=== PATIENT | male | born 1940 | race Caucasian/White ===

== ENCOUNTER → 2018-06-29 | Outpatient (CLI) | payer OTHER ==
--- NOTE | 2018-06-29 13:49 | Diagnostic Imaging Report ---
INDICATION: Shortness of breath for 6 weeks. TIME OF EXAMINATION: 1:14 PM. COMPARISON: No prior studies are available for comparison. FINDINGS: The heart is enlarged. The lungs are hyperinflated, consistent with COPD. There are some basilar interstitial changes. The chronicity of this is indeterminate. There may be trace pleural fluid or pleural thickening. No parenchymal consolidation is identified. There is no pneumothorax. IMPRESSION: Cardiomegaly and COPD. There are some mild interstitial changes. Chronicity of this is indeterminate. Dictated by: Dictated on workstation # [id number]
== END ==
LOC: RAD FS 13:08
PROVIDERS: ATTEND Family Medicine
DX: I25.10 Atherosclerotic heart disease of native coronary artery without angina pectoris (principal); I51.7 Cardiomegaly; J44.9 Chronic obstructive pulmonary disease, unspecified; J84.9 Interstitial pulmonary disease, unspecified
CPT/HCPCS: 71046

== ENCOUNTER 2018-10-09 08:41 | Outpatient (RCR) | payer MEDICARE, OTHER ==
[2018-07-12 14:30] LABS: INR 2.2 (0.8-1.4); PROTHROMBIN TIME PATIENT 24.4 SEC (12.2-14.7)
[2018-08-13 10:03] LABS: INR 2.6 (0.8-1.4); PROTHROMBIN TIME PATIENT 29.3 SEC (12.2-14.7)
[2018-09-10 09:16] LABS: INR 2.1 (0.8-1.4); PROTHROMBIN TIME PATIENT 24.5 SEC (12.2-14.7)
[2018-10-09 09:26] LABS: INR 1.8 (0.8-1.4); PROTHROMBIN TIME PATIENT 22.1 SEC (12.2-14.7)
== END 2018-10-10 | disposition home or self-care (01) ==
LOC: LAB FS 08:41
PROVIDERS: ATTEND Pediatrics
DX: I48.91 Unspecified atrial fibrillation (principal)
CPT/HCPCS: 36415; 85610

== ENCOUNTER → 2018-10-26 | Outpatient (CLI) | payer MEDICARE ==
--- NOTE | 2018-10-26 14:01 | Diagnostic Imaging Report ---
INDICATION: SOB COMPARISON: 06/29/2018. FINDINGS: Frontal and lateral views of the chest demonstrate mild cardiomegaly. Pulmonary vasculature however is within normal limits. The lungs are clear. There are no signs of infiltrate, pleural effusions or pneumothoraces. The visualized osseous structures show no acute abnormalities. IMPRESSION: 1. No acute process. No signs of infiltrates, effusions or pneumothoraces. Dictated by: Dictated on workstation # [id number]
== END ==
LOC: RAD 13:43
PROVIDERS: ATTEND Pediatrics
DX: R06.02 Shortness of breath (principal)
CPT/HCPCS: 71046

== ENCOUNTER → 2018-10-29 | Outpatient (CLI) | payer MEDICARE ==
[~2018-10-29] MED LIST: RT-ALBUTEROL SULF 2.5 MG/3 ML PRE-MIX VIAL INH ONE
== END ==
LOC: RT 10:07
PROVIDERS: ATTEND Pediatrics
DX: R06.02 Shortness of breath (principal)
CPT/HCPCS: 94060; 94726; 94729

== ENCOUNTER 2019-02-25 08:55 | Outpatient (RCR) | payer MEDICARE ==
[2018-12-10 10:17] LABS: INR 1.5 (0.8-1.4); PROTHROMBIN TIME PATIENT 18.6 SEC (12.2-14.7)
[2019-01-14 08:48] LABS: INR 2.9 (0.8-1.4); PROTHROMBIN TIME PATIENT 31.2 SEC (12.2-14.7)
[2019-02-04 09:14] LABS: INR 1.5 (0.8-1.4)
[2019-02-18 09:31] LABS: INR 3.3 (0.8-1.4); PROTHROMBIN TIME PATIENT 34.8 SEC (12.2-14.7)
[2019-02-25 09:47] LABS: INR 2.4 (0.8-1.4); PROTHROMBIN TIME PATIENT 27.3 SEC (12.2-14.7)
== END 2019-03-10 | disposition home or self-care (01) ==
LOC: LAB FS 08:55
PROVIDERS: ATTEND Pediatrics
DX: I48.91 Unspecified atrial fibrillation (principal)
CPT/HCPCS: 36415; 85610

== ENCOUNTER 2019-04-08 08:36 | Outpatient (RCR) | payer MEDICARE ==
[2019-04-08 10:00] LABS: INR 1.9 (0.8-1.4); PROTHROMBIN TIME PATIENT 22.6 SEC (12.2-14.7)
== END 2019-07-07 | disposition home or self-care (01) ==
LOC: LAB FS 08:36
PROVIDERS: ATTEND Pediatrics
DX: I48.91 Unspecified atrial fibrillation (principal)
CPT/HCPCS: 36415; 85610

== ENCOUNTER → 2020-10-26 | Outpatient (CLI) | payer MEDICARE | LOC: WOUNDCARE 08:56 | PROVIDERS: ATTEND Surgery | DX: L03.115 Cellulitis of right lower limb (principal); I89.0 Lymphedema, not elsewhere classified; I87.321 Chronic venous hypertension (idiopathic) with inflammation of right lower extremity; J44.9 Chronic obstructive pulmonary disease, unspecified | CPT/HCPCS: 99211 ==

== ENCOUNTER 2020-12-03 14:25 | Emergency (ER) | payer MEDICARE, OTHER ==
[~2020-12-03] VITALS: Ht 182.9 cm; Wt 117.9 kg
--- NOTE | 2020-12-03 14:36 | ED Head Injury ---
General Stated Complaint: FALL; HEAD INJ History of Present Illness Date Seen by Provider: Dec 03, 2020 Time Seen by Provider: 14:33 Initial Comments 80-year-old male presents after a fall he had earlier today. States he was bending over to pick something off the floor and he fell backwards hitting his head on the ground. Denies any loss of consciousness, feeling dazed or confused. He did have some bleeding from the scalp that is now controlled. Afterwards he had some blurred vision in his right eye which has been gradually improving. Denies any blind spots or loss of vision. Denies any weakness, joint pain, neck or back pain or other complaint. He does take blood pressure medicine and a "blood thinner". Allergies and Home Medications Allergies Coded Allergies: No Known Drug Allergies (Unverified , 10/29/18) Patient Home Medication List Home Medication List Reviewed: Yes Review of Systems Review of Systems Constitutional: No fever, No malaise, No weakness Eyes: See HPI, Blurred Vision; Denies Drainage, Denies Decreased Acuity, Denies Inflammation, Denies Pain, Denies Photophobia; Glasses Ears, Nose, Mouth, Throat: no symptoms reported Respiratory: no symptoms reported Cardiovascular: No chest pain, No edema, No palpitations Gastrointestinal: No abdominal pain, No nausea, No vomiting Musculoskeletal: No back pain, No joint pain, No neck pain Skin: No change in color, No lesions; other (scalp injury- bleeding controlled) Psychiatric/Neurological: Headache; Denies Numbness, Denies Tingling, Denies Unable to Move Lower Ext, Denies Unable to Move Upper Ext, Denies Weakness Past Iggiuzc-Swcula-Zjghef Hx Patient Social History Tobacco Use?: No Physical Exam Vital Signs Vital Signs - First Documented Capillary Refill : Height, Weight, BMI Height: '" Weight: lbs. oz. kg; BMI Method: General Appearance: WD/WN, no apparent distress HEENT: PERRL/EOMI, normal ENT inspection Neck: non-tender, supple Cardiovascular: regular rate, rhythm, no edema, no JVD Respiratory: chest non-tender, lungs clear, normal breath sounds, no respiratory distress, no accessory muscle use Gastrointestinal: non tender, soft Back: normal inspection, no CVA tenderness Extremities: normal range of motion, non-tender Psychiatric: alert, oriented x 3 Crainal Nerves: normal hearing, normal speech Coordination/Gait: normal finger to nose, normal gait Motor/Sensory: no motor deficit, no sensory deficit, no pronator drift Skin: normal color, warm/dry, other (vertex scalp -contusion/ abrasion) Robert Coma Score Best Eye Response: (4) Open Spontaneously Best Verbal Response: (5) Oriented Best Motor Response: (6) Obeys Commands Progress/Results/Core Measures Results/Orders My Orders Orders - WILL BLAIR DO Ct Head Wo (12/03/20 14:36) Vital Signs/I&O 12/03/20 12/03/20 14:25 14:25 Temp 36.2 36.2 Pulse 82 82 Resp 18 18 B/P (MAP) 179/117 (137) 179/117 (137) Pulse Ox 99 99 O2 Delivery Room Air Room Air Diagnostic Imaging Diagonstic Imaging: CT Plain Films/CT/US/NM/MRI: head Comments COMPARISON: I have no priors for direct comparison. FINDINGS: There is a mild degree of cerebrocortical atrophy, not unremarkable given the patient's age. The ventricular calibers are congruent with the degree of sulcation and there is no keyanna hydrocephalus. Basilar cisterns are patent. No sulcal effacement. The cortical burrell-white matter differentiations are maintained. No mass or mass effect. No evidence for elevated intracerebral pressures. There is no calvarial fracture deformity. The mastoid air cells and middle ear cavities are clear. The orbits and paranasal sinuses are nonacute. IMPRESSION: Mild senescent atrophy but no hemorrhage, fracture, or other acute/post-traumatic abnormalities. No hemo-sinus and no detected facial fracture or appreciable orbital pathology. Dictated on workstation # [id number] Dict: 12/03/20 1456 Trans: 12/03/20 1502 [id number] [id number] Interpreted by: GELY HA Electronically signed by: Departure Impression Primary Impression: Head contusion Qualified Codes: S00.03XA - Contusion of scalp, 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 Additional Impression: Fall from ground level Disposition: 01 HOME, SELF-CARE Condition: Stable Departure-Patient Inst. Decision time for Depature: 14:53 Referrals: JEANINE INTERIANO MD (PCP/Family) Primary Care Physician Patient Instructions: Contusion (DC), Minor Head Injury (DC), Preventing Falls ED Add. Discharge Instructions: Follow up to the nearest ER for any progression of your symptoms, visual changes, worsening headache, confusion or persistent vomiting WILL BLAIR DO Dec 03, 2020 14:36
--- NOTE | 2020-12-03 15:03 | Diagnostic Imaging Report ---
PROCEDURE: CT head without contrast. TECHNIQUE: Multiple contiguous axial images were obtained through the brain without the use of intravenous contrast. Auto Exposure Controls were utilized during the CT exam to meet ALARA standards for radiation dose reduction. INDICATION: Post closed head injury with right-sided visual disturbance. COMPARISON: I have no priors for direct comparison. FINDINGS: There is a mild degree of cerebrocortical atrophy, not unremarkable given the patient's age. The ventricular calibers are congruent with the degree of sulcation and there is no keyanna hydrocephalus. Basilar cisterns are patent. No sulcal effacement. The cortical burrell-white matter differentiations are maintained. No mass or mass effect. No evidence for elevated intracerebral pressures. There is no calvarial fracture deformity. The mastoid air cells and middle ear cavities are clear. The orbits and paranasal sinuses are nonacute. IMPRESSION: Mild senescent atrophy but no hemorrhage, fracture, or other acute/post-traumatic abnormalities. No hemo-sinus and no detected facial fracture or appreciable orbital pathology. Dictated by: Dictated on workstation # [id number]
[2020-12-03 15:20] VITALS: BP 186/98
== END 2020-12-03 15:20 | disposition home or self-care (01) ==
LOC: EDUNIT# 14:25 → ER FS 14:26
DX: S00.03XA Contusion of scalp, 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 (principal); W22.8XXA Striking against or struck by other objects, 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
CPT/HCPCS: 70450

== ENCOUNTER → 2020-12-12 | Outpatient (CLI) | payer MEDICARE ==
[2020-12-12 10:55] LABS: INR 3.3 (0.8-1.4); PROTHROMBIN TIME PATIENT 33.6 SEC (12.2-14.7)
== END ==
LOC: LAB FS 10:13
PROVIDERS: ATTEND Pediatrics
DX: Z01.89 Encounter for other specified special examinations (principal)
CPT/HCPCS: 36415; 85610

== ENCOUNTER 2020-12-15 05:37 | Emergency (ER) | payer MEDICARE ==
[~2020-12-15] VITALS: Ht 182.9 cm; Wt 83.9 kg
--- NOTE | 2020-12-15 05:50 | ED Headache ---
General Chief Complaint: Head/Cervical Problems Stated Complaint: HEADACHE Nursing Triage Note: PT TO ROOM 01 WITH C/O MIGRAINE X3 DAYS. PT REPORTS TAKING TYLENOL 500MG AT 0500. PT REPORTS FALLING LAST MONDAY AND HIT HEAD ON DOOR. PT STATES HE WAS SEEN IN THIS ED FOR C/O AND DISCHARGED. History of Present Illness Date Seen by Provider: Dec 15, 2020 Time Seen by Provider: 05:50 Initial Comments 80-year-old male [facility] with complaint of headache and uncontrolled blood pressure for the past 5 days. Patient with history of hypertension and he takes metoprolol 200 mg daily, no other BP medicine. Patient has headache is in front of his head feels like it is throbbing, he has had it before. The nurses have been giving him Tylenol for his headache and nothing else. He denies any weakness, difficulty speech or swallowing. He does have swelling of his lower extremities, but no worse than usual. Denies chest pain, but does have some mild shortness of air. Denies recent illness, fever chills, nausea vomiting or cough. Allergies and Home Medications Allergies Coded Allergies: No Known Drug Allergies (Unverified , 10/29/18) Patient Home Medication List Home Medication List Reviewed: Yes Review of Systems Review of Systems Constitutional: No chills, No dizziness, No fever, No malaise, No weakness Eyes: Denies Blindness, Denies Blurred Vision Ears, Nose, Mouth, Throat: no symptoms reported Respiratory: No cough; short of breath; No stridor, No wheezing Cardiovascular: No chest pain; edema; No palpitations, No syncope Gastrointestinal: No abdominal pain; nausea; No vomiting Musculoskeletal: No back pain, No joint pain Skin: No change in color, No rash Psychiatric/Neurological: Headache; Denies Numbness, Denies Paresthesia Past Ipvfkbv-Zgkyvp-Artial Hx Patient Social History Tobacco Use?: No Smoking Status: Never a Smoker Substance use?: No Alcohol Use?: No Pt feels they are or have been: No Past Medical History Atrial Fibrillation, Hypertension Physical Exam Vital Signs Vital Signs - First Documented 12/15/20 05:38 Temp 36.5 Pulse 78 Resp 17 B/P (MAP) 197/111 (139) Pulse Ox 99 O2 Delivery Nasal Cannula O2 Flow Rate 2.00 Capillary Refill : Less Than 3 Seconds Height, Weight, BMI Height: '" Weight: lbs. oz. kg; 25.00 BMI Method: General Appearance: WD/WN, no apparent distress HEENT: PERRL/EOMI, normal ENT inspection Neck: non-tender, supple Cardiovascular: regular rate, rhythm, no JVD Respiratory: chest non-tender, lungs clear, no respiratory distress, no accessory muscle use Gastrointestinal: non tender, soft Back: normal inspection, no CVA tenderness Extremities: non-tender, pedal edema Psychiatric: alert, oriented x 3 Crainal Nerves: normal hearing, normal speech, PERRL Motor/Sensory: no motor deficit, no sensory deficit Skin: normal color, warm/dry Progress/Results/Core Measures Results/Orders Lab Results Laboratory Tests Test 12/15/20 05:55 Range/Units White Blood Count 16.3 H 4.3-11.0 10^3/uL Red Blood Count 4.23 L 4.35-5.85 10^6/uL Hemoglobin 14.6 13.3-17.7 G/DL Hematocrit 43 40-54 % Mean Corpuscular Volume 102 H 80-99 FL Mean Corpuscular Hemoglobin 35 H 25-34 PG Mean Corpuscular Hemoglobin Concent 34 32-36 G/DL Red Cell Distribution Width 13.3 10.0-14.5 % Platelet Count 134 130-400 10^3/uL Mean Platelet Volume 12.8 H 7.4-10.4 FL Immature Granulocyte % (Auto) 0 % Neutrophils (%) (Auto) 27 L 42-75 % Lymphocytes (%) (Auto) 67 H 12-44 % Monocytes (%) (Auto) 5 0-12 % Eosinophils (%) (Auto) 1 0-10 % Basophils (%) (Auto) 0 0-10 % Neutrophils # (Auto) 4.4 1.8-7.8 X 10^3 Lymphocytes # (Auto) 11.0 H 1.0-4.0 X 10^3 Monocytes # (Auto) 0.8 0.0-1.0 X 10^3 Eosinophils # (Auto) 0.1 0.0-0.3 10^3/uL Basophils # (Auto) 0.0 0.0-0.1 10^3/uL Immature Granulocyte # (Auto) 0.0 0.0-0.1 10^3/uL Neutrophils % (Manual) 35 % Lymphocytes % (Manual) 60 % Monocytes % (Manual) 3 % Atypical Lymphocytes 2 % Smudge Cells MOD Platelet Estimate DECREASED Macrocytosis MODERATE Blood Morphology Comment NORMAL Prothrombin Time 23.6 H 12.2-14.7 SEC INR Comment 2.1 H 0.8-1.4 Activated Partial Thromboplast Time 52 H 24-35 SEC Sodium Level 129 L 135-145 MMOL/L Potassium Level 4.3 3.6-5.0 MMOL/L Chloride Level 89 L 98-107 MMOL/L Carbon Dioxide Level 33 H 21-32 MMOL/L Anion Gap 7 5-14 MMOL/L Blood Urea Nitrogen 9 7-18 MG/DL Creatinine 0.90 0.60-1.30 MG/DL Estimat Glomerular Filtration Rate 81 BUN/Creatinine Ratio 10 Glucose Level 100 70-105 MG/DL Calcium Level 8.9 8.5-10.1 MG/DL Corrected Calcium 9.3 8.5-10.1 MG/DL Total Bilirubin 1.1 H 0.1-1.0 MG/DL Aspartate Amino Transf (AST/SGOT) 12 5-34 U/L Alanine Aminotransferase (ALT/SGPT) 6 0-55 U/L Alkaline Phosphatase 92 40-136 U/L Pro-B-Type Natriuretic Peptide 4942.0 H <75.0 PG/ML Total Protein 6.4 6.4-8.2 GM/DL Albumin 3.5 3.2-4.5 GM/DL My Orders Orders - CHANVENSTWILL PRUITT DO Ed Iv/Invasive Line Start (12/15/20 05:50) Ekg Tracing (12/15/20 05:50) Cbc With Automated Diff (12/15/20 05:50) Comprehensive Metabolic Panel (12/15/20 05:50) Probnp Fs (12/15/20 05:50) Ct Head Wo (12/15/20 05:57) Chest 1 View Ap/Pa Only (12/15/20 05:58) Labetalol Injection (Normodyne Injection (12/15/20 06:00) Ondansetron Injection (Zofran Injectio (12/15/20 06:00) Manual Differential (12/15/20 05:55) Partial Thromboplastin Time (12/15/20 06:38) Protime With Inr (12/15/20 06:38) Labetalol Injection (Normodyne Injection (12/15/20 07:15) Vitamin K 10 Mg Iv (12/15/20 07:45) Levetiracetam Injection (Keppra Injectio (12/15/20 07:35) Medications Given in ED Current Medications Medications Dose Ordered Sig/Pa Route Start Time Stop Time Status Last Admin Dose Admin Labetalol HCl 20 mg ONCE ONCE IV 12/15/20 06:00 12/15/20 06:01 DC 12/15/20 06:03 20 MG Labetalol HCl 20 mg ONCE ONCE IV 12/15/20 07:15 12/15/20 07:16 DC 12/15/20 07:10 20 MG Ondansetron HCl 4 mg ONCE ONCE IVP 12/15/20 06:00 12/15/20 06:01 DC 12/15/20 06:03 4 MG Vital Signs/I&O 12/15/20 05:38 Temp 36.5 Pulse 78 Resp 17 B/P (MAP) 197/111 (139) Pulse Ox 99 O2 Delivery Nasal Cannula O2 Flow Rate 2.00 Blood Pressure Mean: 139 Progress Progress Note : Progress Note 0633- called [facility] - only have beds for ICU admits and Neurosurgeon says he does not need ICU, diverted 0652- called [facility]- closed to transfer at all facilities 0655- called [facility] Initial ECG Impression Date: Dec 15, 2020 Initial ECG Impression Time: 06:00 Initial ECG Rate: 90 Initial ECG Rhythm: A Fib/Flutter Initial ECG Intervals: Normal Initial ECG Impression: Atrial Fibrillation Diagnostic Imaging Diagonstic Imaging: CT Comments Subdural hematoma Reviewed: Reviewed by Me Transfer of Care Time: 07:00 Care transferred to: Dr Gómez Departure Impression Primary Impression: Subdural hematoma, acute Additional Impressions: Headache Qualified Codes: R51.9 - Headache, unspecified Hypertension Qualified Codes: I10 - Essential (primary) hypertension Disposition: 01 HOME, SELF-CARE Condition: Improved Transfer Transfer Reason: Exceeds level of care Time Spoke to Accepting Phy: 07:35 Transfer Progress Notes 0735- [facility] spoke to transfer team (Dr Sandoval- accepting and Dr Gardner- Neurosurgeon) advised Vit K and 500mg Keppra pt stable BP to 134/70 Method of Transfer: EMS Departure-Patient Inst. Referrals: JEANINE INTERIANO MD (PCP/Family) Primary Care Physician WILL BLAIR DO Dec 15, 2020 05:50
[2020-12-15] MEDS ORDERED: ONDANSETRON 4 MG/2 ML (SDV) Z0FRAN IVP ONE (06:00)
[2020-12-15] MEDS ORDERED: LABETALOL HCL 20 MG/4 ML VIAL IV ONE ×2 (06:00→07:15)
[2020-12-15 06:12] LABS: BASOPHILS % (AUTO) 0 % (0-10); EOSINOPHILS % (AUTO) 1 % (0-10); HEMATOCRIT 43 % (40-54); HEMOGLOBIN 14.6 G/DL (13.3-17.7); LYMPHOCYTES % (AUTO) 67 % (12-44); MEAN CORPUSCULAR HEMOGLOBIN 35 PG (25-34); MEAN CORPUSCULAR HGB CONC 34 G/DL (32-36); MEAN CORPUSCULAR VOLUME 102 FL (80-99); MEAN PLATELET VOLUME 12.8 FL (7.4-10.4); MONOCYTES % (AUTO) 5 % (0-12); NEUTROPHILS % (AUTO) 27 % (42-75); PLATELET COUNT 134 10^3/uL (130-400); WHITE BLOOD COUNT 16.3 10^3/uL (4.3-11.0)
[2020-12-15 06:13] LABS: MONOCYTES # (AUTO) 0.8 X 10^3 (0.0-1.0); NEUTROPHILS # (AUTO) 4.4 X 10^3 (1.8-7.8)
[2020-12-15 06:14] LABS: EOSINOPHILS # (AUTO) 0.1 10^3/uL (0.0-0.3)
[2020-12-15 06:27] LABS: ATYPICAL LYMPHOCYTES 2 %; LYMPHOCYTES % (MANUAL) 60 %; MONOCYTES % (MANUAL) 3 %; NEUTROPHILS % (MANUAL) 35 %; PLATELET ESTIMATE DECREASED; RBC MORPH NORMAL; SMUDGE CELLS MOD
[2020-12-15 06:30] LABS: POTASSIUM 4.3 MMOL/L (3.6-5.0)
[2020-12-15 06:33] LABS: CREATININE SERUM 0.9 MG/DL (0.60-1.30)
[2020-12-15 06:34] LABS: BILIRUBIN,TOTAL 1.1 MG/DL (0.1-1.0); CALCIUM 8.9 MG/DL (8.5-10.1)
[2020-12-15 06:36] LABS: ALBUMIN 3.5 GM/DL (3.2-4.5); TOTAL PROTEIN 6.4 GM/DL (6.4-8.2)
[2020-12-15 06:57] LABS: INR 2.1 (0.8-1.4); PROTHROMBIN TIME PATIENT 23.6 SEC (12.2-14.7)
--- NOTE | 2020-12-15 07:19 | Diagnostic Imaging Report ---
PROCEDURE: CT head without contrast. TECHNIQUE: Multiple contiguous axial images were obtained through the brain without the use of intravenous contrast. Auto Exposure Controls were utilized during the CT exam to meet ALARA standards for radiation dose reduction. INDICATION: Headache for [address] head exam of 12/03/2020 failed to show any sign of an acute intracranial abnormality. However in the interval since the prior exam an acute/subacute subdural hematoma has developed along the periphery of the left cerebral hemisphere. The hematoma measures approximately 1.3 cm maximum depth. There is also mass effect on the underlying left cerebral hemisphere resulting in 6.2 mm shift of the midline to the right. In addition there is fairly extensive hemorrhage in the subdural space adjacent to the tentorium and falx. There is no intraparenchymal hemorrhage noted. The ventricles are not quite as prominent as on the prior study due to the underlying mass effect caused by the subdural hematoma. The bone windows show no evidence for a skull fracture. The orbits are symmetrical and within normal limits. The sinuses are generally clear. IMPRESSION: 1. In the interval since the prior exam an acute/subacute subdural hematoma has developed on the left. There is also hemorrhage in the subdural space adjacent to the falx and along the tentorium. The subdural hematoma is producing mass effect upon the underlying left cerebral hemisphere resulting in 6 mm shift of midline to the right. 2. There is no acute intracranial abnormality otherwise. 3. These results were discussed with Dr. Florencio Keating at the [facility] at 650 on 12/15/2020. CRITICAL FINDING Dictated by: Dictated on workstation # [id number]
--- NOTE | 2020-12-15 07:41 | Diagnostic Imaging Report ---
EXAMINATION: Portable erect AP chest at 5:56 AM INDICATION: Fell, migraines, hypertension. The cardiomegaly noted on the prior exam of 10/26/2018 is again evident and not significantly changed. In the interval since the prior study, however, a vague area of increased density has developed in the left retrocardiac region. This region is not particularly well penetrated but I suspect that there is some atelectasis/infiltrate and fluid now present in this area. There is also a vague area of slightly increased density about the right hilum. This too could be related to mild pneumonia/atelectasis. The lungs are otherwise clear. The mediastinum is not widened. The osseous structures are intact. IMPRESSION: The appearance of the chest has worsened since the prior study as mild left lobe atelectasis/infiltrate and fluid has developed. There may also be a small amount of pneumonia/atelectasis about the right hilum. A follow-up study would be recommended for continued evaluation. Dictated by: Dictated on workstation # [id number]
[2020-12-15] MEDS ORDERED: PHYTONADIONE (ADULT) INJECTION 10 MG in NS (IVPB) 50 ML IV ONE (07:45)
[2020-12-15 08:11] VITALS: BP 102/60
--- OUTSIDE RECORDS SUMMARY | 2020-12-15 22:03 | XMS REPORT | Encounter Summary ---
Author Author [facility] Organization [facility] Address Unknown Phone Unavailable Care Team Providers Care Project Technician Name Role Phone PCP Unavailable Reason for Visit * Reason Comments Transfer Of Care from [facility] with SDH Encounter Details Care Team Description Date Type Department Jaxon Silva MD [address] [facility] Dept of Emergency Services [place], [place] [id number] Beto Muro MD [address] [facility] [address] [place], [place] [id number] SDH (subdural hematoma) (HCC) (Primary D x); Acute neck pain; Acute pain due to trauma; Fall, 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; 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; Traumatic subdural hematoma with loss of consciousness, 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 (HCC) [facility] [address] [place], [place] [id number] Social History Date Tobacco Use Types Packs/Day Years Used Never Assessed Sex Assigned at Date Recorded Not on file documented as of this encounter Last Filed Vital Signs Reading Time Taken Comments Vital Sign 124/75 12/15/2020 7:00 PM CDT Blood Pressure 86 12/15/2020 7:00 PM CDT Pulse 36.4 C (97.5 F) 12/15/2020 4:00 PM CDT Temperature 17 12/15/2020 7:00 PM CDT Respiratory Rate 94% 12/15/2020 7:00 PM CDT Oxygen Saturation - - Inhaled Oxygen Concentration 117.9 kg (260 lb) 12/15/2020 9:47 AM CDT Weight - - Height - - Body Mass Index documented in this encounter Progress Notes * Sangeeta Foley PA-C - 12/15/2020 4:58 PM CDT Preliminary radiology read shows subacute L1 and L3 fractures. Will discuss if a ny bracing is recommended with Dr. Jorge when he is available. For the time alfred guerreroamnuel, it is ok for the patients bed to be raised to 30 degrees. Repeat CTH shows stability of his areas of SDH. No surgical intervention is bony mmended at this time unless the patients exam deteriorates which would warrant a nother CTH. CT cervical spine appears neg for fracture, we are awaiting final read. SCD for DVT ppx Sangeeta MONAHAN PA-C [facility] [facility], [address] [place] [address] Available via Voalte. After 5 pm and on weekends please call the construction plumber provider or [phone] * Alex Thapa PA - 12/15/2020 11:20 AM CDT Critical Care Progress Note PATIENT NAME: Abner Thomas DATE of SERVICE: 12/15/2020 CPI: [id number] AGE: 80 y.o. : 1940 CHIEF COMPLAINT: Fall DATE OF PROCEDURES: None HOSPITAL COURSE: Abner Thomas is a 80 year old male with past medical hx of a fib on [facility] a nticoagulant. Seen at OSH ED for fall 5 days ago, CT head was negative for ICH. He woke up with a headache this morning 12/15/2020 and returned to OSH ED. CT hea d today showed 13mm left subdural hematoma with 6mm shift. He was given Vitamin K at OSH. Prior to transport he had decrease mental status and blood pressure in 90s. Upon arrival to [facility] ED, patient awake and bp in 140s. He was given K Centra for reversal and keppra for seizure prophylaxis. INR was 1.[address] in ED[address] Repeat Head CT showed stable left subdural hematoma and increase in posterior falcine darshan lisbeth. Started on cardene gtt in ED to meet blood pressure goals. Admitted to [facility] for close monitoring. PAST MEDICAL HISTORY: No past medical history on file. PAST SURGICAL HISTORY: No past surgical history on file. SOCIAL HISTORY: Social History Socioeconomic History Marital status: Spouse name: Not on file Number of children: Not on file Years of education: Not on file Highest education level: Not on file Occupational History Not on file Tobacco Use Smoking status: Not on file Substance and Sexual Activity Alcohol use: Not on file Drug use: Not on file Sexual activity: Not on file Other Topics Concern Not on file Social History Narrative Not on file Social Determinants of Health Financial Resource Strain: Difficulty of Paying Living Expenses: Food Insecurity: Worried About Running Out of Food in the Last Year: Ran Out of Food in the Last Year: Transportation Needs: Lack of Transportation (Medical): Lack of Transportation (Non-Medical): Physical Activity: Days of Exercise per Week: Minutes of Exercise per Session: Stress: Feeling of Stress : Social Connections: Frequency of Communication with Friends and Family: Frequency of Social Gatherings with Friends and Family: Attends [employer] Services: Active Member of Clubs or Organizations: Attends Club or Organization Meetings: Marital Status: Intimate Partner Violence: Fear of Current or Ex-Partner: Emotionally Abused: Physically Abused: Sexually Abused: FAMILY HISTORY: No family history on file. ALLERGIES: Patient has no known allergies. PRIOR TO ADMISSION MEDICATIONS: No medications prior to admission. 24-HOUR HISTORY/EVENTS OF NOTE: Admitted to NSICU. SBP <140. NSGY consult. ROS: 10 points reviewed and found positive except as noted in the HPI, or below: Cons t: Negative Eyes: Negative ENMT: Headache Pulm: Shortness of breath and Uses oxygen CV: Negative GI: Negative /CARE TEAM COORDINATOR SCHEDULER: Increase frequency of urination Neuro: Weakness Psych: Negative MS: Recent falls and Right lower extremity weakness Skin: Negative Heme/Lymph: On coumadin PHYSICAL EXAM: Vitals: BP (!) 143/94 | Pulse 86 | Temp 36.3 C (97.4 F) (Axillary) | Resp 20 | W t 117.9 kg (260 lb) | SpO2 97% Respiratory Support: O2 Device: Nasal cannula O2 Flow Rate (L/min): 3 L/min T-High: Temp (24hrs), Av.4 C (97.6 F), Min:36.3 C (97.4 F), Max:36.6 C (97 .8 F) Fluid Balance: I/O last 24 Hours: In: 5.7 [I.V.:5.7] Out: - General Appearance: Lying in bed, no acute distress Neurologic: AAOx3. Speech is fluent and appropriate. Responds to voice. No facial droop present. Decrease sensation RUE and RLE RUE Strength 2/5 RLE withdrawal to painful stimuli. Unable to wiggle toes LUE Strength 5/5, no pronator drift LLE Strength 5/5, no drift HEENT: Eyes: Pupils 2 mm, equal, round and reactive to light. EOMs intact witho ut nystagmus. Sclera white, no edema. Visual calderón intact. Head: normocephalic, atraumatic. Neck: Trachea midline. No JVD. C-collar in place. Throat/Mouth: ora l mucosa pink, no lesions Lungs: Bilateral Expiratory Wheezes, no accessory muscle use Heart: Iregular rate and rhythm, S1/S2, no murmur, no rub Abdomen: Soft, non-tender, bowel sounds active all four quadrants Genitourinary: Deferred Extremities: Extremities normal passive ROM, no edema Pulses/Perfusion: 2+ pulses radial and dorsalis pedis, warm and well perfused Skin: No rashes or lesions Surgical Site: None LAB RESULTS: No lab components to display Most Recent Result from last 24 hours Lab Units 12/15/20 1022 SODIUM MEQ/L 126* POTASSIUM MEQ/L 4.6 CHLORIDE MEQ/L 89* CARBON DIOXIDE MEQ/L 34* BLOOD UREA NITROGEN mg/dL 12 CREATININE mg/dL 0.7 GLUCOSE mg/dL 120* CALCIUM mg/dL 7.9* Most Recent Result from last 24 hours Lab Units 12/15/20 1022 PROTEIN TOTAL SERUM g/dL 5.2* ALKALINE PHOSPHATASE IU/L 61 ALANINE AMINOTRANSFERASE IU/L 10 ASPARTATE AMINOTRANSFERASE IU/L 21 GLUCOSE mg/dL 120* No lab components to display Most Recent Result from last 24 hours Lab Units 12/15/20 1022 APTT sec 35* INR 1.3* ABG: No lab components to display Cultures: No results found for this visit on 12/15/20. ECHOCARDIOGRAPHY: No results found. RADIOLOGY/IMAGING: CT Abdomen Pelvis w contrast Result Date: 12/15/2020 1. No evidence for acute injury within the abdomen or pelvis. 2. 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 No extravasated contrast within aneurysm sac to suggest visible endoleak. Recommend correlation with prior cross sectional imaging. 3. 3.3 cm inferior right hepatic lobe previously enhancing lesion, possibly a benign cavernous hemangioma. Correlate with prior cross sectional imaging to confirm resolution. 4. Nonspecific mild presacral fat stranding. Correlate clinically to exclude a subtle nondisplaced sacrococcygeal fracture. READING SITE: [facility] Chest w contrast Result Date: 12/15/2020 1. No evidence of pulmonary contusion/laceration, pleural effusion/pneumothorax, vascular injury or acute displaced fracture. Subacute fractures along the right lateral rib cage (7th and 8th right lateral ribs). 2. Few diminutive pulmonary nodules bilaterally. In this patient with emphysema and increased risk for lung cancer, annual surveillance could be beneficial in the long-term. 3. Cardiomegaly. Coronary atherosclerosis. READING SITE: [employer] XR Chest single view frontal Result Date: 12/15/2020 Question small left pleural effusion. No pneumothorax. No focal consolidation. Consider further evaluation with PA and lateral chest radiograph. READING SITE: [employer] XR Pelvis one or two views Result Date: 12/15/2020 No evidence of fracture. READING SITE: [facility] MEDICATIONS: INFUSIONS: niCARdipine 5 mg/hr (12/15/20 1026) ICU BEST PRACTICE: CODE STATUS: DNR (Do Not Resuscitate) LOS: 0 DELIRIUM PRESENT: No SEDATION VACATION: N/A SBT: N/A DIET: NPO, strict GI PROPHYLAXIS: Not indicated GLYCEMIC CONTROL: Yes VTE PREVENTION: SCDs Hold subq heparin and coumadin BARRY: No Barry LINES: PIV x1 DRAINS: None AIRWAY: Not Intubated ANTIBIOTIC REVIEW: N/A MAR/HOME MED REVIEW: Yes BOWEL REGIMEN: Yes BM LAST 48 HRS: N/A THERAPIES: PT and OT when appropriate MOBILITY: Spinal precautions PPE Statement: RIMA Mo used Yellow precautions (Level 1 mask wo rn over level 3 mask, eye protection, and gloves). DIAGNOSIS: Neuro: Traumatic Subdural Hematoma Traumatic Brain Compression Compression fracture of body of L1 vertebra CV: A-Fib Hypertensive Urgency requiring cardene infusion Pulm: Chronic Respiratory Failure HEME: Long-term use of Anticoagulation Hx of DVT Renal: Hyponatremia Hypoalbuminemia ENDO: Type II Diabetes Mellitus ID: Leukocytosis MSK: Fall Right lower Extremity Paresis PLAN: Admit NSICU NSGY consult SBP <140 Cardene Infusion Hourly Neurochecks [facility] Consult for PICC line placement Na Goal 130-135 3% infusion 40 mls/hr Na/K q6h Hold coumadin C-collar in place until final spinal reads Acetaminophen for pain PRN Compazine for nausea prn Obtain medical records from outside facility DNI I personally reviewed the patient events of the previous 24 hours, physical exam , laboratory findings, radiologic studies including images, fluid balance, neuro logic status, cardiovascular status including pulmonary status, metabolic status including nutrition, and medications with Dr. Ann. Abner Thomas was adm itted to the NSICU for a left subdural hematoma due to fall 5 days ago. I person ally discussed his care with NSGY and will maintain his systolic goal with carde ne infusion. At this time there is no plan for surgical intervention but NSGY wi ll be following closely. I have ordered a repeat CT head to monitor status of SD H. Even though he has a subdural hematoma his sodium is critically low. I will s tart 3% hypertonic for gentle sodium resuscitation and trend Na/K q6h. Due to hi s subdural hematoma I will hold coumadin at this time. I have placed a request f or records to outside hospital due to patient being unable to give accurate medi farrah history. Discussed patient with trauma surgery, I will continue spinal preca utions and leave c-collar in place. Patient has leukocytosis but currently has n o fever, I suspect this is stress induced but I will monitor for other clinical signs of possible sepsis. I will continue to closely monitor patient's neuro and hemodynamic status as he remains in the NSICU. Son, Maynor Thomas, was contacted via to verify code status. Our records show patient is a DNR but son expressed the patient might not fully understand what t hat entails. Patient would be okay with chest compression but in the event he mi ght need to be intubated he does not want to be intubated. Education regarding hypertonic saline infusion, treatment goals, and plan of car e were discussed and mutually agreed upon with patient and son. I, RIMA Mo, have reviewed all of these findings and the overall assessment and plans for the day are discussed and documented in the Medical Rec ord Note. I was personally present and involved in all aspects of patient care. Level 3 RIMA oM documented in this encounter Consult Notes * Yudi Randolph RN - 12/15/2020 1:47 PM CDT Associated Order(s): CONSULT - VASCULAR ACCESS TEAM Post PCXR- DSVC- line ready to use. Nurse to remove all PIV's. * Yudi Randolph RN - 12/15/2020 1:29 PM CDT Vascular Cleaner Wall will discuss risks, benefits, and alteratives with rima crain, SHIRIN, or family for PICC placement. Placed by Verna Crowe RN VAN. A-fib. Or dered STAT PCXR. documented in this encounter ED Notes * Nikole Lund RN - 12/15/2020 11:04 AM CDT Pt transferred to NSICU on full phototypesetting equipment monitor, accompanied by RNs x2. On 3L NC . Cardene gtt running. Departed w/ all belongings. Bedside report given to HEVER An. * Sandy Robert RN - 12/15/2020 10:13 AM CDT Bed: [id number] Expected date: Expected time: Means of arrival: Comments: transfer * Jaxon Silva MD - 12/15/2020 9:52 AM CDT 12/15/2020 [facility] History No chief complaint on file. Patient presents to the emergency department with head bleed. Patient has falle n 5 days ago, and was seen in outside ER with negative head CT. Patient woke th is morning with a headache. He was taken to an outside ER and found to have a s ubdural hematoma. He apparently was poor to be decreased mental status with blo od pressure in the 90s prior to transfer via ground so Dr. Muro elected to h ave it activated as a trauma red when they arrived. Dr. Muro and his team a re present in the room on arrival. Patient awake and talking blood pressure 140 s. It sounds that labetalol was given prior to transport likely why his blood p ressure dropped transiently. On arrival documented asked to be downgraded to a green so was repaged as a trau ma green patient alert and orient x3, he is in no distress, airway is patent to voice and bilateral breath sounds. No intervention to primary survey The history is provided by the patient. Pertinent Past Medical, Psychiatric, and Social History Reviewed No past medical history on file. No past surgical history on file. No family history on file. Social History Tobacco Use Smoking status: Not on file Substance Use Topics Alcohol use: Not on file Drug use: Not on file Review of Systems Constitutional: Negative. Eyes: Negative. Respiratory: Negative. Cardiovascular: Negative. Gastrointestinal: Negative. Genitourinary: Negative. Musculoskeletal: Negative. Skin: Negative. Neurological: Positive for headaches. Negative for dizziness, tremors, seizures, syncope, facial asymmetry, speech difficulty, weakness, light-headedness and nu mbness. Psychiatric/Behavioral: Negative. All other systems reviewed and are negative. Physical Exam BP (!) 157/87 | Pulse 86 | Temp 97.8 F (36.6 C) (Temporal) | Resp 19 | W t 117.9 kg (260 lb) | SpO2 100% Weight Method: Stated Physical Exam Vitals and nursing note reviewed. Constitutional: General: He is not in acute distress. Appearance: Normal appearance. He is obese. He is not ill-appearing. HENT: Head: Normocephalic and atraumatic. Nose: Nose normal. Mouth/Throat: Mouth: Mucous membranes are moist. Eyes: Extraocular Movements: Extraocular movements intact. Conjunctiva/sclera: Conjunctivae normal. Pupils: Pupils are equal, round, and reactive to light. Cardiovascular: Rate and Rhythm: Normal rate. Pulses: Normal pulses. Pulmonary: Effort: Pulmonary effort is normal. No respiratory distress. Abdominal: General: Abdomen is flat. There is no distension. Tenderness: There is no abdominal tenderness. Musculoskeletal: General: Normal range of motion. Cervical back: Normal range of motion. No rigidity. Skin: General: Skin is warm. Capillary Refill: Capillary refill takes less than 2 seconds. Neurological: General: No focal deficit present. Mental Status: He is alert and oriented to person, place, and time. Mental st atus is at baseline. Cranial Nerves: No cranial nerve deficit. Sensory: No sensory deficit. Psychiatric: Mood and Affect: Mood normal. Behavior: Behavior normal. ED Course Procedures MDM No intervention after primary survey, trauma team present in the room. They hav e ordering further studies and interventions. Patient stable on transfer of car e Dr. Muro at 10:05 AM ED Clinical Impression 1. SDH (subdural hematoma) (HCC) 2. Acute neck pain 3. Acute pain due to trauma 4. 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 Traumatic subdural hematoma with loss of consciousness, 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 (HC C) Patient ED Dispo None No results found for this or any previous visit (from the past 24 hour(s)). XR Pelvis one or two views Final Result No evidence of fracture. READING SITE: [facility] XR Chest single view frontal (Results Pending) CT Cervical Spine wo contrast (Results Pending) CT Head wo contrast (Results Pending) CT Chest w contrast (Results Pending) CT Abdomen Pelvis w contrast (Results Pending) CT Thoracic Spine reconstructed (Results Pending) CT Lumbar Spine reconstructed (Results Pending) Jaxon Silva MD 12/15/20 1004 documented in this encounter Miscellaneous Notes * End of Shift Note - Nataliya Robertson RN - 12/15/2020 7:38 PM CDT End of Shift Summary and Plan of Care Patient came to NSICU floor at 1105. Cardene drip started to meet blood pressure parameters. PICC line inserted, 3 % started. Repeat head CT. No new neuro aceves es. Family visited and updated at bedside. Goals per Patient Condition Fall Prevention Plan Patient will remain free from injury related to falls. See the Daily cares/safety flowsheet for intervention documentation. Skin Integrity Plan Patient skin integrity maintained. See integumentary tunde wsheet for intervention documentation. Goals/Plan for Shift Patient/Family stated goal for shift: Nursing goal for shift: Plan: Goals/Plan for Hospital Stay Nursing goal for hospital stay: Plan: * Therapy Note - Kayla Styles, PT - 12/15/2020 1:23 PM CDT Note order for Physical Therapy consultation. Chart review completed, pt recent ly admitted to [facility] and medical work up is ongoing. Physical Therapy will follow for skilled needs. Thank you for consultation. * Nutrition Note - Yas Torres RD - 12/15/2020 10:32 AM CDT Frail Patient Nutrition Education [facility] Patient: Abner Thomas Age: 80 y.o. : 1940 ATTENDING PHYSICIAN: Jaxon Silva MD Consult received to provide frail patient nutrition education. Pt recently admit abhi, medical w/u ongoing. RD will follow-up for appropriate diet education prior to discharge and monitor nutrition risk per policy. Electronically signed by Yas Torres 12/15/2020 10:33 AM documented in this encounter Plan of Treatment Date/Time Name Type Priority Associated Diag noses 12/15/2020 10:[address] Cervical Spine wo Imaging STAT contrast 12/15/2020 10:[address] Head wo contrast Imaging STAT 12/15/2020 10:[address] Thoracic Spine Imaging STAT reconstructed 12/15/2020 10:[address] Lumbar Spine Imaging STAT reconstructed Order Schedule Name Type Priority Associated Diag noses STAT for 1 Occurrences starting 12/16/19 21 until 12/15/2020 Type and Screen Blood Bank STAT Once - Routine for 1 Occurrences startin g 12/15/2020 until 12/15/2020 Glucose POC Point of Care STAT Testing-Docked Device STAT for 1 Occurrences starting 12/16/19 21 until 12/15/2020 Thromboelastograph Blood Bank STAT Once - Routine for 1 Occurrences startin g 12/15/2020 until 12/15/2020 Glucose POC Point of Care STAT Testing-Docked Device Once - Routine for 1 Occurrences startin g 12/16/2020 until 12/16/2020 Basic Metabolic Panel Lab Routine Once - Routine for 1 Occurrences startin g 12/16/2020 until 12/16/2020 Complete Blood Count Lab Routine Once - Routine for 1 Occurrences startin g 12/16/2020 until 12/16/2020 Clotting Screen Lab Routine Every 6hr until discontinued starting , 1 completed Sodium Lab Timed Every 6hr until discontinued starting , 1 completed Potassium Lab Timed documented as of this encounter Procedures * The patient is currently admitted. The information in this section might not be complete until the patient is discharged. Comments Procedure Name Priority Date/Time Associated Diag nosis CLOTTING SCREEN STAT 12/15/2020 8:00 PM CDT SODIUM Timed 12/15/2020 6:27 PM CDT POTASSIUM Timed 12/15/2020 6:[address] HEAD WO CONTRAST Timed 12/15/2020 3:19 PM CDT URINALYSIS REFLEX Routine 12/15/2020 2:00 PM CDT TOXICOLOGY SCREENING STAT 12/15/2020 PANEL 2:00 PM CDT XR CHEST POST LINE DRAIN STAT 12/15/2020 OR AIRWAY PLACEMENT 1:50 PM CDT GLUCOSE POC Routine 12/15/2020 10:56 AM CDT P2Y12 RESPONSE ASSAY STAT 12/15/2020 10:35 AM CDT VENOUS BLOOD GAS STAT 12/15/2020 10:35 AM CDT ECG STAT 12/15/2020 10:26 AM CDT COVID PCR - RAPID STAT 12/15/2020 10:24 AM CDT CLOTTING SCREEN STAT 12/15/2020 10:22 AM CDT ANTIBODY SCREEN STAT 12/15/2020 10:22 AM CDT TROPONIN STAT 12/15/2020 10:22 AM CDT MAGNESIUM Add-On 12/15/2020 10:22 AM CDT LIPASE STAT 12/15/2020 10:22 AM CDT LACTATE VENOUS WB STAT 12/15/2020 10:22 AM CDT CREATINE KINASE STAT 12/15/2020 10:22 AM CDT COMPREHENSIVE METABOLIC STAT 12/15/2020 PANEL 10:22 AM CDT CBC AND DIFF (MANUAL DIFF STAT 12/15/2020 IF NECESSARY) 10:22 AM CDT AMYLASE STAT 12/15/2020 10:22 AM CDT ALCOHOL SERUM STAT 12/15/2020 10:22 AM CDT ABORH TYPE STAT 12/15/2020 10:[address] THORACIC SPINE STAT 12/15/2020 RECONSTRUCTED 10:21 AM CDT Procedure Note - Interface, Rad Results In - 12/15/2020 12:26 PM CDT Patient: ABNER THOMAS Sex#: M #: 1940 Chrissy#: [id number] Location: [facility] Accession# : [id number] Ordering Provider: ARIN BALL Procedure Requested: [id number] CT THORACIC SPINE RECONSTRUC ABHI Exam Ordered: 12/15/2020 0954 Exam Date/Time: 12/15/2020 1021 Begin exam date/time: 12/15/2020 1003 ++++++++++ ++++++++++ ++++++++++ ++++++++++ ++++++++++ ++++++++++ ++++++++++ +++++ + PRELIMINAR Y PRELIMINAR Y PRELIMINAR Y ++++++++++ ++++++++++ ++++++++++ ++++++++++ ++++++++++ ++++++++++ ++++++++++ +++++ CT THORACIC SPINE RECONSTRUC ABHI 12/15/2020 10:23 AM Indicatio n: trauma; Patient has fallen 5 days ago, and was seen in outside ER with negative head CT. Patient woke this morning with a headache. He was taken to an outside ER and found to have a subdural hematoma. Compariso n: Concurrent same day CT chest Technique : CT imaging of the thoracic spine was reconstruc abhi from same day CT chest. Coronal and sagittal reformatte d images were performed. One or more of the following dose reduction techniques were utilized: Automated exposure control (AEC), Adjustment of mA and/or kV according to patient size, Use of iterative reconstruc tion technique such as ASiR, CT scan done according to ALARA and image gently/[facility]. Findings: The thoracic spine is normally aligned. No acute fracture. Vertebral body heights are maintained without compressio n deformity. There is multilevel anterior osteophyte formation. The interverte bral disc spaces are normal. No aggressive lytic or blastic osseous lesion. No significan t spinal canal stenosis or neural foraminal narrowing. Refer to same day CT chest report for additional pulmonary and thoracic findings. ++++++++++ ++++++++++ ++++++++++ ++++++++++ ++++++++++ ++++++++++ ++++++++++ +++++ + PRELIMINAR Y PRELIMINAR Y PRELIMINAR Y + this is an unsigned PRELIMINAR Y REPORT and does not reflect + correction s, additions, and/or subtracton s to the informatio n + contained in this report ++++++++++ ++++++++++ ++++++++++ ++++++++++ ++++++++++ ++++++++++ ++++++++++ +++++ IMPRESSION Impression : No acute osseous abnormalit y of the thoracic spine. Multileve l anterior osteophyte s as a result of chronic degenerati ve changes. READING SITE: [facility]. ATTESTATI ON STATEMENT: The Staff Radiologis t has personally reviewed the images and dictated, reviewed, or edited the final report. CT LUMBAR SPINE STAT 12/15/2020 RECONSTRUCTED 10:21 AM CDT Procedure Note - Interface, Rad Results In - 12/15/2020 12:25 PM CDT Patient: ABNER THOMAS Sex#: M #: [id number] Chrissy#: [id number] Location: [facility] LED08 Accession# : [id number] Ordering Provider: ARIN BALL Procedure Requested: [id number] CT LUMBAR SPINE RECONSTRUC ABHI Exam Ordered: 12/15/2020 0954 Exam Date/Time: 12/15/2020 1021 Begin exam date/time: 12/15/2020 1003 ++++++++++ ++++++++++ ++++++++++ ++++++++++ ++++++++++ ++++++++++ ++++++++++ +++++ + PRELIMINAR Y PRELIMINAR Y PRELIMINAR Y ++++++++++ ++++++++++ ++++++++++ ++++++++++ ++++++++++ ++++++++++ ++++++++++ +++++ CT LUMBAR SPINE RECONSTRUC ABHI Date: 12/15/2020 10:23 AM Indicatio n: trauma; Patient has fallen 5 days ago, and was seen in outside ER with negative head CT. Patient woke this morning with a headache. He was taken to an outside ER and found to have a subdural hematoma. Compariso n: Concurrent same day CT abdomen and pelvis Technique : Helical CT images of the lumbar spine were reconstruc abhi from same day CT abdomen and pelvis. Coronal and sagittal reformatte d images were also performed. One or more of the following dose reduction techniques were utilized: Automated exposure control (AEC), Adjustment of mA and/or kV according to patient size, Use of iterative reconstruc tion technique such as ASiR, CT scan done according to ALARA and image gently/[employer]. Findings: Age-indete rminate fracture of superior endplate of L1 with approximat jostin 70% height loss. There is a cleft at the superior endplate of L1 that is suggestive of a subacute fracture (likely 1-2 weeks old). There is a second age-indete rminate, but likely subacute, fracture of the superior endplate of L3 with no significan t height loss. The lumbar spine is normally aligned. No acute fracture. Vertebral body heights are maintained without compressio n deformity. No aggressive lytic or blastic osseous lesion. Mild multilevel degenerati ve disc space height loss. Multilevel mild spinal canal stenosis secondary to multilevel disc bulging and facet arthrosis. Multilevel mild neuroforam inal narrowing. Multilevel mild facet arthrosis. No significan t listhesis. Multilevel vacuum disc phenomenon . No soft tissue abnormalit y within the visualized abdomen or pelvis. The visualized abdominal aorta is normal caliber. Refer to concurrent same day CT abdomen and pelvis for intra-abdo jessa and pelvic findings. ++++++++++ ++++++++++ ++++++++++ ++++++++++ ++++++++++ ++++++++++ ++++++++++ +++++ + PRELIMINAR Y PRELIMINAR Y PRELIMINAR Y + this is an unsigned PRELIMINAR Y REPORT and does not reflect + correction s, additions, and/or subtracton s to the informatio n + contained in this report ++++++++++ ++++++++++ ++++++++++ ++++++++++ ++++++++++ ++++++++++ ++++++++++ +++++ IMPRESSION Subacute fracture of superior endplate of L1 with approximat jostin 70% height loss. Presence of superior endplate fracture cleft suggests nonhealing . Subacute fracture of the superior endplate of L3 with no significan t height loss. READING SITE: [facility]. ATTESTATI ON STATEMENT: The Staff Radiologis t has personally reviewed the images and dictated, reviewed, or edited the final report. CT CHEST W CONTRAST STAT 12/15/2020 10:[address] ABDOMEN PELVIS W STAT 12/15/2020 CONTRAST 10:[address] HEAD WO CONTRAST STAT 12/15/2020 10:21 AM CDT Procedure Note - Interface, Rad Results In - 12/15/2020 12:29 PM CDT Patient: ABNER THOMAS Sex#: M #: [id number] Chrissy#: [id number] Location: [facility] LED Accession# : [id number] Ordering Provider: ARIN BALL Procedure Requested: [id number] CT HEAD WO CONTRAST Exam Ordered: 12/15/2020 0948 Exam Date/Time: 12/15/2020 1021 Begin exam date/time: 12/15/2020 1002 ++++++++++ ++++++++++ ++++++++++ ++++++++++ ++++++++++ ++++++++++ ++++++++++ +++++ + PRELIMINAR Y PRELIMINAR Y PRELIMINAR Y ++++++++++ ++++++++++ ++++++++++ ++++++++++ ++++++++++ ++++++++++ ++++++++++ +++++ CT HEAD WO CONTRAST Date: 12/15/2020 10:21 AM Clinical Indication : trauma; Patient has fallen 5 days ago, and was seen in outside ER with negative head CT. Patient woke this morning with a headache. He was taken to an outside ER and found to have a subdural hematoma. Compariso n: Outside hospital head CT December 03, 2020 and December 15, 2020 (same day) Technique : 5 mm axial tomographi c images were obtained of the head without contrast. These were viewed on brain and bone windows. One or more of the following dose reduction techniques were utilized: Automated exposure control (AEC), Adjustment of mA and/or kV according to patient size, Use of iterative reconstruc tion technique such as ASiR, CT scan done according to ALARA and image gently/piero [employer] [facility] Findings: Acute left hemispheri c subdural hematoma with blood extending circumfere ntially around nearly the entire left hemisphere and falx. The left posterior parafalcin e aspect of the SDH now measuring 5.2 x 1.4 cm in AP and transverse dimension respective ly has grown in size over the the 4 hour interval from outside imaging to presentati on [facility]. There is left hemispheri c brain compressio n and sulcal effacement with 6.4 mm of midline shift. Additional ly, there is trace right frontal subdural hematoma that is similar to a outside hospital imaging. Mild generalize d cerebral and cerebellar volume loss. Mild nonspecifi c periventri cular hypoattenu ation, most commonly seen with chronic small vessel ischemic disease. Calcified atheroscle rosis of the bilateral cavernous and paraclinoi d internal carotid arteries and intracrani al vertebral arteries. The left lateral ventricle is compressed due to subdural hematoma. The burrell-white matter junction is normal. The subarachno id cisterns are patent. The visualized paranasal sinuses are normal. The visualized portions of the orbits and globes are normal. The mastoid air cells are clear. The assistant store leader topogram shows no lytic lesion or fracture. Image quality is reduced due to streak artifact. ++++++++++ ++++++++++ ++++++++++ ++++++++++ ++++++++++ ++++++++++ ++++++++++ +++++ + PRELIMINAR Y PRELIMINAR Y PRELIMINAR Y + this is an unsigned PRELIMINAR Y REPORT and does not reflect + correction s, additions, and/or subtracton s to the informatio n + contained in this report ++++++++++ ++++++++++ ++++++++++ ++++++++++ ++++++++++ ++++++++++ ++++++++++ +++++ IMPRESSION Impression : 1. Enlarging left hemispheri c subdural hematoma (most prominentl y the left posterior parafalcin e aspect) with accompanyi ng brain compressio n, sulcal effacement , and 6.4 mm of rightward midline shift. Recommend neurosurgi farrah evaluation and likely evacuation of left hemisphere SDH. 2. Unchanged trace right frontal subdural hematoma. READING SITE: [facility]. ATTESTATI ON STATEMENT: The Staff Radiologis t has personally reviewed the images and dictated, reviewed, or edited the final report. CT CERVICAL SPINE WO STAT 12/15/2020 CONTRAST 10:21 AM CDT Procedure Note - Interface, Rad Results In - 12/15/2020 1:08 PM CDT Patient: ABNER THOMAS Sex#: M #: 1940 Chrissy#: [id number] Location: [facility] LED Accession# : [id number] Ordering Provider: ARIN BALL Procedure Requested: [id number] CT CERVICAL SPINE WO CONTRAST Exam Ordered: 12/15/2020 0947 Exam Date/Time: 12/15/2020 1021 Begin exam date/time: 12/15/2020 1002 ++++++++++ ++++++++++ ++++++++++ ++++++++++ ++++++++++ ++++++++++ ++++++++++ +++++ + PRELIMINAR Y PRELIMINAR Y PRELIMINAR Y ++++++++++ ++++++++++ ++++++++++ ++++++++++ ++++++++++ ++++++++++ ++++++++++ +++++ CT CERVICAL SPINE WO CONTRAST DATE: 12/15/2020 10:21 AM INDICATIO N: trauma; Patient has fallen 5 days ago, and was seen in outside ER with negative head CT. Patient woke this morning with a headache. He was taken to an outside ER and found to have a subdural hematoma. TECHNIQUE : Noncontras t CT of the cervical spine was performed. Sagittal and coronal reformats were performed and evaluated. One or more of the following dose reduction techniques were utilized: Automated exposure control (AEC), Adjustment of mA and/or kV according to patient size, Use of iterative reconstruc tion technique such as ASiR, CT scan done according to ALARA and image gently/[employer] wise COMPARISO N: None. FINDINGS: The cervical spine is normally aligned. No acute fracture. No aggressive lytic or blastic osseous lesions. Mild multilevel degenerati ve disc space height loss. Multilevel mild spinal canal stenosis secondary to disc protrusion s and marginal osteophyte s. Multilevel mild neuroforam inal narrowing secondary to uncoverteb ral arthrosis. Multilevel mild facet arthrosis. Multilevel endplate sclerosis, Schmorl node deformitie s, and vacuum disc phenomena. The thyroid gland is normal. No cervical lymphadeno malini. Bilateral carotid atheroscle rosis. The visualized aerodigest bhavesh tract is normal. Minimal visualized lung on C-spine images, unable to assess on this exam. ++++++++++ ++++++++++ ++++++++++ ++++++++++ ++++++++++ ++++++++++ ++++++++++ +++++ + PRELIMINAR Y PRELIMINAR Y PRELIMINAR Y + this is an unsigned PRELIMINAR Y REPORT and does not reflect + correction s, additions, and/or subtracton s to the informatio n + contained in this report ++++++++++ ++++++++++ ++++++++++ ++++++++++ ++++++++++ ++++++++++ ++++++++++ +++++ IMPRESSION 1. No acute fracture or dislocatio n. 2. Mild to moderate degenerati ve cervical spondylosi s. ATTESTATI ON STATEMENT: The Staff Radiologis t has personally reviewed the images and dictated, reviewed, or edited the final report. READING SITE: [facility] XR PELVIS ONE OR TWO STAT 12/15/2020 VIEWS 9:52 AM CDT XR CHEST SINGLE VIEW STAT 12/15/2020 FRONTAL 9:52 AM CDT PULSE OXIMETRY, STAT 12/15/2020 CONTINUOUS 9:45 AM CDT documented in this encounter Results * Clotting Screen (12/15/2020 8:00 PM CDT) Only the most recent of 2 results within the time period is included. Protime 15.0 11.4 - 15.0 sec [facility] INR 1.2 0.8 - 1.2 [facility] APTT 37 (H) 22 - 34 sec [facility] Specimen Blood Performing Organization Address City/[facility]/ZIP Code P ruddy Number [address] [address] LABORATORIES [facility] [address] [place] [id number] * Potassium (12/15/2020 6:27 PM CDT) Potassium 4.3 3.5 - 5.3 MEQ/L [facility] Specimen Blood Performing Organization Address City/State/ZIP Code P ruddy Number [facility] [address] [place] [address] LABORATORIES [facility] [address] [place] [address] * Sodium (12/15/2020 6:27 PM CDT) Sodium 127 (L) 133 - 147 MEQ/L [facility] Specimen Blood Performing Organization Address City/State/ZIP Code P ruddy Number [facility] [address] [place] [address] LABORATORIES [facility] [address] [place] [address] * CT Head wo contrast (12/15/2020 3:19 PM CDT) Specimen Impressions Performed At Impression: TIPCRISTY 1. Left holohemispheric and parafalcine hematomas are not significantly changed from 1007 hours same day with s imilar brain compression and left to right midline shift. No evidence for developing hydrocephalus. 2. Moderate generalized atrophy and chr onic small vessel ischemic disease. 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 READING SITE: [facility]. ATTESTATION STATEMENT: The Staff Radiol ogist has personally reviewed the images and dictated, reviewed, or edite d the final report. Narrative Performed At Patient: ABNER THOMAS Sex#: M #: [id number] Chrissy# : [id number] Location: [place] [address] Access ion#: [id number] Ordering Provider: DARRIN THAPA Procedure Requested: [id number] CT HEAD WO CONTRAST Exam Ordered: 12/15/2020 15 00 Exam Date/Time: 12/15/2020 151 9 Begin exam date/time: 12/15/[address] HEAD WO CONTRAST Date: 12/15/2020 3:19 PM Clinical Indication: Follow-up Subdural Hematoma Comparison: Same day head CT, 10:07 AM Technique: 5 mm axial tomographic piero ges were obtained of the head without contrast. These were viewed on brain and bone windows. One or more of the following dose reduction te chniques were utilized: Automated exposure control (AEC), Adjustment of m A and/or kV according to patient size, Use of iterative reconstruction t echnique such as ASiR, CT scan done according to ALARA and image gentl y/image [employer] Findings: The left holohemispheric subdural hemat carlos alberto is unchanged in size when compared to same day head CT from 10:07 AM. Unchanged degree of left brain compression with sulcal effacemen t and left lateral ventricle partial effacement. 3 mm of left to rig ht midline shift is unchanged from prior. The left parafalcine subdur al hematoma with brain compression is unchanged, with the most prominent portion posteriorly measuring 13 mm in transverse dimension . The left greater than right tentorial subdural blood products are u nchanged. Mild generalized cerebral and cerebella r volume loss. Mild nonspecific periventricular hypoattenuation, most c ommonly seen with chronic small vessel ischemic disease. Calcified athe rosclerosis of the bilateral cavernous and paraclinoid internal vivar tid arteries and intracranial vertebral arteries. Small old infarct i n the left cerebellum. The burrell-white matter junction is jack l. Basal cisterns are patent. The visualized paranasal sinuses are no rmal. The visualized portions of the orbits and globes are normal. The m astoid air cells are clear. The assistant store leader topogram shows no lytic lesio n or fracture. Procedure Note Interface, Rad Results In - 12/15/2020 7:49 PM CDT Patient: ABNER THOMAS Sex#: M #: 1940 Chrissy#: [id number] Location: [id number] Ordering Provider: ALEX THAPA Procedure Requested: [id number] CT HEAD WO CONTRAST Exam Ordered: 12/15/2020 1500 Exam Date/Time: 12/15/2020 1519 Begin exam date/time: 12/15/[address] HEAD WO CONTRAST Date: 12/15/2020 3:19 PM Clinical Indication: Follow-up Subdural Hematoma Comparison: Same day head CT, 10:07 AM Technique: 5 mm axial tomographic images were obtained of the head without contrast. These were viewed on brain and bone windows. One or more of the following dose reduction techniques were utilized: Automated exposure control (AEC), Adjustment of mA and/or kV according to patient size, Use of iterative reconstruction technique such as ASiR, CT scan done according to ALARA and image gently/[employer] Findings: The left holohemispheric subdural hematoma is unchanged in size when compared to same day head CT from 10:07 AM. Unchanged degree of left brain compression with sulcal effacement and left lateral ventricle partial effacement. 3 mm of left to right midline shift is unchanged from prior. The left parafalcine subdural hematoma with brain compression is unchanged, with the most prominent portion posteriorly measuring 13 mm in transverse dimension. The left greater than right tentorial subdural blood products are unchanged. Mild generalized cerebral and cerebellar volume loss. Mild nonspecific periventricular hypoattenuation, most commonly seen with chronic small vessel ischemic disease. Calcified atherosclerosis of the bilateral cavernous and paraclinoid internal carotid arteries and intracranial vertebral arteries. Small old infarct in the left cerebellum. The burrell-white matter junction is normal. Basal cisterns are patent. The visualized paranasal sinuses are normal. The visualized portions of the orbits and globes are normal. The mastoid air cells are clear. The assistant store leader topogram shows no lytic lesion or fracture. IMPRESSION Impression: 1. Left holohemispheric and parafalcine hematomas are not significantly changed from 1007 hours same day with similar brain compression and left to right midline shift. No evidence for developing hydrocephalus. 2. 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 READING SITE: [facility]. ATTESTATION STATEMENT: The Staff Radiologist has personally reviewed the images and dictated, reviewed, or edited the final report. Performing Organization Address City/State/ZIP Code P ruddy Number [facility] * Urinalysis Reflex (12/15/2020 2:00 PM CDT) Appearance, Yellow [facility] Glucose Urine 100 (A) Negative mg/dL [facility] Bilirubin Urine Negative Negative [facility] Ketones Urine Trace (A) Negative mg/dL [facility] Specific 1.022 1.001 - 1.030 [facility] Hemoglobin Trace (A) Negative [facility] PH Urine 8.0 5.0 - 8.0 [facility] Protein Urine Negative Negative mg/dL [facility] Urobilinogen Negative Negative EU/dL [facility] Nitrite Urine Negative Negative [facility] Leukocyte Negative Negative [facility] Specimen Clean Voided Urine Performing Organization Address City/State/ZIP Code P ruddy Number [facility] [address] [place] [address] LABORATORIES [facility] [address] [place] [phone] * Toxicology Screening Panel (12/15/2020 2:00 PM CDT) Tetrahydrocanna Not Detected Not Detected [facility] Phencyclidine Not Detected Not Detected [facility] Cocaine Urine Not Detected Not Detected [facility] Methamphetamine Not Detected Not Detected [facility] Opiates Urine Not DetectedComment: This drug Not Detected [facility] screen provides presumptive Hospital Lab results for medical purposes only. False positive results may occur. Confirmatory results will follow for all positive drugs except tricyclic antidepressants. Amphetamines Not Detected Not Detected [facility] Benzodiazepines Not Detected Not Detected [facility] Tricyclic Not Detected Not Detected [facility] Methadone Urine Not Detected Not Detected [facility] Barbiturates Not Detected Not Detected [facility] Oxycodone Urine Not Detected Not Detected [facility] Comment: Hospital Lab Toxicology cutoff values: Assay Cutoff value Assay Cutoff value Amphetamines 500 ng/mL Methamphetamines 500 ng/mL Barbiturates 200 ng/mL Opiates 100 ng/mL Benzodiazepines 150 ng/mL Oxycodone 100 ng/mL Cocaine 150 ng/mL Phencyclidine 25 ng/mL Methadone 200 ng/mL THC 50 ng/mL Tricyclic Antidepressants 300 ng/mL Specimen Urine Performing Organization Address City/State/ZIP Code P ruddy Number [facility] [address] [place] [address] LABORATORIES [facility] [address] [place] [phone] * XR Chest post line drain or airway placement (12/15/2020 1:50 PM CDT) Specimen Impressions Performed At 1. Left upper extremity PICC. [facility] 2. Increased bilateral heterogeneous op acities and indistinct vasculature concerning for atelectasis and edema. Superimposed infection or aspiration not excluded. 3. Small left pleural effusion versus t hickening. READING SITE: [facility] Narrative Performed At Patient: ABNER THOMAS Sex#: M #: 1940 Chrissy# : [id number] Location: [place] [id number] Access ion#: [id number] Ordering Provider: DARRIN THAPA Procedure Requested: [id number] XR CHEST POST LINE DRAIN OR AIRWAY PLACEMENT Exam Ordered: 12/15/2020 13 28 Exam Date/Time: 12/15/2020 135 0 Begin exam date/time: 12/15/2020 134 5 XR CHEST POST LINE DRAIN OR AIRWAY PLAC EMENT INDICATION: PICC tip location. COMPARISON STUDY: Portable chest dated 12/15/2020, 3 hours prior. FINDINGS: Life Support Devices: Left upper extrem ity PICC with tip in the mid SVC. Lungs: Low lung volume. Increased bilat eral heterogeneous opacities and indistinct vasculature. Pleura: Small left pleural effusion trice george thickening. No pneumothorax. Heart and Mediastinum: Stable cardiomed iastinal silhouette and great vessels. Bones and Soft Tissues: Stable regional skeleton and soft tissues. Procedure Note Interface, Rad Results In - 12/15/2020 2:54 PM CDT Patient: ABNER THOMAS Sex#: M #: 1940 Chrissy#: [id number] Location: [place] [id number] Ordering Provider: ALEX THAPA Procedure Requested: [id number] XR CHEST POST LINE DRAIN OR AIRWAY PLACEMENT Exam Ordered: 12/15/2020 1328 Exam Date/Time: 12/15/2020 1350 Begin exam date/time: 12/15/2020 1345 XR CHEST POST LINE DRAIN OR AIRWAY PLACEMENT INDICATION: PICC tip location. COMPARISON STUDY: Portable chest dated 12/15/2020, 3 hours prior. FINDINGS: Life Support Devices: Left upper extremity PICC with tip in the mid SVC. Lungs: Low lung volume. Increased bilateral heterogeneous opacities and indistinct vasculature. Pleura: Small left pleural effusion versus thickening. No pneumothorax. Heart and Mediastinum: Stable cardiomediastinal silhouette and great vessels. Bones and Soft Tissues: Stable regional skeleton and soft tissues. IMPRESSION 1. Left upper extremity PICC. 2. Increased bilateral heterogeneous opa cities and indistinct vasculature concerning for atelectasis and edema. Superimposed infection or aspiration not excluded. 3. Small left pleural effusion versus th ickening. READING SITE: [facility] Performing Organization Address City/[facility]/ZIP Code P ruddy Number ALLAN * GLUCOSE POC (12/15/2020 10:56 AM CDT) Pathologist [facility] Glucose POC 127 (H) 70 - 100 mg/dL [facility]IES Specimen Performing Organization Address City/[facility] Code P ruddy Number [facility] [address] [place] [address] LABORATORIES * P2Y12 Response Assay (12/15/2020 10:35 AM CDT) Pathologist [facility] P2Y12 Platelet 211Comment: PRU values >230 PRU Sa int Lu's Function have been associated with an Hospital Lab increased risk of ischemic events after PCI including , FL, and stent thrombosis. Specimen Blood Performing Organization Address [facility] P ruddy Number [facility] [address] [place] [address] LABORATORIES [facility] [address] [place] [address] * Venous Blood Gas (12/15/2020 10:35 AM CDT) PO2 Venous 31 (L) 37 - 43 mm Hg [facility] PCO2 Venous 72 (H) 40 - 45 mm Hg [facility] PH Venous 7.30 (L) 7.36 - 7.41 units [facility] Bicarbonate 35.4 (H) 22.0 - 29.0 MEQ/L [facility] Base Excess 6.4 (H) -3.0 - 3.0 MEQ/L [facility] Specimen Blood Performing Organization Address [facility] P ruddy Number [facility] [address] [place] [address] LABORATORIES [facility] [address] [place] [address] * Electrocardiogram (ECG) (12/15/2020 10:26 AM CDT) QRSd 122 TRACEMASTER QT 432 TRACEMASTER QTC 523 TRACEMASTER ECGHR 88 TRACEMASTER Specimen Narrative Performed At [facility] ED Test Date: 2020-12-15 Pat Name: ABNER THOMAS Department: ERL Room: [facility] Gender: Male 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 : 1940 Requested By: ARIN BALL Order Number: [id number] Reading MD: Measurements Intervals Lafferty Rate: 88 P: IN: QRS: 19 QRSD: 122 T: -28 QT: 432 QTc: 523 Interpretive Statements Atrial fibrillation Ventricular premature complex Nonspecific intraventricular conduction delay Nonspecific repol abnormality, lateral leads Procedure Note Interface, External Ris In - 12/15/2020 10:27 AM CDT [facility] ED Test Date: 2020-12-15 Pat Name: ABNER THOMAS Department: ERL Room: [facility]08 Gender: Male Studio Musician: [id number] : 1940 Requested By: ARIN BALL Order Number: [id number] Reading MD: Measurements Intervals Lafferty Rate: 88 P: IN: QRS: 19 QRSD: 122 T: -28 QT: 432 QTc: 523 Interpretive Statements Atrial fibrillation Ventricular premature complex Nonspecific intraventricular conduction delay Nonspecific repol abnormality, lateral leads Performing Organization Address City/[facility]/ZIP Code P ruddy Number [facility]AC[facility]ER * COVID PCR - Rapid (12/15/2020 10:24 AM CDT) SARS-CoV-2 PCR NegativeComment: This RT-PCR Negative [facility] test has been authorized by Hospital Lab the FDA under an Emergency Use Authorization (EUA) for use by authorized laboratories. Specimen NASOPHARYNGEAL SWAB Performing Organization Address City/[facility]/ZIP Code P ruddy Number [facility] [address] [place] [address] LABORATORIES [facility] [address] [place] [address] * Magnesium (12/15/2020 10:22 AM CDT) Magnesium 1.6 1.4 - 2.7 mg/dL [facility] Specimen Blood Performing Organization Address City/State/ZIP Code P ruddy Number [facility] [address] [place] [address] LABORATORIES [facility] [address] [place] [address] * Antibody Screen (12/15/2020 10:22 AM CDT) Antibody Screen Negative Negative [facility] Specimen Blood Performing Organization Address City/State/ZIP Code P ruddy Number [facility] [address] [place] [address] LABORATORIES [facility] [address] [place] [address] * ABORH Type (12/15/2020 10:22 AM CDT) ABORH Type O Positive [facility] Specimen Blood Performing Organization Address City/[facility]/ZIP Code P ruddy Number [facility] [address] [place] [address] LABORATORIES [facility] [address] [place] [address] * Lactate Venous WB - 0hr STAT (12/15/2020 10:22 AM CDT) Lactate Venous 1.5 0.0 - 2.0 mmol/L [facility] Specimen Blood Performing Organization Address City/State/ZIP Code P ruddy Number [facility] [address] [place] [address] LABORATORIES [facility] [address] [place] [address] * Creatine Kinase (12/15/2020 10:22 AM CDT) Creatine Kinase 30 IU/L [facility] Comment: Hospital Lab White Female: 30 - 160 IU/L Black Female: 30 - 430 IU/L White Male: 40 - 425 IU/L Black Male: 50 - 850 IU/L Specimen Blood Performing Organization Address City/State/ZIP Code P ruddy Number [facility] [address] [place] [address] LABORATORIES [facility] [address] [place] [address] * Troponin (12/15/2020 10:22 AM CDT) Troponin <0.01 0.00 - 0.03 ng/mL [facility] Comment: Hospital Lab Troponin Value Interpretation 0.00 - 0.03 Healthy 0.04 - 0.12 Increased Cardiac Risk >0.12 Myocardial Infarction Troponin may not become elevated until 6 to 8 hours after onset of symptoms. Specimen Blood Performing Organization Address City/State/ZIP Code P ruddy Number [facility] [address] [place] [address] LABORATORIES [facility] [address] [place] [address] * Lipase (12/15/2020 10:22 AM CDT) Lipase <10 (L) 23 - 300 IU/L [facility] Specimen Blood Performing Organization Address City/State/ZIP Code P ruddy Number [facility] [address] [place] [address] LABORATORIES [facility] [address] [place] [address] * Amylase (12/15/2020 10:22 AM CDT) Amylase 45 30 - 130 IU/L [facility] Specimen Blood Performing Organization Address City/State/ZIP Code P ruddy Number [facility] [address] [place] [address] LABORATORIES [facility] [address] [place] [address] * Alcohol Serum (12/15/2020 10:22 AM CDT) Alcohol Serum <10 0 - 9 mg/dL [facility] Specimen Blood Performing Organization Address City/State/ZIP Code P ruddy Number [facility] [address] [place] [address] LABORATORIES [facility] [address] [place] [address] * Comprehensive Metabolic Panel (12/15/2020 10:22 AM CDT) Sodium 126 (L) 133 - 147 MEQ/L [facility] Potassium 4.6 3.5 - 5.3 MEQ/L [facility] Chloride 89 (L) 96 - 112 MEQ/L [facility] Carbon Dioxide 34 (H) 20 - 32 MEQ/L [facility] Anion Gap 4 (L) 5 - 17 [facility] Calcium 7.9 (L) 8.4 - 10.5 mg/dL [facility] Glucose 120 (H) 70 - 100 mg/dL [facility] Protein Total 5.2 (L) 6.0 - 8.2 g/dL [facility] Serum [facility] Albumin 2.9 (L) 3.5 - 5.0 g/dL [facility] Alkaline 61 42 - 140 IU/L [facility] Alanine 10 0 - 49 IU/L [facility] e Aspartate 21Comment: Specimen is 15 - 46 IU/L [facility] slightly hemolyzed which may Hospital Lab e elevate the AST result. Bilirubin Total 1.3 0.2 - 1.3 mg/dL [facility] Blood Urea 12 7 - 26 mg/dL [facility] Creatinine 0.7 0.6 - 1.3 mg/dL [facility] eGFR Male AA >130 60 - 200 [facility] mL/min/1.73sq [facility] eGFR Male 108 60 - 200 [facility] Non-AA mL/min/1.73sq [facility] Specimen Blood Performing Organization Address City/State/ZIP Code P ruddy Number [address] [address] LABORATORIES [facility] [address] [place] [phone] * CBC and Diff (manual diff if necessary) (12/15/2020 10:22 AM CDT) WBC 17.68 (H) 4.00 - 11.00 TH/uL [facility] RBC 3.79 (L) 4.31 - 5.84 MIL/uL [facility] Hemoglobin 13.1 13.0 - 17.0 g/dL [facility] Hematocrit 38 (L) 40 - 50 % [facility] MCV 101 (H) 80.0 - 99.0 fL [facility] MCH 35 (H) 27.0 - 34.0 pg [facility] MCHC 34 32 - 36 % [facility] RDW 13.0 11.5 - 14.5 % [facility] Platelet Count 113 (L) 140 - 400 TH/uL [facility] MPV 13.2 (H) 9.4 - 12.3 fL [facility] Nucleated RBCs 0 0 - 0 /100 [facility] % Neutrophils 54 45 - 78 % [facility] %Lymphocytes 43 15 - 47 % [facility] % Monocytes 3 0 - 12 % [facility] %Eosinophils 0 0 - 7 % [facility] %Basophils 0 0 - 2 % [facility] # Granulocytes 9.55 (H) 1.70 - 6.80 TH/uL [facility] # Lymphocytes 7.60 (H) 1.00 - 3.30 TH/uL [facility] # Monocytes 0.53 0.20 - 0.90 TH/uL [facility] # Eosinophils 0.00 0.00 - 0.40 TH/uL [facility] # Basophils 0.00 0.00 - 0.10 TH/uL [facility] RBC Morphology Normal Normal [facility] Specimen Blood Performing Organization Address City/State/ZIP Code P ruddy Number [address] [address] LABORATORIES [facility] [address] [place] [address] * CT Abdomen Pelvis w contrast (12/15/2020 10:21 AM CDT) Specimen Impressions Performed At 1. No evidence for acute injury within the abdomen or pelvis. ALLAN 2. Patent infrarenal abdominal aortic e ndograft extending into the iliac arteries. Excluded aneurysm sac measure s up to 12 x 10 cm. No extravasated contrast within aneurysm s ac to suggest visible endoleak. Recommend correlation with prior cross sectional imaging. 3. 3.3 cm inferior right hepatic lobe p reviously enhancing lesion, possibly a benign cavernous hemangioma. Correlate with prior cross sectional imaging to confirm resolution . 4. Nonspecific mild presacral fat stran ding. Correlate clinically to exclude a subtle nondisplaced sacrococc ygeal fracture. READING SITE: [facility] Narrative Performed At Patient: ABNER THOMAS Sex#: M #: [id number] Chrissy# : [id number] Location: [facility] ED LED08 Ordering Provider: ARIN BALL Procedure Requested: [id number] CT ABDOM EN PELVIS W CONTRAST Exam Ordered: 12/15/2020 09 54 Exam Date/Time: 12/15/2020 102 1 Begin exam date/time: 12/15/[address] ABDOMEN PELVIS W CONTRAST INDICATION: trauma TECHNIQUE: Following the uneventful adm inistration of 100 mL Omnipaque 350 intravenous contrast, axial CT sect ions were obtained through the abdomen and pelvis including delayed im ages. Coronal and sagittal multiplanar reconstructions were perfor med. COMPARISON: None. FINDINGS: Lower chest: Please refer to dictated r eport of chest CT performed same day. ABDOMEN: No free air, free fluid or fluid collec tion.. Liver: The liver enhances homogeneously . 2.2 x 3.3 cm hepatic lobe heterogeneous enhancing lesion on image 23 series 3, possibly a cavernous hemangioma. Gallbladder and biliary: No biliary akira todd dilation. Mildly distended gallbladder without radiopaque gallston es. Spleen: Normal spleen. Pancreas: The pancreas enhances homogen eously without focal mass, ductal dilation, or peripancreatic inflammator y changes. Adrenal glands: Mild asymmetrical left adrenal gland thickening likely related to superimposed adenomatous hyp erplasia. Normal right adrenal gland Kidneys and ureters: Normal attenuation bilateral kidneys without focal lesion.. No hydronephrosis. Mild symmet rical bilateral perinephric fat stranding, possibly senescent change. GI tract: The stomach is decompressed a nd poorly evaluated. Small bowel and colon are of normal caliber. Vascular structures: Patent infrarenal abdominal aortic endograft extending into the iliac arteries. Excl uded aneurysm sac measures up to 12 x 10 cm. No extravasated contrast wi thin aneurysm sac to suggest visible endoleak. The celiac artery, SM A, bilateral renal arteries, and PIERO are patent. . Lymph nodes: No lymphadenopathy in the abdomen or pelvis. PELVIS: Genitourinary system: Partially distend ed urinary bladder is grossly unremarkable. Normal size prostate gland. Symmetrical seminal vesicles SKELETAL STRUCTURES AND SOFT TISSUES: N o acute displaced fracture or suspicious osseous lesion is seen. Plea se see dictated report of CT lumbar spine performed same day for dis cussion of spine findings. Nonspecific mild presacral fat strandin g. Osseous demineralization. Procedure Note Interface, Rad Results In - 12/15/2020 11:15 AM CDT Patient: ABNER THOMAS Sex#: M #: [id number] Chrissy#: [id number] Location: [place] [address] Ordering Provider: ARIN BALL Procedure Requested: [id number] CT ABDOMEN PELVIS W CONTRAST Exam Ordered: 12/15/2020 0954 Exam Date/Time: 12/15/2020 1021 Begin exam date/time: 12/15/[address] ABDOMEN PELVIS W CONTRAST INDICATION: trauma TECHNIQUE: Following the uneventful administration of 100 mL Omnipaque 350 intravenous contrast, axial CT secti ons were obtained through the abdomen and pelvis including delayed images. Coronal and sagittal multiplanar reconstructions were performed. COMPARISON: None. FINDINGS: Lower chest: Please refer to dictated report of chest CT performed same day. ABDOMEN: No free air, free fluid or fluid collection.. Liver: The liver enhances homogeneously . 2.2 x 3.3 cm hepatic lobe heterogeneous enhancing lesion on image 23 series 3, possibly a cavernous hemangioma. Gallbladder and biliary: No biliary ductal dilation. Mildly distended gallbladder without radiopaque gallstones. Spleen: Normal spleen. Pancreas: The pancreas enhances homogeneously without focal mass, ductal dilation, or peripancreatic inflammatory changes. Adrenal glands: Mild asymmetrical left adrenal gland thickening likely related to superimposed adenomatous hyperplasia. Normal right adrenal gland Kidneys and ureters: Normal attenuation bilateral kidneys without focal lesion.. No hydronephrosis. Mild symmetrical bilateral perinephric fat stranding, possibly senescent change. GI tract: The stomach is decompressed and poorly evaluated. Small bowel and colon are of normal caliber. Vascular structures: Patent infrarenal abdominal aortic endograft extending into the iliac arteries. 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 No extravasated contrast wit hin aneurysm sac to suggest visible endoleak. The celiac artery, SMA, bilateral renal arteries, and PIERO are patent. . Lymph nodes: No lymphadenopathy in the abdomen or pelvis. PELVIS: Genitourinary system: Partially distended urinary bladder is grossly unremarkable. Normal size prostate gland. Symmetrical seminal vesicles SKELETAL STRUCTURES AND SOFT TISSUES: No acute displaced fracture or suspicious osseous lesion is seen. Please see dictated report of CT lumbar spine performed same day for discussion of spine findings. Nonspecific mild presacral fat stranding. Osseous demineralization. IMPRESSION 1. No evidence for acute injury within t he abdomen or pelvis. 2. Patent infrarenal abdominal aortic en dograft extending into the iliac arteries. 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 No extravasated contrast within aneurysm sac to suggest visible endoleak. Recommend correlation with prior cross sectional imaging. 3. 3.3 cm inferior right hepatic lobe pr eviously enhancing lesion, possibly a benign cavernous hemangioma. Correlate with prior cross sectional imaging to confirm resolution. 4. Nonspecific mild presacral fat strand ing. Correlate clinically to exclude a subtle nondisplaced sacrococcygeal fracture. READING SITE: [facility] Organization Address City/State/ZIP Code P ruddy Number [facility] * CT Chest w contrast (12/15/2020 10:21 AM CDT) Specimen Impressions Performed At 1. No evidence of pulmonary contusion/laceration, ple ural MCKESSON effusion/pneumothorax, vascular injury or acute displaced fracture. Subacute fractures along the right late ral rib cage (7th and 8th right lateral ribs). 2. Few diminutive pulmonary nodules georgina aterally. In this patient with emphysema and increased risk for lung c ancer, annual surveillance could be beneficial in the long-term. 3. Cardiomegaly. Coronary atheroscleros is. READING SITE: [facility] Narrative Performed At Patient: ABNER THOMAS Sex#: M #: [id number] Chrissy# : [id number] Location: [facility] LED Ordering Provider: ARIN BALL Procedure Requested: [id number] CT CHEST W CONTRAST Exam Ordered: 12/15/2020 09 54 Exam Date/Time: 12/15/2020 102 1 Begin exam date/time: 12/15/[address] CHEST W CONTRAST INDICATION: trauma Comparison: None. TECHNIQUE: Following the uneventful adm inistration of intravenous contrast 100 cc Omnipaque 350, axial CT sections were obtained through the lungs and upper abdomen. Coronal FL P images and coronal and sagittal multiplanar reconstructions were also o btained. FINDINGS: Lungs and Airways: Limited study given significant respiratory motion artifact. Scattered bibasilar subsegmen todd atelectasis. Upper lobe predominant emphysematous changes. Few diminutive smaller than 4 mm size soft tissue pulmonary nodules bilateral ly, some labeled with arrows on series 6. Remote granulomatous infectio n. No endoluminal lesion. Pleura: The pleural spaces are normal. Heart and Mediastinum: No dominant foca l lesion is noted in the thyroid bed. No axillary or supraclavicular lym phadenopathy. No mediastinal, hilar or retrocrural lymphadenopathy. D iffuse mild cardiomegaly with no pericardial effusion. The aorta is norm al in diameter with diffuse atherosclerotic changes. Atherosclerosi s of the coronary arteries. Pulmonary trunk is normal in diameter. Abdomen: Please refer to additional rep ort of CT of the abdomen from the same day. Bones and Soft Tissues: Degenerative ch anges throughout the spine. Subacute fractures along the lateral ri ght chest wall (7th and 8th right lateral ribs). Procedure Note Interface, Rad Results In - 12/15/2020 11:07 AM CDT Patient: ABNER THOMAS Sex#: M #: [id number] Chrissy#: [id number] Location: [facility] ED LED08 Ordering Provider: ARIN BALL Procedure Requested: [id number] CT CHEST W CONTRAST Exam Ordered: 12/15/2020 0954 Exam Date/Time: 12/15/2020 1021 Begin exam date/time: 12/15/[address] CHEST W CONTRAST INDICATION: trauma Comparison: None. TECHNIQUE: Following the uneventful administration of intravenous contrast 100 cc Omnipaque 350, axial CT sections were obtained through the lungs and upper abdomen. Coronal MIP images and coronal and sagittal multiplanar reconstructions were also obtained. FINDINGS: Lungs and Airways: Limited study given significant respiratory motion artifact. Scattered bibasilar subsegmental atelectasis. Upper lobe predominant emphysematous changes. Few diminutive smaller than 4 mm size soft tissue pulmonary nodules bilaterally, some labeled with arrows on series 6. Remote granulomatous infection. No endoluminal lesion. Pleura: The pleural spaces are normal. Heart and Mediastinum: No dominant focal lesion is noted in the thyroid bed. No axillary or supraclavicular lymphadenopathy. No mediastinal, hilar or retrocrural lymphadenopathy. Diffuse mild cardiomegaly with no pericardial effusion. The aorta is normal in diameter with diffuse atherosclerotic changes. Atherosclerosis of the coronary arteries. Pulmonary trunk is normal in diameter. Abdomen: Please refer to additional report of CT of the abdomen from the same day. Bones and Soft Tissues: Degenerative changes throughout the spine. Subacute fractures along the lateral right chest wall (7th and 8th right lateral ribs). IMPRESSION 1. No evidence of pulmonary contusion/la ceration, pleural effusion/pneumothorax, vascular injury or acute displaced fracture. Subacute fractures along the right lateral rib cage (7th and 8th right lateral ribs). 2. Few diminutive pulmonary nodules bila terally. In this patient with emphysema and increased risk for lung cancer, annual surveillance could be beneficial in the long-term. 3. Cardiomegaly. Coronary atherosclerosi s. READING SITE: [facility] Organization Address City/State/ZIP Code P ruddy Number [id number] * XR Pelvis one or two views (12/15/2020 9:52 AM CDT) Specimen Impressions Performed At No evidence of fracture. [facility] READING SITE: [facility] Imaging Narrative Performed At Patient: ABNER THOMAS Sex#: M #: [id number] Chrissy# : [id number] Location: [place] [address] Ordering Provider: ARIN BALL Procedure Requested: [id number] XR PELVI S ONE OR TWO VIEWS Exam Ordered: 12/15/2020 09 46 Exam Date/Time: 12/15/2020 095 2 Begin exam date/time: 12/15/2020 094 8 XR PELVIS ONE OR TWO VIEWS DATE: 12/15/2020 9:53 AM INDICATION: TRAUMA COMPARISON: None TECHNIQUE: AP view FINDINGS: No evidence of fracture or dislocation. No SI joint or pubic symphysis diastases. Mild osteoarthritis of the h ips. Left iliac stent. Procedure Note Interface, Rad Results In - 12/15/2020 10:01 AM CDT Patient: ABNER THOMAS Sex#: M #: 1940 Chrissy#: [id number] Location: [facility] ED R1 Ordering Provider: ARIN BALL Procedure Requested: [id number] XR PELVIS ONE OR TWO VIEWS Exam Ordered: 12/15/2020 0946 Exam Date/Time: 12/15/2020 0952 Begin exam date/time: 12/15/2020 0948 XR PELVIS ONE OR TWO VIEWS DATE: 12/15/2020 9:53 AM INDICATION: TRAUMA COMPARISON: None TECHNIQUE: AP view FINDINGS: No evidence of fracture or dislocation. No SI joint or pubic symphysis diastases. Mild osteoarthritis of the hips. Left iliac stent. IMPRESSION No evidence of fracture. READING SITE: [facility] Imaging Performing Organization Address City/State/ZIP Code P ruddy Number [id number] * XR Chest single view frontal (12/15/2020 9:52 AM CDT) Specimen Impressions Performed At Question small left pleural effusion. No pneumothorax . No MCKESSON focal consolidation. Consider further e valuation with PA and lateral chest radiograph. READING SITE: [facility] Narrative Performed At Patient: ABNER THOMAS Sex#: M #: [id number] Chrissy# : [id number] Location: [facility] LED08 Ordering Provider: ARIN BALL Procedure Requested: [id number] XR CHEST SINGLE VIEW FRONTAL Exam Ordered: 12/15/2020 09 46 Exam Date/Time: 12/15/2020 095 2 Begin exam date/time: 12/15/2020 094 8 XR CHEST SINGLE VIEW FRONTAL INDICATION: TRAUMA. COMPARISON STUDY: None. FINDINGS: Lungs: Low lung volume with diffuse bro nchovascular crowding. No focal consolidation. Pleura: Question small left pleural eff usion. No pneumothorax. Heart and Mediastinum: Stable heart and mediastinum. Bones and soft tissues: Stable regional skeleton. Procedure Note Interface, Rad Results In - 12/15/2020 10:27 AM CDT Patient: ABNER THOMAS Sex#: M #: 1940 Chrissy#: [id number] Location: [facility] ED LED08 Ordering Provider: ARIN BALL Procedure Requested: [id number] XR CHEST SINGLE VIEW FRONTAL Exam Ordered: 12/15/2020 0946 Exam Date/Time: 12/15/2020 0952 Begin exam date/time: 12/15/2020 0948 XR CHEST SINGLE VIEW FRONTAL INDICATION: TRAUMA. COMPARISON STUDY: None. FINDINGS: Lungs: Low lung volume with diffuse bronchovascular crowding. No focal consolidation. Pleura: Question small left pleural effusion. No pneumothorax. Heart and Mediastinum: Stable heart and mediastinum. Bones and soft tissues: Stable regional skeleton. IMPRESSION Question small left pleural effusion. No pneumothorax. No focal consolidation. Consider further evaluation with PA and lateral chest radiograph. 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) Compression of brain (HCC) Compression of brain A-fib (HCC) Atrial fibrillation Hypertensive urgency History of DVT (deep vein thrombosis) Hyponatremia Hyposmolality and/or hyponatremia Hypoalbuminemia Other disorders of plasma protein metab olism Type II diabetes mellitus (HCC) Type II or unspecified type diabetes me llitus without mention of complication, not stated as uncontrolled Leukocytosis Leukocytosis, unspecified Closed compression fracture of L3 lumba r vertebra, 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 ([facility]) documented in this encounter Administered Medications Action Date Dose Rate Site Medication Order MAR Action acetaminophen (TYLENOL) suppository 325-650 mg 325-650 mg, Rectal, Every 6 hours PRN, mild pain (pain score 1-3), Starting on Mon12/15/20 at 1004, Administer if patient unable to tolerate oral medications. acetaminophen (TYLENOL) tablet 650 mg 650 mg, Oral, Every 6 hours PRN, fever, temperature > 98.6 F (37 C), Starting o n Mon12/15/20 at 1004, Do not exceed 4 GM/DAY of acetaminophen. If 65 or olde r do not exceed 3 GM/DAY. If chronic alcoholic do not exceed 2 GM/DAY. alteplase (CATHFLO ACTIVASE) injection 1 mg 1 mg, Intra-Catheter, As needed, declotting central catheter or sluggish/occluded CVC line, Starting on Mon12/15/20 at 1326, Use 1 mg/mL to declot catheter as needed, Declot catheter per Central Venous Access Device, Declotting procedure in Alonso REFRIGERATE bisacodyL (DULCOLAX) suppository 10 mg 10 mg, Rectal, Daily PRN, constipation, if no BM in previous 24 hours, Starting on Mon12/15/20 at 1004 12/15/2020 8:52 PM CDT 25 mcg fentaNYL (SUBLIMAZE) injection 25-50 mcg Given 25-50 mcg, Intravenous, Every 2 hours PRN, moderate pain (pain score 4-6), severe pain (pain score 7-10), Starting on Mon12/15/20 at 1930, Administer over 2 minutes; max dose for IVP is 2 mcg/kg . Note: Limit does not apply to patients who may be tolerant to opioid therapy o r on continuous IV or PO opiate therapy. 25 mcg Given 12/15/2020 7:52 PM CDT 12/15/2020 8:43 PM CDT 1 patch Back Lidocaine (LIDODERM) 5 % 1 patch Patch 1 patch, Transdermal, Administer over 12 Applied Hours, Daily, First dose on Mon12/15/20 at 2000, Apply to low back lidocaine (XYLOCAINE) 10 mg/mL (1 %) injection 1-10 mL 1-10 mL, Intradermal, Once as needed, local anesthesia, Starting on Mon12/15/20 at 1326, For 1 dose, during aram e placement magnesium sulfate IVPB 4 gram (premix) 4 g, Intravenous, at 25 mL/hr, As needed, aggressive electrolyte replacement, Starting on Mon12/15/20 at 1007, Replace in addition to any scheduled magnesium doses. Administer 4 grams over 4 hours for magnesium level less than or equal to 1.9 mg/dL. Repeat magnesium level in AM. Administer only if serum creatinine is less than 2 within the previous 48 hours and sustained urine output is greater than 20 mL/hr for 6 hours (if able to monitor). 12/15/2020 5:01 PM CDT 5 mg/hr 12 mL/hr niCARdipine (CARDENE) 25 mg in sodium New Bag chloride 0.9 % (NS) 60 mL infusion 5-15 mg/hr (12-36 mL/hr), Intravenous, at 12-36 mL/hr, Continuous, Starting on Mon12/15/20 at 1003, Begin infusion at 5 mg/hr and titrate by 2.5 mg/hr every 5-15 minutes to maintain SBP < 140. Infusion not to exceed 15 mg/hr. STORE AT ROOM TEMPERATURE 5 mg/hr 12 mL/hr Rate/Dose Verify 12/15/2020 3:16 PM CDT 5 mg/hr 12 mL/hr Rate/Dose Change 12/15/2020 3:00 PM CDT 12/15/2020 7:23 PM CDT 4 mg ondansetron (ZOFRAN) injection 4 mg Given 4 mg, Intravenous, Every 6 hours PRN, nausea, vomiting, Starting on Mon12/15/20 at 1006 potassium bicarb-citric acid (EFFER-K) effervescent tablet 20 mEq 20 mEq, Oral, As needed, aggressive electrolyte replacement, Starting on 12/15/20 at 1007, Administer if unable t o swallow potassium tablets. Replace in addition to any scheduled potassium doses. Administer 20 mEq once for potassium level 3.6 to 3.9 mg/dL. Repea t potassium level in AM. Administer 20 mE q every hour x 2 doses (total dose = 40 mEq) for potassium level 3.1 to 3.5 mg/dL. Repeat potassium level in AM. Administer 20 mEq every hour x 3 doses (total dose = 60 mEq) for potassium level less than or equal to 3.0. Repeat potassium level 4 hours after last oral dose administered. Administer only if serum creatinine is less than 2 within the previous 48 hours and sustained urine output is greater than 20 mL/hr for 6 hours (if able to monitor). Completely dissolve tablet in 3 to 4 ounces (90-120 mL) of cold juice or water before administering. For fluid restricted patients, a smaller volume may be used to dilute (e.g. 15-30 mL). potassium chloride (KLOR-CON) CR tablet 20 mEq 20 mEq, Oral, As needed, aggressive electrolyte replacement, Starting on 12/15/20 at 1007, Replace in addition to any scheduled potassium doses. Administer 20 mEq once for potassium level 3.6 to 3.9 mg/dL. Repeat potassiu m level in AM. Administer 20 mEq every hour x 2 doses (total dose = 40 mEq) fo r potassium level 3.1 to 3.5 mg/dL. Repea t potassium level in AM. Administer 20 mE q every hour x 3 doses (total dose = 60 mEq) for potassium level less than or equal to 3.0. Repeat potassium level 4 hours after last oral dose administered . Administer only if serum creatinine is less than 2 within the previous 48 hour s and sustained urine output is greater than 20 mL/hr for 6 hours (if able to monitor). DO NOT CRUSH OR CHEW. potassium chloride 20 mEq in 100 mL IVP B 20 mEq, Intravenous, Administer over 2 Hours, As needed, aggressive electrolyt e replacement, Starting on Mon12/15/20 at 1007, Administer if unable to take oral potassium. Replace in addition to any scheduled potassium doses. Administer 20 mEq once for potassium level 3.6 to 3.9 mg/dL. Repeat potassium level in AM . Administer 20 mEq x 2 doses (total dose = 40 mEq) for potassium level 3.1 to 3. 5 mg/dL. Repeat potassium level 2 hours after last infusion complete. Administer 20 mEq x 3 doses (total dose = 60 mEq) for potassium level less than or equal to 3.0. Repeat potassium level 2 hours after last infusion complete. Administer only if serum creatinine is less than 2 within the previous 48 hour s and sustained urine output is greater than 20 mL/hr for 6 hours (if able to monitor). Potassium chloride should be infused at a rate of 10 mEq/hr through a peripheral line, or at a rate of 20 mEq/hr through a central line. 12/15/2020 8:40 PM CDT 5 mg prochlorperazine (COMPAZINE) injection 5 Given mg 5 mg, Intravenous, Every 6 hours PRN, nausea, vomiting, Starting on Mon12/15/20 at 1008 12/15/2020 12:06 PM CDT 40 mL/hr 40 mL/hr sodium chloride 3% (HYPERTONIC) infusion New Bag 40 mL/hr, Intravenous, at 40 mL/hr, Continuous, Starting on Mon12/15/20 at 1200, Double check the IV pump settings before administering. Serious injury or may occur if rate or duration of administration of concentrated sodium chloride is excessive. Central line is recommended for administration. white petrolatum-mineral oiL (GENTEAL PM) 94-3 % ophthalmic ointment 1 application 1 application, Both Eyes, Every 4 hours PRN, dry eyes, Starting on Mon12/15/20 at 1004, Apply until awake and alert. Action Date Dose Rate Site Medication Order JOSSY Action 12/15/2020 4:54 PM CDT 12.5 mcg fentaNYL (SUBLIMAZE) injection 12.5 mcg Given 12.5 mcg, Intravenous, Every 2 hours PRN, moderate pain (pain score 4-6), severe pain (pain score 7-10), Starting on Mon12/15/20 at 1633, Administer over 2 minutes; max dose for IVP is 2 mcg/kg . Note: Limit does not apply to patients who may be tolerant to opioid therapy o r on continuous IV or PO opiate therapy. 12/15/2020 10:22 AM CDT 100 mL iohexoL (OMNIPAQUE) 350 mg iodine/mL Given injection 1-500 mL 1-500 mL, Intravenous, Once in imaging, contrast, Starting on Mon12/15/20 at 1022, For 1 dose 12/15/2020 9:55 AM CDT 2,616 Units prothrombin complex concentrate Given (KCENTRA) IV 2,616 Units 2,616 Units, Intravenous, Once, On Mon12/15/20 at 1005, For 1 dose, Maximum Dose = 2,500 units Give each 20 mL vial slow IV push over 3 minutes. Give each 40 mL vial slow IV push over 6 minutes. Max rate of infusion = 200 units/minute . Do not mix with other medications. Administer through a separate infusion line. Pharmacy will round all doses to the nearest full vial., Indication: Intracranial hemorrhage documented in this encounter Active and Recently Administered Medications Times are shown in CDT. 12/14/2020 12/15/2020 Medication Order 12/13/2020 2043 (Patch Applied - Provider: Zoey Cooper, RN) Lidocaine (LIDODERM) 5 % 1 patch 1 patch, Transdermal, Administer over 1 2 Hours, Daily, First dose on Mon12/15/20 at 2000, Apply to low back 0955 (Given - Provider: Alex Mina, HEVER) prothrombin complex concentrate (KCENTRA) IV 2,616 Units (COMPLETED) 2,616 Units, Intravenous, Once, On Mon12/15/20 at 1005, For 1 dose, Maximum Dose = 2,500 units Give each 20 mL vial slow IV push over 3 minutes. Give each 40 mL vial slow IV push over 6 minutes. Max rate of infusion = 200 units/minute . Do not mix with other medications. Administer through a separate infusion line. Pharmacy will round all doses to the nearest full vial., Indication: Intracranial hemorrhage 12/14/2020 12/15/2020 Medication Order 12/13/2020 1026 (New Bag - Provider: Alex Mina RN)1130 (Stopped - Provider: Yin Posadas RN)1425 (Rate/Dose Change - Provider: Yin Posadas RN)1426 (Rate/Dose Change - Provider: Yin Posadas RN)1500 (Rate/Dose Change - Provider: Yin Posadas RN)1516 (Rate/Dose Verify - Provider: Yin Posadas RN - Comment: [Action automatically changed] [Action automatically changed] [Action automatically changed])1701 (New Bag - Provider: Nataliya Robertson RN) niCARdipine (CARDENE) 25 mg in sodium chloride 0.9 % (NS) 60 mL infusion 5-15 mg/hr (12-36 mL/hr), Intravenous, at 12-36 mL/hr, Continuous, Starting on Mon12/15/20 at 1003, Begin infusion at 5 mg/hr and titrate by 2.5 mg/hr every 5-15 minutes to maintain SBP < 140. Infusion not to exceed 15 mg/hr. STORE AT ROOM TEMPERATURE 1206 (New Bag - Provider: Yin Posadas RN - Comment: ok to use peripheral per Linda Landeros APRN) sodium chloride 3% (HYPERTONIC) infusio n 40 mL/hr, Intravenous, at 40 mL/hr, Continuous, Starting on Mon12/15/20 at 1200, Double check the IV pump settings before administering. Serious injury or may occur if rate or duration of administration of concentrated sodium chloride is excessive. Central line is recommended for administration. 12/14/2020 12/15/2020 Medication Order 12/13/2020 acetaminophen (TYLENOL) suppository 325-650 mg(Linked Group 1) 325-650 mg, Rectal, Every 6 hours PRN, mild pain (pain score 1-3), Starting on Mon12/15/20 at 1004, Administer if patient unable to tolerate oral medications. acetaminophen (TYLENOL) tablet 650 mg(Linked Group 1) 650 mg, Oral, Every 6 hours PRN, fever, temperature > 98.6 F (37 C), Starting o n Mon12/15/20 at 1004, Do not exceed 4 GM/DAY of acetaminophen. If 65 or olde r do not exceed 3 GM/DAY. If chronic alcoholic do not exceed 2 GM/DAY. alteplase (CATHFLO ACTIVASE) injection 1 mg 1 mg, Intra-Catheter, As needed, declotting central catheter or sluggish/occluded CVC line, Starting on Mon12/15/20 at 1326, Use 1 mg/mL to declot catheter as needed, Declot catheter per Central Venous Access Device, Declotting procedure in [facility] REFRIGERATE bisacodyL (DULCOLAX) suppository 10 mg 10 mg, Rectal, Daily PRN, constipation, if no BM in previous 24 hours, Starting on Mon12/15/20 at 1004 1654 (Given - Provider: Alli Siegel) fentaNYL (SUBLIMAZE) injection 12.5 mcg (CANCELED) 12.5 mcg, Intravenous, Every 2 hours PRN, moderate pain (pain score 4-6), severe pain (pain score 7-10), Starting on Mon12/15/20 at 1633, Administer over 2 minutes; max dose for IVP is 2 mcg/kg . Note: Limit does not apply to patients who may be tolerant to opioid therapy o r on continuous IV or PO opiate therapy. 1951 (Given - Provider: Alli Moore)2051 (Given - Provider: Zoey Stegner, RN) fentaNYL (SUBLIMAZE) injection 25-50 mc g 25-50 mcg, Intravenous, Every 2 hours PRN, moderate pain (pain score 4-6), severe pain (pain score 7-10), Starting on Mon12/15/20 at 1930, Administer over 2 minutes; max dose for IVP is 2 mcg/kg . Note: Limit does not apply to patients who may be tolerant to opioid therapy o r on continuous IV or PO opiate therapy. 1022 (Given - Provider: Melyssa Cloud, RT(R)(CT)) iohexoL (OMNIPAQUE) 350 mg iodine/mL injection 1-500 mL (COMPLETED) 1-500 mL, Intravenous, Once in imaging, contrast, Starting on Mon12/15/20 at 1022, For 1 dose lidocaine (XYLOCAINE) 10 mg/mL (1 %) injection 1-10 mL 1-10 mL, Intradermal, Once as needed, local anesthesia, Starting on Mon12/15/20 at 1326, For 1 dose, during aram e placement magnesium sulfate IVPB 4 gram (premix) 4 g, Intravenous, at 25 mL/hr, As needed, aggressive electrolyte replacement, Starting on Mon12/15/20 at 1007, Replace in addition to any scheduled magnesium doses. Administer 4 grams over 4 hours for magnesium level less than or equal to 1.9 mg/dL. Repeat magnesium level in AM. Administer only if serum creatinine is less than 2 within the previous 48 hours and sustained urine output is greater than 20 mL/hr for 6 hours (if able to monitor). 1923 (Given - Provider: Alli Siegel N - Comment: nausea and vomiting) ondansetron (ZOFRAN) injection 4 mg 4 mg, Intravenous, Every 6 hours PRN, nausea, vomiting, Starting on Mon12/15/20 at 1006 potassium bicarb-citric acid (EFFER-K) effervescent tablet 20 mEq(Linked Group 2) 20 mEq, Oral, As needed, aggressive electrolyte replacement, Starting on 12/15/20 at 1007, Administer if unable t o swallow potassium tablets. Replace in addition to any scheduled potassium doses. Administer 20 mEq once for potassium level 3.6 to 3.9 mg/dL. Repea t potassium level in AM. Administer 20 mE q every hour x 2 doses (total dose = 40 mEq) for potassium level 3.1 to 3.5 mg/dL. Repeat potassium level in AM. Administer 20 mEq every hour x 3 doses (total dose = 60 mEq) for potassium level less than or equal to 3.0. Repeat potassium level 4 hours after last oral dose administered. Administer only if serum creatinine is less than 2 within the previous 48 hours and sustained urine output is greater than 20 mL/hr for 6 hours (if able to monitor). Completely dissolve tablet in 3 to 4 ounces (90-120 mL) of cold juice or water before administering. For fluid restricted patients, a smaller volume may be used to dilute (e.g. 15-30 mL). potassium chloride (KLOR-CON) CR tablet 20 mEq(Linked Group 2) 20 mEq, Oral, As needed, aggressive electrolyte replacement, Starting on 12/15/20 at 1007, Replace in addition to any scheduled potassium doses. Administer 20 mEq once for potassium level 3.6 to 3.9 mg/dL. Repeat potassiu m level in AM. Administer 20 mEq every hour x 2 doses (total dose = 40 mEq) fo r potassium level 3.1 to 3.5 mg/dL. Repea t potassium level in AM. Administer 20 mE q every hour x 3 doses (total dose = 60 mEq) for potassium level less than or equal to 3.0. Repeat potassium level 4 hours after last oral dose administered . Administer only if serum creatinine is less than 2 within the previous 48 hour s and sustained urine output is greater than 20 mL/hr for 6 hours (if able to monitor). DO NOT CRUSH OR CHEW. potassium chloride 20 mEq in 100 mL IVPB(Linked Group 2) 20 mEq, Intravenous, Administer over 2 Hours, As needed, aggressive electrolyt e replacement, Starting on Mon12/15/20 at 1007, Administer if unable to take oral potassium. Replace in addition to any scheduled potassium doses. Administer 20 mEq once for potassium level 3.6 to 3.9 mg/dL. Repeat potassium level in AM . Administer 20 mEq x 2 doses (total dose = 40 mEq) for potassium level 3.1 to 3. 5 mg/dL. Repeat potassium level 2 hours after last infusion complete. Administer 20 mEq x 3 doses (total dose = 60 mEq) for potassium level less than or equal to 3.0. Repeat potassium level 2 hours after last infusion complete. Administer only if serum creatinine is less than 2 within the previous 48 hour s and sustained urine output is greater than 20 mL/hr for 6 hours (if able to monitor). Potassium chloride should be infused at a rate of 10 mEq/hr through a peripheral line, or at a rate of 20 mEq/hr through a central line. 2039 (Given - Provider: Alli Moore) prochlorperazine (COMPAZINE) injection 5 mg 5 mg, Intravenous, Every 6 hours PRN, nausea, vomiting, Starting on Mon12/15/20 at 1008 white petrolatum-mineral oiL (GENTEAL PM) 94-3 % ophthalmic ointment 1 application 1 application, Both Eyes, Every 4 hours PRN, dry eyes, Starting on Mon12/15/20 at 1004, Apply until awake and alert. Order Group 1: acetaminophen (TYLENOL) tablet 650 mgJu mp to med 650 mg, Oral, Every 6 hours PRN, fever, temperature > 98.6 F (37 C), Starting on Mon12/15/20 at 1004
Do not exceed 4 GM/DAY of aceta minophen. If 65 or older do not exceed 3 GM/DAY. If chronic alcoholic do no t exceed 2 GM/DAY.
Or acetaminophen (TYLENOL) suppository 325 -650 mgJump to med 325-650 mg, Rectal, Every 6 hours PRN, mild pain (pain score 1-3), Starting on Mon12/15/20 at 1004
Administer if patient unable to tolerate oral medications.
Group 2: potassium chloride (KLOR-CON) CR tablet 20 mEqJump to med 20 mEq, Oral, As needed, aggressive neftaly ctrolyte replacement, Starting on Mon12/15/20 at 1007
Replace in addition to any sche duled potassium doses. Administer 20 mEq once for potassium level 3.6 to 3.9 mg/dL. Repea t potassium level in AM. Administer 20 mEq every hour x 2 doses (total dose = 40 mEq) for potas sium level 3.1 to 3.5 mg/dL. Repeat potassium level in AM. Administer 20 mEq every ho ur x 3 doses (total dose = 60 mEq) for potassium level less than or equal to 3.0. Repeat potassium level 4 hours after last oral dose administered. Administer only if serum cr eatinine is less than 2 within the previous 48 hours and sustained urine output is greater than 20 mL/hr for 6 hours (if able to monitor). DO NOT CRUSH OR CHEW.
Or potassium bicarb-citric acid (EFFER-K) effervescent tablet 20 mEqJump to med 20 mEq, Oral, As needed, aggressive neftaly ctrolyte replacement, Starting on Mon12/15/20 at 1007
Administer if unable to swallow potassium tablets. Replace in addition to any scheduled potassium doses. Administer 20 mEq once for potassium level 3.6 to 3.9 mg/dL. Repeat potassium level in AM. Administer 20 mEq every hour x 2 doses (total dose = 40 mEq) for potassium level 3.1 to 3.5 mg/dL. Repea t potassium level in AM. Administer 20 mEq every hour x 3 doses (total dose = 60 mEq) for potas sium level less than or equal to 3.0. Repeat potassium level 4 hours after last oral dose administer ed. Administer only if serum creatinine is less than 2 within the previous 48 hours and sustained urine output is greater than 20 mL/hr for 6 hours (if able to monitor). Completely d issolve tablet in 3 to 4 ounces (90-120 mL) of cold juice or water before administering. For fluid r estricted patients, a smaller volume may be used to dilute (e.g. 15-30 mL).
Or potassium chloride 20 mEq in 100 mL IVP BJump to med 20 mEq, Intravenous, Administer over 2 Hours, As needed, aggressive electrolyte replacement, Starting on Mon12/15/20 at 1007
Admi nister if unable to take oral potassium. Replace in addition to any scheduled potassium dos es. Administer 20 mEq once for potassium level 3.6 to 3.9 mg/dL. Repeat potassium level in AM. Administer 20 mEq x 2 doses (total dose = 40 mEq) for potassium level 3.1 to 3.5 mg/dL. R epeat potassium level 2 hours after last infusion complete. Administer 20 mEq x 3 doses (tota l dose = 60 mEq) for potassium level less than or equal to 3.0. Repeat potassium level 2 hours aft er last infusion complete. Administer only if serum creatinine is less than 2 within the previous 48 hours and sustained urine output is greater than 20 mL/hr for 6 hours (if able to m onitor). Potassium chloride should be infused at a rate of 10 mEq/hr through a peripheral line, or at a rate of 20 mEq/hr through a central line.
documented in this encounter Additional Health Concerns Last Indicated Resolved Time Infection Onset Date 12/15/2020 12/15/2020 11:04 AM CDT COVID-19 PUI 12/15/2020 documented as of this encounter"
--- OUTSIDE RECORDS SUMMARY | 2020-12-15 22:03 | XMS REPORT | Encounter Summary ---
Author Author [facility] Organization [facility] Address Unknown Phone Unavailable Care Team Providers Care Scowman Name Role Phone PCP Unavailable Encounter Details Care Team Description Date Type Department Julian, Default Authenticator [address] [place] [address] 12/15/2020 [place] [facility] [employer] [address] [place] [address] Social History Date Tobacco Use Types Packs/Day Years Used Never Assessed Sex Assigned at Date Recorded Not on file documented as of this encounter Plan of Treatment Date/Time Name Type Priority Associated Diag noses 12/15/2020 12:18 PM CDT [employer] outside images External Films Routine for PACS documented as of this encounter Procedures Comments Procedure Name Priority Date/Time Associated Diag nosis [employer] OUTSIDE IMAGES Routine 12/15/2020 FOR PACS 12:18 PM CDT documented in this encounter Visit Diagnoses Not on filedocumented in this encounter
--- OUTSIDE RECORDS SUMMARY | 2020-12-15 22:03 | XMS REPORT | Clinical Summary ---
Author Author [facility] Address Unknown Phone Unavailable Care Team Providers Care Director Of Distance Learning Name Role Phone PCP Unavailable Allergies No Known Active Allergies Medications End Date Status Medication Sig Dispensed Refills Start Date Suspended metoprolol succinate Take 200 mg 0 (TOPROL-XL) 200 MG 24 hr by mouth tablet daily. Suspended warfarin (COUMADIN) 3 MG Take 3 mg by 0 tablet mouth every evening. Suspended latanoprost, PF, 0.005 % Administer 1 0 Drop drop to eye. Suspended amiodarone (CORDARONE) Take 200 mg 0 200 MG tablet by mouth 2 (two) times a day. Suspended polyethylene glycol Take 17 g by 0 (GLYCOLAX) 17 gram packet mouth as needed. Suspended acetaminophen (TYLENOL) Take 500 mg 0 500 MG tablet by mouth every 6 (six) hours as needed for pain. Suspended albuterol (ACCUNEB) 1.25 Inhale 1 0 mg/3 mL (0.042 %) ampule via nebulizer solution nebulizer every 6 (six) hours as needed for wheezing. Active Problems Problem Noted Date Fall 12/15/2020 Acute neck pain 12/15/2020 Acute pain due to trauma 12/15/2020 Traumatic subdural hematoma with loss of consciousnes s 12/15/2020 skilled nursing current use of anticoagulant 12/15/2020 Closed compression fracture of body of L1 vertebra 0 12/15/2020 Hemorrhagic disorder due to extrinsic circulating ant icoagulants 12/15/2020 Paresis of right lower extremity 12/15/2020 Compression of brain 12/15/2020 A-fib 12/15/2020 Hypertensive urgency 12/15/2020 History of DVT (deep vein thrombosis) 12/15/2020 Hyponatremia 12/15/2020 Hypoalbuminemia 12/15/2020 Type II diabetes mellitus 12/15/2020 Leukocytosis 12/15/2020 Closed compression fracture of L3 lumbar vertebra, in itial encounter 12/15/2020 Encounters Care Team Description Date Type Specialty Jaxon Silva MD Benedict, Beto Morejon MD SDH (subdural hematoma) ([facility]) (Primary D x); Acute neck pain; Acute pain due to trauma; Fall, 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; 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; Traumatic subdural hematoma with loss of consciousness, 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 ([facility]) 12/15/2020 Hospital Neurological Intens bhavesh Encounter Care Julian, Default Authenticator 12/15/2020 [employer] Julian, Default Authenticator 12/15/2020 [employer] from Last 3 Months Social History Date Tobacco Use Types Packs/Day Years Used Never Assessed Sex Assigned at Date Recorded Not on file Last Filed Vital Signs Reading Time Taken [...] - Height - - Body Mass Index Plan of Treatment Health Maintenance Due Date Last Done Comments Advance Directive has 1940 been filed Diabetes Mellitus 1940 Hemoglobin A1C Diabetes Mellitus 1940 Ophthalmology Exam Diabetes Mellitus Urine 1940 Microalbumin Lipid Screening 1940 Medicare Annual Wellness 1940 Td/Tdap# 1940 Pneumococcal Vaccine: 65+ 1944 03/12/2015 Years (1 of 2 - PPSV23) Diabetes Mellitus Foot 1948 Exam Zoster Vaccine# (1 of 2) 1988 Advance Directive 10/30/2003 Conversation Depression Screening 10/30/2003 PHQ-9 # Patient Needs Advance 10/30/2003 Directive Influenza Vaccine (#1) 2021 02/07/2019, 01/25/2018, 02/03/2017, Additional history exists Fall Risk Assessment # 12/15/2021 12/15/2020 COVID-19 Vaccine Completed 08/14/2020, 07/17/2020 Procedures * The patient is currently admitted. The information in this section might not be complete until the patient is discharged. Comments Procedure Name Priority Date/Time Associated Diag nosis CLOTTING SCREEN STAT 12/15/2020 8:00 PM CDT POTASSIUM Timed 12/15/2020 6:27 PM CDT SODIUM Timed 12/15/2020 6:[address] HEAD WO CONTRAST Timed 12/15/2020 3:19 PM CDT URINALYSIS REFLEX Routine 12/15/2020 2:00 PM CDT TOXICOLOGY SCREENING STAT 12/15/2020 PANEL 2:00 PM CDT XR CHEST POST LINE DRAIN STAT 12/15/2020 OR AIRWAY PLACEMENT 1:50 PM CDT POWERSHARE OUTSIDE IMAGES Routine 12/15/2020 FOR PACS 12:18 PM CDT POWERSHARE OUTSIDE IMAGES Routine 12/15/2020 FOR PACS 12:18 PM CDT GLUCOSE POC Routine 12/15/2020 10:56 AM CDT P2Y12 RESPONSE ASSAY STAT 12/15/2020 10:35 AM CDT VENOUS BLOOD GAS STAT 12/15/2020 10:35 AM CDT ECG STAT 12/15/2020 10:26 AM CDT COVID PCR - RAPID STAT 12/15/2020 10:24 AM CDT ABORH TYPE STAT 12/15/2020 10:22 AM CDT MAGNESIUM Add-On 12/15/2020 10:22 AM CDT ANTIBODY SCREEN STAT 12/15/2020 10:22 AM CDT LACTATE VENOUS WB STAT 12/15/2020 10:22 AM CDT CREATINE KINASE STAT 12/15/2020 10:22 AM CDT TROPONIN STAT 12/15/2020 10:22 AM CDT CLOTTING SCREEN STAT 12/15/2020 10:22 AM CDT LIPASE STAT 12/15/2020 10:22 AM CDT AMYLASE STAT 12/15/2020 10:22 AM CDT ALCOHOL SERUM STAT 12/15/2020 10:22 AM CDT COMPREHENSIVE METABOLIC STAT 12/15/2020 PANEL 10:22 AM CDT CBC AND DIFF (MANUAL DIFF STAT 12/15/2020 IF NECESSARY) 10:[address] LUMBAR SPINE STAT 12/15/2020 RECONSTRUCTED 10:21 AM CDT Procedure Note - Interface, Rad Results In - 12/15/2020 12:25 PM CDT Patient: ABNER THOMAS Sex#: Mercy #: 1940 Chrissy#: [id number] Location: [facility] Accession# : [id number] Ordering Provider: ARIN BALL Procedure Requested: [id number] CT LUMBAR SPINE RECONSTRUC ABHI Exam Ordered: [...] done according to ALARA and image gently/piero documistic. Findings: Age-indete rminate fracture of superior endplate [...] day CT abdomen and pelvis for intra-abdo ejssa and pelvic findings. ++++++++++ ++++++++++ ++++++++++ ++++++++++ [...] no significan t height loss. READING SITE: [facility]. ATTESTATI ON STATEMENT: The Staff Radiologis t has personally reviewed the images and dictated, reviewed, or edited the final report. CT THORACIC SPINE STAT 12/15/2020 RECONSTRUCTED 10:21 AM CDT Procedure Note - Interface, Rad Results In - 12/15/2020 12:26 PM CDT Patient: ABNER THOMAS Sex#: M #: 1940 Chrissy#: [id number] Location: [place] [address] Accession# : [id number] Ordering Provider: ARIN BALL Procedure Requested: [id number] CT THORACIC SPINE RECONSTRUC ABHI Exam Ordered: [...] done according to ALARA and image gently/piero documistic. Findings: The thoracic spine is normally aligned. [...] of chronic degenerati ve changes. READING SITE: [facility]. ATTESTATI ON STATEMENT: The Staff Radiologis t has personally reviewed the images and dictated, reviewed, or edited the final report. CT ABDOMEN PELVIS W STAT 12/15/2020 CONTRAST 10:[address] CHEST W CONTRAST STAT 12/15/2020 10:[address] HEAD WO CONTRAST STAT 12/15/2020 10:21 AM CDT Procedure Note - Interface, Rad Results In - 12/15/2020 12:29 PM CDT Patient: ABNER THOMAS Sex#: M #: 1940 Chrissy#: [id number] Location: [facility] Accession# : [id number] Ordering Provider: ARIN BALL Procedure Requested: [id number] CT HEAD WO CONTRAST Exam Ordered: 12/15/2020 [...] done according to ALARA and image gently/piero ge wise Findings: Acute left hemispheri c subdural hematoma [...] The mastoid air cells are clear. The recycling program manager topogram shows no lytic lesion or fracture. [...] trace right frontal subdural hematoma. READING SITE: [facility]. ATTESTATI ON STATEMENT: The Staff Radiologis t has personally reviewed the images and dictated, reviewed, or edited the final report. CT CERVICAL SPINE WO STAT 12/15/2020 CONTRAST 10:21 AM CDT Procedure Note - Interface, Rad Results In - 12/15/2020 1:08 PM CDT Patient: ABNER THOMAS Sex#: M #: 1940 Chrissy#: [id number] Location: [facility] Accession# : [id number] Ordering Provider: ARIN BALL Procedure Requested: [id number] CT CERVICAL SPINE WO CONTRAST Exam Ordered: [...] done according to ALARA and image gently/piero [employer] [facility] COMPARISO N: None. FINDINGS: The cervical spine [...] or edited the final report. READING SITE: [facility] XR PELVIS ONE OR TWO STAT 12/15/2020 VIEWS 9:52 AM CDT XR CHEST SINGLE VIEW STAT 12/15/2020 FRONTAL 9:52 AM CDT PULSE OXIMETRY, STAT 12/15/2020 CONTINUOUS 9:45 AM CDT from Last 3 Months Results * Clotting Screen (12/15/2020 8:00 PM CDT) Only the most recent of 2 results within the time period is included. Protime 15.0 11.4 - 15.0 sec [facility] INR 1.2 0.8 - 1.2 [facility] APTT 37 (H) 22 - 34 sec [facility] Specimen Blood Performing Organization Address City/[facility]/ZIP Code P ruddy Number [facility] [address] [place] [address] LABORATORIES [facility] [address] [place] [address] * Sodium (12/15/2020 6:27 PM CDT) Sodium 127 (L) 133 - 147 MEQ/L [facility] Specimen Blood Performing Organization Address City/State/ZIP Code P ruddy Number [facility] [address] [place] [address] LABORATORIES [facility] [address] [place] [address] * Potassium (12/15/2020 6:27 PM CDT) Potassium 4.3 3.5 - 5.3 MEQ/L [facility] Specimen Blood Performing Organization Address City/[facility]/ZIP Code P ruddy Number [facility] [address] [place] [address] LABORATORIES [facility] [address] [place] [address] * CT Head wo contrast (12/15/2020 3:19 PM CDT) Specimen Impressions Performed At Impression: ALLAN 1. Left holohemispheric and parafalcine hematomas are not significantly changed from 1007 hours same day with s imilar brain compression and left to right midline shift. No evidence for developing hydrocephalus. 2. Moderate generalized atrophy and chr onic small vessel ischemic disease. 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 READING SITE: [facility]. ATTESTATION STATEMENT: The Staff Radiol ogist has personally reviewed the images and dictated, reviewed, or edite d the final report. Narrative Performed At Patient: ABNER THOMAS Sex#: M #: 1940 Chrissy# : [id number] Location: [place] [address] Access ion#: [id number] Ordering Provider: DARRIN JOHNSON Procedure Requested: [id number] CT HEAD WO CONTRAST Exam Ordered: 12/15/2020 [...] m astoid air cells are clear. The recycling program manager topogram shows no lytic lesio n or fracture. Procedure Note Interface, Rad Results In - 12/15/2020 7:49 PM CDT Patient: ABNER THOMAS Sex#: M #: 1940 Chrissy#: [id number] Location: [place] [id number] Ordering Provider: ALEX JOHNSON Procedure Requested: [id number] CT HEAD WO CONTRAST Exam Ordered: 12/15/2020 [...] The mastoid air cells are clear. The recycling program manager topogram shows no lytic lesion or fracture. IMPRESSION Impression: 1. Left holohemispheric and parafalcine hematomas are not significantly changed from 1007 hours same day with similar brain compression and left to right midline shift. No evidence for developing hydrocephalus. 2. 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 READING SITE: [facility]. ATTESTATION STATEMENT: The Staff Radiologist has personally reviewed the images and dictated, reviewed, or edited the final report. Performing Organization Address City/State/[facility] Code P ruddy Number [id number] * Urinalysis Reflex (12/15/2020 2:00 PM CDT) Pathologist [facility] Appearance, Yellow [facility] Glucose Urine 100 (A) Negative mg/dL [facility] Bilirubin Urine Negative Negative [facility] Ketones Urine Trace (A) Negative mg/dL [facility] Specific 1.022 1.001 - 1.030 [facility] Hemoglobin Trace (A) Negative [facility] PH Urine 8.0 5.0 - 8.0 [facility] Protein Urine Negative Negative mg/dL [facility] Urobilinogen Negative Negative EU/dL [facility] Nitrite Urine Negative Negative [facility] Leukocyte Negative Negative [facility] Specimen Clean Voided Urine Performing Organization Address City/[facility]/ZIP Code P ruddy Number [address] [address] LABORATORIES [facility] [address] [place] [address] * Toxicology Screening Panel (12/15/2020 2:00 PM CDT) [facility] Tetrahydrocanna Not Detected Not Detected [facility] binol Urine Hospital Lab Phencyclidine Not Detected Not Detected [facility] Cocaine Urine Not Detected Not Detected [facility] Methamphetamine Not Detected Not Detected [facility] Opiates Urine Not DetectedComment: This drug Not Detected [facility] screen provides presumptive Hospital Lab results for medical purposes only. False positive results may occur. Confirmatory results will follow for all positive drugs except tricyclic antidepressants. Amphetamines Not Detected Not Detected [facility] Benzodiazepines Not Detected Not Detected [facility] Tricyclic Not Detected Not Detected [facility] Methadone Urine Not Detected Not Detected [facility] Barbiturates Not Detected Not Detected [facility] Oxycodone Urine Not Detected Not Detected [facility] Comment: Hospital Lab Toxicology cutoff values: Assay Cutoff value Assay Cutoff value Amphetamines 500 ng/mL Methamphetamines 500 ng/mL Barbiturates 200 ng/mL Opiates 100 ng/mL Benzodiazepines 150 ng/mL Oxycodone 100 ng/mL Cocaine 150 ng/mL Phencyclidine 25 ng/mL Methadone 200 ng/mL THC 50 ng/mL Tricyclic Antidepressants 300 ng/mL Specimen Urine Performing Organization Address City/State/ZIP Code P ruddy Number [address] [address] LABORATORIES [facility] [address] [place] [address] * XR Chest post line drain or airway placement (12/15/2020 1:50 PM CDT) Specimen Impressions Performed At 1. Left upper extremity PICC. ALLAN 2. Increased bilateral heterogeneous op acities and indistinct vasculature concerning for atelectasis and edema. Superimposed infection or aspiration not excluded. 3. Small left pleural effusion versus t hickening. READING SITE: [facility] Narrative Performed At Patient: ABNER THOMAS Sex#: M #: 1940 Chrissy# : [id number] Location: [address] ICU [id number] Access ion#: [id number] Ordering Provider: DARRIN JOHNSON Procedure Requested: [id number] XR CHEST POST LINE DRAIN OR AIRWAY [...] ABNER THOMAS Sex#: M #: 1940 Chrissy#: [id number] Location: [address] ICU [id number] Ordering Provider: ALEX JOHNSON Procedure Requested: [id number] XR CHEST POST LINE DRAIN OR AIRWAY [...] pleural effusion versus th ickening. READING SITE: [facility] Binh Performing Organization Address City/State/ZIP Code P ruddy Number [facility] * GLUCOSE POC (12/15/2020 10:56 AM CDT) Glucose POC 127 (H) 70 - 100 mg/dL [facility] LABORATORIES Specimen Performing Organization Address City/State/ZIP Code P ruddy Number [address] [place] [address] LABORATORIES * P2Y12 Response Assay (12/15/2020 10:35 AM CDT) P2Y12 Platelet 211Comment: PRU values >230 PRU [facility] Function have been associated with an Hospital Lab increased risk of ischemic events after PCI including , NV, and stent thrombosis. Specimen Blood Performing Organization Address City/State/ZIP Code P ruddy Number [address] [address] LABORATORIES [facility] [address] [place] [address] * Venous Blood Gas (12/15/2020 10:35 AM CDT) PO2 Venous 31 (L) 37 - 43 mm Hg [facility] PCO2 Venous 72 (H) 40 - 45 mm Hg [facility] PH Venous 7.30 (L) 7.36 - 7.41 units [facility] Bicarbonate 35.4 (H) 22.0 - 29.0 MEQ/L [facility] Base Excess 6.4 (H) -3.0 - 3.0 MEQ/L [facility] Specimen Blood Performing Organization Address City/[facility]/ZIP Code P ruddy Number [address] [address] LABORATORIES [facility] [address] [place] [address] * Electrocardiogram (ECG) (12/15/2020 10:26 AM CDT) QRSd 122 TRACEMASTER QT 432 TRACEMASTER QTC 523 TRACEMASTER ECGHR 88 TRACEMASTER Specimen Narrative Performed At [facility] ED Test Date: 2020-12-15 Pat Name: ABNER THOMAS Department: MELISSA Room: [facility] Gender: Male 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 : 1940 Requested By: ARIN BALL Order Number: [id number] Reading MD: Measurements Intervals Bruin Rate: 88 P: IA: QRS: 19 QRSD: 122 T: -28 QT: 432 QTc: 523 Interpretive Statements Atrial fibrillation Ventricular premature complex Nonspecific intraventricular conduction delay Nonspecific repol abnormality, lateral leads Procedure Note Interface, External Ris In - 12/15/2020 10:27 AM CDT [facility] ED Test Date: 2020-12-15 Pat Name: ABNER THOMAS Department: ERL Room: [facility] Gender: Male 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 test has been authorized by Hospital Lab the FDA under an Emergency Use Authorization (EUA) for use by authorized laboratories. Specimen NASOPHARYNGEAL SWAB Performing Organization Address City/[facility]/ZIP Code P ruddy Number [address] [address] LABORATORIES [facility] [address] [place] [address] * Antibody Screen (12/15/2020 10:22 AM CDT) [facility] Antibody Screen Negative Negative [facility] Specimen Blood Performing Organization Address City/[facility]/ZIP Code P ruddy Number [facility] [address] [place] [address] LABORATORIES [facility] [address] [place] [address] * Troponin (12/15/2020 10:22 AM CDT) [facility] Troponin <0.01 0.00 - 0.03 ng/mL [facility] Comment: Hospital Lab Troponin Value Interpretation 0.00 - 0.03 Healthy 0.04 - 0.12 Increased Cardiac Risk >0.12 Myocardial Infarction Troponin may not become elevated until 6 to 8 hours after onset of symptoms. Specimen Blood Performing Organization Address City/[facility]/ZIP Code P ruddy Number [facility] [address] [place] [address] LABORATORIES [facility] [address] [place] [address] * Magnesium (12/15/2020 10:22 AM CDT) Magnesium 1.6 1.4 - 2.7 mg/dL [facility] Specimen Blood Performing Organization Address City/[facility]/ZIP Code P ruddy Number [address] [address] LABORATORIES [facility] [address] [place] [address] * Lipase (12/15/2020 10:22 AM CDT) Lipase <10 (L) 23 - 300 IU/L [facility] Specimen Blood Performing Organization Address City/[facility] P ruddy Number [facility] [address] [place] [address] LABORATORIES [facility] [address] [place] [address] * Lactate Venous WB - 0hr STAT (12/15/2020 10:22 AM CDT) Lactate Venous 1.5 0.0 - 2.0 mmol/L [facility] Specimen Blood Performing Organization Address City/[facility] Code P ruddy Number [facility] [address] [place] [address] LABORATORIES [facility] [address] [place] [address] * Creatine Kinase (12/15/2020 10:22 AM CDT) Creatine Kinase 30 IU/L [facility] Comment: Hospital Lab White Female: 30 - 160 IU/L Black Female: 30 - 430 IU/L White Male: 40 - 425 IU/L Black Male: 50 - 850 IU/L Specimen Blood Performing Organization Address City/State/ZIP Code P ruddy Number [facility] [address] [place] [address] LABORATORIES [facility] [address] [place] [address] * Comprehensive Metabolic Panel (12/15/2020 10:22 AM CDT) Sodium 126 (L) 133 - 147 MEQ/L [facility] Potassium 4.6 3.5 - 5.3 MEQ/L [facility] Chloride 89 (L) 96 - 112 MEQ/L [facility] Carbon Dioxide 34 (H) 20 - 32 MEQ/L [facility] Anion Gap 4 (L) 5 - 17 [facility] Calcium 7.9 (L) 8.4 - 10.5 mg/dL [facility] Glucose 120 (H) 70 - 100 mg/dL [facility] Protein Total 5.2 (L) 6.0 - 8.2 g/dL [facility] Serum [facility] Lab Albumin 2.9 (L) 3.5 - 5.0 g/dL [facility] Alkaline 61 42 - 140 IU/L [facility] Alanine 10 0 - 49 IU/L [facility] e Aspartate 21Comment: Specimen is 15 - 46 IU/L [facility] Aminotransferas slightly hemolyzed which may Hospital Lab e elevate the AST result. Bilirubin Total 1.3 0.2 - 1.3 mg/dL [facility] Blood Urea 12 7 - 26 mg/dL [facility] Creatinine 0.7 0.6 - 1.3 mg/dL [facility] eGFR Male AA >130 60 - 200 [facility] mL/min/1.73sq m Hospital Lab eGFR Male 108 60 - 200 [facility] Non-AA mL/min/1.73sq m Hospital Lab Specimen Blood Performing Organization Address City/State/ZIP Code P ruddy Number [facility] [address] [place] [address] LABORATORIES [facility] [address] [place] [address] * CBC and Diff (manual diff if necessary) (12/15/2020 10:22 AM CDT) WBC 17.68 (H) 4.00 - 11.00 TH/uL [facility] RBC 3.79 (L) 4.31 - 5.84 MIL/uL [facility] Hemoglobin 13.1 13.0 - 17.0 g/dL [facility] Hematocrit 38 (L) 40 - 50 % [facility] MCV 101 (H) 80.0 - 99.0 fL [facility] MCH 35 (H) 27.0 - 34.0 pg [facility] MCHC 34 32 - 36 % [facility] RDW 13.0 11.5 - 14.5 % [facility] Platelet Count 113 (L) 140 - 400 TH/uL [facility] MPV 13.2 (H) 9.4 - 12.3 fL [facility] Nucleated RBCs 0 0 - 0 /100 [facility] % Neutrophils 54 45 - 78 % [facility] %Lymphocytes 43 15 - 47 % [facility] % Monocytes 3 0 - 12 % [facility] %Eosinophils 0 0 - 7 % [facility] %Basophils 0 0 - 2 % [facility] # Granulocytes 9.55 (H) 1.70 - 6.80 TH/uL [facility] # Lymphocytes 7.60 (H) 1.00 - 3.30 TH/uL [facility] # Monocytes 0.53 0.20 - 0.90 TH/uL [facility] # Eosinophils 0.00 0.00 - 0.40 TH/uL [facility] # Basophils 0.00 0.00 - 0.10 TH/uL [facility] RBC Morphology Normal Normal [facility] Specimen Blood Performing Organization Address City/State/ZIP Code P ruddy Number [address] [address] LABORATORIES [facility] [address] [place] [address] * Amylase (12/15/2020 10:22 AM CDT) Amylase 45 30 - 130 IU/L [facility] Specimen Blood Performing Organization Address City/State/ZIP Code P ruddy Number [facility] [address] [place] [address] LABORATORIES [facility] [address] [place] [address] * Alcohol Serum (12/15/2020 10:22 AM CDT) Alcohol Serum <10 0 - 9 mg/dL [facility] Specimen Blood Performing Organization Address City/State/ZIP Code P ruddy Number [facility] [address] [place] [address] LABORATORIES [facility] [address] [place] [address] * ABORH Type (12/15/2020 10:22 AM CDT) ABORH Type O Positive [facility] Specimen Blood Performing Organization Address City/[facility]/ZIP Code P ruddy Number [facility] [address] [place] [address] LABORATORIES [facility] [address] [place] [address] * CT Chest w contrast (12/15/2020 10:21 [...] 3. Cardiomegaly. Coronary atheroscleros is. READING SITE: [facility] Narrative Performed At Patient: ABNER THOMAS Sex#: M #: 1940 Chrissy# : [id number] Location: [facility] LED08 Ordering Provider: ARIN BALL Procedure Requested: [id number] CT CHEST W CONTRAST Exam Ordered: 12/15/2020 09 54 Exam Date/Time: 12/15/2020 102 1 Begin exam date/time: 12/15/[address] CHEST W CONTRAST INDICATION: trauma Comparison: None. TECHNIQUE: Following the uneventful adm inistration of intravenous contrast 100 cc Omnipaque 350, axial CT sections were obtained through the lungs and upper abdomen. Coronal NV P images and coronal and sagittal multiplanar [...] ABNER THOMAS Sex#: M #: 1940 Chrissy#: [id number] Location: [facility]08 Ordering Provider: ARIN BALL Procedure Requested: [id number] CT CHEST W CONTRAST Exam Ordered: 12/15/2020 [...] 3. Cardiomegaly. Coronary atherosclerosi s. READING SITE: [facility] Organization Address City/State/ZIP Code P ruddy Number [id number] * CT Abdomen Pelvis w contrast (12/15/2020 [...] subtle nondisplaced sacrococc ygeal fracture. READING SITE: [facility] Narrative Performed At Patient: ABNER THOMAS MCBRITTANYCRISTY Sex#: M #: 1940 Chrissy# : [id number] Location: [facility] ED LED08 Ordering Provider: ARIN BALL Procedure Requested: [id number] CT ABDOM EN PELVIS W CONTRAST Exam [...] ABNER THOMAS Sex#: M #: 1940 Chrissy#: [id number] Location: [facility] ED LED08 Ordering Provider: ARIN BALL Procedure Requested: [id number] CT ABDOMEN PELVIS W CONTRAST Exam Ordered: [...] celiac artery, SMA, bilateral renal arteries, and PEIRO are patent. . Lymph nodes: No lymphadenopathy [...] a subtle nondisplaced sacrococcygeal fracture. READING SITE: [facility] Organization Address City/State/ZIP Code P ruddy Number [place]AN * XR Pelvis one or two views (12/15/2020 9:52 AM CDT) Specimen Impressions Performed At No evidence of fracture. [place] READING SITE: [facility] Narrative Performed At Patient: ABNER THOMAS Sex#: M #: 1940 Chrissy# : [id number] Location: [facility] ED R1 Ordering Provider: ARIN BALL Procedure Requested: [id number] XR PELVI S ONE OR TWO VIEWS [...] ABNER THOMAS Sex#: M #: 1940 Chrissy#: [id number] Location: [facility] ED R1 Ordering Provider: ARIN BALL Procedure Requested: [id number] XR PELVIS ONE OR TWO VIEWS Exam [...] IMPRESSION No evidence of fracture. READING SITE: [facility] Performing Organization Address City/State/ZIP Code P ruddy Number [place] * XR Chest single view frontal (12/15/2020 9:52 AM CDT) Specimen Impressions Performed At Question small left pleural effusion. No pneumothorax . No MCKESSON focal consolidation. Consider further e valuation with PA and lateral chest radiograph. READING SITE: [facility] Narrative Performed At Patient: ABNER THOMAS Sex#: M #: 1940 Chrissy# : [id number] Location: [facility] ED LED08 Ordering Provider: ARIN BALL Procedure Requested: [id number] XR CHEST SINGLE VIEW FRONTAL Exam Ordered: [...] ABNER THOMAS Sex#: M #: 1940 Chrissy#: [id number] Location: [facility] ED LED08 Ordering Provider: ARIN BALL Procedure Requested: [id number] XR CHEST SINGLE VIEW FRONTAL Exam Ordered: [...] PA and lateral chest radiograph. 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
== END 2020-12-15 08:15 | disposition short-term general hospital (02) ==
LOC: EDUNIT# 05:37 → ER FS 05:39
DX: I62.01 Nontraumatic acute subdural hemorrhage (principal); I10 Essential (primary) hypertension
CPT/HCPCS: 36415; 70450; 71045; 80053; 83880; 85007; 85027; 85610; 85730; 93005

== ENCOUNTER 2020-12-25 11:00 | Inpatient (IN) | payer MEDICARE ==
[~2020-12-25] VITALS: Ht 182.8 cm; Wt 104.6 kg
--- NOTE | 2020-12-25 11:12 | ED Dyspnea ---
General Stated Complaint: SOA Source of Information: Patient, EMS, [facility] Records Exam Limitations: No Limitations (IBETH WILDER APRN) History of Present Illness Date Seen by Provider: Dec 25, 2020 Time Seen by Provider: 11:09 Initial Comments To ER by EMS from [facility] and rehab with reports of respiratory difficulties. Patient was noted to have respiratory rate of 32 and a blood pressure of 90 systolic. He has a history of atrial fibrillation and COPD upper leather cutter nically on oxygen. care home staff report that he is full code and they wanted him to be evaluated here in the emergency room. Primary care is Dr. Interiano. No fevers or chills. Swabbed weekly for Covid and negative. Timing/Duration: 1 Week Severity: Moderate Associated Symptoms: Cough (IBETH WILDER APRN) Allergies and Home Medications Allergies Coded Allergies: No Known Drug Allergies (Unverified , 10/29/18) Patient Home Medication List Home Medication List Reviewed: Yes (IBETH WILDER APRN) Review of Systems Review of Systems Constitutional: see HPI EENTM: see HPI Respiratory: see HPI, cough, dyspnea on exertion Cardiovascular: no symptoms reported Genitourinary: no symptoms reported Musculoskeletal: no symptoms reported Skin: no symptoms reported Psychiatric/Neurological: No Symptoms Reported Endocrine: No Symptoms Reported (IBETH WILDER APRN) Past Yalopfl-Fbztqd-Aaleso Hx Past Medical History Atrial Fibrillation, Hypertension (IBETH WILDER APRN) Physical Exam Vital Signs Vital Signs - First Documented 12/25/20 11:00 Temp 37.0 Pulse 93 Resp 32 B/P (MAP) 126/88 (101) Pulse Ox 98 O2 Delivery Nasal Cannula O2 Flow Rate 3.00 (ESTHER MCRAE MD) Vital Signs Capillary Refill : (IBETH WILDER APRN) Height, Weight, BMI Height: '" Weight: lbs. oz. kg; 25.00 BMI Method: General Appearance: No Apparent Distress, WD/WN, Other (No distress, he is tachypneic with a respiratory rate of about 30 though his oxygen saturation is 96 to 97% on his baseline 2 L. Heart rate is 83 and blood pressure 126/88. I discussed advanced directives with him. I specifically asked if his heart stops does he want us to do CPR and he states "no". I then asked if he should need a ventilator would he want that and he also replies "no". As such she will be a DO NOT RESUSCITATE status here. He is alert and oriented and capable of making this decision. He knows where he is at and why he is here. He knows his name and date of .) Neck: Full Range of Motion, Normal Inspection Respiratory: No Accessory Muscle Use, No Respiratory Distress, Decreased Breath Sounds Cardiovascular: Regular Rate, Rhythm, Normal Peripheral Pulses Gastrointestinal: Normal Bowel Sounds, Non Tender, Soft Extremity: Normal Capillary Refill, Normal Inspection Neurologic/Psychiatric: Alert, Oriented x3 Skin: Normal Color, Warm/Dry (IBETH WILDER APRN) Focused Exam Lactate Level 12/25/20 11:00: Lactic Acid Level 1.62 (ESTHER MCRAE MD) Lactic Acid Level Laboratory Tests Test 12/25/20 11:00 Lactic Acid Level 1.62 MMOL/L (0.50-2.00) (ESTHER MCRAE MD) Progress/Results/Core Measures Results/Orders Lab Results Laboratory Tests Test 12/25/20 10:56 12/25/20 11:00 12/25/20 13:44 Range/Units Blood Gas Puncture Site LEFT RAD Blood Gas Patient Temperature 98.2 Arterial Blood pH 7.43 7.37-7.43 Arterial Blood Partial Pressure CO2 50 H 35-45 MMHG Arterial Blood Partial Pressure O2 94 H 79-93 MMHG Arterial Blood HCO3 33 H 23-27 MMOL/L Arterial Blood Total CO2 34.1 H 21.0-31.0 MMOL/L Arterial Blood Oxygen Saturation 98 94-100 % Arterial Blood Base Excess 8.0 H -2.5-2.5 MMOL/L Faheem Test YES-POS Blood Gas Ventilator Setting NO Blood Gas Inspired Oxygen 2 White Blood Count 21.0 H 4.3-11.0 10^3/uL Red Blood Count 3.72 L 4.30-5.52 10^6/uL Hemoglobin 13.0 L 13.3-17.7 g/dL Hematocrit 39 L 40-54 % Mean Corpuscular Volume 106 H 80-99 fL Mean Corpuscular Hemoglobin 35 H 25-34 pg Mean Corpuscular Hemoglobin Concent 33 32-36 g/dL Red Cell Distribution Width 13.6 10.0-14.5 % Platelet Count 107 L 130-400 10^3/uL Mean Platelet Volume 13.5 H 9.0-12.2 fL Immature Granulocyte % (Auto) 1 % Neutrophils (%) (Auto) 33 L 42-75 % Lymphocytes (%) (Auto) 62 H 12-44 % Monocytes (%) (Auto) 5 0-12 % Eosinophils (%) (Auto) 0 0-10 % Basophils (%) (Auto) 0 0-10 % Neutrophils # (Auto) 6.8 1.8-7.8 10^3/uL Lymphocytes # (Auto) 13.0 H 1.0-4.0 10^3/uL Monocytes # (Auto) 1.0 0.0-1.0 10^3/uL Eosinophils # (Auto) 0.0 0.0-0.3 10^3/uL Basophils # (Auto) 0.0 0.0-0.1 10^3/uL Immature Granulocyte # (Auto) 0.1 0.0-0.1 10^3/uL Neutrophils % (Manual) 34 % Lymphocytes % (Manual) 64 % Monocytes % (Manual) 2 % Eosinophils % (Manual) 0 % Basophils % (Manual) 0 % Band Neutrophils 0 % Smudge Cells SLIGHT Percent Immature Platelet Fraction 19.3 H 0.0-7.6 % Macrocytosis SLIGHT Prothrombin Time 16.7 H 12.2-14.7 SEC INR Comment 1.3 0.8-1.4 Activated Partial Thromboplast Time 32 24-35 SEC Sodium Level 133 L 135-145 MMOL/L Potassium Level 4.1 3.6-5.0 MMOL/L Chloride Level 96 L 98-107 MMOL/L Carbon Dioxide Level 29 21-32 MMOL/L Anion Gap 8 5-14 MMOL/L Blood Urea Nitrogen 24 H 7-18 MG/DL Creatinine 0.88 0.60-1.30 MG/DL Estimat Glomerular Filtration Rate 83 BUN/Creatinine Ratio 27 Glucose Level 97 70-105 MG/DL Lactic Acid Level 1.62 0.50-2.00 MMOL/L Calcium Level 8.9 8.5-10.1 MG/DL Corrected Calcium 9.7 8.5-10.1 MG/DL Total Bilirubin 1.2 H 0.1-1.0 MG/DL Aspartate Amino Transf (AST/SGOT) 25 5-34 U/L Alanine Aminotransferase (ALT/SGPT) 20 0-55 U/L Alkaline Phosphatase 63 40-136 U/L B-Type Natriuretic Peptide 87.6 <100.0 PG/ML Total Protein 5.5 L 6.4-8.2 GM/DL Albumin 3.0 L 3.2-4.5 GM/DL Procalcitonin 0.05 <0.10 NG/ML SARS-CoV-2 RNA (RT-PCR) Not Detected Not Detecte Urine Color YELLOW Urine Clarity CLEAR Urine pH 6.0 5-9 Urine Specific [place] 1.020 1.016-1.022 Urine Protein TRACE H NEGATIVE Urine Glucose (UA) NEGATIVE NEGATIVE Urine Ketones TRACE H NEGATIVE Urine Nitrite NEGATIVE NEGATIVE Urine Bilirubin 1+ H NEGATIVE Urine Urobilinogen 1.0 < = 1.0 MG/DL Urine Leukocyte Esterase TRACE H NEGATIVE Urine RBC (Auto) NEGATIVE NEGATIVE Urine RBC NONE /HPF Urine WBC 5-10 H /HPF Urine Squamous Epithelial Cells 0-2 /HPF Urine Crystals PRESENT H /LPF Urine Calcium Oxalate Crystals RARE H /LPF Urine Bacteria TRACE /HPF Urine Casts PRESENT /LPF Urine Hyaline Casts 0-2 H /LPF Urine Mucus NEGATIVE /LPF Urine Culture Indicated YES (ESTHER MCRAE MD) Micro Results Microbiology 12/25/20 Blood Culture - Preliminary, Resulted No growth 12/25/20 Urine Culture - Final, Complete NO GROWTH 12/25/20 Blood Culture - Preliminary, Resulted No growth (ESTHER MCRAE MD) Vital Signs/I&O 12/25/20 12/25/20 11:00 13:49 Temp 37.0 Pulse 93 Resp 32 B/P (MAP) 126/88 (101) Pulse Ox 98 97 O2 Delivery Nasal Cannula Nasal Cannula O2 Flow Rate 3.00 2.00 (ESTHER MCRAE MD) Diagnostic Imaging Diagonstic Imaging: Xray Comments NAME: MARIANO THOMAS MED REC#: [id number] PT STATUS: REG ER : 1940 PHYSICIAN: IBETH WILDER APRN ADMIT DATE: 12/25/20/ER Draft Date of Exam:12/25/20 CHEST 1 VIEW, AP/PA ONLY INDICATION: Shortness of air. TIME OF EXAM: 12:15 PM CORRELATION is made with prior chest from 12/15/2020. FINDINGS: The heart is enlarged but stable. A right upper extremity PICC line appears to have the tip overlying the SVC. There is mild obscuration of left hemidiaphragm. Some underlying infiltrate or atelectasis in the left base cannot be entirely excluded. Otherwise, the lungs appear to be fairly clear. There is no pneumothorax. IMPRESSION: There is mild obscuration of the left hemidiaphragm perhaps on the basis of mild infiltrate or atelectasis. The study is otherwise unremarkable. Dictated on workstation # [id number] Dict: 12/25/20 1216 Trans: 12/25/20 1221 [facility] [id number] Interpreted by: TEAGAN ROLLE MD Electronically signed by: (IBETH WILDER APRN) Departure Communication (Admissions) 5038-patient did sustain a subdural hematoma on 12/15/2020. This was diagnosed in the emergency room [place]. He was subsequently transferred to [facility]. There is no craniotomy incision to suggest surgical intervention on this. He is alert and oriented here, hemodynamically stable. I have not done a repeat CT head as I do not have any concern about that given clinical exam at this time. He does meet sepsis criteria with a heart rate of 93 leukocytosis and a left lower lobe infiltrate. He does not meet severe sepsis criteria and does not need fluid bolus. Additionally he had a significantly elevated proBNP on December 15. I will repeat that here. In the meantime we will start him empirically on cefepime and Solu-Medrol given his history of COPD. Additionally, longterm is called reports that the patient was on cefepime 2 g twice daily at the longterm for a pneumonia. As such I will switch to Zosyn and vancomycin. (IBETH WILDER APRN) Impression Primary Impression: Sepsis Additional Impression: LLL pneumonia Disposition: ADMITTED INPATIENT Condition: Stable Admissions Decision to Admit Reason: Admit from ER (General) Decision to Admit/Date: Dec 25, 2020 Time/Decision to Admit Time: 14:32 (IBETH WILDER APRN) Departure-Patient Inst. Referrals: JEANINE INTERIANO MD (PCP/Family) Primary Care Physician ATTENDING PHYSICIAN NOTE: I was physically present as attending physician in the emergency department during the care of this patient, but I was not directly involved in the decision making or delivery of care for this patient. (ESTHER MCRAE MD) IBETH WILDER APRN Dec 25, 2020 11:12 ESTHER MCRAE MD Dec 27, 2020 20:07
[2020-12-25 11:21] LABS: ABG OXYGEN SATURATION 98 % (94-100); ABG PCO2 50 MMHG (35-45); ABG PH 7.43 (7.37-7.43); ABG PO2 94 MMHG (79-93); ABG TCO2 34.1 MMOL/L (21.0-31.0)
[2020-12-25 11:21] LABS: BASOPHILS % (AUTO) 0 % (0-10); EOSINOPHILS % (AUTO) 0 % (0-10)
[2020-12-25 11:23] LABS: HEMATOCRIT 39 % (40-54); LYMPHOCYTES % (AUTO) 62 % (12-44); MEAN CORPUSCULAR HEMOGLOBIN 35 pg (25-34); MEAN CORPUSCULAR HGB CONC 33 g/dL (32-36); MEAN CORPUSCULAR VOLUME 106 fL (80-99); MEAN PLATELET VOLUME 13.5 fL (9.0-12.2); MONOCYTES % (AUTO) 5 % (0-12); NEUTROPHILS # (AUTO) 6.8 10^3/uL (1.8-7.8); NEUTROPHILS % (AUTO) 33 % (42-75); PLATELET COUNT 107 10^3/uL (130-400)
[2020-12-25 11:24] LABS: ALLENS TEST YES-POS; INSPIRED O2 2; VENTILATOR NO
[2020-12-25 11:25] LABS: PATIENT TEMP 98.2
[2020-12-25 11:34] LABS: POTASSIUM 4.1 MMOL/L (3.6-5.0)
[2020-12-25 11:35] LABS: CALCIUM 8.9 MG/DL (8.5-10.1)
[2020-12-25 11:36] LABS: TOTAL PROTEIN 5.5 GM/DL (6.4-8.2)
[2020-12-25 11:37] LABS: INR 1.3 (0.8-1.4); PROTHROMBIN TIME PATIENT 16.7 SEC (12.2-14.7)
[2020-12-25 11:38] LABS: BILIRUBIN,TOTAL 1.2 MG/DL (0.1-1.0)
[2020-12-25 11:40] LABS: CREATININE SERUM 0.88 MG/DL (0.60-1.30)
[2020-12-25 11:52] LABS: BAND NEUTROPHILS 0 %; BASOPHILS % (MANUAL) 0 %; EOSINOPHILS % (MANUAL) 0 %; LYMPHOCYTES % (MANUAL) 64 %; MONOCYTES % (MANUAL) 2 %; NEUTROPHILS % (MANUAL) 34 %
[2020-12-25 11:54] LABS: SMUDGE CELLS SLIGHT
--- NOTE | 2020-12-25 12:21 | Diagnostic Imaging Report ---
INDICATION: Shortness of air. TIME OF EXAM: 12:15 PM CORRELATION is made with prior chest from 12/15/2020. FINDINGS: The heart is enlarged but stable. A right upper extremity PICC line appears to have the tip overlying the SVC. There is mild obscuration of left hemidiaphragm. Some underlying infiltrate or atelectasis in the left base cannot be entirely excluded. Otherwise, the lungs appear to be fairly clear. There is no pneumothorax. IMPRESSION: There is mild obscuration of the left hemidiaphragm perhaps on the basis of mild infiltrate or atelectasis. The study is otherwise unremarkable. Dictated by: Dictated on workstation # [id number]
--- OUTSIDE RECORDS SUMMARY | 2020-12-25 12:38 | XMS REPORT | Encounter Summary ---
Author Author [facility] Organization [facility] Address Unknown Phone Unavailable Care Team Providers Care Vice President Financial Name Role Phone Brock Mas MD PCP Reason for Referral * MRI/CAT/PET Scan (Routine) Referred By Contact Referred To Contact Status Reason Specialty Diagnoses / Procedures Uyen Robbins PA [address] [place] [address] [facility] [address] [facility], [address] [place] [address] Pending Review Radiology Diagnoses Traumatic subdural hematoma with loss of consciousness, 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 (HCC) P rocedures CT Head wo contrast Electronically signed by Uyen BRYANT at Encounter Details Care Team Description Date Type Department Uyen Robbins PA [address] [place] [address] [phone] Traumatic subdural hematoma with loss of consciousness, 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 (HCC) (Primary Dx) 12/16/2020 Orders Only [facility]ical [facility] Sp[facility] Surgery [address], [address] [place] [address] Social History Date Tobacco Use Types Packs/Day Years Used Never Assessed Sex Assigned at Date Recorded Not on file documented as of this encounter Plan of Treatment Care Team Description Date Type Specialty 01/07/2021 Video Visit Trauma Surgery Uyen Robbins PA [address] [place], [place] [id number] 01/18/2021 Imaging Radiology Appointment Andres Jiménez PA-C [address] [facility] [address] [place] [address] [phone] 01/18/2021 Office Visit Neurosurgery Order Schedule Name Type Priority Associated Diag noses 1 Occurrences starting 12/16/2020 until 12/16/2021 CT Head wo contrast Imaging Routine Traumatic subdural hematoma with loss of consciousness, 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 (HCC) documented as of this encounter Visit Diagnoses Diagnosis Traumatic subdural hematoma with loss o f consciousness, 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 (HCC) - Primary documented in this encounter
--- OUTSIDE RECORDS SUMMARY | 2020-12-25 12:38 | XMS REPORT | Encounter Summary ---
Author Author [facility] Organization [facility] Address Unknown Phone Unavailable Care Team Providers Care Manager Care Management Name Role Phone Brock aMs MD PCP Encounter Details Care Team Description Date Type Department Zoey Randhawa, DRIVING TEACHER [address] [facility] [address] [place] [address] [phone] 12/23/2020 Documentation [facility] [address] [place] [address] Social History Date Tobacco Use Types Packs/Day Years Used Never Assessed Sex Assigned at Date Recorded Not on file documented as of this encounter Plan of Treatment Care Team Description Date Type Specialty 01/07/2021 Video Visit Trauma Surgery Uyen Robbins PA [address] [place] [address] [phone] 01/18/2021 Imaging Radiology Appointment Andres Jiménez PA-C [address] [facility] [address] [place] [address] [phone] 01/18/2021 Office Visit Neurosurgery documented as of this encounter Visit Diagnoses Not on filedocumented in this encounter
--- OUTSIDE RECORDS SUMMARY | 2020-12-25 12:38 | XMS REPORT | Clinical Summary ---
Author Author [facility] Organization [facility] Address Unknown Phone Unavailable Care Team Providers [facility] Name Role Phone Brock Mas MD PCP Allergies No Known Active Allergies Medications End Date Status Medication Sig Dispensed Refills Start Date Active latanoprost, PF, 0.005 % Administer 1 0 Drop drop to eye. Active amiodarone (CORDARONE) Take 200 mg 0 200 MG tablet by mouth 2 (two) times a day. Active polyethylene glycol Take 17 g by 0 (GLYCOLAX) 17 gram packet mouth as needed. Active acetaminophen (TYLENOL) Take 500 mg 0 500 MG tablet by mouth every 6 (six) hours as needed for pain. Active albuterol (ACCUNEB) 1.25 Inhale 1 0 mg/3 mL (0.042 %) ampule via nebulizer solution nebulizer every 6 (six) hours as needed for wheezing. Active metoprolol tartrate Take 1 tablet 0 (LOPRESSOR) 25 MG tablet (25 mg total) 1 by mouth 2 (two) times a day. Active bisacodyL (DULCOLAX) 10 Insert 1 0 mg suppository suppository 1 (10 mg total) into the rectum daily as needed (if no BM in previous 24 hours). 12/29/2020 Active cefepime (MAXIPIME) 2 Infuse 2 g 1 each 0 12/06 gram into a venous 1 injectionIndications: catheter COPD (WITH PSEUDOMONAL every 12 RISK FACTORS) (twelve) hours. Active levETIRAcetam (KEPPRA) Take 1 tablet 0 02 750 MG tablet (750 mg 1 total) by mouth 2 (two) times a day. Active Lidocaine (LIDODERM) 5 % Place 1 patch 0 12/23 patch on the skin 1 daily. Remove & Discard patch within 12 hours or as directed by 12/29/2020 Active linezolid (ZYVOX) 600 mg Take 1 tablet 14 tablet 0 tabletIndications: (600 mg 1 HAP/VAP total) by mouth 2 (two) times a day. Active magnesium hydroxide (MILK Take 30 mL by 0 12/06 OF MAGNESIA) 400 mg/5 mL mouth daily 1 suspension as needed. 12/29/2020 Active metroNIDAZOLE (FLAGYL) Take 1 tablet 21 tablet 0 0 500 MG tabletIndications: (500 mg 1 ASPIRATION PNEUMONIA total) by mouth 3 (three) times a day. Active predniSONE (DELTASONE) 20 Take 2 0 12/06 MG tablet tablets (40 1 mg total) by mouth daily. Active predniSONE (DELTASONE) 10 Take 3 0 /2 MG tablet tablets (30 1 mg total) by mouth daily. Active predniSONE (DELTASONE) 20 Take 1 tablet 0 /2 MG tabletIndications: (20 mg total) 1 COPD exacerbation by mouth daily. Active predniSONE (DELTASONE) 10 Take 1 tablet 0 08/2 MG tabletIndications: (10 mg total) 1 COPD exacerbation by mouth daily. Active senna-docusate Take 2 0 (PERICOLACE) 8.6-50 mg tablets by 1 mouth 2 (two) times a day. Active sodium chloride 10 % Nebu Inhale 3 mL 0 12/06 nebulizer solution via nebulizer 1 every 6 (six) hours. Active tamsulosin (FLOMAX) 0.4 Take 1 0 mg cap capsule (0.4 1 mg total) by mouth daily. 12/22/2020 Discontinued (Stop Taking at Discharge) metoprolol succinate Take 200 mg 0 (TOPROL-XL) 200 MG 24 hr by mouth tablet daily. 12/22/2020 Discontinued (Stop Taking at Discharge) warfarin (COUMADIN) 3 MG Take 3 mg by 0 tablet mouth every evening. Active Problems Patient Care Coordination Note Abner Thomas is a 80 y.o. male w/ PMH most significant for a fib on warfarin, DM Type II, CAD, DVT, BPH, hyponatremia, AAA repair in 2012, and urinary incontinencewho presented as a greentrauma activation (downgraded from red on arrival)s/michael 12/15.His ability to provide a thorough HPI is limited by his difficulty recalling the recent events. It appears his fall was on 12/03, at which time he presented to an OSH and showed no acute intracranial process on CT. After his fall he started experiencing frontal headaches, which were bad enough on the morning of 12/15 he presented back to the OSH, where CT showed subdural hematoma and his INR was reported to be 2.9. He was found to be acutely hypertensive, 190s/110s, and was treated with labetalol, as well as given keppra and vitamin K. After receiving labetalol, he became transiently hypotensive with decreased mental status; this resolved prior to arrival to [facility] without intervention. Initial labs significant forNa+ 126, Cl- 89, CO2 34, BG 120, albumin 2.9, INR 1.3, WBC 17.68, platelet 113, P2Y12 211 Initial 12 lead ECG:a fib with PVC and nonspecific intraventricular conduction delay Initial imaging significant for: CT head - acute left hemispheric subdural hematoma measuring 5.2 x 1.4 cm SDH (larger than on CT at previous facility) with 6.4 mm midline shift; trace right frontal subdural hematoma CT l-spine - Subacute fractures of superior endplates of L1 with 70% height loss and L3 with no significant height loss CT chest - Subacute fractures to 7th and 8th right lateral ribs CT abdomen/pelvis -No acute injury. Nonspecific mild presacral fat stranding, correlate clinically to exclude subtle nondisplaced sacrococcygeal fracture. CT c-spine, t-spine with no acute injury 12/15: Admit to NSICU for close observati on. K [facility] for anticoagulant reversal. Cardene gtt started to keep SBP<140. Repeat CT showed stability in SDH with no evidence for developing hydrocephalus. Hourly neurochecks. Neurosurgery consult; no acute surgical intervention indicated at this time. PICC line placed. 3% started for Na+ goal 130-135. Coumadin held. 12/16: HTS stopped. Cardene gtt stopped. PRN labetalol for HTN. C-spine cleared. Tertiary revealed acute pain in right ankle and left shoulder - xrays obtained show no acute injury. Home amiodarone and metoprolol resumed. Simply healthy diet. Flomax started for urinary retention. 12/17: SQ heparin ppx initiated. OOBTC wi th lift. Patient transferred to floor. 12/18: Acute delirium, seeing pigs and sh eep in room; Zyprexa given x1. Serial labs D/Brad. Hartmann discontinued. 12/21: Repeat head CT complete (f/u SDH). Diet liberalized from simply healthy to regular for hyponatremia. Worsening leukocytosis - aggressive pulmonary hygiene. 12/22: Metoprolol decreased for mild hypo tension. Continued leukocytosis and patient continues to endorse some SOB. Will treat for COPD exacerbation - seven day course of PO metronidazole, PO linezolid, and IVP cefepime was ordered, as well as a prednisone taper. He was deemed stable for discharge and was transferred to [facility]. Problem Noted Date Acute delirium 12/18/2020 Acute urinary retention 12/18/2020 Nausea 12/18/2020 Thrombocytopenia 12/18/2020 History of COPD 12/17/2020 Chronic respiratory failure with hypoxia 12/16/2020 Fall 12/15/2020 Acute neck pain 12/15/2020 Acute pain due to trauma 12/15/2020 Traumatic subdural hematoma (HCC), unknown if LOC nursing home current use of anticoagulant 12/15/2020 Closed compression fracture of body of L1 vertebra 0 12/15/2020 Hemorrhagic disorder due to extrinsic circulating ant icoagulants 12/15/2020 Paresis of right lower extremity 12/15/2020 Traumatic focal compression of brain 12/15/2020 A-fib 12/15/2020 Hypertensive urgency 12/15/2020 History of DVT (deep vein thrombosis) 12/15/2020 Hyponatremia 12/15/2020 Hypoalbuminemia 12/15/2020 Type II diabetes mellitus 12/15/2020 Leukocytosis 12/15/2020 Closed compression fracture of L3 lumbar vertebra, in itial encounter 12/15/2020 Encounters Care Team Description Date Type Specialty Zoey Randhawa APRN 12/23/2020 Documentation Trauma Surgery Uyen Robbins PA Traumatic subdural hematoma with loss of consciousness, 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 (HCC) (Primary Dx) 12/16/2020 Orders Only Neurosurgery Jaxon Silva MD Benedict, Leo A, MD SDH (subdural hematoma) (HCC) (Primary D x); Acute neck pain; Acute pain due to trauma; 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, 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; 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; Traumatic subdural hematoma with loss of consciousness, 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 (HCC); Longstanding persistent atrial fibrillation (HCC); Closed compression fracture of body of L1 vertebra (HCC); Closed compression fracture of L3 lumbar vertebra, 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 (HCC); Compression of brain (HCC); Hemorrhagic disorder due to extrinsic circulating anticoagulants (HCC); History of DVT (deep vein thrombosis); Hypertensive urgency; Hyponatremia; Paresis of right lower extremity (HCC); Type 2 diabetes mellitus with hyperglycemia, with long-term current use of insulin (HCC); Acute urinary retention; Hypoalbuminemia 12/15/2020 Hospital Neurology - Encounter 12/22/2020 Julian, Default Authenticator 12/15/2020 [employer] Julian, Default Authenticator 12/15/2020 [employer] from Last 3 Months Social History Date Tobacco Use Types Packs/Day Years Used Never Assessed Sex Assigned at Date Recorded Not on file Last Filed Vital Signs Reading Time Taken Comments Vital Sign 141/99 12/22/2020 3:01 PM CDT Blood Pressure 72 12/22/2020 11:10 AM CDT Pulse 36.4 C (97.5 F) 12/22/2020 3:01 PM CDT Temperature 17 12/22/2020 3:01 PM CDT Respiratory Rate 97% 12/22/2020 3:01 PM CDT Oxygen Saturation - - Inhaled Oxygen Concentration 108 kg (238 lb 3.2 oz) 12/22/2020 3:53 AM CDT Weight 182.9 cm (6') 12/16/2020 9:55 AM CDT Height 32.31 12/16/2020 9:55 AM CDT Body Mass Index Plan of Treatment Care Team Description Date Type Specialty 01/07/2021 Video Visit Trauma Surgery Uyen Robbins PA [address] [place] [address] [phone] 01/18/2021 Imaging Radiology Appointment Andres Jiménez PA-C [address] [place] [address] [phone] 01/18/2021 Office Visit Neurosurgery Health Maintenance Due Date Last Done Comments [...] Additional history exists Fall Risk Assessment # 12/22/2021 12/22/2020 COVID-19 Vaccine Completed 08/14/2020, 07/17/2020 Procedures Comments Procedure Name Priority Date/Time Associated Diag nosis CBC AND DIFF (MANUAL DIFF Routine 12/22/2020 IF NECESSARY) 12:15 AM CDT BASIC METABOLIC PANEL Routine 12/22/2020 12:[address] HEAD WO CONTRAST Routine 12/21/2020 10:57 AM CDT CBC AND DIFF (MANUAL DIFF Routine 12/21/2020 IF NECESSARY) 12:01 AM CDT BASIC METABOLIC PANEL Routine 12/21/2020 12:01 AM CDT LACTATE VENOUS WB STAT 12/19/2020 12:35 PM CDT CBC AND DIFF (MANUAL DIFF Routine 12/19/2020 IF NECESSARY) 6:25 AM CDT BASIC METABOLIC PANEL Routine 12/19/2020 6:25 AM CDT POTASSIUM Timed 12/18/2020 12:30 PM CDT SODIUM Timed 12/18/2020 12:30 PM CDT XR CHEST SINGLE VIEW Timed 12/18/2020 FRONTAL 10:11 AM CDT POTASSIUM Timed 12/18/2020 6:13 AM CDT SODIUM Timed 12/18/2020 6:13 AM CDT POTASSIUM Timed 12/18/2020 12:20 AM CDT SODIUM Timed 12/18/2020 12:20 AM CDT POTASSIUM Timed 12/17/2020 5:55 PM CDT SODIUM Timed 12/17/2020 5:55 PM CDT POTASSIUM Timed 12/17/2020 11:55 AM CDT SODIUM Timed 12/17/2020 11:55 AM CDT XR CHEST SINGLE VIEW Routine 12/17/2020 FRONTAL 7:02 AM CDT POTASSIUM Timed 12/17/2020 6:30 AM CDT SODIUM Timed 12/17/2020 6:30 AM CDT CBC AND DIFF (MANUAL DIFF Routine 12/16/2020 IF NECESSARY) 11:25 PM CDT BASIC METABOLIC PANEL Routine 12/16/2020 11:25 PM CDT XR CHEST SINGLE VIEW STAT 12/16/2020 FRONTAL 10:[address] HEAD WO CONTRAST STAT 12/16/2020 8:38 PM CDT POTASSIUM Timed 12/16/2020 6:02 PM CDT SODIUM Timed 12/16/2020 6:02 PM CDT XR CHEST POST LINE DRAIN STAT 12/16/2020 OR AIRWAY PLACEMENT 5:39 PM CDT XR CHEST SINGLE VIEW STAT 12/16/2020 FRONTAL 1:56 PM CDT POTASSIUM Timed 12/16/2020 12:45 PM CDT SODIUM Timed 12/16/2020 12:45 PM CDT XR SHOULDER MIN 2 VIEWS ROSE MARIE 12/16/2020 LEFT 12:24 PM CDT XR ANKLE MIN 3 VIEWS ROSE MARIE 12/16/2020 RIGHT 12:23 PM CDT POTASSIUM Routine 12/16/2020 6:05 AM CDT SODIUM Routine 12/16/2020 6:05 AM CDT PHOSPHORUS Routine 12/16/2020 12:15 AM CDT MAGNESIUM Routine 12/16/2020 12:15 AM CDT CLOTTING SCREEN Routine 12/16/2020 12:15 AM CDT COMPLETE BLOOD COUNT Routine 12/16/2020 12:15 AM CDT BASIC METABOLIC PANEL Routine 12/16/2020 12:15 AM CDT CLOTTING SCREEN STAT 12/15/2020 8:00 PM CDT [...] SPINE STAT 12/15/2020 RECONSTRUCTED 10:[address] THORACIC SPINE STAT 12/15/2020 RECONSTRUCTED 10:[address] ABDOMEN PELVIS W STAT 12/15/2020 CONTRAST 10:[address] CHEST W CONTRAST STAT 12/15/2020 10:[address] HEAD WO CONTRAST STAT 12/15/2020 10:[address] CERVICAL SPINE WO STAT 12/15/2020 CONTRAST 10:21 AM CDT XR PELVIS ONE OR TWO STAT 12/15/2020 VIEWS 9:52 AM CDT XR CHEST SINGLE VIEW STAT 12/15/2020 FRONTAL 9:52 AM CDT PULSE OXIMETRY, STAT 12/15/2020 CONTINUOUS 9:45 AM CDT from Last 3 Months Results * CBC and Diff (manual diff if necessary) (12/22/2020 12:15 AM CDT) Only the most recent of 5 results within the time period is included. WBC 16.30 (H) 4.00 - 11.00 TH/uL [facility] RBC 3.68 (L) 4.31 - 5.84 MIL/uL [facility] Hemoglobin 12.7 (L) 13.0 - 17.0 g/dL [facility] Hematocrit 37 (L) 40 - 50 % [facility] MCV 101 (H) 80.0 - 99.0 fL [facility] MCH 35 (H) 27.0 - 34.0 pg [facility] MCHC 34 32 - 36 % [facility] RDW 13.3 11.5 - 14.5 % [facility] Platelet Count 117 (L) 140 - 400 TH/uL [facility] MPV 12.9 (H) 9.4 - 12.3 fL [facility] Nucleated RBCs 0 0 - 0 /100 [facility] % Neutrophils 28 (L) 45 - 78 % [facility] %Lymphocytes 67 (H) 15 - 47 % [facility] % Monocytes 4 0 - 12 % [facility] %Eosinophils 0 0 - 7 % [facility] %Basophils 0 0 - 2 % [facility] % Imm Grans 1 0 - 1 % [facility] # Granulocytes 4.65 1.70 - 6.80 TH/uL [facility] # Lymphocytes 10.84 (H) 1.00 - 3.30 TH/uL [facility] # Monocytes 0.71 0.20 - 0.90 TH/uL [facility] # Eosinophils 0.06 0.00 - 0.40 TH/uL [facility] # Basophils 0.03 0.00 - 0.10 TH/uL [facility] RBC Morphology Normal Normal [facility] Specimen Blood Performing Organization Address City/State/[place] [address] LABORATORIES [facility] [address] [place] [address] * Basic Metabolic Panel (12/22/2020 12:15 AM CDT) Only the most recent of 5 results within the time period is included. Sodium 128 (L) 133 - 147 MEQ/L [facility] Potassium 4.6 3.5 - 5.3 MEQ/L [facility] Chloride 89 (L) 96 - 112 MEQ/L [facility] Carbon Dioxide 33 (H) 20 - 32 MEQ/L [facility] Anion Gap 6 5 - 17 [facility] Calcium 8.4 8.4 - 10.5 mg/dL [facility] Glucose 106 (H) 70 - 100 mg/dL [facility] Blood Urea 20 7 - 26 mg/dL [facility] Creatinine 0.6 0.6 - 1.3 mg/dL [facility] eGFR Male AA >130 60 - 200 [facility] mL/min/1.73sq [facility] eGFR Male 129 60 - 200 [facility] Non-AA mL/min/1.73sq [facility] Specimen Blood Performing Organization Address City/State/ZIP Code P ruddy Number [facility] [address] [place] [address] LABORATORIES [facility] [address] [place] [address] * CT Head wo contrast (12/21/2020 10:57 AM CDT) Only the most recent of 4 results within the time period is included. Specimen Impressions Performed At Impression: [facility] Mildly increased mass effect and underl cecil brain compression with increased mass effect on the left later al ventricle. Mildly increased left right midline shift measuring 5 mm from 3 mm previously. READING SITE: [facility]. ATTESTATION STATEMENT: The Staff Radiol ogist has personally reviewed the images and dictated, reviewed, or edite d the final report. Narrative Performed At Patient: ABNER THOMAS Sex#: M #: [id number] Chrissy# : [id number] Location: [place] [address] Accession# : [id number] Ordering Provider: MERCEDEZ GUAJARDO Procedure Requested: [id number] CT HEAD WO CONTRAST Exam Ordered: 12/21/2020 07 55 Exam Date/Time: 12/21/2020 105 7 Begin exam date/time: 12/21/[address] HEAD WO CONTRAST Date: 12/21/2020 10:57 AM Clinical Indication: acute intracranial process weakness. Initial encounter Comparison: December 16, [address] Technique: 5 mm axial tomographic piero ges [...] ALARA and image gentl y/image wisely Findings: Similar size and decreased attenuation of left hemispheric, parafalcine, and tentorial subdural hematoma. Mildly increased mass effect and underlying brain compression with incre ased mass effect on the left lateral ventricle. Mildly increased lef t right midline shift measuring 5 mm from 3 mm previously Mild generalized cerebral and cerebella r volume loss. Mild nonspecific periventricular hypoattenuation, most c ommonly seen with chronic small vessel ischemic disease. Calcified athe rosclerosis of the bilateral cavernous and paraclinoid internal vivar tid arteries and intracranial vertebral arteries. The burrell-white matter junction is jack l. . The visualized paranasal sinuses are no rmal. The visualized portions of the orbits and globes are normal. The m astoid air cells are clear. No aggressive osseous lesion or fracture. Procedure Note Interface, Rad Results In - 12/21/2020 10:34 PM CDT Patient: ABNER THOMAS Sex#: M #: [id number] Chrissy#: [id number] Location: [facility] NA02-01 Ordering Provider: MERCEDEZ GUAJARDO Procedure Requested: [id number] CT HEAD WO CONTRAST Exam Ordered: 12/21/2020 0755 Exam Date/Time: 12/21/2020 1057 Begin exam date/time: 12/21/[address] HEAD WO CONTRAST Date: 12/21/2020 10:57 AM Clinical Indication: acute intracranial process weakness. Initial encounter Comparison: December 16, [address] Technique: 5 mm axial tomographic images were [...] to ALARA and image gently/image wisely Findings: Similar size and decreased attenuation of left hemispheric, parafalcine, and tentorial subdural hematoma. Mildly increased mass effect and underlying brain compression with increased mass effect on the left lateral ventricle. Mildly increased left right midline shift measuring 5 mm from 3 mm previously Mild generalized cerebral and cerebellar volume loss. Mild nonspecific periventricular hypoattenuation, most commonly seen with chronic small vessel ischemic disease. Calcified atherosclerosis of the bilateral cavernous and paraclinoid internal carotid arteries and intracranial vertebral arteries. The burrell-white matter junction is normal. . The visualized paranasal sinuses are normal. The visualized portions of the orbits and globes are normal. The mastoid air cells are clear. No aggressive osseous lesion or fracture. IMPRESSION Impression: Mildly increased mass effect and underlying brain compression with increased mass effect on the left lateral ventricle. Mildly increased left right midline shift measuring 5 mm from 3 mm previously. READING SITE: [facility]. ATTESTATION STATEMENT: The Staff Radiologist has personally reviewed the images and dictated, reviewed, or edited the final report. Performing Organization Address City/[facility]/ZIP Code P ruddy Number [place] * Lactate Venous WB - 0hr STAT (12/19/2020 12:35 PM CDT) Only the most recent of 2 results within the time period is included. Lactate Venous 0.6 0.0 - 2.0 mmol/L [facility] Specimen Blood Performing Organization Address [facility] P ruddy Number [address] [address] LABORATORIES [facility] [address] [place] [address] * Sodium (12/18/2020 12:30 PM CDT) Only the most recent of 10 results within the time period is included. Sodium 130 (L) 133 - 147 MEQ/L [facility] Specimen Blood Performing Organization Address [facility] Code P ruddy Number [address] [address] LABORATORIES [facility] [address] [place] [id number] * Potassium (12/18/2020 12:30 PM CDT) Only the most recent of 10 results within the time period is included. Potassium 4.6 3.5 - 5.3 MEQ/L [facility] Specimen Blood Performing Organization Address [facility] Code P ruddy Number [address] [address] LABORATORIES [facility] [address] [place] [address] * XR Chest single view frontal (12/18/2020 10:11 AM CDT) Only the most recent of 5 results within the time period is included. Specimen Impressions Performed At 1. Right upper extremity PICC. ALLAN 2. Improved aeration of the left lung. Residual left basilar airspace disease. Interstitial edema. READING SITE: [facility] Narrative Performed At Patient: ABNER THOMAS Sex#: M #: [id number] Chrissy# : [id number] Location: [facility] NA[facility]-01 Accession# : [id number] Ordering Provider: ARIN BALL Procedure Requested: [id number] XR CHEST SINGLE VIEW FRONTAL Exam Ordered: 12/18/2020 10 00 Exam Date/Time: 12/18/2020 101 1 Begin exam date/time: 12/18/2020 095 8 XR CHEST SINGLE VIEW FRONTAL INDICATION: following lung consolidatio n. COMPARISON STUDY: Portable chest dated 12/17/2020. FINDINGS: Life Support Devices: Stable life suppo rt device. Lungs: Improved lung volume. Improved a eration of the left lung with residual left basilar airspace disease. Interstitial edema. Pleura: Probable small left pleural eff usion. No pneumothorax. Heart and Mediastinum: Cardiomegaly. Ao rtic atherosclerosis. Bones and Soft Tissues: No acute skelet al or soft tissue abnormality. Procedure Note Interface, Rad Results In - 12/18/2020 10:19 AM CDT Patient: ABNER THOMAS Sex#: M #: [id number] Chrissy#: [id number] Location: [facility] NA02-01 Ordering Provider: ARIN BALL Procedure Requested: [id number] XR CHEST SINGLE VIEW FRONTAL Exam Ordered: 12/18/2020 1000 Exam Date/Time: 12/18/2020 1011 Begin exam date/time: 12/18/2020 0958 XR CHEST SINGLE VIEW FRONTAL INDICATION: following lung consolidation. COMPARISON STUDY: Portable chest dated 12/17/2020. FINDINGS: Life Support Devices: Stable life support device. Lungs: Improved lung volume. Improved aeration of the left lung with residual left basilar airspace disease. Interstitial edema. Pleura: Probable small left pleural effusion. No pneumothorax. Heart and Mediastinum: Cardiomegaly. Aortic atherosclerosis. Bones and Soft Tissues: No acute skeletal or soft tissue abnormality. IMPRESSION 1. Right upper extremity PICC. 2. Improved aeration of the left lung. R esidual left basilar airspace disease. Interstitial edema. READING SITE: [facility] Performing Organization Address City/State/ZIP Code P ruddy Number [place] * XR Chest post line drain or airway placement (12/16/2020 5:39 PM CDT) Only the most recent of 2 results within the time period is included. Specimen Impressions Performed At 1. Life-support devices as above. No pneumothorax. M CKESSON 2. Asymmetric heterogeneous opacities, most prominent on left have improved. 3. Moderate left pleural effusion has i mproved. READING SITE: [facility] Narrative Performed At Patient: ABNER THOMAS Sex#: M #: [id number] Chrissy# : [id number] Location: [place] [address] Access ion#: [id number] Ordering Provider: JOHN CARBAJAL Procedure Requested: [id number] XR CHEST POST LINE DRAIN OR AIRWAY PLACEMENT Exam Ordered: 12/16/2020 17 23 Exam Date/Time: 12/16/2020 173 9 Begin exam date/time: 12/16/2020 173 4 XR CHEST POST LINE DRAIN OR AIRWAY PLAC EMENT INDICATION: PICC PLACEMENT RIGHT UPPER EXTREMITY. COMPARISON STUDY: Chest one view dated December 16, 2020. FINDINGS: Life Support Devices: Left upper extrem ity PICC line tip has been retracted and is now located in the pro ximal superior vena cava. A new right approximately PICC line is presen t with the tip lying in the mid right atrium. Lungs/Pleura: Normal lung volume. Bilat eral heterogeneous pulmonary opacities. Moderate left pleural effusi on. No pneumothorax. Heart and Mediastinum: Stable cardiomed iastinal silhouette and great vessels. Bones and Soft Tissues: Stable regional skeleton and soft tissues. Procedure Note Interface, Rad Results In - 12/16/2020 6:15 PM CDT Patient: ABNER THOMAS Sex#: M #: 1940 Chrissy#: [id number] Location: [place] [id number] Ordering Provider: JOHN CARBAJAL Procedure Requested: [id number] XR CHEST POST LINE DRAIN OR AIRWAY PLACEMENT Exam Ordered: 12/16/2020 1723 Exam Date/Time: 12/16/2020 1739 Begin exam date/time: 12/16/2020 1734 XR CHEST POST LINE DRAIN OR AIRWAY PLACEMENT INDICATION: PICC PLACEMENT RIGHT UPPER EXTREMITY. COMPARISON STUDY: Chest one view dated December 16, 2020. FINDINGS: Life Support Devices: Left upper extremity PICC line tip has been retracted and is now located in the proximal superior vena cava. A new right approximately PICC line is present with the tip lying in the mid right atrium. Lungs/Pleura: Normal lung volume. Bilateral heterogeneous pulmonary opacities. Moderate left pleural effusion. No pneumothorax. Heart and Mediastinum: Stable cardiomediastinal silhouette and great vessels. Bones and Soft Tissues: Stable regional skeleton and soft tissues. IMPRESSION 1. Life-support devices as above. No pne umothorax. 2. Asymmetric heterogeneous opacities, m ost prominent on left have improved. 3. Moderate left pleural effusion has im proved. READING SITE: [facility] Organization Address City/State/ZIP Code P ruddy Number ALLAN * XR Shoulder min 2 views left (12/16/2020 12:24 PM CDT) Specimen Impressions Performed At 1. Near complete opacification of the left lung, new since 12/15/2020. ALLAN This may reflect some combination of se jillian volume loss and possible pleural effusion. Recommend dedicated c hest radiographs. 2. The left PICC may be malpositioned. The tip appears to be directed superiorly into the right brachycephali c vein. This can be better assessed on chest radiographs. 3. No evidence of left shoulder fractur e. Results were communicated by telephone to LESLEE Mehta by Dr. Gus Lim on 12/16/2020 1:44 PM READING SITE: [facility] Imaging Narrative Performed At Patient: ABNER THOMAS Sex#: M #: [id number] Chrissy# : [id number] Location: [address] ICU N318-01 Access ion#: [id number] Ordering Provider: ARIN BALL Procedure Requested: [id number] XR SHOUL RICARDO MIN 2 VIEWS LEFT Exam Ordered: 12/16/2020 11 51 Exam Date/Time: 12/16/2020 122 4 Begin exam date/time: 12/16/2020 120 9 XR SHOULDER MIN 2 VIEWS LEFT DATE: 12/16/2020 12:24 PM INDICATION: pain s/p trauma COMPARISON: CT chest 12/15/2020 TECHNIQUE: AP views in internal/externa l rotation and scapular Y view FINDINGS: No evidence of fracture or dislocation of the left shoulder. Mild AC joint and glenohumeral osteoarthritis. Normal acromiohumeral interval. No soft tissue mineralization around th e shoulder. Near-complete opacification of the left lung, new since 12/15/2020. The patient's left PICC may be malpositione d. The tip appears to be directed superiorly into the right brachiocephal ic vein. Procedure Note Interface, Rad Results In - 12/16/2020 1:49 PM CDT Patient: ABNER THOMAS Sex#: M #: 1940 Chrissy#: [id number] Location: [place] [id number] Ordering Provider: ARIN BALL Procedure Requested: [id number] XR SHOULDER MIN 2 VIEWS LEFT Exam Ordered: 12/16/2020 1151 Exam Date/Time: 12/16/2020 1224 Begin exam date/time: 12/16/2020 1209 XR SHOULDER MIN 2 VIEWS LEFT DATE: 12/16/2020 12:24 PM INDICATION: pain s/p trauma COMPARISON: CT chest 12/15/2020 TECHNIQUE: AP views in internal/external rotation and scapular Y view FINDINGS: No evidence of fracture or dislocation of the left shoulder. Mild AC joint and glenohumeral osteoarthritis. Normal acromiohumeral interval. No soft tissue mineralization around the shoulder. Near-complete opacification of the left lung, new since 12/15/2020. The patient's left PICC may be malpositioned. The tip appears to be directed superiorly into the right brachiocephalic vein. IMPRESSION 1. Near complete opacification of the le ft lung, new since 12/15/2020. This may reflect some combination of severe volume loss and possible pleural effusion. Recommend dedicated chest radiographs. 2. The left PICC may be malpositioned. T he tip appears to be directed superiorly into the right brachycephalic vein. This can be better assessed on chest radiographs. 3. No evidence of left shoulder fracture . Results were communicated by telephone to LESLEE Mehta by Dr. Gus Lim on 12/16/2020 1:44 PM READING SITE: [facility] Performing Organization Address City/State/ZIP Code P ruddy Number ALLAN * XR Ankle min 3 views right (12/16/2020 12:23 PM CDT) Specimen Impressions Performed At No evidence of fracture. ALLAN READING SITE: [facility] Narrative Performed At Patient: ABNER THOMAS Sex#: M #: [id number] Chrissy# : [id number] Location: [address] N318-01 Access ion#: [id number] Ordering Provider: ARIN BALL Procedure Requested: [id number] XR ANKLE MIN 3 VIEWS RIGHT Exam Ordered: 12/16/2020 11 52 Exam Date/Time: 12/16/2020 122 3 Begin exam date/time: 12/16/2020 120 9 XR ANKLE MIN 3 VIEWS RIGHT DATE: 12/16/2020 12:24 PM INDICATION: pain s/p trauma COMPARISON: None TECHNIQUE: AP, lateral, and mortise vie ws FINDINGS: No evidence of fracture or dislocation of the right ankle. Congruent ankle mortise. No syndesmotic widening. Mild tibiotalar osteoarthritis. Small calcaneal enthesophytes. Scattered atherosclerosis and dystrophi c calcifications around the ankle. Mild soft tissue swelling. Procedure Note Interface, Rad Results In - 12/16/2020 1:39 PM CDT Patient: ABNER THOMAS Sex#: M #: 1940 Chrissy#: [id number] Location: [address] N318-01 Ordering Provider: ARIN BALL Procedure Requested: [id number] XR ANKLE MIN 3 VIEWS RIGHT Exam Ordered: 12/16/2020 1152 Exam Date/Time: 12/16/2020 1223 Begin exam date/time: 12/16/2020 1209 XR ANKLE MIN 3 VIEWS RIGHT DATE: 12/16/2020 12:24 PM INDICATION: pain s/p trauma COMPARISON: None TECHNIQUE: AP, lateral, and mortise views FINDINGS: No evidence of fracture or dislocation of the right ankle. Congruent ankle mortise. No syndesmotic widening. Mild tibiotalar osteoarthritis. Small calcaneal enthesophytes. Scattered atherosclerosis and dystrophic calcifications around the ankle. Mild soft tissue swelling. IMPRESSION No evidence of fracture. READING SITE: [facility] Performing Organization Address City/State/ZIP Code P ruddy Number [id number] * Clotting Screen (12/16/2020 12:15 AM CDT) Only the most recent of 3 results within the time period is included. Protime 14.7 11.4 - 15.0 sec [facility] INR 1.2 0.8 - 1.2 [facility] APTT 35 (H) 22 - 34 sec [facility] Specimen Blood Performing Organization Address City/[facility]/ZIP Code P ruddy Number [facility] [address] [place] [address] LABORATORIES [facility] [address] [place] [address] * Phosphorus (12/16/2020 12:15 AM CDT) Phosphorus 3.6 2.5 - 4.5 mg/dL [facility] Specimen Blood Performing Organization Address City/[facility]/ZIP Code P ruddy Number [facility] [address] [place] [address] LABORATORIES [facility] [address] [place] [address] * Magnesium (12/16/2020 12:15 AM CDT) Only the most recent of 2 results within the time period is included. Magnesium 1.6 1.4 - 2.7 mg/dL [facility] Specimen Blood Performing Organization Address City/[facility]/ZIP Code P ruddy Number [facility] [address] [place] [address] LABORATORIES [facility] [address] [place] [address] * Complete Blood Count (12/16/2020 12:15 AM CDT) WBC 19.42 (H) 4.00 - 11.00 TH/uL [facility] RBC 4.18 (L) 4.31 - 5.84 MIL/uL [facility] Hemoglobin 14.4 13.0 - 17.0 g/dL [facility] Hematocrit 42 40 - 50 % [facility] MCV 100 (H) 80.0 - 99.0 fL [facility] MCH 34 27.0 - 34.0 pg [facility] MCHC 35 32 - 36 % [facility] RDW 12.8 11.5 - 14.5 % [facility] Platelet Count 124 (L) 140 - 400 TH/uL [facility] MPV 13.0 (H) 9.4 - 12.3 fL [facility] Nucleated RBCs 0 0 - 0 /100 [facility] Specimen Blood Performing Organization Address City/[facility] P ruddy Number [address] [address] LABORATORIES [facility] [address] [place] [address] * Urinalysis Reflex (12/15/2020 2:00 PM CDT) Appearance, Yellow [facility] Glucose Urine 100 (A) Negative mg/dL [facility] Bilirubin Urine Negative Negative [facility] Ketones Urine Trace (A) Negative mg/dL [facility] Specific 1.022 1.001 - 1.030 [facility] Hemoglobin Trace (A) Negative [facility] PH Urine 8.0 5.0 - 8.0 [facility] Protein Urine Negative Negative mg/dL [facility] Urobilinogen Negative Negative EU/dL [facility] Nitrite Urine Negative Negative [facility] Leukocyte Negative Negative [facility] Lab Specimen Clean Voided Urine Performing Organization Address City/[facility] P ruddy Number [address] [address] LABORATORIES [facility] [address] [place] [address] * Toxicology Screening Panel (12/15/2020 2:00 PM CDT) Pathologist [facility] Tetrahydrocanna Not Detected Not Detected [facility] bin Urine Hospital Lab Phencyclidine Not Detected Not Detected [facility] Cocaine Urine Not Detected Not Detected [facility] Methamphetamine Not Detected Not Detected [facility] Lab Opiates Urine Not DetectedComment: This drug Not Detected [facility] provides presumptive Hospital Lab results for medical purposes only. False positive results may occur. Confirmatory results will follow for all positive drugs except tricyclic antidepressants. Amphetamines Not Detected Not Detected [facility] Urine [facility] Benzodiazepines Not Detected Not Detected [facility] Tricyclic Not Detected Not Detected [facility] Methadone Urine Not Detected Not Detected [facility] Barbiturates Not Detected Not Detected [facility] Oxycodone Urine Not Detected Not Detected [facility] Comment: Hospital Lab Toxicology cutoff values: Assay Cutoff value Assay Cutoff value Amphetamines 500 ng/mL Methamphetamines 500 ng/mL Barbiturates 200 ng/mL Opiates 100 ng/mL Benzodiazepines 150 ng/mL Oxycodone 100 ng/mL Cocaine 150 ng/mL Phencyclidine 25 ng/mL Methadone 200 ng/mL THC 50 ng/mL Tricyclic Antidepressants 300 ng/mL Specimen Urine Performing Organization Address City/State/ZIP Code P ruddy Number [address] [address] LABORATORIES [facility] [address] [place] [address] * GLUCOSE POC (12/15/2020 10:56 AM CDT) [facility] Glucose POC 127 (H) 70 - 100 mg/dL [facility] LABORATORIES Specimen Performing Organization Address City/State/ZIP Code P ruddy Number [facility] [address] [place] [address] LABORATORIES * P2Y12 Response Assay (12/15/2020 10:35 AM CDT) [facility] P2Y12 Platelet 211Comment: PRU values >230 PRU Sa int Luke's Function have been associated with an Hospital Lab increased risk of ischemic events after PCI including , [place], and stent thrombosis. Specimen Blood Performing Organization Address City/[facility]/ZIP Code P ruddy Number [facility] [address] [place] [address] LABORATORIES [facility] [address] [place] [address] * Venous Blood Gas (12/15/2020 10:35 AM CDT) PO2 Venous 31 (L) 37 - 43 mm Hg [facility] PCO2 Venous 72 (H) 40 - 45 mm Hg [facility] PH Venous 7.30 (L) 7.36 - 7.41 units [facility] Bicarbonate 35.4 (H) 22.0 - 29.0 MEQ/L [facility] Base Excess 6.4 (H) -3.0 - 3.0 MEQ/L [facility] Specimen Blood Performing Organization Address [facility] Code P ruddy Number [facility] [address] [place] [address] LABORATORIES [facility] [address] [place] [address] * Electrocardiogram (ECG) (12/15/2020 10:26 AM CDT) QRSd 122 [facility] QT 432 [facility] QTC 523 [facility] ECGHR 88 [facility] Specimen Narrative Performed At [facility] ED Test Date: 2020-12-15 Pat Name: ABNER THOMAS Department: ERL Room: [facility] Gender: 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1940 Requested By: ARIN BALL Order Number: [id number] Reading MD: Measurements Intervals [place] Rate: 88 P: AL: QRS: 19 QRSD: 122 T: -28 QT: 432 QTc: 523 Interpretive Statements Atrial fibrillation Ventricular premature complex Nonspecific intraventricular conduction delay Nonspecific repol abnormality, lateral leads Procedure Note Interface, External Ris In - 12/15/2020 10:27 AM CDT [facility] ED Test Date: 2020-12-15 Pat Name: ABNER THOMAS Department: ERL Room: [facility] Gender: Male 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: [id number] : 1940 Requested By: ARIN BALL Order Number: [id number] Reading MD: Measurements Intervals [place] Rate: 88 P: AL: QRS: 19 QRSD: 122 T: -28 QT: 432 QTc: 523 Interpretive Statements Atrial fibrillation Ventricular premature complex Nonspecific intraventricular conduction delay Nonspecific repol abnormality, lateral leads Performing Organization Address City/[facility] Code P ruddy Number [facility] * COVID PCR - Rapid (12/15/2020 10:24 AM CDT) Pathologist [facility] SARS-CoV-2 PCR NegativeComment: This RT-PCR Negative [facility] test has been authorized by Hospital Lab the FDA under an Emergency Use Authorization (EUA) for use by authorized laboratories. Specimen NASOPHARYNGEAL SWAB Performing Organization Address [facility] Code P ruddy Number [address] [address] LABORATORIES [facility] [address] [place] [address] * Antibody Screen (12/15/2020 10:22 AM CDT) Pathologist [facility] Antibody Screen Negative Negative [facility] Specimen Blood Performing Organization Address [facility] P ruddy Number [address] [address] LABORATORIES [facility] [address] [place] [address] * Troponin (12/15/2020 10:22 AM CDT) Pathologist [facility] Troponin <0.01 0.00 - 0.03 ng/mL [facility] Comment: Hospital Lab Troponin Value Interpretation 0.00 - 0.03 Healthy 0.04 - 0.12 Increased Cardiac Risk >0.12 Myocardial Infarction Troponin may not become elevated until 6 to 8 hours after onset of symptoms. Specimen Blood Performing Organization Address [facility] P ruddy Number [address] [address] LABORATORIES [facility] [address] [place] [address] [place] [address] * Lipase (12/15/2020 10:22 AM CDT) Lipase <10 (L) 23 - 300 IU/L [facility] Specimen Blood Performing Organization Address City/State/ZIP Code P ruddy Number [facility] [address] [place] [address] LABORATORIES [facility] [address] [place] [address] * Creatine Kinase (12/15/2020 10:22 AM CDT) Creatine Kinase 30 IU/L [facility]: Hospital Lab White Female: 30 - 160 IU/L Black Female: 30 - 430 IU/L White Male: 40 - 425 IU/L Black Male: 50 - 850 IU/L Specimen Blood Performing Organization Address City/[facility] Code P ruddy Number [address] [address] LABORATORIES [facility] [address] [place] [address] * Comprehensive Metabolic Panel (12/15/2020 10:22 AM CDT) Sodium 126 (L) 133 - 147 MEQ/L [facility] Potassium 4.6 3.5 - 5.3 MEQ/L [facility] Chloride 89 (L) 96 - 112 MEQ/L [facility] Carbon Dioxide 34 (H) 20 - 32 MEQ/L [facility] Anion Gap 4 (L) 5 - 17 [facility] Calcium 7.9 (L) 8.4 - 10.5 mg/dL [facility] Glucose 120 (H) 70 - 100 mg/dL [facility] Protein Total 5.2 (L) 6.0 - 8.2 g/dL [facility] Lab Albumin 2.9 (L) 3.5 - 5.0 g/dL [facility] Alkaline 61 42 - 140 IU/L [facility] Alanine 10 0 - 49 IU/L [facility] Lab e Aspartate 21Comment: Specimen is 15 - 46 IU/L [facility] Aminotransferas slightly hemolyzed which may Hospital Lab e elevate the AST result. Bilirubin Total 1.3 0.2 - 1.3 mg/dL [facility] Blood Urea 12 7 - 26 mg/dL [facility] Lab Creatinine 0.7 0.6 - 1.3 mg/dL [facility] Lab eGFR Male AA >130 60 - 200 [facility] mL/min/1.73sq m Hospital Lab eGFR Male 108 60 - 200 [facility] Non-AA mL/min/1.73sq [facility] Lab Specimen Blood Performing Organization Address City/[facility]/ZIP Code P ruddy Number [facility] [address] [place] [address] LABORATORIES [facility] [address] [place] [address] * Amylase (12/15/2020 10:22 AM CDT) Amylase 45 30 - 130 IU/L [facility] Specimen Blood Performing Organization Address City/State/ZIP Code P ruddy Number [facility] [address] [place] [address] LABORATORIES [facility] [address] [place] [address] * Alcohol Serum (12/15/2020 10:22 AM CDT) Alcohol Serum <10 0 - 9 mg/dL [facility] Specimen Blood Performing Organization Address City/[facility]/ZIP Code P ruddy Number [facility] [address] [place] [address] LABORATORIES [facility] [address] [place] [address] * ABORH Type (12/15/2020 10:22 AM CDT) ABORH Type O Positive [facility] Specimen Blood Performing Organization Address City/[facility]/ZIP Code P ruddy Number [facility] [address] [place] [address] LABORATORIES [facility] [address] [place] [address] * CT Thoracic Spine reconstructed (12/15/2020 10:21 AM CDT) Specimen Impressions Performed At Impression: ALLAN No acute osseous abnormality of the tho racic spine. Multilevel anterior osteophytes as a re sult of chronic degenerative changes. READING SITE: [facility]. ATTESTATION STATEMENT: The Staff Radiologist has personally re viewed the images and dictated, reviewed, or edited the final report. Narrative Performed At Patient: ABNER THOMAS Sex#: M #: [id number] Chrissy# : [id number] Location: [address] ICU N318-01 Access ion#: [id number] Ordering Provider: ARIN BALL Procedure Requested: [id number] CT THORA CIC SPINE RECONSTRUCTED Exam Ordered: 12/15/2020 09 54 Exam Date/Time: 12/15/2020 102 1 Begin exam date/time: 12/15/[address] THORACIC SPINE RECONSTRUCTED 12/15/2020 10:23 AM Indication: trauma; Patient has falle n 5 days ago, and was seen in outside ER with negative head CT. Patie nt woke this morning with a headache. He was taken to an outside ER and found to have a subdural hematoma. Initial encounter Comparison: Concurrent same day CT ches t Technique: CT imaging of the thoracic spine was reconstructed from same day CT chest. Coronal and sagittal refo rmatted images were performed. One or more of the following dose reduc tion techniques were utilized: Automated exposure control (AEC), Adjus tment of mA and/or kV according to patient size, Use of iterative recon struction technique such as ASiR, CT scan done according to ALARA and piero ge gently/image wisely. Findings: The thoracic spine is normally aligned. No acute fracture. Vertebral body heights are maintained without com pression deformity. There is multilevel anterior osteophyte formatio n. The intervertebral disc spaces are normal. No aggressive lytic or blastic osseous lesion. No significant spinal canal stenosis or neural foraminal narrowing. Refer to same day CT chest report for a dditional pulmonary and thoracic findings. Procedure Note Interface, Rad Results In - 12/16/2020 12:04 AM CDT Patient: ABNER THOMAS Sex#: M #: 1940 Chrissy#: [id number] Location: [facility] ICU N318-01 Ordering Provider: ARIN BALL Procedure Requested: [id number] CT THORACIC SPINE RECONSTRUCTED Exam Ordered: 12/15/2020 0954 Exam Date/Time: 12/15/2020 1021 Begin exam date/time: 12/15/[address] THORACIC SPINE RECONSTRUCTED 12/15/2020 10:23 AM Indication: trauma; Patient has fallen 5 days ago, and was seen in outside ER with negative head CT. Patient woke this morning with a headache. He was taken to an outside ER and found to have a subdural hematoma. Initial encounter Comparison: Concurrent same day CT chest Technique: CT imaging of the thoracic spine was reconstructed from same day CT chest. Coronal and sagittal reformatted images were performed. One or more of the following dose reduction techniques were utilized: Automated exposure control (AEC), Adjustment of mA and/or kV according to patient size, Use of iterative reconstruction technique such as ASiR, CT scan done according to ALARA and image gently/image wisely. Findings: The thoracic spine is normally aligned. No acute fracture. Vertebral body heights are maintained without compression deformity. There is multilevel anterior osteophyte formation. The intervertebral disc spaces are normal. No aggressive lytic or blastic osseous lesion. No significant spinal canal stenosis or neural foraminal narrowing. Refer to same day CT chest report for additional pulmonary and thoracic findings. IMPRESSION Impression: No acute osseous abnormality of the thoracic spine. Multilevel anterior osteophytes as a result of chronic degenerative changes. READING SITE: [facility]. ATTESTATION STATEMENT: The Staff Radiologist has personally reviewed the images and dictated, reviewed, or edited the final report. Performing Organization Address City/State/ZIP Code P ruddy Number [id number] * CT Lumbar Spine reconstructed (12/15/2020 10:21 AM CDT) Specimen Impressions Performed At Subacute fracture of superior endplate of L1 with celso roximately 70% KESSON height loss. Presence of superior endpl ate fracture cleft suggests nonhealing. Subacute fracture of the miller perior endplate of L3 with no significant height loss. READING SITE: [facility]. ATTESTATION STATEMENT: The Staff Radiologist has personally re viewed the images and dictated, reviewed, or edited the final report. Narrative Performed At Patient: ABNER THOMAS Sex#: M #: [id number] Chrissy# : [id number] Location: [facility] N3S ICU N318-01 Access ion#: [id number] Ordering Provider: ARIN BALL Procedure Requested: [id number] CT LUMBA R SPINE RECONSTRUCTED Exam Ordered: 12/15/2020 09 54 Exam Date/Time: 12/15/2020 102 1 Begin exam date/time: 12/15/[address] LUMBAR SPINE RECONSTRUCTED Date: 12/15/2020 10:23 AM Indication: trauma; Patient has falle n 5 days ago, and was seen in outside ER with negative head CT. Patie nt woke this morning with a headache. He was taken to an outside ER and found to have a subdural hematoma. Initial encounter Comparison: Concurrent same day CT abdo men and pelvis Technique: Helical CT images of the l umbar spine were reconstructed from same day CT abdomen and pelvis. Co melani and sagittal reformatted images were also performed. One or more of the following dose reduction techniques were utilized: Automated exp osure control (AEC), Adjustment of mA and/or kV according to patient si ze, Use of iterative reconstruction technique such as ASiR, CT scan done according to ALARA and image gently/image wisely. Findings: Age-indeterminate fracture of superior endplate of L1 with approximately 70% height loss. There is a cleft at th e superior endplate of L1 that is suggestive of a subacute fracture (like ly 1-2 weeks old). There is a second age-indeterminate, but likely miller bacute, fracture of the superior endplate of L3 with no significant heig ht loss. The lumbar spine is normally aligned. N o acute fracture. Vertebral body heights are maintained without compress ion deformity. No aggressive lytic or blastic osseous lesion. Mild multilevel degenerative disc space height loss. Multilevel mild spinal canal stenosis secondary to mult ilevel disc bulging and facet arthrosis. Multilevel mild neuroforamin al narrowing. Multilevel mild facet arthrosis. No significant listhes is. Multilevel vacuum disc phenomenon. No soft tissue abnormality within the v isualized abdomen or pelvis. The visualized abdominal aorta is normal ca liber. Refer to concurrent same day CT abdomen and pelvis for intra-abdominal and pelvic findings. Procedure Note Interface, Rad Results In - 12/16/2020 12:04 AM CDT Patient: ABNER THOMAS Sex#: M #: [id number] Chrissy#: [id number] Location: [place] [id number] Ordering Provider: ARIN BALL Procedure Requested: [id number] CT LUMBAR SPINE RECONSTRUCTED Exam Ordered: 12/15/2020 0954 Exam Date/Time: 12/15/2020 1021 Begin exam date/time: 12/15/[address] LUMBAR SPINE RECONSTRUCTED Date: 12/15/2020 10:23 AM Indication: trauma; Patient has fallen 5 days ago, and was seen in outside ER with negative head CT. Patient woke this morning with a headache. He was taken to an outside ER and found to have a subdural hematoma. Initial encounter Comparison: Concurrent same day CT abdomen and pelvis Technique: Helical CT images of the lumbar spine were reconstructed from same day CT abdomen and pelvis. Coronal and sagittal reformatted images were also performed. One or more of the following dose reduction techniques were utilized: Automated exposure control (AEC), Adjustment of mA and/or kV according to patient size, Use of iterative reconstruction technique such as ASiR, CT scan done according to ALARA and image gently/image wisely. Findings: Age-indeterminate fracture of superior endplate of L1 with approximately 70% height loss. There is a cleft at the superior endplate of L1 that is suggestive of a subacute fracture (likely 1-2 weeks old). There is a second age-indeterminate, but likely subacute, fracture of the superior endplate of L3 with no significant height loss. The lumbar spine is normally aligned. No acute fracture. Vertebral body heights are maintained without compression deformity. No aggressive lytic or blastic osseous lesion. Mild multilevel degenerative disc space height loss. Multilevel mild spinal canal stenosis secondary to multilevel disc bulging and facet arthrosis. Multilevel mild neuroforaminal narrowing. Multilevel mild facet arthrosis. No significant listhesis. Multilevel vacuum disc phenomenon. No soft tissue abnormality within the visualized abdomen or pelvis. The visualized abdominal aorta is normal caliber. Refer to concurrent same day CT abdomen and pelvis for intra-abdominal and pelvic findings. IMPRESSION Subacute fracture of superior endplate of L1 with approximately 70% height loss. Presence of superior endplate fracture cleft suggests nonhealing. Subacute fracture of the superior endplate of L3 with no significant height loss. READING SITE: [facility]. ATTESTATION STATEMENT: The Staff Radiologist has personally reviewed the images and dictated, reviewed, or edited the final report. Performing Organization Address City/State/ZIP Code P ruddy Number ALLAN * CT Chest w contrast (12/15/2020 10:21 [...] 3. Cardiomegaly. Coronary atheroscleros is. READING SITE: [facility] Narrative Performed At Patient: ABNER THOMAS Sex#: M #: [id number] Chrissy# : [id number] Location: [place] [address] Ordering Provider: ARIN BALL Procedure Requested: [id number] CT CHEST W CONTRAST Exam Ordered: 12/15/2020 09 54 Exam Date/Time: 12/15/2020 102 1 Begin exam date/time: 12/15/[address] CHEST W CONTRAST INDICATION: trauma Comparison: None. TECHNIQUE: Following the uneventful adm inistration of intravenous contrast 100 cc Omnipaque 350, axial CT sections were obtained through the lungs and upper abdomen. Coronal WA P images and coronal and sagittal multiplanar [...] ABNER THOMAS Sex#: M #: 1940 Chrissy#: [id number] Location: [facility] ED LED08 Ordering Provider: ARIN BALL Procedure Requested: [id number] CT CHEST W CONTRAST Exam Ordered: 12/15/2020 [...] 3. Cardiomegaly. Coronary atherosclerosi s. READING SITE: [facility] Performing Organization Address City/State/ZIP Code P ruddy Karon LEMUS * CT Abdomen Pelvis w contrast (12/15/2020 [...] subtle nondisplaced sacrococc ygeal fracture. READING SITE: [facility] Narrative Performed At Patient: ABNER THOMAS Sex#: M #: 1940 Chrissy# : [id number] Location: [facility] ED LED08 Ordering Provider: ARIN BALL Procedure Requested: [id number] CT ABDOM EN PELVIS W CONTRAST Exam [...] ABNER THOMAS Sex#: M #: 1940 Chrissy#: [id number] Location: [facility] ED LED08 Ordering Provider: ARIN BALL Procedure Requested: [id number] CT ABDOMEN PELVIS W CONTRAST Exam Ordered: [...] a subtle nondisplaced sacrococcygeal fracture. READING SITE: [facility] Performing Organization Address City/State/ZIP Code P ruddy Number ALLAN * CT Cervical Spine wo contrast (12/15/2020 10:21 AM CDT) Specimen Impressions Performed At 1. No acute fracture or dislocation. ALLAN 2. Mild to moderate degenerative cervic al spondylosis. ATTESTATION STATEMENT: The Staff Radiol ogist has personally reviewed the images and dictated, reviewed, or edite d the final report. READING SITE: [facility] Narrative Performed At Patient: ABNER THOMAS Sex#: M #: 1940 Chrissy# : [id number] Location: [address] [id number] Access ion#: [id number] Ordering Provider: ARIN BALL Procedure Requested: [id number] CT CERVI MALENA SPINE WO CONTRAST Exam Ordered: 12/15/2020 09 47 Exam Date/Time: 12/15/2020 102 1 Begin exam date/time: 12/15/[address] CERVICAL SPINE WO CONTRAST DATE: 12/15/2020 10:21 AM INDICATION: trauma; Patient has fallen 5 days ago, and was seen in outside ER with negative head CT. Patie nt woke this morning with a headache. He was taken to an outside ER and found to have a subdural hematoma. Initial encounter TECHNIQUE: Noncontrast CT of the cervic al spine was performed. Sagittal and coronal reformats were performed an d evaluated. One or more of the following dose reduction techniques wer e utilized: Automated exposure control (AEC), Adjustment of mA and/or kV according to patient size, Use of iterative reconstruction technique s uch as ASiR, CT scan done according to ALARA and image gently/piero ge wisely COMPARISON: None. FINDINGS: The cervical spine is normally aligned. No acute fracture. No aggressive lytic or blastic osseous lesions. Mild multilevel degenerative disc space height loss. Multilevel mild spinal canal stenosis secondary to disc protrusions and marginal osteophytes. Multilevel mild neuroforam inal narrowing secondary to uncovertebral arthrosis. Multilevel mil d facet arthrosis. Multilevel endplate sclerosis, Schmorl node deform ities, and vacuum disc phenomena. The thyroid gland is normal. No cervica l lymphadenopathy. Bilateral carotid atherosclerosis. The visualized aerodigestive tract is normal. Minimal visualized lung on C-spine imag es, unable to assess on this exam. Procedure Note Interface, Rad Results In - 12/16/2020 12:03 AM CDT Patient: ABNER THOMAS Sex#: M #: 1940 Chrissy#: [id number] Location: [address] [id number] Ordering Provider: ARIN BALL Procedure Requested: [id number] CT CERVICAL SPINE WO CONTRAST Exam Ordered: 12/15/2020 0947 Exam Date/Time: 12/15/2020 1021 Begin exam date/time: 12/15/[address] CERVICAL SPINE WO CONTRAST DATE: 12/15/2020 10:21 AM INDICATION: trauma; Patient has fallen 5 days ago, and was seen in outside ER with negative head CT. Patient woke this morning with a headache. He was taken to an outside ER and found to have a subdural hematoma. Initial encounter TECHNIQUE: Noncontrast CT of the cervical spine was performed. Sagittal and coronal reformats were performed and evaluated. One or more of the following dose reduction techniques were utilized: Automated exposure control (AEC), Adjustment of mA and/or kV according to patient size, Use of iterative reconstruction technique such as ASiR, CT scan done according to ALARA and image gently/image wisely COMPARISON: None. FINDINGS: The cervical spine is normally aligned. No acute fracture. No aggressive lytic or blastic osseous lesions. Mild multilevel degenerative disc space height loss. Multilevel mild spinal canal stenosis secondary to disc protrusions and marginal osteophytes. Multilevel mild neuroforaminal narrowing secondary to uncovertebral arthrosis. Multilevel mild facet arthrosis. Multilevel endplate sclerosis, Schmorl node deformities, and vacuum disc phenomena. The thyroid gland is normal. No cervical lymphadenopathy. Bilateral carotid atherosclerosis. The visualized aerodigestive tract is normal. Minimal visualized lung on C-spine images, unable to assess on this exam. IMPRESSION 1. No acute fracture or dislocation. 2. Mild to moderate degenerative cervica l spondylosis. ATTESTATION STATEMENT: The Staff Radiologist has personally reviewed the images and dictated, reviewed, or edited the final report. READING SITE: [facility] Performing Organization Address City/State/ZIP Code P ruddy Number ALLAN * XR Pelvis one or two views (12/15/2020 9:52 AM CDT) Specimen Impressions Performed At No evidence of fracture. ALLAN READING SITE: [facility] Narrative Performed At Patient: ABNER THOMAS Sex#: M #: 1940 Chrissy# : [id number] Location: [place] [address] Ordering Provider: ARIN BALL Procedure Requested: [id number] XR PELVI S ONE OR TWO VIEWS [...] ABNER THOMAS Sex#: M #: 1940 Chrissy#: [id number] Location: [facility] ED R1 Ordering Provider: ARIN BALL Procedure Requested: [id number] XR PELVIS ONE OR TWO VIEWS Exam [...] IMPRESSION No evidence of fracture. READING SITE: 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
--- OUTSIDE RECORDS SUMMARY | 2020-12-25 12:38 | XMS REPORT | Encounter Summary ---
Author Author [facility] Organization [facility] Address Unknown Phone Unavailable Care Team Providers Care Portfolio Lead Name Role Phone PCP Unavailable Encounter Details Care Team Description Date Type Department Julian, Default Authenticator [address] [place] [address] [facility] [place] [employer] [address] [place] [address] Social History Date Tobacco Use Types Packs/Day Years Used Never Assessed Sex Assigned at Date Recorded Not on file documented as of this encounter Plan of Treatment Care Team Description Date Type Specialty 01/07/2021 Video Visit Trauma Surgery Uyen Robbins PA [address] [place], [place] [id number] 01/18/2021 Imaging Radiology Appointment Andres Jiménez PA-C [address] [place] [address] [phone] 01/18/2021 Office Visit Neurosurgery Date/Time Name Type Priority Associated Diag noses 12/15/2020 12:18 PM CDT [employer] outside images External Films Routine for PACS documented as of this encounter Procedures Comments Procedure Name Priority Date/Time Associated Diag nosis [employer] OUTSIDE IMAGES Routine 12/15/2020 FOR PACS 12:18 PM CDT documented in this encounter Visit Diagnoses Not on filedocumented in this encounter
--- OUTSIDE RECORDS SUMMARY | 2020-12-25 12:38 | XMS REPORT | Encounter Summary ---
Author Author [facility] Organization [facility] Address Unknown Phone Unavailable Care Team Providers Care Embossing Machine Operator Name Role Phone Brock Mas MD PCP Reason for Visit * Reason Comments Transfer Of Care from [place], critical access hospital with SDH * Auth/Cert Referred By Contact Referred To Contact Status Reason Specialty Diagnoses / Procedures Diagnoses SDH (subdural hematoma) (HCC) Acute pain due to trauma Acute neck pain intermediate accountant current use of anticoagulant Fall, 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 Traumatic subdural hematoma with loss of consciousness, 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 (HCC) Subdural Hematoma SDH (subdural hematoma) (HCC) Encounter Details Care Team Description Date Type Department Jaxon Silva MD [address] [facility] [place], [place] [id number] Beto Muro MD [address] [place], [place] [id number] SDH (subdural hematoma) (HCC) (Primary D x); Acute neck pain; Acute pain due to trauma; Fall, 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; intermediate accountant current use of anticoagulant; Traumatic subdural hematoma [...] insulin (HCC); Acute urinary retention; [facility] [address] 12/22/2020 [place] [address] Social History Date Tobacco Use Types Packs/Day [...] 12/16/2020 9:55 AM CDT Body Mass Index documented in this encounter Discharge Instructions * Instructions* Onelia Grady NP - 12/17/2020 Neurosurgery Follow up: Approximately 4 weeks from hospital discharge. Please call with any questions or concerns. Do not resume your coumadin until seen in clinic. CT scan 01/18/21 check in at 10:15 [facility], First Floor [address] [place] [address] Neurosurgery Clinic 01/18/21 at 11:00 am with Andres Jiménez PA-C [phone] [place] [address] I; [address] [place] [address] Use incentive spirometry 10 times an hour while awake Change PICC dressing weekly documented in this encounter Medications at Time of Discharge Start Date End Date Medication Sig Dispensed Refills acetaminophen (TYLENOL) Take 500 mg 0 500 MG tablet by mouth every 6 (six) hours as needed for pain. albuterol (ACCUNEB) 1.25 Inhale 1 0 mg/3 mL (0.042 %) ampule via nebulizer solution nebulizer every 6 (six) hours as needed for wheezing. amiodarone (CORDARONE) Take 200 mg 0 200 MG tablet by mouth 2 (two) times a day. latanoprost, PF, 0.005 % Administer 1 0 Drop drop to eye. polyethylene glycol Take 17 g by 0 (GLYCOLAX) 17 gram packet mouth as needed. 12/22/2020 bisacodyL (DULCOLAX) 10 Insert 1 0 mg suppository suppository (10 mg total) into the rectum daily as needed (if no BM in previous 24 hours). 12/22/2020 12/29/2020 cefepime (MAXIPIME) 2 Infuse 2 g 1 each 0 gram into a venous injectionIndications: catheter COPD (WITH PSEUDOMONAL every 12 RISK FACTORS) (twelve) hours. 12/22/2020 levETIRAcetam (KEPPRA) Take 1 tablet 0 750 MG tablet (750 mg total) by mouth 2 (two) times a day. 12/23/2020 Lidocaine (LIDODERM) 5 % Place 1 patch 0 patch on the skin daily. Remove & Discard patch within 12 hours or as directed by 12/22/2020 12/29/2020 linezolid (ZYVOX) 600 mg Take 1 tablet 14 tablet 0 tabletIndications: (600 mg HAP/VAP total) by mouth 2 (two) times a day. 12/22/2020 magnesium hydroxide (MILK Take 30 mL by 0 OF MAGNESIA) 400 mg/5 mL mouth daily suspension as needed. 12/22/2020 metoprolol tartrate Take 1 tablet 0 (LOPRESSOR) 25 MG tablet (25 mg total) by mouth 2 (two) times a day. 12/22/2020 12/29/2020 metroNIDAZOLE (FLAGYL) Take 1 tablet 21 tablet 0 500 MG tabletIndications: (500 mg ASPIRATION PNEUMONIA total) by mouth 3 (three) times a day. 12/26/2020 predniSONE (DELTASONE) 10 Take 3 0 MG tablet tablets (30 mg total) by mouth daily. 12/31/2020 predniSONE (DELTASONE) 10 Take 1 tablet 0 MG tabletIndications: (10 mg total) COPD exacerbation by mouth daily. 12/23/2020 predniSONE (DELTASONE) 20 Take 2 0 MG tablet tablets (40 mg total) by mouth daily. 12/29/2020 predniSONE (DELTASONE) 20 Take 1 tablet 0 MG tabletIndications: (20 mg total) COPD exacerbation by mouth daily. 12/22/2020 senna-docusate Take 2 0 (PERICOLACE) 8.6-50 mg tablets by mouth 2 (two) times a day. 12/22/2020 sodium chloride 10 % Nebu Inhale 3 mL 0 nebulizer solution via nebulizer every 6 (six) hours. 12/23/2020 tamsulosin (FLOMAX) 0.4 Take 1 0 mg cap capsule (0.4 mg total) by mouth daily. documented as of this encounter Progress Notes * Onelia Grady NP - 12/21/2020 7:11 AM CDT Trauma and Casing Inspector Nurse Practitioner Progress Note PATIENT NAME: Mariano Thomas DATE of SERVICE: 12/21/2020 CPI: [id number] AGE: 80 y.o. : 1940 Admission Chief Complaint: Transfer Of Care (from [place], fall with SDH) HPI/CC: Mariano Thomas is a 80 y.o. male w/ PMH most significant for a fib on , DM Type II, CAD, DVT, BPH, hyponatremia, AAA repair in 2012, and urinary incontinencewho presented as a greentrauma activation (downgraded from red o n arrival)s/[facility] 12/15.His fall was five days ago vs on 12/03 prior, at which time he presented to an OSH and showed no acute intracranial process on C T. Frontal headache for 5 days vs started on morning on 12/15 so he presented mark to the OSH, where CT showed subdural hematoma and his INR was reported to be 2 .9. He was found to be acutely hypertensive, 190s/110s and was treated with labe talol, as well as given keppra and vitamin K. After receiving labetalol, he santana me transiently hypotensive with decreased mental status; this resolved prior to arrival to [facility] without intervention. Initial labs significant forNa+ 126, Cl- 89, CO2 34, BG 120, albumin 2.9, INR 1.3, WBC 17.68, platelet 113, P2Y12 211 Initial 12 lead ECG:a fib with PVC and nonspecific intraventricular conduction delay Initial imaging significant for: CT head - acute left hemispheric subdural hematoma measuring 5.2 x 1.4 cm SDH (l arger than on CT at previous facility) with 6.4 mm midline shift; trace right fr ontal subdural hematoma CT l-spine - Subacute fractures [...] injury 12/15: Admit to NSICU for close observation. [facility] for anticoagulant reversal. Cardene gtt [...] ankle and left shoulder - xrays obtained s how no acute injury. Home amiodarone and metoprolol resumed. Simply healthy diet . Flomax started for urinary retention. 12/17: SQ heparin ppx initiated. OOBTC with lift. Patient transferred to floor. 12/18: Acute delirium, seeing pigs and sheep in room; Zyprexa given x1. Serial la bs D/Brad. Hartmann discontinued. PAST MEDICAL HISTORY: No past medical history on file. PAST SURGICAL HISTORY: No past surgical history on file. ALLERGIES: Patient has no known allergies. PRIOR TO ADMISSION MEDICATIONS: Medications Prior to Admission Medication Sig Dispense Refill Last Dose acetaminophen (TYLENOL) 500 MG tablet Take 500 mg by mouth every 6 (six) owen rs as needed for pain. albuterol (ACCUNEB) 1.25 mg/3 mL (0.042 %) nebulizer solution Inhale 1 ampul e via nebulizer every 6 (six) hours as needed for wheezing. amiodarone (CORDARONE) 200 MG tablet Take 200 mg by mouth 2 (two) times a da y. latanoprost, PF, 0.005 % Drop Administer 1 drop to eye. metoprolol succinate (TOPROL-XL) 200 MG 24 hr tablet Take 200 mg by mouth da rupa. polyethylene glycol (GLYCOLAX) 17 gram packet Take 17 g by mouth as needed. warfarin (COUMADIN) 3 MG tablet Take 3 mg by mouth every evening. ECHOCARDIOGRAPHY: No results found. Subjective: Mariano Thomas is resting comfortably in bed on assessment. He continues to endor se visual hallucinations but is aware they are not real and states they are not particularly concerning to him. He does states he is feeling more short of breat h today but denies productive cough. He denies nausea, abdominal pain, headache, or dizziness but continues to have decreased appetite. He complains of generali zed weakness and feels particularly weak in the right leg, where he also continu es to have some tingling sensation. He continues to have some pain in his right heel, which is elevated and in a waffle boot. Review of Systems Constitutional: Positive for activity change, appetite change and fatigue. Negat bhavesh for chills and fever. HENT: Negative for ear pain, hearing loss, sore throat and trouble swallowing. Eyes: Negative for photophobia and pain. Respiratory: Positive for shortness of breath. Negative for cough. Cardiovascular: Negative for chest pain and palpitations. Gastrointestinal: Negative for abdominal pain, diarrhea, nausea and vomiting. Genitourinary: Negative for difficulty urinating. Musculoskeletal: Negative for back pain, myalgias and neck pain. Right heel pain Skin: Negative for rash. Neurological: Positive for weakness (R>L). Negative for dizziness, light- headedness and headaches. Tingling left leg Psychiatric/Behavioral: Positive for hallucinations. Negative for agitation, beh avioral problems and sleep disturbance. The patient is not nervous/anxious. Objective: BP 135/79 (BP Location: Left arm, Patient position: Sitting) | Pulse 86 | Temp 36.4 C (97.5 F) (Oral) | Resp 20 | Ht 1.829 m (6') | Wt 111.1 kg (244 lb 14.9 oz) | SpO2 96% | BMI 33.22 kg/m Intake/Output Summary (Last 24 hours) at 12/21/2020 0711 Last data filed at 12/20/2020 2100 Gross per 24 hour Intake 140 ml Output 250 ml Net -110 ml PHYSICAL EXAM: Vitals: BP 135/79 (BP Location: Left arm, Patient position: Sitting) | Pulse 86 | Temp 36.4 C (97.5 F) (Oral) | Resp 20 | Ht 1.829 m (6') | Wt 111.1 kg (244 lb 14.9 oz) | SpO2 96% | BMI 33.22 kg/m Respiratory Support: On 3L NC (wears 2L at home) T-High: Temp (24hrs), Av.6 C (97.9 F), Min:36.4 C (97.5 F), Max:37.1 C (98 .8 F) Fluid Balance: I/O last 24 Hours: In: - Out: 250 [Urine:250] EXAM: General Appearance: alert, appears stated age and cooperative Neurologic: AAOx3. Speech is fluent and appropriate. Pupils 3mm Responds to verbal stimuli. Sensation intact throughout. RUE Strength 3/5 RLE Strength 2/5 LUE Strength 4/5 LLE Strength 4/5 Neck: Soft and supple without lymphadenopathy or thyromegaly Respiratory: Airway: Not Intubated Lungs:rhonchi: left, decreased breath sounds: left, tachpneic Heart: irregular rate and rhythm Abdomen: normal bowel sounds abnormal findings: None Genitourinary: No Hartmann Extremities: Tingling RLE, pedal pulses +1 bilaterally. Right foot in waffle jessica ot. Skin: Skin color, texture, turgor normal. No rashes or lesions Invasive lines/Drains:PICC Double Lumen: PICC Double Lumen 12/16/20 Right Brachial (Active) Line Necessity Poor peripheral venous access (e.g., multiple documented failed a ttempts or documented history of poor peripheral access in a high risk patient). 12/20/202099 Site Assessment WDL;Dressing in Place 12/20/202099 Securement Device Securement device-adhesive 12/20/202099 External Catheter Length (cm) 0 cm 12/20/202099 Lumen 1 Color Purple 12/20/202099 Lumen 1 Status Disinfecting Cap;Normal saline locked 12/20/202099 Lumen 1 Patency Brisk blood return (3ml in 3 sec);Flushes without resistance 2099 Lumen 2 Color Red 12/20/202099 Lumen 2 Status Disinfecting Cap;Normal saline locked 12/20/202099 Lumen 2 Patency Brisk blood return (3ml in 3 sec);Flushes without resistance 2099 Dressing Type Antimicrobial;Sterile;Transparent 12/20/202099 Dressing Status Checked;Intact 12/20/202099 Dressing Intervention New 12/16/202199 Next Dressing Change Due 12/23/20 12/20/202099 Needleless Connector Change Date Due 12/24/20 12/20/202099 Needleless Connector Date Completed 12/20/20 12/20/20 0600 Declotting N/A 12/20/202099 Surgical site: None LAB RESULTS: Most Recent Result from last 24 hours Lab Units 12/21/20 0001 WBC TH/uL 16.78* HEMOGLOBIN g/dL 13.0 HEMATOCRIT % 38* PLATELET COUNT TH/uL 111* Most Recent Result from last 24 hours Lab Units 12/21/20 0001 SODIUM MEQ/L 128* POTASSIUM MEQ/L 4.3 CHLORIDE MEQ/L 89* CARBON DIOXIDE MEQ/L 32 BLOOD UREA NITROGEN mg/dL 21 CREATININE mg/dL 0.6 GLUCOSE mg/dL 84 CALCIUM mg/dL 8.2* Most Recent Result from last 24 hours Lab Units 12/21/20 0001 GLUCOSE mg/dL 84 No lab components to display No lab components to display ABG: No lab components to display Cultures: No results found for this visit on 12/15/20. RADIOLOGY/IMAGING: No results found. MEDICATIONS: amiodarone, 200 mg, BID heparin (porcine), 5,000 Units, Q8H levETIRAcetam, 750 mg, BID Lidocaine, 1 patch, Daily metoprolol tartrate, 50 mg, BID polyethylene glycol, 17 g, Daily senna-docusate, 2 tablet, BID sodium chloride, 3 mL, Q6H tamsulosin, 0.4 mg, Daily INFUSIONS: None OTHER: CODE STATUS: Partial Code DIET: Diet-Low Fat/Chol, 2 gm Na (Simply Healthy) GI PROPHYLAXIS: None indicated VTE PREVENTION: SCDs and Pharmacologic: Heparin Prophylactic THERAPIES: PT LOS: 6 HARTMANN: No Hartmann ANTIBIOTIC : No MAR/HOME MED REVIEW: No BOWEL REGIMEN: Yes BM LAST 48 HRS: Yes MOBILITY: PT , OOBTC with lift DIAGNOSIS: Active Hospital Problems Diagnosis Acute delirium Acute urinary retention Nausea Thrombocytopenia (HCC) History of COPD Chronic respiratory failure with hypoxia (HCC) Fall Acute neck pain Acute pain due to trauma Traumatic subdural hematoma (HCC), unknown if [facility] current use of anticoagulant Closed compression fracture of body of L1 vertebra (HCC) Hemorrhagic disorder due to extrinsic circulating anticoagulants (HCC) 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) A-fib (HCC) Hypertensive urgency History of DVT (deep vein thrombosis) Hyponatremia Hypoalbuminemia Type II diabetes mellitus (HCC) Leukocytosis Closed compression fracture of L3 lumbar vertebra, 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 ([facility]) Active Hospital Problems Acute delirium Acute urinary retention Nausea Thrombocytopenia (HCC) History of COPD Chronic respiratory failure with hypoxia (HCC) Fall Acute neck pain Acute pain due to trauma Traumatic subdural hematoma (HCC), unknown if [facility] current use of anticoagulant Closed compression fracture of body of L1 vertebra (HCC) Hemorrhagic disorder due to extrinsic circulating anticoagulants (HCC) 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 male s/p fall resulting in SDH. INJURIES: 1. Acute left hemispheric subdural hematoma 2. Subacute fractures to 7th and 8th right lateral ribs 3. Subacute fractures to L1 with 70% height loss and L3 with no significant heig ht loss PLAN: Leukocytosis - WBC 16.78 from 14.70 - Afebrile, very diminished breath sounds on left - Aggressive pulmonary hygiene, including hourly IS, flutter valve, and OOBTC - Discussed with patient importance of activity and pulmonary hygeine - Will repeat CBC in AM - Continue to monitor for s/s infection Hyponatremia - Na 128 from 130 - Diet liberalized from simply healthy to regular - Encourage adequate PO intake, discussed with patient and nursing - Will recheck BMP in AM - May need to consider free water restriction or salt tabs if continues to tren d down Thrombocytopenia - Stable, platelet count 111 from 105 - Continue to monitor for s/s bleeding - Will trend platelets on CBC in AM Acute delirium with visual hallucinations - Patient aware not real, not currently negatively affecting patient - Continue to encourage sleep at night, reorientation, open blinds, activity du ring the day - Will hold on pharm intervention at this point - Notify team if hallucinations worsen or become bothersome to patient Appreciate neurosurgery recs - Hold coumadin for at least four weeks (until approx 01/12) - Repeat head CT today (12/21) - SBP<140 - Follow up outpatient in 1 month Continue keppra for seizure ppx, can stop on 12/24 PPE Statement: Onelia Grady APRN used Yellow precautions (Level 3 mask, eye protection, and gloves). During multidisciplinary rounds today the patient events of the previous 24 hour s, physical exam, laboratory findings, radiologic studies, fluid balance,neurolo gic status, cardiovascular status including invasive monitoring data, pulmonary status, and metabolic status including nutrition, and medications were reviewed. Mariano Thomas will require close monitoring of his metabolic and respiratory st atus and vital signs to prevent further deterioration of condition. Education, treatment goal, and plan of care were discussed and mutually agreed u rome with patient/family. I, Onelia [facility], have reviewed all of these findings and the overa ll assessment and plans for the day are discussed and documented in the Medical Record Note. I was personally present and involved in all aspects of patient car e. [facility] 25 minutes was time spent personally by me on the following activities: developm ent of treatment plan with patient and/or surrogate, discussions with network security consultant s, discussion with primary provider, evaluation of patient's response to treatme nt, examination of patient, obtaining history from patient or surrogate, orderin g and performing treatments and interventions, ordering and review of laboratory studies, ordering and review of radiographic studies, re-evaluation of patient' s condition and review of records. Onelia Grady, MSN, RN, [facility]-, CNRN, CCRN [facility] Nurse Practitioner [address] [place] [address] Office: [phone] Pager: [phone] Available on Voalte * Onelia Grady NP - 12/20/2020 7:06 AM CDT Trauma and Casing Inspector Nurse Practitioner Progress Note PATIENT NAME: Mariano Thomas DATE of SERVICE: 12/20/2020 CPI: [id number] AGE: 80 y.o. : 1940 Admission Chief Complaint: Transfer Of Care (from [place], fall with SDH) HPI/CC: Mariano Thomas is a 80 y.o. male w/ PMH most significant for a fib on war in, DM Type II, CAD, DVT, BPH, hyponatremia, AAA repair in 2012, and urinary incontinencewho presented as a greentrauma activation (downgraded [place] o [place] arrival[place].His fall was five days ago vs on 12/03 prior, at which time he presented to an OSH and showed no acute intracranial process on C T. Frontal headache for 5 days vs started on morning on 12/15 so he presented mark k to the OSH, where CT showed subdural hematoma and his INR was reported to be 2 .9. He was found to be acutely hypertensive, 190s/110s and was treated with labe talol, as well as given keppra and vitamin K. After receiving labetalol, he santana me transiently hypotensive with decreased mental status; this resolved prior to arrival to [facility] without intervention. Initial labs significant forNa+ 126, Cl- 89, CO2 34, BG 120, albumin 2.9, INR 1.3, WBC 17.68, platelet 113, P2Y12 211 Initial 12 lead ECG:a fib with PVC and nonspecific intraventricular conduction delay Initial imaging significant for: CT head - acute left hemispheric subdural hematoma measuring 5.2 x 1.4 cm SDH (l arger than on CT at previous facility) with 6.4 mm midline shift; trace right fr ontal subdural hematoma CT l-spine - Subacute fractures [...] injury 12/15: Admit to NSICU for close observation. [facility] for anticoagulant reversal. Cardene gtt [...] ankle and left shoulder - xrays obtained s how no acute injury. Home amiodarone and metoprolol resumed. Simply healthy diet . Flomax started for urinary retention. 12/17: SQ heparin ppx initiated. OOBTC with lift. Patient transferred to floor. 12/18: Acute delirium, seeing pigs and sheep in room; Zyprexa given x1. Serial la bs D/Brad. Hartmann discontinued. PAST MEDICAL HISTORY: No past medical history on file. PAST SURGICAL HISTORY: No past surgical history on file. ALLERGIES: Patient has no known allergies. PRIOR TO ADMISSION MEDICATIONS: Medications Prior to Admission Medication Sig Dispense Refill Last Dose acetaminophen (TYLENOL) 500 MG tablet Take 500 mg by mouth every 6 (six) owen rs as needed for pain. albuterol (ACCUNEB) 1.25 mg/3 mL (0.042 %) nebulizer solution Inhale 1 ampul e via nebulizer every 6 (six) hours as needed for wheezing. amiodarone (CORDARONE) 200 MG tablet Take 200 mg by mouth 2 (two) times a da y. latanoprost, PF, 0.005 % Drop Administer 1 drop to eye. metoprolol succinate (TOPROL-XL) 200 MG 24 hr tablet Take 200 mg by mouth da rupa. polyethylene glycol (GLYCOLAX) 17 gram packet Take 17 g by mouth as needed. warfarin (COUMADIN) 3 MG tablet Take 3 mg by mouth every evening. ECHOCARDIOGRAPHY: No results found. Subjective: Mariano Thomas is in bed, awake, alert & oriented X 3. He follows commands. He states he is ready to discharge to see his in the facility. Review of Systems Constitutional: Negative for fever. HENT: Positive for hearing loss. Negative for sore throat and trouble swallowing . Chronic STEBBINS Respiratory: Negative for shortness of breath. Cardiovascular: Negative for chest pain. Gastrointestinal: Positive for nausea. Negative for abdominal pain. Genitourinary: Negative for difficulty urinating. Musculoskeletal: Positive for myalgias. Neurological: Positive for weakness. Negative for dizziness, seizures, syncope, facial asymmetry, speech difficulty, light-headedness, numbness and headaches. Psychiatric/Behavioral: Positive for hallucinations. Objective: BP (!) 140/92 (BP Location: Left arm, Patient position: Supine) | Pulse (!) 114 | Temp 36.6 C (97.9 F) (Oral) | Resp 18 | Ht 1.829 m (6') | Wt 112 kg ( 246 lb 14.6 oz) | SpO2 93% | BMI 33.49 kg/m Intake/Output Summary (Last 24 hours) at 12/20/2020 0706 Last data filed at 12/19/2020 0900 Gross per 24 hour Intake Output 100 ml Net -100 ml PHYSICAL EXAM: Vitals: BP (!) 140/92 (BP Location: Left arm, Patient position: Supine) | Pulse (!) 114 | Temp 36.6 C (97.9 F) (Oral) | Resp 18 | Ht 1.829 m (6') | Wt 112 kg ( 246 lb 14.6 oz) | SpO2 93% | BMI 33.49 kg/m Respiratory Support: Room air T-High: Temp (24hrs), Av.7 C (98 F), Min:36.4 C (97.5 F), Max:36.8 C (98.3 F) Fluid Balance: No intake/output data recorded. EXAM: General Appearance: alert, appears stated age and cooperative Neurologic: AAOx3. Speech is fluent and appropriate. Pupils 3 mm Responds to verbal stimuli. Sensation intact throughout. RUE Strength 4/5 RLE able to lift knee, not able to lift foot off bed LUE Strength 4/5 LLE Strength 4/5 Neck: Not Examined Respiratory: Airway: Not Intubated Lungs:non-labored, decreased breath sounds: bilaterally Heart: irregular rate and rhythm Abdomen: normal bowel sounds abnormal findings: none Genitourinary: No Hartmann Extremities: GARBER to command Skin: bilateral lower extremity discoloration Invasive lines/Drains:Port-A-Cath Double Lumen: Surgical site: none LAB RESULTS: No lab components to display No lab components to display No lab components to display Invalid input(s): LABALBU No lab components to display No lab components to display ABG: No lab components to display Cultures: No results found for this visit on 12/15/20. RADIOLOGY/IMAGING: XR Chest single view frontal Result Date: 12/18/2020 1. Right upper extremity PICC. 2. Improved aeration of the left lung. Residual left basilar airspace disease. Interstitial edema. READING SITE: [facility] MEDICATIONS: amiodarone, 200 mg, BID heparin (porcine), 5,000 Units, Q8H levETIRAcetam, 750 mg, BID Lidocaine, 1 patch, Daily metoprolol tartrate, 50 mg, BID polyethylene glycol, 17 g, Daily senna-docusate, 2 tablet, BID sodium chloride, 3 mL, Q6H tamsulosin, 0.4 mg, Daily INFUSIONS: OTHER: CODE STATUS: Partial Code DIET: Diet-Low Fat/Chol, 2 gm Na (Simply Healthy) GI PROPHYLAXIS: N/A VTE PREVENTION: SCDs and Pharmacologic: Heparin Prophylactic THERAPIES: PT and OT LOS: 5 HARTMANN: No Hartmann ANTIBIOTIC : No MAR/HOME MED REVIEW: No BOWEL REGIMEN: No BM LAST 48 HRS: Yes MOBILITY: As tolerated DIAGNOSIS: Active Hospital Problems Diagnosis Acute delirium Acute urinary retention Nausea Thrombocytopenia (HCC) History of COPD Chronic respiratory failure with hypoxia (HCC) Fall Acute neck pain Acute pain due to trauma Traumatic subdural hematoma (HCC), unknown if [facility] current use of anticoagulant Closed compression fracture of body of L1 vertebra (HCC) Hemorrhagic disorder due to extrinsic circulating anticoagulants (HCC) 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) A-fib (HCC) Hypertensive urgency History of DVT (deep vein thrombosis) Hyponatremia Hypoalbuminemia Type II diabetes mellitus (HCC) Leukocytosis Closed compression fracture of L3 lumbar vertebra, 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 ([facility]) Active Hospital Problems Acute delirium Acute urinary retention Nausea Thrombocytopenia (HCC) History of COPD Chronic respiratory failure with hypoxia (HCC) Fall Acute neck pain Acute pain due to trauma Traumatic subdural hematoma (HCC), unknown if [facility] current use of anticoagulant Closed compression fracture of body of L1 vertebra (HCC) Hemorrhagic disorder due to extrinsic circulating anticoagulants (HCC) 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 male s/p fall on 12/10/20 and presenting to hospital on 12/15 INJURIES: 1. Acute left hemispheric subdural hematoma 2. Subacute fractures to 7th and 8th right lateral ribs 3. Subacute fractures to L1 with 70% height loss and L3 with no significant heig ht loss PLAN: Continue to encourage OOBTC Continue aggressive pulmonary toileting Continue keppra for 7 day ppx can stop on 12/24 Awaiting lab results today Am labs: CBC & BMP NSGY says we can get repeat CT prior to discharge if he discharges before 12/24 Appreciate NSGY recs. Repeat CT head on 12/24 to ensure stability SBP <140 mmHg Continue to hold Coumadin PPE Statement: Onelia Grady NP used Yellow precautions (Level 3 mask, eye protection, and gloves). During multidisciplinary rounds today the patient events of the previous 24 hour s, physical exam, laboratory findings, radiologic studies, fluid balance,neurolo gic status, cardiovascular status including invasive monitoring data, pulmonary status, and metabolic status including nutrition, and medications were reviewed. Mariano Thomas will require close monitoring of his neurological, mobility, pain status and vital signs to prevent further deterioration of condition. . Education, treatment goal, and plan of care were discussed and mutually agreed u rome with patient/family. I, Onelia Grady NP, have reviewed all of these findings and the overall a ssessment and plans for the day are discussed and documented in the Medical Bony rd Note. I was personally present and involved in all aspects of patient care. Onelia Grady NP 25 minutes was time spent personally by me on the following activities: developm ent of treatment plan with patient and/or surrogate, discussions with network security consultant s, discussion with primary provider, evaluation of patient's response to treatme nt, examination of patient, obtaining history from patient or surrogate, orderin g and performing treatments and interventions, ordering and review of laboratory studies, ordering and review of radiographic studies, re-evaluation of patient' s condition and review of records. Onelia Grady MSN, RN, AGACNP-BC, CNRN, CCRN Tra[facility] Specialists Nurse Practitioner [address] [place] [address] Office: [phone] Pager: [phone] * Onelia Grady NP - 12/19/2020 7:10 AM CDT Trauma and Casing Inspector Nurse Practitioner Progress Note PATIENT NAME: Mariano Thomas DATE of SERVICE: 12/19/2020 CPI: [id number] AGE: 80 y.o. : 1940 Admission Chief Complaint: Transfer Of Care (from [place], fall with SDH) HPI/CC: Mariano Thomas is a 80 y.o. male w/ PMH most significant for a fib on war , DM Type II, CAD, DVT, BPH, hyponatremia, AAA repair in 2012, and urinary incontinencewho presented as a greentrauma activation (downgraded from red o n arrival)s/pfallon 12/15.His fall was five days ago vs on 12/03 prior, at which time he presented to an OSH and showed no acute intracranial process on C T. Frontal headache for 5 days vs started on morning on 12/15 so he presented mark k to the OSH, where CT showed subdural hematoma and his INR was reported to be 2 .9. He was found to be acutely hypertensive, 190s/110s and was treated with labe talol, as well as given keppra and vitamin K. After receiving labetalol, he santana me transiently hypotensive with decreased mental status; this resolved prior to arrival to [facility] without intervention. Initial labs significant forNa+ 126, Cl- 89, CO2 34, BG 120, albumin 2.9, INR 1.3, WBC 17.68, platelet 113, P2Y12 211 Initial 12 lead ECG:a fib with PVC and nonspecific intraventricular conduction delay Initial imaging significant for: CT head - acute left hemispheric subdural hematoma measuring 5.2 x 1.4 cm SDH (l arger than on CT at previous facility) with 6.4 mm midline shift; trace right fr ontal subdural hematoma CT l-spine - Subacute fractures [...] injury 12/15: Admit to NSICU for close observation. [facility] for anticoagulant reversal. Cardene gtt [...] ankle and left shoulder - xrays obtained s how no acute injury. Home amiodarone and metoprolol resumed. Simply healthy diet . Flomax started for urinary retention. 12/17: SQ heparin ppx initiated. OOBTC with lift. Patient transferred to floor. 12/18: Acute delirium, seeing pigs and sheep in room; Zyprexa given x1. Serial la bs D/Brad. Hartmann discontinued. PAST MEDICAL HISTORY: No past medical history on file. PAST SURGICAL HISTORY: No past surgical history on file. ALLERGIES: Patient has no known allergies. PRIOR TO ADMISSION MEDICATIONS: Medications Prior to Admission Medication Sig Dispense Refill Last Dose acetaminophen (TYLENOL) 500 MG tablet Take 500 mg by mouth every 6 (six) owen rs as needed for pain. albuterol (ACCUNEB) 1.25 mg/3 mL (0.042 %) nebulizer solution Inhale 1 ampul e via nebulizer every 6 (six) hours as needed for wheezing. amiodarone (CORDARONE) 200 MG tablet Take 200 mg by mouth 2 (two) times a da y. latanoprost, PF, 0.005 % Drop Administer 1 drop to eye. metoprolol succinate (TOPROL-XL) 200 MG 24 hr tablet Take 200 mg by mouth da rupa. polyethylene glycol (GLYCOLAX) 17 gram packet Take 17 g by mouth as needed. warfarin (COUMADIN) 3 MG tablet Take 3 mg by mouth every evening. ECHOCARDIOGRAPHY: No results found. Subjective: Mariano Thomas is awake, sitting in bed on assessment. He denies SOB this AM and states he is not coughing up as much phlegm as yesterday. He does note he contin ues to have hallucinations, is now seeing other people in the room and dirt runn ing down the zee. He states he knows these are not real and does not find them to be particularly bothersome. He continues to endorse significant weakness in his right leg and is now complaining of some intermittent pain in that heel. He denies any significant nausea this AM and states he is voiding without issue aft er Hartmann removal yesterday. He states he would like to go to [facility] soon as that is where his is. Review of Systems Constitutional: Positive for appetite change (continues to have decreased appeti te) and fatigue. Negative for fever. HENT: Negative for ear pain, sore throat and trouble swallowing. Eyes: Negative for photophobia and pain. Respiratory: Negative for chest tightness and shortness of breath. Cardiovascular: Negative for chest pain. Gastrointestinal: Positive for constipation. Negative for diarrhea and nausea. Genitourinary: Negative for difficulty urinating. Musculoskeletal: Positive for myalgias. Tingling in right leg, pain in right heel Neurological: Positive for weakness. Negative for dizziness, light-headedness an d headaches. Psychiatric/Behavioral: Positive for hallucinations. Negative for agitation. The patient is not nervous/anxious. Objective: BP 100/57 (BP Location: Left arm, Patient position: Sitting) | Pulse 60 | Temp 36.5 C (97.7 F) (Oral) | Resp 21 | Ht 1.829 m (6') | Wt 113.9 kg (251 lb ) | SpO2 100% | BMI 34.04 kg/m Intake/Output Summary (Last 24 hours) at 12/19/2020 0711 Last data filed at 12/19/2020 0533 Gross per 24 hour Intake 360 ml Output 725 ml Net -365 ml PHYSICAL EXAM: Vitals: BP 100/57 (BP Location: Left arm, Patient position: Sitting) | Pulse 60 | Temp 36.5 C (97.7 F) (Oral) | Resp 21 | Ht 1.829 m (6') | Wt 113.9 kg (251 lb ) | SpO2 100% | BMI 34.04 kg/m Respiratory Support: On 3L NC (wears 2L NC) T-High: Temp (24hrs), Av.5 C (97.7 F), Min:36.3 C (97.4 F), Max:36.7 C (98 .1 F) Fluid Balance: I/O last 24 Hours: In: - Out: 150 [Urine:150] EXAM: General Appearance: appears stated age, cooperative, fatigued and no distress Neurologic: AAOx3. Speech is fluent and appropriate. Pupils 2mm Responds to verbal stimuli. Sensation intact throughout. RUE Strength 4/5 RLE Strength 2/5 LUE Strength 4/5 LLE Strength 4/5 Neck: Soft and supple without lymphadenopathy or thyromegaly Respiratory: Airway: Not Intubated Lungs:non-labored, decreased breath sounds: left, tachypneic Heart: irregular rate and rhythm Abdomen: normal bowel sounds abnormal findings: none Genitourinary: No Hartmann Extremities: pedal pulses +1 georgina, tingling in BLE R>L Skin: Skin color, texture, turgor normal. No rashes or lesions. Right heel red but blanchable, slightly boggy. Invasive lines/Drains:PICC Double Lumen: PICC Double Lumen 12/16/20 Right Brachial (Active) Line Necessity Poor peripheral venous access (e.g., multiple documented failed a ttempts or documented history of poor peripheral access in a high risk patient). 12/18/202099 Site Assessment WDL;Dressing in Place 12/19/20899 Securement Device Securement device-adhesive 12/18/202099 External Catheter Length (cm) 0 cm 12/18/202099 Lumen 1 Color Purple 12/18/202099 Lumen 1 Status Disinfecting Cap;Normal saline locked 12/18/202099 Lumen 1 Patency Brisk blood return (3ml in 3 sec);Flushes without resistance 2099 Lumen 2 Color Red 12/18/202099 Lumen 2 Status Disinfecting Cap;Normal saline locked 12/18/202099 Lumen 2 Patency Brisk blood return (3ml in 3 sec);Flushes without resistance 2099 Dressing Type Antimicrobial;Sterile;Transparent 12/18/202099 Dressing Status Checked;Intact 12/19/20899 Dressing Intervention New 12/16/202199 Next Dressing Change Due 12/23/20 12/18/202099 Needleless Connector Change Date Due 12/20/20 12/18/202099 Declotting N/A 12/18/202099 Surgical site: None LAB RESULTS: Most Recent Result from last 24 hours Lab Units 12/19/20 0625 WBC TH/uL 14.70* HEMOGLOBIN g/dL 12.1* HEMATOCRIT % 35* PLATELET COUNT TH/uL 105* Most Recent Result from last 24 hours Lab Units 12/19/20 0625 SODIUM MEQ/L 130* POTASSIUM MEQ/L 4.2 CHLORIDE MEQ/L 89* CARBON DIOXIDE MEQ/L 35* BLOOD UREA NITROGEN mg/dL 20 CREATININE mg/dL 0.7 GLUCOSE mg/dL 89 CALCIUM mg/dL 8.4 Most Recent Result from last 24 hours Lab Units 12/19/20 0625 GLUCOSE mg/dL 89 No lab components to display No lab components to display ABG: No lab components to display Cultures: No results found for this visit on 12/15/20. RADIOLOGY/IMAGING: XR Chest single view frontal Result Date: 12/18/2020 1. Right upper extremity PICC. 2. Improved aeration of the left lung. Residual left basilar airspace disease. Interstitial edema. READING SITE: [facility] MEDICATIONS: amiodarone, 200 mg, BID heparin (porcine), 5,000 Units, Q8H levETIRAcetam, 750 mg, BID Lidocaine, 1 patch, Daily metoprolol tartrate, 50 mg, BID polyethylene glycol, 17 g, Daily senna-docusate, 2 tablet, BID sodium chloride, 3 mL, Q6H tamsulosin, 0.4 mg, Daily INFUSIONS: None OTHER: CODE STATUS: Partial Code DIET: Diet-Low Fat/Chol, 2 gm Na (Simply Healthy) GI PROPHYLAXIS: Not indicated VTE PREVENTION: SCDs and Pharmacologic: Heparin Prophylactic THERAPIES: PT LOS: 4 HARTMANN: No Hartmann ANTIBIOTIC : No MAR/HOME MED REVIEW: No BOWEL REGIMEN: Yes BM LAST 48 HRS: No MOBILITY: PT, aggressive PUM DIAGNOSIS: Active Hospital Problems Diagnosis Acute delirium Acute urinary retention Nausea Thrombocytopenia (HCC) History of COPD Chronic respiratory failure with hypoxia (HCC) Fall Acute neck pain Acute pain due to trauma Traumatic subdural hematoma (HCC), unknown if [facility] current use of anticoagulant Closed compression fracture of body of L1 vertebra (HCC) Hemorrhagic disorder due to extrinsic circulating anticoagulants (HCC) 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) A-fib ([facility]) Hypertensive urgency History of DVT (deep vein thrombosis) Hyponatremia Hypoalbuminemia Type II diabetes mellitus (HCC) Leukocytosis Closed compression fracture of L3 lumbar vertebra, 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 ([facility]) Active Hospital Problems Acute delirium Acute urinary retention Nausea Thrombocytopenia (HCC) History of COPD Chronic respiratory failure with hypoxia (HCC) Fall Acute neck pain Acute pain due to trauma Traumatic subdural hematoma (HCC), unknown if [facility] current use of anticoagulant Closed compression fracture of body of L1 vertebra ([facility]) Hemorrhagic disorder due to extrinsic circulating anticoagulants ([facility]) Paresis of right lower extremity ([facility]) Traumatic focal compression of brain ([facility]) A-fib ([facility]) Hypertensive urgency History of DVT (deep vein thrombosis) Hyponatremia Hypoalbuminemia Type II diabetes mellitus ([facility]) Leukocytosis Closed compression fracture of L3 lumbar vertebra, 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 ([facility]) ASSESSMENT Mariano Thomas is a 80 y.o. male s/p fall. INJURIES: 1. Acute left hemispheric subdural hematoma 2. Subacute fractures to 7th and 8th right lateral ribs 3. Subacute fractures to L1 with 70% height loss and L3 with no significant heig ht loss PLAN: - Q4h neuro checks - Appreciate neurosurgery recs: - Chemical VTE prophylaxis ok - Hold coumadin for at least four weeks (until approx 01/12) - Repeat head CT in 1 week (on 12/24) - Continue aggressive pulmonary hygiene with IS and flutter valve, OOBTC - Encourage good sleep during the night and wakefulness during the day with blin ds open, light on to improve delirium hallucinations, reorient as necessary and notify team if worsens or hallucinations become bothersome. - Continue keppra for seizure prophylaxis x 7 days (started 12/17) - Elevate right foot off of bed with pillow or cushioned boot to prevent breakdo wn or soft tissue injury - Continue physical therapy to strengthen RLE - Leukocytosis improving, WBC 14.70 this AM from 18.55 on 12/16 - Slightly worsening thrombocytopenia, platelets 105 from 122 on 12/16 - Monitor for s/s bleeding/hemorrhage; will continue to monitor during this sta y - Chronic hyponatremia, Na+ stable at 130 - Continue bowel regimen as has not had a BM yet - Encourage oral intake PPE Statement: Onelia Grady APRN used Green precautions (Level 1 mask, eye p rotection, and gloves). During multidisciplinary rounds today the patient events of the previous 24 hour s, physical exam, laboratory findings, radiologic studies, fluid balance,neurolo gic status, cardiovascular status including invasive monitoring data, pulmonary status, and metabolic status including nutrition, and medications were reviewed. Mariano Thomas will require close monitoring of his neurologic, respiratory, and psychiatric status and vital signs to prevent further deterioration of conditio n. He will require SNF on discharge for continued PT and strengthening. Education, treatment goal, and plan of care were discussed and mutually agreed u rome with patient/family. I, Onelia Grady, have reviewed all of these findings and the overall assessm ent and plans for the day are discussed and documented in the Medical Record Not e. I was personally present and involved in all aspects of patient care. Onelia Grady CAN FILLING AND CLOSING MACHINE TENDER 25 minutes was time spent personally by me on the following activities: developm ent of treatment plan with patient and/or surrogate, discussions with network security consultant s, discussion with primary provider, evaluation of patient's response to treatme nt, examination of patient, obtaining history from patient or surrogate, orderin g and performing treatments and interventions, ordering and review of laboratory studies, ordering and review of radiographic studies, re-evaluation of patient' s condition and review of records. Onelia Grady, MSN, RN, AGACNP-BC, CNRN, CCRN Trauma [facility] Critical Care Specialists Nurse Practitioner [address] [place] [address] Office: [phone] Pager: [phone] Available on Voalte * Arin Ball NP - 12/18/2020 7:12 AM CDT [facility] Trauma and Critical Care Specialists Progress Note Patient Name: Mariano Thomas Date of Service: 12/18/2020 Date of Admission: 12/15/2020 LOS: 3 days Date of : 1940 HPI/BRIEF HOSPITAL COURSE: Mariano Thomas is a 80 y.o. male w/ PMH most significant for a fib on warfarin, D M Type II, CAD, DVT, BPH, hyponatremia, AAA repair in 2012, and urinary incontin ence who presented as a green trauma activation (downgraded from red on arrival) s/p fall on 12/15. His fall was five days ago vs on 12/03 prior, at which time he presented to an OSH and showed no acute intracranial process on CT. Frontal hea dache for 5 days vs started on morning on 12/15 so he presented back to the OSH, where CT showed subdural hematoma and his INR was reported to be 2.9. He was fou nd to be acutely hypertensive, 190s/110s and was treated with labetalol, as well as given keppra and vitamin K. After receiving labetalol, he became transiently hypotensive with decreased mental status; this resolved prior to arrival to [facility] without intervention. Initial labs significant for Na+ 126, Cl- 89, CO2 34, BG 120, albumin 2.9, INR 1 .3, WBC 17.68, platelet 113, P2Y12 211 Initial 12 lead ECG: a fib with PVC and nonspecific intraventricular conduction delay Initial imaging significant for: CT head - acute left hemispheric subdural hematoma measuring 5.2 x 1.4 cm SDH (l arger than on CT at previous facility) with 6.4 mm midline shift; trace right fr ontal subdural hematoma CT l-spine - Subacute fractures of superior endplates of L1 with 70% height loss and L3 with no significant height loss CT chest - Subacute fractures to 7th and 8th right lateral ribs CT abdomen/pelvis - No acute injury. Nonspecific mild presacral fat stranding, c orrelate clinically to exclude subtle nondisplaced sacrococcygeal fracture. CT c-spine, t-spine with no acute injury 12/15: Admit to NSICU for close observation. [facility] for anticoagulant reversal. Cardene gtt [...] ankle and left shoulder - xrays obtained s how no acute injury. Home amiodarone and metoprolol resumed. Simply healthy diet . INJURIES: 1. Acute left hemispheric subdural hematoma 3. Subacute fractures to 7th and 8th right lateral ribs 4. Subacute fractures to L1 with 70% height loss and L3 with no significant heig ht loss 24-Hour History/Events of Note: 12/17: SQ heparin ppx initiated. OOBTC with lift. Patient transferred to floor. Past Medical History: No past medical history on file. Past Surgical History: No past surgical history on file. Family History: No family history on file. Social History: Social History Socioeconomic History Marital status: Spouse [...] Social Gatherings with Friends and Family: Attends [employer] Services: Active Member of Clubs or Organizations: Attends Club or Organization Meetings: Marital Status: Intimate Partner Violence: Fear of Current or Ex-Partner: Emotionally Abused: Physically Abused: Sexually Abused: Allergies: Patient has no known allergies. Prior to Admission Medications: Medications Prior to Admission Medication Sig Dispense Refill Last Dose acetaminophen (TYLENOL) 500 MG tablet Take 500 mg by mouth every 6 (six) owen rs as needed for pain. albuterol (ACCUNEB) 1.25 mg/3 mL (0.042 %) nebulizer solution Inhale 1 ampul e via nebulizer every 6 (six) hours as needed for wheezing. amiodarone (CORDARONE) 200 MG tablet Take 200 mg by mouth 2 (two) times a da y. latanoprost, PF, 0.005 % Drop Administer 1 drop to eye. metoprolol succinate (TOPROL-XL) 200 MG 24 hr tablet Take 200 mg by mouth da rupa. polyethylene glycol (GLYCOLAX) 17 gram packet Take 17 g by mouth as needed. warfarin (COUMADIN) 3 MG tablet Take 3 mg by mouth every evening. SUBJECTIVE: Mariano Thomas is resting comfortably in bed on assessment. He denies pain but do es state he is a little nauseous this AM and has little appetite. He states his right leg is a little tingly and he continues to have minimal movement in this l eg. He does endorse slightly more SOB and a wet cough but is not requiring more oxygen support. States he cannot use his IS because he spit in it. Also states juliano alexander has been seeing pigs and sheep in his room; he knows they are not really there but is seeing them. Review of Systems: 10 points reviewed and found positive except as noted in the HPI, or below: Cons t: Tiredness Eyes: Negative ENMT: Negative Pulm: Wet cough, SOB CV: Negative GI: Nausea, decreased appetite 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: Negative Neuro: Weakness, particularly in RLE; tingling sensation in RLE Psych: Hallucinations MS: Myalgias and Recent falls Skin: Negative Heme/Lymph: Negative Endocrine: Negative Immuno: Negative OBJECTIVE: Vital Signs: BP 104/63 (BP Location: Left arm, Patient position: Sitting) | Pulse (!) 112 | Temp 36.5 C (97.7 F) (Oral) | Resp 16 | Ht 1.829 m (6') | Wt 113.9 kg (2 51 lb) | SpO2 99% | BMI 34.04 kg/m Tmax: Temp (24hrs), Av.6 C (97.8 F), Min:36.4 C (97.5 F), Max:37.1 C (98.7 F) VS Ranges: Temp: [36.4 C (97.5 F)-37.1 C (98.7 F)] 36.5 C (97.7 F) Pulse: [73-113] 112 Resp: [15-27] 16 BP: (97-154)/(57-98) 104/63 Physical Exam: General Appearance: Resting comfortably in bed, responds appropriately to questi ons, appears stated age, in no acute distress Neurologic: GCS 15, JOSE ANTONIO 2+, A&O x3, EOMI, following commands. Strength 4/5 in LUE, 4/5 LLE. Strength 4/5 RUE, 1/5 RLE (minimal movement without resistance). States right leg feels "tingly" compared to left. HEENT: NC/AT, white sclera, moist and pink mucous membranes, no obvious abnorma lity or drainage Neck: Supple, trachea midline, no JVD. Respiratory: Airway: Patent, intact. Lungs: Dimished breath sounds bilaterally, no stridor/wheezes/crackles/cou gh noted. Moist cough and sounds of loose secretions in airway. Tachypneic, shal low respirations, symmetric chest rise, in no acute respiratory distress. Cardiovascular: Heart: Irregularly irregular, no MRG noted Peripheral Vascular: Bilateral carotid arteries palpable, bilateral radial pulse s +2, bilateral DP pulses +1, cap refill < 3 sec Abdomen/Gastrointestinal: Rounded, non-distended, NTTP, no rebound/guarding/per itoneal signs noted. Genitourinary: No gross abnormality, urinary catheter in place. Extremities/musculoskeletal: No obvious abnormality. Right-sided weakness as de scribed above. Extremities warm and well perfused. Minimal peripheral edema. Integumentary: Warm and dry. Adequate peripheral perfusion. Lines/drains/tubes: PICC, hartmann Incision(s)/wound(s): None Respiratory Support: 4L/NC (2L NC at home) Nasal cannula oxygen as needed to maintain adequate oxygen saturation Intake/Output: No intake/output data recorded. Laboratory Results: No lab components to display Most Recent Result from last 24 hours Lab Units 12/18/20 0613 SODIUM MEQ/L 130* POTASSIUM MEQ/L 4.6 No lab components to display Invalid input(s): LABALBU No lab components to display No lab components to display Microbiology: No results found for this or any previous visit (from the past 168 hour(s)). Imaging: CT Abdomen Pelvis w contrast Result Date: [...] a subtle nondisplaced sacrococcygeal fracture. READING SITE: [facility] CT Cervical Spine wo contrast Result Date: 12/16/2020 1. No acute fracture or dislocation. 2. Mild to moderate degenerative cervical spondylosis. ATTESTATION STATEMENT: The Staff Radiologist has personally reviewed the images and dictated, reviewed, or edited the final report. READING SITE: [facility] CT Chest w contrast Result Date: 12/15/2020 [...] long-term. 3. Cardiomegaly. Coronary atherosclerosis. READING SITE: [facility] CT Head wo contrast Result Date: 12/17/2020 Impression: 1. Left holohemispheric subdural hematoma is not significantly changed with similar brain compression and left to right midline shift. Left parafalcine subdural hematoma is slightly decreased or redistributed. No evidence for developing hydrocephalus. 2. Moderate generalized atrophy and chronic small vessel ischemic disease. 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 READING SITE: [facility] ATTESTATION STATEMENT: The Staff Radiologist has personally reviewed the images and dictated, reviewed, or edited the final report. CT Head wo contrast Result Date: 12/16/2020 Impression: 1. Enlarging left hemispheric subdural hematoma (most prominently the left posterior parafalcine aspect) with accompanying brain compression, sulcal effacement, and 6.4 mm of rightward midline shift. Recommend neurosurgical evaluation and likely evacuation of left hemisphere SDH. 2. Unchanged trace right frontal subdural hematoma. READING SITE: [facility]. ATTESTATION STATEMENT: The Staff Radiologist has personally reviewed the images and dictated, reviewed, or edited the final report. CT Head wo contrast Result Date: 12/15/2020 Impression: 1. Left holohemispheric and parafalcine hematomas are not significantly changed from 1007 hours same day with similar brain compression and left to right midline shift. No evidence for developing hydrocephalus. 2. Moderate generalized atrophy and chronic small vessel ischemic disease. 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 READING SITE: [facility]. ATTESTATION STATEMENT: The Staff Radiologist has personally reviewed the images and dictated, reviewed, or edited the final report. CT Lumbar Spine reconstructed Result Date: 12/16/2020 Subacute fracture of superior endplate of L1 with approximately 70% height loss. Presence of superior endplate fracture cleft suggests nonhealing. Subacute fracture of the superior endplate of L3 with no significant height loss. READING SITE: [facility]. ATTESTATION STATEMENT: The Staff Radiologist has personally reviewed the images and dictated, reviewed, or edited the final report. CT Thoracic Spine reconstructed Result Date: 12/16/2020 Impression: No acute osseous abnormality of the thoracic spine. Multilevel anterior osteophytes as a result of chronic degenerative changes. READING SITE: [facility]. ATTESTATION STATEMENT: The Staff Radiologist has personally reviewed the images and dictated, reviewed, or edited the final report. XR Ankle min 3 views right Result Date: 12/16/2020 No evidence of fracture. READING SITE: [facility] XR Chest single view frontal Result Date: 12/17/2020 Worsening now complete atelectasis of the left lung. Stable mild lower heterogeneous opacities throughout the right lung. READING SITE: [email or web address] XR Chest single view frontal Result Date: 12/16/2020 1. Asymmetric heterogeneous opacities, most prominent on the left have slightly improved and likely represent interstitial pulmonary edema and scattered areas of subsegmental atelectasis. 2. Moderate left pleural effusion is unchanged. 3. Life-support devices as above. READING SITE: [facility] XR Chest single view frontal Result Date: 12/16/2020 1. Increased left heterogeneous opacity with indistinct vasculature is consistent with atelectasis. 2. Left upper extremity PICC terminates in the right brachiocephalic vein. Results were communicated by telephone to the patient's nurse, Nataliya by Dr. Dailey on 12/16/2020 3:51 PM ATTESTATION STATEMENT: The Staff Radiologist has personally reviewed this study and agrees with the findings in this report. READING SITE: [facility] XR Chest single view frontal Result Date: 12/15/2020 Question small left pleural effusion. No pneumothorax. No focal consolidation. Consider further evaluation with PA and lateral chest radiograph. READING SITE: [email or web address] XR Pelvis one or two views Result Date: 12/15/2020 No evidence of fracture. READING SITE: [facility] XR Shoulder min 2 views left Result Date: 12/16/2020 1. Near complete opacification of the left lung, new since 12/15/2020. This may reflect some combination of severe volume loss and possible pleural effusion. Recommend dedicated chest radiographs. 2. The left PICC may be malpositioned. The tip appears to be directed superiorly into the right brachycephalic vein. This can be better assessed on chest radiographs. 3. No evidence of left shoulder fracture. Results were communicated by telephone to LESLEE Mehta by Dr. Gus Lim on 12/16/2020 1:44 PM READING SITE: [facility] XR Chest post line drain or airway placement Result Date: 12/16/2020 1. Life-support devices as above. No pneumothorax. 2. Asymmetric heterogeneous opacities, most prominent on left have improved. 3. Moderate left pleural effusion has improved. READING SITE: [facility] XR Chest post line drain or airway placement Result Date: 12/15/2020 1. Left upper extremity PICC. 2. Increased bilateral heterogeneous opacities and indistinct vasculature concerning for atelectasis and edema. Superimposed infection or aspiration not excluded. 3. Small left pleural effusion versus thickening. READING SITE: [facility] Medications: Scheduled: amiodarone, 200 mg, BID heparin (porcine), 5,000 Units, Q8H levETIRAcetam, 750 mg, BID Lidocaine, 1 patch, Daily metoprolol tartrate, 50 mg, BID polyethylene glycol, 17 g, Daily senna-docusate, 2 tablet, BID sodium chloride, 3 mL, Q6H tamsulosin, 0.4 mg, Daily PRN: acetaminophen, 650 mg, Q6H PRN OR acetaminophen, 325-650 mg, Q6H PRN * altep lase, 1 mg, PRN * bisacodyL, 10 mg, Daily PRN * fentaNYL, 25-50 mcg, Q2H PRN * h ydrALAZINE, 10-20 mg, Q2H PRN * labetaloL, 10-20 mg, Q2H PRN * magnesium hydroxi de, 30 mL, Daily PRN * magnesium sulfate, 4 g, PRN * ondansetron, 4 mg, Q6H PRN * potassium chloride, 20 mEq, PRN OR potassium bicarb-citric acid, 20 mEq, P RN OR potassium chloride in water, 20 mEq, PRN * prochlorperazine, 5 mg, Q6H PRN * white petrolatum-mineral oiL, 1 application, Q4H PRN Infusions: None Multidisciplinary: Code Status: Partial Code Diet: Diet-Low Fat/Chol, 2 gm Na (Simply Healthy) GI Prophylaxis: NA VTE Prophylaxis: SCDs : Hartmann for urinary retention - will trial removal today Bowel regimen: Yes PT/OT/SLT/SW: PT Tertiary complete: Yes, reassess PRN Cervical spine clearance: Clinically and radiologically T & L spine clearance: Yes Procedures/Surgeries: 12/15: PICC placement Active Hospital Problems Diagnosis History of COPD Chronic respiratory failure with hypoxia ([facility]) Fall Acute neck pain Acute pain due to trauma Traumatic subdural hematoma (HCC), 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 Closed compression fracture of body of L1 vertebra (HCC) Hemorrhagic disorder due to extrinsic circulating anticoagulants ([facility]) Paresis of right lower extremity (HCC) Traumatic focal compression of brain ([facility]) A-fib (HCC) Hypertensive urgency History of DVT (deep vein thrombosis) Hyponatremia Hypoalbuminemia Type II diabetes mellitus (HCC) Leukocytosis Closed compression fracture of L3 lumbar vertebra, 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 ([facility]) ASSESSMENT/PLAN: Neurologic: Acute pain due to trauma: - Continue multimodal pain regimen including lidocaine patches and PRN acetamino phen and fentanyl - C-collar cleared Subdural hematoma: - Q2h neuro checks - Appreciate neurosurgery recs: - SBP<140 - Hold coumadin for at least 4 weeks - SQ heparin ppx OK - Keppra for seizure ppx x 7 days (stop 12/24) - Maintain normonatremia - Repeat CT in 1 week (on 12/24) Acute delirium: - Pt seeing sheep and pigs in room - Zyprexa 2.5mg PO x1 - Continue to monitor, notify team if hallucinations continue - Allow for uninterrupted sleep at night as able and keep up and active during t day RLE paresis: - L1 and L3 compression fractures without retropulsion, likely noncontributive - No need for lumbar bracing per neurosurgery - Continue to monitor for neuro changes or deterioration - Will need physical therapy to work to regain function in this leg as able Cardiovascular: A-fib - Hold coumadin for now given SDH - Resume home amiodarone and metoprolol HTN - PRN hydralazine and labetalol for SBP>140 - Continue to monitor hemodynamics w/ goal SBP < 140 Pulmonary: Chronic hypoxic respiratory failure - CXR this AM improved, however, patient endorses subjective increasing SOB - Continue to titrate NC as needed, currently on 4L NC (wears 2L NC at home) - Titrate supplemental oxygen to maintain oxygen saturation >/= 92% - Continue aggressive pulmonary hygiene w/ IS 10x/hr while awake, flutter valve, TCDB - Discussed importance of deep breathing, coughing, getting out of bed, using IS and flutter valve for pulmonary health with patient. He expresses understanding. Renal/Genitourinary: Hyponatremia, chronic: - Monitor neuro status for acute change - Will discontinue Q6h labs - Recheck BMP in AM Urinary retention: - Flomax started 12/16 - Will discontinue hartmann and start bladder scanning algorithm - Continue to monitor accurate I/O - Continue to monitor electrolytes and replace as indicated FEN/Gastrointestinal: - Continue simply healthy diet Positive frailty screening - Nutrition following, appreciate recs - OOBTC for meals Nausea: - PRN ondanestron and compazine as needed - Has not had BM since admit: encouraged gentle diet as able and use of schedule d bowel regimen (refused this AM) GI prophylaxis - Bowel regimen to prevent constipation, hold for multiple loose stools - PUD ppx not indicated Endocrine: Hx DM - On no home treatment - BG controlled on labs - Continue to monitor to protocol Hematology/Oncology: Leukocytosis - WBC 18.55 on 12/16 - Currently afebrile, likely stress-induced - Will recheck CBC in AM - Continue to monitor for s/s infection Thrombocytopenia - Platelet 122 on 12/16 - Will recheck CBC in AM - Continue to monitor for s/s hemorrhage VTE prophylaxis: - Continue SCD's - Continue SQ heparin ppx Infectious Disease: - Continue to monitor fever, WBC, and s/s infection Integumentary/Musculoskeletal: - Continue to monitor skin condition and assess for wounds, continue Q2h turns o r encourage frequent position changes - Encourage out of bed as tolerated - Head of bed to 30 - 45 degrees - Continue PT/OT as indicated Incidental Findings: - Mild nonspecific periventricular hypoattenuation, most commonly seen with ethylene plant helper riley small vessel ischemic disease. - Calcified atherosclerosis of the bilateral cavernous and paraclinoid internal carotid arteries and intracranial vertebral arteries. - Mild to moderate degenerative cervical spondylosis. - Multilevel thoracic anterior osteophytes as a result of chronic degenerative c hanges. - Few diminutive pulmonary nodules bilaterally. In this patient with emphysema a nd increased risk for lung cancer, annual surveillance could be beneficial in th e long-term. 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 No extravasated contrast with in aneurysm sac to suggest visible endoleak. - 3.3 cm inferior right hepatic lobe previously enhancing lesion, possibly a be nign cavernous hemangioma. Disposition/Family: - Continue floor status, appreciate nursing and staff - Home medications reviewed and restarted/continued as appropriate - Appreciate assistance of care coordination - Called son Philip and spoke for 20 minutes about patient's baseline status, curr ent status, and discharge plans. Philip states patient's is currently at [facility] and that patient has been there previously. He spoke with them today and would be amenable to the patient returning there; however states he a nd the family would also be open to other discharge plans as indicated by the ca re team. PPE Statement: Arin Ball, LESLEE used Yellow precautions (Level 3 mask, eye prot ection, and gloves). During rounds today the patient events of the previous 24 hours, physical exam, laboratory findings, radiologic studies, fluid balance,neurologic status, cardio vascular status including invasive monitoring data, pulmonary status, and metabo lic status including nutrition, and medications were reviewed. Mariano Thomas is recovering s/p fall resulting in traumatic injuries. Pt continues to require mon itoring of neurologic, hemodynamic, pulmonary, infectious, and pain management s tatus for signs of recovery and/or decline at this time. Education on injuries, trajectory of hospitalization, recovery, medications, colby atment goal, and plan of care were discussed and mutually agreed upon with patie nt/family. Arin Martinez have reviewed all of the above findings and the overall assessmen t and plans for the day are discussed and documented in the Medical Record Note. I was personally present and involved in all aspects of patient care. Time spe nt, not including procedures 35. Arin Ball, MSN, RN, CAN FILLING AND CLOSING MACHINE TENDER, AGACNP-[facility] Trauma and Critical Care Services Nurse Practitioner Available on [employer] Pager * Arin Ball NP - 12/17/2020 8:48 AM CDT [facility] Progress Note Patient Name: Mariano Thomas Date of Service: 12/17/2020 Date of Admission: 12/15/2020 LOS: 2 days Date of : 1940 HPI/BRIEF HOSPITAL COURSE: Mariano Thomas is a 80 y.o. male w/ PMH most significant for a fib on warfarin, D M Type II, CAD, DVT, BPH, hyponatremia, AAA repair in 2012, and urinary incontin ence who presented as a green trauma activation (downgraded from red on arrival) s/p fall on 12/15. His fall was five days ago vs on 12/03 prior, at which time he presented to an OSH and showed no acute intracranial process on CT. Frontal hea dache for 5 days vs started on morning on 12/15 so he presented back to the OSH, where CT showed subdural hematoma and his INR was reported to be 2.9. He was fou nd to be acutely hypertensive, 190s/110s and was treated with labetalol, as well as given keppra and vitamin K. After receiving labetalol, he became transiently hypotensive with decreased mental status; this resolved prior to arrival to [facility] without intervention. Initial labs significant for Na+ 126, Cl- 89, CO2 34, BG 120, albumin 2.9, INR 1 .3, WBC 17.68, platelet 113, P2Y12 211 Initial 12 lead ECG: a fib with PVC and nonspecific intraventricular conduction delay Initial imaging significant for: CT head - acute left hemispheric subdural hematoma measuring 5.2 x 1.4 cm SDH (l arger than on CT at previous facility) with 6.4 mm midline shift; trace right fr ontal subdural hematoma CT l-spine - Subacute fractures of superior endplates of L1 with 70% height loss and L3 with no significant height loss CT chest - Subacute fractures to 7th and 8th right lateral ribs CT abdomen/pelvis - No acute injury. Nonspecific mild presacral fat stranding, c orrelate clinically to exclude subtle nondisplaced sacrococcygeal fracture. CT c-spine, t-spine with no acute injury 12/15: Admit to NSICU for close observation. K [facility] for anticoagulant reversal. Cardene gtt started to keep SBP<140. Repeat CT showed stability in SDH with no evidence for developing hydrocephalus. Hourly neurochecks. Neurosurgery consult; no acute surgical intervention indicated at this time. PICC line placed. 3% started for Na+ goal 130-135. Coumadin held. INJURIES: 1. Acute left hemispheric subdural hematoma 3. Subacute fractures to 7th and 8th right lateral ribs 4. Subacute fractures to L1 with 70% height loss and L3 with no significant heig ht loss 24-Hour History/Events of Note: 12/16: HTS stopped. Cardene gtt stopped. PRN labetalol for HTN. C-spine cleared. Tertiary revealed acute pain in right ankle and left shoulder - xrays obtained s how no acute injury. Home amiodarone and metoprolol resumed. Simply healthy diet . Past Medical History: No past medical history on file. Past Surgical History: No past surgical history on file. Family History: No family history on file. Social History: Social History Socioeconomic History Marital status: Spouse [...] Social Gatherings with Friends and Family: Attends Orthodox Services: Active Member of Clubs or Organizations: Attends Club or Organization Meetings: Marital Status: Intimate Partner Violence: Fear of Current or Ex-Partner: Emotionally Abused: Physically Abused: Sexually Abused: Allergies: Patient has no known allergies. Prior to Admission Medications: Medications Prior to Admission Medication Sig Dispense Refill Last Dose acetaminophen (TYLENOL) 500 MG tablet Take 500 mg by mouth every 6 (six) owen rs as needed for pain. albuterol (ACCUNEB) 1.25 mg/3 mL (0.042 %) nebulizer solution Inhale 1 ampul e via nebulizer every 6 (six) hours as needed for wheezing. amiodarone (CORDARONE) 200 MG tablet Take 200 mg by mouth 2 (two) times a da y. latanoprost, PF, 0.005 % Drop Administer 1 drop to eye. metoprolol succinate (TOPROL-XL) 200 MG 24 hr tablet Take 200 mg by mouth da rupa. polyethylene glycol (GLYCOLAX) 17 gram packet Take 17 g by mouth as needed. warfarin (COUMADIN) 3 MG tablet Take 3 mg by mouth every evening. SUBJECTIVE: Mariano Thomas is up in the chair, drowsy on assessment, requires repeated prompt s to stay engaged in conversation. Rates his pain a 5/10, an "achy" feeling in h is abdomen. He continues to endorse some acute weakness in his RLE, however stat es his sensation is equal on both sides. Review of Systems: 10 points reviewed and found positive except as noted in the HPI, or below: Cons t: Tiredness Eyes: Negative ENMT: Negative Pulm: Negative CV: Negative GI: "Achyness" in abdomen. Denies nausea at this time. 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: Negative Neuro: Weakness Psych: Negative MS: Myalgias and Recent falls Skin: Negative Heme/Lymph: Negative Endocrine: Negative Immuno: Negative OBJECTIVE: Vital Signs: BP (!) 154/76 Comment: labetalol | Pulse 93 | Temp 36.7 C (98.1 F) (Axillar y) | Resp 17 | Ht 1.829 m (6') | Wt 109.5 kg (241 lb 6.5 oz) | SpO2 98% | B MO 32.74 kg/m Tmax: Temp (24hrs), Av.6 C (97.9 F), Min:36.4 C (97.5 F), Max:36.9 C (98.4 F) VS Ranges: Temp: [36.4 C (97.5 F)-36.9 C (98.4 F)] 36.7 C (98.1 F) Pulse: [73-118] 93 Resp: [13-33] 17 BP: (125-165)/(66-119) 154/76 Physical Exam: General Appearance: Drowsy, requires repeat prompts to engage with provider, celso ears comfortable in chair, appears stated age, in no acute distress Neurologic: GCS 14, JOSE ANTONIO 2+, A&O x3, EOMI, following commands. Strength 4/5 in LUE, 4/5 LLE. Strength 3/5 RUE, 2/5 RLE (able to bend leg at knee, unable to fully lift). Endorses some neuropathy but states he can feel pressure sensation on BLE. HEENT: NC/AT, white sclera, moist and pink mucous membranes, no obvious abnorma lity or drainage Neck: Supple, trachea midline, no JVD. Respiratory: Airway: Patent, intact. Lungs: Clear but diminished to auscultation bilaterally, no stridor/wheeze s/crackles/cough noted. Tachypneic, shallow respirations, symmetric chest rise, in no acute respiratory distress. Cardiovascular: Heart: Irregularly irregular, no MRG noted Peripheral Vascular: Bilateral carotid arteries palpable, bilateral radial pulse s +2, bilateral DP pulses +1, cap refill < 3 sec Abdomen/Gastrointestinal: Rounded, non-distended, NTTP, no rebound/guarding/per itoneal signs noted. Genitourinary: No gross abnormality, urinary catheter in place. Extremities/musculoskeletal: No obvious abnormality. Right-sided weakness as de scribed above. Extremities warm and well perfused. Minimal peripheral edema. Integumentary: Warm and dry. Adequate peripheral perfusion. Lines/drains/tubes: PICC, hartmann Incision(s)/wound(s): None Respiratory Support: 4L/NC Nasal cannula oxygen as needed to maintain adequate oxygen saturation Intake/Output: I/O last 24 Hours: In: - Out: 520 [Urine:520] Laboratory Results: Most Recent Result from last 24 hours Lab Units 12/16/20 2325 WBC TH/uL 18.55* HEMOGLOBIN g/dL 14.0 HEMATOCRIT % 40 PLATELET COUNT TH/uL 122* Most Recent Result from last 24 hours Lab Units 12/17/20 0630 12/16/20 2325 SODIUM MEQ/L 131* 131* POTASSIUM MEQ/L 4.2 3.9 CHLORIDE MEQ/L -- 90* CARBON DIOXIDE MEQ/L -- 35* BLOOD UREA NITROGEN mg/dL -- 13 CREATININE mg/dL -- 0.6 GLUCOSE mg/dL -- 138* CALCIUM mg/dL -- 8.6 Most Recent Result from last 24 hours Lab Units 12/16/20 2325 GLUCOSE mg/dL 138* No lab components to display No lab components to display Microbiology: No results found for this or any previous visit (from the past 168 hour(s)). Imaging: CT Abdomen Pelvis w contrast Result Date: [...] a subtle nondisplaced sacrococcygeal fracture. READING SITE: [facility] Cervical Spine wo contrast Result Date: 12/16/2020 1. No acute fracture or dislocation. 2. Mild to moderate degenerative cervical spondylosis. ATTESTATION STATEMENT: The Staff Radiologist has personally reviewed the images and dictated, reviewed, or edited the final report. READING SITE: [facility] CT Chest w contrast Result Date: 12/15/2020 [...] long-term. 3. Cardiomegaly. Coronary atherosclerosis. READING SITE: [facility] CT Head wo contrast Result Date: 12/16/2020 Impression: 1. Left holohemispheric subdural hematoma is not significantly changed with similar brain compression and left to right midline shift. Left parafalcine subdural hematoma is slightly decreased or redistributed. No evidence for developing hydrocephalus. 2. Moderate generalized atrophy and chronic small vessel ischemic disease. 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 PRELIMINARY REPORT This examination has not been reviewed by a staff radiologist. A final report will be issued after staff review. CT Head wo contrast Result Date: 12/16/2020 Impression: 1. Enlarging left hemispheric subdural hematoma (most prominently the left posterior parafalcine aspect) with accompanying brain compression, sulcal effacement, and 6.4 mm of rightward midline shift. Recommend neurosurgical evaluation and likely evacuation of left hemisphere SDH. 2. Unchanged trace right frontal subdural hematoma. READING SITE: [facility]. ATTESTATION STATEMENT: The Staff Radiologist has personally reviewed the images and dictated, reviewed, or edited the final report. CT Head wo contrast Result Date: 12/15/2020 Impression: 1. Left holohemispheric and parafalcine hematomas are not significantly changed from 1007 hours same day with similar brain compression and left to right midline shift. No evidence for developing hydrocephalus. 2. Moderate generalized atrophy and chronic small vessel ischemic disease. 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 READING SITE: [facility]. ATTESTATION STATEMENT: The Staff Radiologist has personally reviewed the images and dictated, reviewed, or edited the final report. CT Lumbar Spine reconstructed Result Date: 12/16/2020 Subacute fracture of superior endplate of L1 with approximately 70% height loss. Presence of superior endplate fracture cleft suggests nonhealing. Subacute fracture of the superior endplate of L3 with no significant height loss. READING SITE: [facility] [facility] ATTESTATION STATEMENT: The Staff Radiologist has personally reviewed the images and dictated, reviewed, or edited the final report. CT Thoracic Spine reconstructed Result Date: 12/16/2020 Impression: No acute osseous abnormality of the thoracic spine. Multilevel anterior osteophytes as a result of chronic degenerative changes. READING SITE: [facility]. ATTESTATION STATEMENT: The Staff Radiologist has personally reviewed the images and dictated, reviewed, or edited the final report. XR Ankle min 3 views right Result Date: 12/16/2020 No evidence of fracture. READING SITE: [facility] XR Chest single view frontal Result Date: 12/16/2020 1. Asymmetric heterogeneous opacities, most prominent on the left have slightly improved and likely represent interstitial pulmonary edema and scattered areas of subsegmental atelectasis. 2. Moderate left pleural effusion is unchanged. 3. Life-support devices as above. READING SITE: [facility] XR Chest single view frontal Result Date: 12/16/2020 1. Increased left heterogeneous opacity with indistinct vasculature is consistent with atelectasis. 2. Left upper extremity PICC terminates in the right brachiocephalic vein. Results were communicated by telephone to the patient's nurse, Nataliya by Dr. Dailey on 12/16/2020 3:51 PM ATTESTATION STATEMENT: The Staff Radiologist has personally reviewed this study and agrees with the findings in this report. READING SITE: [facility] XR Chest single view frontal Result Date: 12/15/2020 Question small left pleural effusion. No pneumothorax. No focal consolidation. Consider further evaluation with PA and lateral chest radiograph. READING SITE: [facility] XR Pelvis one or two views Result Date: 12/15/2020 No evidence of fracture. READING SITE: [facility] XR Shoulder min 2 views left Result Date: 12/16/2020 1. Near complete opacification of the left lung, new since 12/15/2020. This may reflect some combination of severe volume loss and possible pleural effusion. Recommend dedicated chest radiographs. 2. The left PICC may be malpositioned. The tip appears to be directed superiorly into the right brachycephalic vein. This can be better assessed on chest radiographs. 3. No evidence of left shoulder fracture. Results were communicated by telephone to LESLEE Mehta by Dr. Gus Lim on 12/16/2020 1:44 PM READING SITE: [facility] XR Chest post line drain or airway placement Result Date: 12/16/2020 1. Life-support devices as above. No pneumothorax. 2. Asymmetric heterogeneous opacities, most prominent on left have improved. 3. Moderate left pleural effusion has improved. READING SITE: [facility] XR Chest post line drain or airway placement Result Date: 12/15/2020 1. Left upper extremity PICC. 2. Increased bilateral heterogeneous opacities and indistinct vasculature concerning for atelectasis and edema. Superimposed infection or aspiration not excluded. 3. Small left pleural effusion versus thickening. READING SITE: [facility] Medications: Scheduled: amiodarone, 200 mg, BID Lidocaine, 1 patch, Daily metoprolol tartrate, 50 mg, BID senna-docusate, 1 tablet, BID sodium chloride, 3 mL, Q6H tamsulosin, 0.4 mg, Daily PRN: acetaminophen, 650 mg, Q6H PRN OR acetaminophen, 325-650 mg, Q6H PRN * altep lase, 1 mg, PRN * bisacodyL, 10 mg, Daily PRN * fentaNYL, 25-50 mcg, Q2H PRN * h ydrALAZINE, 10-20 mg, Q2H PRN * labetaloL, 10-20 mg, Q2H PRN * magnesium sulfate , 4 g, PRN * ondansetron, 4 mg, Q6H PRN * potassium chloride, 20 mEq, PRN OR potassium bicarb-citric acid, 20 mEq, PRN OR potassium chloride in water, 2 0 mEq, PRN * prochlorperazine, 5 mg, Q6H PRN * white petrolatum-mineral oiL, 1 a pplication, Q4H PRN Infusions: Multidisciplinary: Code Status: Partial Code Diet: Diet-Low Fat/Chol, 2 gm Na (Simply Healthy) GI Prophylaxis: NA VTE Prophylaxis: SCDs : Hartmann for urinary retention Bowel regimen: Yes PT/OT/SLT/SW: PT Tertiary complete: Yes, reassess PRN Cervical spine clearance: Clinically and radiologically T & L spine clearance: Yes Procedures/Surgeries: 12/15: PICC placement Active Hospital Problems Diagnosis Chronic respiratory failure with hypoxia (HCC) Fall Acute neck pain Acute pain due to trauma Traumatic subdural hematoma (HCC), unknown if [facility] current use of anticoagulant Closed compression fracture of body of L1 vertebra (HCC) Hemorrhagic disorder due to extrinsic circulating anticoagulants (HCC) 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) A-fib (HCC) Hypertensive urgency History of DVT (deep vein thrombosis) Hyponatremia Hypoalbuminemia Type II diabetes mellitus (HCC) Leukocytosis Closed compression fracture of L3 lumbar vertebra, 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 ([facility]) ASSESSMENT/PLAN: Neurologic: Acute pain due to trauma: - Continue multimodal pain regimen including lidocaine patches and PRN acetamino phen and fentanyl - C-collar cleared - Acute pain in right ankle and left shoulder during tertiary assessment - xrays of right ankle and left shoulder negative for acute injury Subdural hematoma: - Continue ICU monitoring - Hourly neuro checks - Appreciate neurosurgery recs: - SBP<140 - Hold coumadin for at least 4 weeks - OK to start SQ heparin ppx - Keppra for seizure ppx x 7 days (stop 12/24) - Maintain normonatremia - Repeat CT in 1 week (on 12/24) RLE paresis: - L1 and L3 compression fractures without retropulsion, likely noncontributive - No need for lumbar bracing per neurosurgery - Continue to monitor for neuro changes or deterioration Cardiovascular: A-fib - Hold coumadin for now given SDH - Resume home amiodarone and metoprolol HTN - PRN hydralazine and labetalol for SBP>140 - Continue to monitor hemodynamics w/ goal SBP < 140 Pulmonary: Chronic hypoxic respiratory failure - Continue to titrate NC as needed, currently on 4L NC (wears 2L NC at home) - Titrate supplemental oxygen to maintain oxygen saturation >/= 92% - Continue aggressive pulmonary hygiene w/ IS 10x/hr while awake, TCDB Renal/Genitourinary: Hyponatremia, chronic: - Monitor neuro status for acute change - Q6h Na+/K+ - Continue hartmann catheter for accurate I/O, evaluate for indication for removal daily - Continue to monitor accurate I/O - Continue to monitor electrolytes and replace as indicated FEN/Gastrointestinal: - Continue simply healthy diet Positive frailty screening - Nutrition following, appreciate recs - OOBTC for meals GI prophylaxis - Bowel regimen to prevent constipation, hold for multiple loose stools - PUD ppx not indicated Endocrine: Hx DM - On no home treatment - BG controlled on labs - Continue to monitor to protocol Hematology/Oncology: Leukocytosis - WBC 18.55 from 19.42 - Currently afebrile, likely stress-induced - Daily CBC - Continue to monitor for s/s infection Thrombocytopenia - Platelet 122 from 124 - Daily CBC - Continue to monitor for s/s hemorrhage VTE prophylaxis: - Continue SCD's - Start SQ heparin ppx today Infectious Disease: - Continue to monitor fever, WBC, and s/s infection Integumentary/Musculoskeletal: - Continue to monitor skin condition and assess for wounds, continue Q2h turns o r encourage frequent position changes - Encourage out of bed as tolerated - Head of bed to 30 - 45 degrees - Continue PT/OT as indicated Incidental Findings: - Mild nonspecific periventricular hypoattenuation, most commonly seen with ethylene plant helper riley small vessel ischemic disease. - Calcified atherosclerosis of the bilateral cavernous and paraclinoid internal carotid arteries and intracranial vertebral arteries. - Mild to moderate degenerative cervical spondylosis. - Multilevel thoracic anterior osteophytes as a result of chronic degenerative c hanges. - Few diminutive pulmonary nodules bilaterally. In this patient with emphysema a nd increased risk for lung cancer, annual surveillance could be beneficial in th e long-term. 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 No extravasated contrast with in aneurysm sac to suggest visible endoleak. - 3.3 cm inferior right hepatic lobe previously enhancing lesion, possibly a be nign cavernous hemangioma. Disposition/Family: - Stable to transfer to floor, orders placed, appreciate nursing and staff - Home medications reviewed and restarted/continued as appropriate - Appreciate assistance of care coordination PPE Statement: Arin Ball NP used Yellow precautions (Level 3 mask, eye prot ection, and gloves). During rounds today the patient events of the previous 24 hours, physical exam, laboratory findings, radiologic studies, fluid balance,neurologic status, cardio vascular status including invasive monitoring data, pulmonary status, and metabo lic status including nutrition, and medications were reviewed. Mariano Thomas is recovering s/p fall resulting in traumatic injuries. Pt continues to require mo nitoring of neurologic, hemodynamic, pulmonary, infectious, and pain management status for signs of recovery and/or decline but is stable for transfer from the ICU at this time. Education on injuries, trajectory of hospitalization, recovery, medications, colby atment goal, and plan of care were discussed and mutually agreed upon with patie nt/family. I, Arin Ball have reviewed all of the above findings and the overall assessmen t and plans for the day are discussed and documented in the Medical Record Note. I was personally present and involved in all aspects of patient care. Time spe nt, not including procedures 25. Arin Ball, MSN, RN, CAN FILLING AND CLOSING MACHINE TENDER, AGACNP-[facility] Trauma and Critical Care Services Nurse Practitioner Available on [employer] Pager * Mallory Thapa PA - 12/17/2020 6:00 AM CDT Critical Care Progress Note PATIENT NAME: Mariano Thomas DATE of SERVICE: 12/17/2020 CPI: [id number] AGE: 80 y.o. : 1940 CHIEF COMPLAINT: Left subdural hematoma DATE OF PROCEDURES: None HOSPITAL COURSE: Mariano Thomas is a 80 year old male with past medical hx of a fib on care home a nticoagulant. Seen at OSH ED for [...] blood pressure in 90s. Upon arrival to [facility] ED, patient awake and bp in 140s. He was given [facility] a for reversal and keppra for seizure prophylaxis. INR was 1.3 in ED. Repeat Hea d CT showed stable left subdural hematoma and increase in posterior falcine darshan lisbeth. Started on cardene gtt in ED to meet blood pressure goals. PAST MEDICAL HISTORY: No past medical history [...] Social Gatherings with Friends and Family: Attends Orthodox Services: Active Member of Clubs or Organizations: Attends Club or Organization Meetings: Marital Status: Intimate Partner Violence: Fear of Current or Ex-Partner: Emotionally Abused: Physically Abused: Sexually Abused: FAMILY HISTORY: No family history on file. ALLERGIES: Patient has no known allergies. PRIOR TO ADMISSION MEDICATIONS: Medications Prior to Admission Medication Sig Dispense Refill Last Dose acetaminophen (TYLENOL) 500 MG tablet Take 500 mg by mouth every 6 (six) owen rs as needed for pain. albuterol (ACCUNEB) 1.25 mg/3 mL (0.042 %) nebulizer solution Inhale 1 ampul e via nebulizer every 6 (six) hours as needed for wheezing. amiodarone (CORDARONE) 200 MG tablet Take 200 mg by mouth 2 (two) times a da y. latanoprost, PF, 0.005 % Drop Administer 1 drop to eye. metoprolol succinate (TOPROL-XL) 200 MG 24 hr tablet Take 200 mg by mouth da rupa. polyethylene glycol (GLYCOLAX) 17 gram packet Take 17 g by mouth as needed. warfarin (COUMADIN) 3 MG tablet Take 3 mg by mouth every evening. 24-HOUR HISTORY/EVENTS OF NOTE: HTS stopped. Continue to trend Na/K and monitor neuro status as Na trends to his normal. SBP goal < 140. Labetalol PRN. Home amiodarone and metoprolol initiated. Initiated bowel regimen. C collar cleared. CXR with L lung total opacification. Agressive pulmonary hygiene, send sputum cx. Flutter valve initiated. Repeat CXR in AM. Vascular access contacted to reposition PICC. Flomax started. Overnight, he complained of an inability to get his words out. Initially, he was able to talk without issues and then he stopped talking. He was able to follow commands. He was sent for STAT Head CT with no acute changes. Weaned off Cardene infusion. HTS Stopped. ROS: 10 points reviewed and found positive except as noted in the HPI, or below: Cons t: Tiredness Eyes: Negative ENMT: Headache Pulm: Shortness of breath and Uses oxygen CV: Negative GI: Negative 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: Urinary Retention Neuro: Weakness Psych: Negative MS: Recent falls Skin: Negative PHYSICAL EXAM: Vitals: BP (!) 137/90 | Pulse (!) 108 | Temp 36.4 C (97.5 F) (Oral) | Resp (!) 31 | Ht 1.829 m (6') | Wt 109.5 kg (241 lb 6.5 oz) | SpO2 97% | BMI 32.74 kg/m Respiratory Support: O2 Device: Nasal cannula O2 Flow Rate (L/min): 4 L/min T-High: Temp (24hrs), Av.8 C (98.2 F), Min:36.4 C (97.5 F), Max:37.2 C (99 F) Fluid Balance: I/O last 24 Hours: In: 849 [P.O.:716; I.V.:133] Out: 491 [Urine:491] General Appearance: Lying in bed, no acute distress Neurologic: AAOx3. Speech is fluent and appropriate. Responds to voice. No facial droop present. Decrease sensation RUE and RLE RUE Strength 5/5, no pronator drift RLE Strength 2/5, wiggles toes to command LUE Strength 5/5, no pronator drift LLE Strength 3/5, wiggles toes to command HEENT: Eyes: Pupils 2 mm, equal, round and reactive to light. EOMs intact witho ut nystagmus. Sclera white, no edema. Visual castro intact. Head: normocephalic, atraumatic. Neck: Trachea midline. No JVD. Throat/Mouth: oral mucosa pink, no l esions Lungs: Left lung diminished lung sounds, no accessory muscle use Heart: Iregular rate and rhythm, S1/S2, no murmur, no rub Abdomen: Soft, non-tender, bowel sounds active all four quadrants Genitourinary: Deferred Extremities: Extremities normal passive ROM, no edema Pulses/Perfusion: 2+ pulses radial and dorsalis pedis, warm and well perfused Skin: No rashes or lesions Surgical Site: None Exam copied from previous note and updated appropriately based on today's exam, ANNETTE Mo LAB RESULTS: No lab components to display Most Recent Result from last 24 hours Lab Units 12/16/20 2325 SODIUM MEQ/L 131* POTASSIUM MEQ/L 3.9 CHLORIDE MEQ/L 90* CARBON DIOXIDE MEQ/L 35* BLOOD UREA NITROGEN mg/dL 13 CREATININE mg/dL 0.6 GLUCOSE mg/dL 138* CALCIUM mg/dL 8.6 Most Recent Result from last 24 hours Lab Units 12/16/20 2325 GLUCOSE mg/dL 138* No lab components to display No lab components to display ABG: No lab components to display Cultures: [...] a subtle nondisplaced sacrococcygeal fracture. READING SITE: [facility] CT Cervical Spine wo contrast Result Date: 12/16/2020 1. No acute fracture or dislocation. 2. Mild to moderate degenerative cervical spondylosis. ATTESTATION STATEMENT: The Staff Radiologist has personally reviewed the images and dictated, reviewed, or edited the final report. READING SITE: [facility] CT Chest w contrast Result Date: 12/15/2020 [...] long-term. 3. Cardiomegaly. Coronary atherosclerosis. READING SITE: [facility] CT Head wo contrast Result Date: 12/16/2020 Impression: 1. Left holohemispheric subdural hematoma is not significantly changed with similar brain compression and left to right midline shift. Left parafalcine subdural hematoma is slightly decreased or redistributed. No evidence for developing hydrocephalus. 2. Moderate generalized atrophy and chronic small vessel ischemic disease. 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 PRELIMINARY REPORT This examination has not been reviewed by a staff radiologist. A final report will be issued after staff review. CT Head wo contrast Result Date: 12/16/2020 Impression: 1. Enlarging left hemispheric subdural hematoma (most prominently the left posterior parafalcine aspect) with accompanying brain compression, sulcal effacement, and 6.4 mm of rightward midline shift. Recommend neurosurgical evaluation and likely evacuation of left hemisphere SDH. 2. Unchanged trace right frontal subdural hematoma. READING SITE: [facility]. ATTESTATION STATEMENT: The Staff Radiologist has personally reviewed the images and dictated, reviewed, or edited the final report. CT Head wo contrast Result Date: 12/15/2020 Impression: 1. Left holohemispheric and parafalcine hematomas are not significantly changed from 1007 hours same day with similar brain compression and left to right midline shift. No evidence for developing hydrocephalus. 2. Moderate generalized atrophy and chronic small vessel ischemic disease. 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 READING SITE: [facility]. ATTESTATION STATEMENT: The Staff Radiologist has personally reviewed the images and dictated, reviewed, or edited the final report. CT Lumbar Spine reconstructed Result Date: 12/16/2020 Subacute fracture of superior endplate of L1 with approximately 70% height loss. Presence of superior endplate fracture cleft suggests nonhealing. Subacute fracture of the superior endplate of L3 with no significant height loss. READING SITE: [facility]. ATTESTATION STATEMENT: The Staff Radiologist has personally reviewed the images and dictated, reviewed, or edited the final report. CT Thoracic Spine reconstructed Result Date: 12/16/2020 Impression: No acute osseous abnormality of the thoracic spine. Multilevel anterior osteophytes as a result of chronic degenerative changes. READING SITE: [facility]. ATTESTATION STATEMENT: The Staff Radiologist has personally reviewed the images and dictated, reviewed, or edited the final report. XR Ankle min 3 views right Result Date: 12/16/2020 No evidence of fracture. READING SITE: [facility] XR Chest single view frontal Result Date: 12/16/2020 1. Asymmetric heterogeneous opacities, most prominent on the left have slightly improved and likely represent interstitial pulmonary edema and scattered areas of subsegmental atelectasis. 2. Moderate left pleural effusion is unchanged. 3. Life-support devices as above. READING SITE: [facility] XR Chest single view frontal Result Date: 12/16/2020 1. Increased left heterogeneous opacity with indistinct vasculature is consistent with atelectasis. 2. Left upper extremity PICC terminates in the right brachiocephalic vein. Results were communicated by telephone to the patient's nurse, Nataliya by Dr. Dailey on 12/16/2020 3:51 PM ATTESTATION STATEMENT: The Staff Radiologist has personally reviewed this study and agrees with the findings in this report. READING SITE: [facility] XR Chest single view frontal Result Date: 12/15/2020 Question small left pleural effusion. No pneumothorax. No focal consolidation. Consider further evaluation with PA and lateral chest radiograph. READING SITE: [email or web address] XR Pelvis one or two views Result Date: 12/15/2020 No evidence of fracture. READING SITE: [facility] XR Shoulder min 2 views left Result Date: 12/16/2020 1. Near complete opacification of the left lung, new since 12/15/2020. This may reflect some combination of severe volume loss and possible pleural effusion. Recommend dedicated chest radiographs. 2. The left PICC may be malpositioned. The tip appears to be directed superiorly into the right brachycephalic vein. This can be better assessed on chest radiographs. 3. No evidence of left shoulder fracture. Results were communicated by telephone to LESLEE Mehta by Dr. Gus Lim on 12/16/2020 1:44 PM READING SITE: [facility] XR Chest post line drain or airway placement Result Date: 12/16/2020 1. Life-support devices as above. No pneumothorax. 2. Asymmetric heterogeneous opacities, most prominent on left have improved. 3. Moderate left pleural effusion has improved. READING SITE: [facility] XR Chest post line drain or airway placement Result Date: 12/15/2020 1. Left upper extremity PICC. 2. Increased bilateral heterogeneous opacities and indistinct vasculature concerning for atelectasis and edema. Superimposed infection or aspiration not excluded. 3. Small left pleural effusion versus thickening. READING SITE: [facility] MEDICATIONS: amiodarone, 200 mg, BID Lidocaine, 1 patch, Daily metoprolol tartrate, 50 mg, BID potassium chloride, 20 mEq, Once senna-docusate, 1 tablet, BID sodium chloride, 3 mL, Q6H tamsulosin, 0.4 mg, Daily INFUSIONS: ICU BEST PRACTICE: CODE STATUS: PARTIAL CODE (DNI) LOS: 2 DELIRIUM PRESENT: No SEDATION VACATION: N/A SBT: N/A DIET: low fat/cholesterol, 2 gm sodium GI PROPHYLAXIS: Not indicated GLYCEMIC CONTROL: Yes VTE PREVENTION: SCDs Hold subq heparin and coumadin HARTMANN: hartmann placed for urinary retention LINES: PICC Line right DRAINS: None AIRWAY: Not Intubated ANTIBIOTIC REVIEW: N/A MAR/HOME MED REVIEW: Yes BOWEL REGIMEN: Yes BM LAST 48 HRS: N/A THERAPIES: PT and OT MOBILITY: OOBTC PPE Statement: ANNETTE Mo used Yellow precautions (Level 1 mask wor n over level 3 mask, eye protection, and gloves). DIAGNOSIS: Neuro: Traumatic Subdural Hematoma Traumatic focal Brain Compression Compression fracture of body of L1 vertebra CV: A-Fib Hypertensive Urgency requiring cardene infusion- resolved Pulm: History of COPD Chronic Respiratory Failure Requiring Home Oxygen HEME: Long-term use of Anticoagulation Hx of DVT Renal: Hyponatremia Hypoalbuminemia ENDO: Type II Diabetes Mellitus ID: Leukocytosis MSK: Fall Right lower Extremity Paresis - Improving PLAN: SBP<140 Aggressive pulmonary hygiene Esclate Bowel Regimen Possible transfer to floor status Mobilize OOBTC During multidisciplinary rounds, I personally reviewed the patient events of the previous 24 hours, physical exam, laboratory findings, radiologic studies inclu ding images, fluid balance, neurologic status, cardiovascular status including p ulmonary status, metabolic status including nutrition, and medications with Dr. Ann. Mariano Thomas remains in the NSICU due to traumatic subdural hematom a. Personally discussed patient with trauma surgery, there is continued concern of etiology of patient's respiratory status but patient would be a good candidat e for floor status. I will continue aggressive pulmonary hygiene and encourage p atient to get OOBTC. Brief episode of expressive aphasia overnight, CT head show ed stable subdural hematoma. I will continue to monitor for acute changes in his neurological status. Education regarding pulmonary hygiene, treatment goals, and plan of care were di scussed and mutually agreed upon with patient/family. I, ANNETTE Mo, have reviewed all of these findings and the overall assessment and plans for the day are discussed and documented in the Medical Rec ord Note. I was personally present and involved in all aspects of patient care. Level 3 ANNETTE Mo * Codi Mancini - 12/16/2020 3:29 PM CDT I spoke with Tigist's daughter who was at bedside. She shared that he is [employer]ec[employer]al a nd they are connected to a [facility] in [place], [place]. She is feeling better about the outlook of her dad's condition now and is aware that should that change, e can contact a last chalker for more support in the future. Spiritual Care Progress Note Spiritual Care Assessment Spiritual Care Assessment REFERRAL METHOD: Epic Consult REFERRAL SOURCE: Nurse PRESENT FOR ENCOUNTER: Patient, Child SPIRITUAL DISTRESS: None Identified at this Time DISTRESS: None Identified at this Time, Unable to Assess WELLBEING INDICATORS: Hopeful Spiritual Care Interventions/Outcomes Spiritual Care Intervention and Outcomes INTERVENTIONS: Patient Support, Family Support, Caring Presence OUTCOMES: Able to Share Feelings/Story, Sense of Control/ Agency EVALUATION: Outcomes Met DURATION OF CARE (mins): 15 Codi Josepht, 12/16/2020 3:31 PM Voalte Number: Associate Director Financial Aid: * Arin Ball NP - 12/16/2020 11:44 AM CDT Trauma Surgery Clearance of C-Collar Encounter Date: 12/16/2020 11:44 AM Patient Name: Mariano Thomas Age: 80 y.o. Sex: male [id number] Admit Date: 12/15/2020 PCP of Record: No primary care provider on ile. Author: Arin Ball Imaging: CT cervical spine reviewed with trauma surgery: No evidence of acute cervical spine fracture C-Collar Clearance: No cervical spine midline TTP, step-offs, or deformities Flexion/extension: Adequate ROM, no sharp pain with movement Rotation right/left: Adequate ROM, no sharp pain with movement Side-bending right/left: Adequate ROM, no sharp pain with movement C-collar was removed 12/16/2020 11:44 AM without complication. Arin Ball, MSN, RN, CAN FILLING AND CLOSING MACHINE TENDER, AGACNP-[facility] Trauma and Critical Care Services Available on appMobi Pager * Arin Ball NP - 12/16/2020 9:27 AM CDT [facility] Trauma and Critical Care Specialists Progress Note Patient Name: Mariano Thomas Date of Service: 12/16/2020 Date of Admission: 12/15/2020 LOS: 1 day Date of : 1940 HPI/BRIEF HOSPITAL COURSE: Mariano Thomas is a 80 y.o. male w/ PMH most significant for a fib on warfarin, D M Type II, CAD, DVT, BPH, hyponatremia, AAA repair in 2012, and urinary incontin ence who presented as a green trauma activation (downgraded from red on arrival) s/p fall on 12/15. His fall was five days ago vs on 12/03 prior, at which time he presented to an OSH and showed no acute intracranial process on CT. Frontal hea dache for 5 days vs started on morning on 12/15 so he presented back to the OSH, where CT showed subdural hematoma and his INR was reported to be 2.9. He was fou nd to be acutely hypertensive, 190s/110s and was treated with labetalol, as well as given keppra and vitamin K. After receiving labetalol, he became transiently hypotensive with decreased mental status; this resolved prior to arrival to [facility] without intervention. Initial labs significant for Na+ 126, Cl- 89, CO2 34, BG 120, albumin 2.9, INR 1 .3, WBC 17.68, platelet 113, P2Y12 211 Initial 12 lead ECG: a fib with PVC and nonspecific intraventricular conduction delay Initial imaging significant for: CT head - acute left hemispheric subdural hematoma measuring 5.2 x 1.4 cm SDH (l arger than on CT at previous facility) with 6.4 mm midline shift; trace right fr ontal subdural hematoma CT l-spine - Subacute fractures of superior endplates of L1 with 70% height loss and L3 with no significant height loss CT chest - Subacute fractures to 7th and 8th right lateral ribs CT abdomen/pelvis - No acute injury. Nonspecific mild presacral fat stranding, c orrelate clinically to exclude subtle nondisplaced sacrococcygeal fracture. CT c-spine, t-spine with no acute injury INJURIES: 1. Acute left hemispheric subdural hematoma 3. Subacute fractures to 7th and 8th right lateral ribs 4. Subacute fractures to L1 with 70% height loss and L3 with no significant heig ht loss 24-Hour History/Events of Note: Admit to NSICU for close observation. K Centra for anticoagulant reversal. Carde ne gtt started to keep SBP<140. Repeat CT showed stability in SDH with no evidence for developing hydrocephalus. Hourly neurochecks. Neurosurgery consult; no acute surgical intervention indicated at this time. PICC line placed. 3% started for Na+ goal 130-135. Coumadin held. Past Medical History: No past medical history on file. Past Surgical History: No past surgical history on file. Family History: No family history on file. Social History: Social History Socioeconomic History Marital status: Spouse [...] Social Gatherings with Friends and Family: Attends Orthodox Services: Active Member of Clubs or Organizations: Attends Club or Organization Meetings: Marital Status: Intimate Partner Violence: Fear of Current or Ex-Partner: Emotionally Abused: Physically Abused: Sexually Abused: Allergies: Patient has no known allergies. Prior to Admission Medications: Medications Prior to Admission Medication Sig Dispense Refill Last Dose acetaminophen (TYLENOL) 500 MG tablet Take 500 mg by mouth every 6 (six) owen rs as needed for pain. albuterol (ACCUNEB) 1.25 mg/3 mL (0.042 %) nebulizer solution Inhale 1 ampul e via nebulizer every 6 (six) hours as needed for wheezing. amiodarone (CORDARONE) 200 MG tablet Take 200 mg by mouth 2 (two) times a da y. latanoprost, PF, 0.005 % Drop Administer 1 drop to eye. metoprolol succinate (TOPROL-XL) 200 MG 24 hr tablet Take 200 mg by mouth da rupa. polyethylene glycol (GLYCOLAX) 17 gram packet Take 17 g by mouth as needed. warfarin (COUMADIN) 3 MG tablet Take 3 mg by mouth every evening. SUBJECTIVE: Mariano Thomas reports sleeping okay overnight, multiple interruptions to sleep. Pain is fairly well controlled on current regimen. He endorses some acute weakn ess in his RLE, however states his sensation is equal on both sides. Review of Systems: 10 points reviewed and found positive except as noted in the HPI, or below: Cons t: Tiredness Eyes: Negative ENMT: Negative Pulm: Negative CV: Negative GI: Nausea 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: Negative Neuro: Weakness Psych: Negative MS: Myalgias and Recent falls Skin: Negative Heme/Lymph: Negative Endocrine: Negative Immuno: Negative OBJECTIVE: Vital Signs: BP 129/74 | Pulse 90 | Temp 36.4 C (97.5 F) (Oral) | Resp (!) 32 | Ht 1. 829 m (6') | Wt 109.5 kg (241 lb 6.5 oz) | SpO2 91% | BMI 32.74 kg/m Tmax: Temp (24hrs), Av.8 C (98.3 F), Min:36.4 C (97.5 F), Max:37.2 C (99 F) VS Ranges: Temp: [36.4 C (97.5 F)-37.2 C (99 F)] 36.4 C (97.5 F) Pulse: [73-117] 90 Resp: [14-33] 32 BP: (95-165)/(60-119) 129/74 Physical Exam: General Appearance: Awake, appears comfortable in bed, appears stated age, in no acute distress Neurologic: GCS 15, JOSE ANTONIO 2+, A&O x3, EOMI, following commands. Strength 5/5 in LUE, 5/5 LLE. Strength 4/5 RUE, 2/5 RLE (able to bend leg at knee and bring toward torso, unable to lift off bed). Endorses some neuropathy but states he can feel pressure sensation on BLE. HEENT: NC/AT, white sclera, moist and pink mucous membranes, no obvious abnorma lity or drainage Neck: Supple, trachea midline, no JVD. Respiratory: Airway: Patent, intact. Lungs: Clear but diminished to auscultation bilaterally, no stridor/wheeze s/crackles/cough noted. Unlabored respirations, symmetric chest rise, in no acut e respiratory distress. Cardiovascular: Heart: Irregularly irregular, no MRG noted Peripheral Vascular: *Bilateral carotid arteries palpable, bilateral radial puls es +2, bilateral DP pulses +1, cap refill < 3 sec Abdomen/Gastrointestinal: Soft, non-distended, NTTP, no rebound/guarding/perito louisa signs noted. Genitourinary: No gross abnormality, urinary catheter in place. C/T/L spine: Some tenderness to palpation at the lumbar spine. No stepoffs noted . NTTP at c-spine or t-spine. No tenderness or instability noted with palpation of sacrococcygeal area Extremities/musculoskeletal: No obvious abnormality. Right-sided weakness as de scribed above. Extremities warm and well perfused. Minimal peripheral edema. Integumentary: Warm and dry. Adequate peripheral perfusion. Lines/drains/tubes: PICC, hartmann Incision(s)/wound(s): None Respiratory Support: 4L/NC Nasal cannula oxygen as needed to maintain adequate oxygen saturation Intake/Output: I/O last 24 Hours: In: 849 [P.O.:716; I.V.:133] Out: 251 [Urine:251] Laboratory Results: Most Recent Result from last 24 hours Lab Units 12/16/20 0015 WBC TH/uL 19.42* HEMOGLOBIN g/dL 14.4 HEMATOCRIT % 42 PLATELET COUNT TH/uL 124* Most Recent Result from last 24 hours Lab Units 12/16/20 1802 12/16/20 0015 SODIUM MEQ/L 130* 131* POTASSIUM MEQ/L 4.1 4.6 CHLORIDE MEQ/L -- 90* CARBON DIOXIDE MEQ/L -- 35* BLOOD UREA NITROGEN mg/dL -- 9 CREATININE mg/dL -- 0.6 GLUCOSE mg/dL -- 125* CALCIUM mg/dL -- 8.2* Most Recent Result from last 24 hours Lab Units 12/16/20 0015 GLUCOSE mg/dL 125* Most Recent Result from last 24 hours Lab Units 12/16/20 0015 MAGNESIUM mg/dL 1.6 Most Recent Result from last 24 hours Lab Units 12/16/20 0015 APTT sec 35* INR 1.2 Microbiology: No results found for this or any previous visit (from the past 168 hour(s)). Imaging: CT Abdomen Pelvis w contrast Result Date: [...] a subtle nondisplaced sacrococcygeal fracture. READING SITE: [facility] CT Cervical Spine wo contrast Result Date: 12/16/2020 1. No acute fracture or dislocation. 2. Mild to moderate degenerative cervical spondylosis. ATTESTATION STATEMENT: The Staff Radiologist has personally reviewed the images and dictated, reviewed, or edited the final report. READING SITE: [facility] CT Chest w contrast Result Date: 12/15/2020 [...] long-term. 3. Cardiomegaly. Coronary atherosclerosis. READING SITE: [facility] CT Head wo contrast Result Date: 12/16/2020 Impression: 1. Left holohemispheric subdural hematoma is not significantly changed with similar brain compression and left to right midline shift. Left parafalcine subdural hematoma is slightly decreased or redistributed. No evidence for developing hydrocephalus. 2. Moderate generalized atrophy and chronic small vessel ischemic disease. 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 PRELIMINARY REPORT This examination has not been reviewed by a staff radiologist. A final report will be issued after staff review. CT Head wo contrast Result Date: 12/16/2020 Impression: 1. Enlarging left hemispheric subdural hematoma (most prominently the left posterior parafalcine aspect) with accompanying brain compression, sulcal effacement, and 6.4 mm of rightward midline shift. Recommend neurosurgical evaluation and likely evacuation of left hemisphere SDH. 2. Unchanged trace right frontal subdural hematoma. READING SITE: [facility]. ATTESTATION STATEMENT: The Staff Radiologist has personally reviewed the images and dictated, reviewed, or edited the final report. CT Head wo contrast Result Date: 12/15/2020 Impression: 1. Left holohemispheric and parafalcine hematomas are not significantly changed from 1007 hours same day with similar brain compression and left to right midline shift. No evidence for developing hydrocephalus. 2. Moderate generalized atrophy and chronic small vessel ischemic disease. 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 READING SITE: [facility]. ATTESTATION STATEMENT: The Staff Radiologist has personally reviewed the images and dictated, reviewed, or edited the final report. CT Lumbar Spine reconstructed Result Date: 12/16/2020 Subacute fracture of superior endplate of L1 with approximately 70% height loss. Presence of superior endplate fracture cleft suggests nonhealing. Subacute fracture of the superior endplate of L3 with no significant height loss. READING SITE: [facility]. ATTESTATION STATEMENT: The Staff Radiologist has personally reviewed the images and dictated, reviewed, or edited the final report. CT Thoracic Spine reconstructed Result Date: 12/16/2020 Impression: No acute osseous abnormality of the thoracic spine. Multilevel anterior osteophytes as a result of chronic degenerative changes. READING SITE: [facility]. ATTESTATION STATEMENT: The Staff Radiologist has personally reviewed the images and dictated, reviewed, or edited the final report. XR Ankle min 3 views right Result Date: 12/16/2020 No evidence of fracture. READING SITE: [facility] XR Chest single view frontal Result Date: 12/16/2020 1. Increased left heterogeneous opacity with indistinct vasculature is consistent with atelectasis. 2. Left upper extremity PICC terminates in the right brachiocephalic vein. Results were communicated by telephone to the patient's nurse, Nataliya by Dr. Dailey on 12/16/2020 3:51 PM ATTESTATION STATEMENT: The Staff Radiologist has personally reviewed this study and agrees with the findings in this report. READING SITE: [facility] XR Chest single view frontal Result Date: 12/15/2020 Question small left pleural effusion. No pneumothorax. No focal consolidation. Consider further evaluation with PA and lateral chest radiograph. READING SITE: [email or web address] XR Pelvis one or two views Result Date: 12/15/2020 No evidence of fracture. READING SITE: [facility] XR Shoulder min 2 views left Result Date: 12/16/2020 1. Near complete opacification of the left lung, new since 12/15/2020. This may reflect some combination of severe volume loss and possible pleural effusion. Recommend dedicated chest radiographs. 2. The left PICC may be malpositioned. The tip appears to be directed superiorly into the right brachycephalic vein. This can be better assessed on chest radiographs. 3. No evidence of left shoulder fracture. Results were communicated by telephone to LESLEE Mehta by Dr. Gus Lim on 12/16/2020 1:44 PM READING SITE: [facility] XR Chest post line drain or airway placement Result Date: 12/16/2020 1. Life-support devices as above. No pneumothorax. 2. Asymmetric heterogeneous opacities, most prominent on left have improved. 3. Moderate left pleural effusion has improved. READING SITE: [facility] XR Chest post line drain or airway placement Result Date: 12/15/2020 1. Left upper extremity PICC. 2. Increased bilateral heterogeneous opacities and indistinct vasculature concerning for atelectasis and edema. Superimposed infection or aspiration not excluded. 3. Small left pleural effusion versus thickening. READING SITE: [facility] Medications: Scheduled: amiodarone, 200 mg, BID Lidocaine, 1 patch, Daily metoprolol tartrate, 50 mg, BID senna-docusate, 1 tablet, BID sodium chloride, 3 mL, Q6H tamsulosin, 0.4 mg, Daily PRN: acetaminophen, 650 mg, Q6H PRN OR acetaminophen, 325-650 mg, Q6H PRN * altep lase, 1 mg, PRN * bisacodyL, 10 mg, Daily PRN * fentaNYL, 25-50 mcg, Q2H PRN * h ydrALAZINE, 10-20 mg, Q2H PRN * labetaloL, 10-20 mg, Q2H PRN * lidocaine, 4 mL, Once PRN * magnesium sulfate, 4 g, PRN * ondansetron, 4 mg, Q6H PRN * potassium chloride, 20 mEq, PRN OR potassium bicarb-citric acid, 20 mEq, PRN OR po tassium chloride in water, 20 mEq, PRN * prochlorperazine, 5 mg, Q6H PRN * white petrolatum-mineral oiL, 1 application, Q4H PRN Infusions: Multidisciplinary: Code Status: Partial Code Diet: Diet-Low Fat/Chol, 2 gm Na (Simply Healthy) GI Prophylaxis: NA VTE Prophylaxis: SCDs : Hartmann for accurate I/Os Bowel regimen: Yes PT/OT/SLT/SW: PT Tertiary complete: Yes, reassess PRN Cervical spine clearance: Clinically and radiologically T & L spine clearance: Yes Procedures/Surgeries: 12/15: PICC placement Active Hospital Problems Diagnosis Chronic respiratory failure with hypoxia (HCC) Fall Acute neck pain Acute pain due to trauma Traumatic subdural hematoma (HCC), 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 Closed compression fracture of body of L1 vertebra (HCC) Hemorrhagic disorder due to extrinsic circulating anticoagulants (HCC) 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) A-fib (HCC) Hypertensive urgency History of DVT (deep vein thrombosis) Hyponatremia Hypoalbuminemia Type II diabetes mellitus (HCC) Leukocytosis Closed compression fracture of L3 lumbar vertebra, 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 ([facility]) ASSESSMENT/PLAN: Neurologic: Acute pain due to trauma: - States pain is well controlled - Continue multimodal pain regimen including lidocaine patches and PRN acetamino phen and fentanyl - C-collar cleared - Fat stranding noted on CT abdomen/pelvis - Clinically NTTP and no instability noted on sacrococcygeal palpati on. No clinical findings indicative of acute fracture. - Acute pain in right ankle and left shoulder during tertiary assessment - xrays of right ankle and left shoulder ordered Subdural hematoma: - Continue ICU monitoring - Hourly neuro checks - Appreciate neurosurgery recs: - SBP<140 - Hold coumadin for at least 4 weeks - Keppra for seizure ppx - Gentle correction of hyponatremia - Follow up with neurosurgery outpatient with repeat CT in 4 weeks RLE paresis: - L1 and L3 compression fractures without retropulsion, likely noncontributive - No need for lumbar bracing per neurosurgery - Clinical assessment improved from previous - Continue to monitor for neuro changes or deterioration Cardiovascular: A-fib - Hold coumadin for now given SDH - Resume home amiodarone and metoprolol - Hold heparin until clearance from neurosurgery HTN - Cardene gtt D/Brad - PRN hydralazine and labetalol for SBP>140 - Continue to monitor hemodynamics w/ goal SBP < 140 Pulmonary: Acute hypoxic respiratory failure - Continue to titrate NC as needed, currently on 4L NC - Titrate supplemental oxygen to maintain oxygen saturation >/= 92% - Continue pulmonary hygiene w/ IS 10x/hr while awake, TCDB Renal/Genitourinary: Hyponatremia, chronic: - 3% saline stopped this AM - Monitor neuro status for acute change - Q6h Na+/K+ - Continue hartmann catheter for accurate I/O, evaluate for indication for removal daily - Continue to monitor accurate I/O - Continue to monitor electrolytes and replace as indicated FEN/Gastrointestinal: - Start simply healthy diet Positive frailty screening - Nutrition following, appreciate recs GI prophylaxis - Bowel regimen to prevent constipation, hold for multiple loose stools - PUD ppx not indicated Endocrine: Hx DM - On no home treatment - BG controlled on labs - Continue to monitor to protocol Hematology/Oncology: Leukocytosis - WBC 19.42 from 17.68 - Currently afebrile, likely stress-induced - Daily CBC - Continue to monitor for s/s infection Thrombocytopenia - Platelet 124 from 113 - Daily CBC - Continue to monitor for s/s hemorrhage VTE prophylaxis: - Continue SCD's - Pharmacological ppx contraindicated d/t acute SDH Infectious Disease: - Continue to monitor fever, WBC, and s/s infection Integumentary/Musculoskeletal: - Continue to monitor skin condition and assess for wounds, continue Q2h turns o r encourage frequent position changes - Encourage out of bed as tolerated - Head of bed to 30 - 45 degrees - Continue PT/OT as indicated Incidental Findings: - Mild nonspecific periventricular hypoattenuation, most commonly seen with ethylene plant helper riley small vessel ischemic disease. - Calcified atherosclerosis of the bilateral cavernous and paraclinoid internal carotid arteries and intracranial vertebral arteries. - Mild to moderate degenerative cervical spondylosis. - Multilevel thoracic anterior osteophytes as a result of chronic degenerative c hanges. - Few diminutive pulmonary nodules bilaterally. In this patient with emphysema a nd increased risk for lung cancer, annual surveillance could be beneficial in th e long-term. 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 No extravasated contrast with in aneurysm sac to suggest visible endoleak. - 3.3 cm inferior right hepatic lobe previously enhancing lesion, possibly a be nign cavernous hemangioma. Disposition/Family: - Continue ICU status at this time, appreciate nursing and staff - Home medications reviewed and restarted/continued as appropriate - Appreciate assistance of care coordination PPE Statement: Arin Ball NP used Yellow precautions (Level 3 mask, eye prot ection, and gloves). During rounds today the patient events of the previous 24 hours, physical exam, laboratory findings, radiologic studies, fluid balance,neurologic status, cardio vascular status including invasive monitoring data, pulmonary status, and metabo lic status including nutrition, and medications were reviewed. Mariano Thomas is recovering s/p fall resulting in traumatic injuries. Pt continues to require mo nitoring of neurologic, hemodynamic, pulmonary, infectious, and pain management status for signs of recovery and/or decline. Education on injuries, trajectory of hospitalization, recovery, medications, colby atment goal, and plan of care were discussed and mutually agreed upon with patie nt/family. IArin have reviewed all of the above findings and the overall assessmen t and plans for the day are discussed and documented in the Medical Record Note. I was personally present and involved in all aspects of patient care. Time spe nt, not including procedures 35. Arin Ball, MSN, RN, CAN FILLING AND CLOSING MACHINE TENDER, AGACNP-[facility] Trauma and Critical Care Services Nurse Practitioner Available on appMobi Pager * Tyson Chaparro RN CAN FILLING AND CLOSING MACHINE TENDER - 12/16/2020 6:50 AM CDT Critical Care Progress Note PATIENT NAME: Mariano Thomas DATE of SERVICE: 12/16/2020 CPI: [id number] AGE: 80 y.o. : 1940 CHIEF COMPLAINT: SDH DATE OF PROCEDURES: None HOSPITAL COURSE: Mariano Thomas is a 80 year old male with past medical hx of a fib on care home a nticoagulant. Seen at OSH ED for [...] blood pressure in 90s. Upon arrival to [facility] ED, patient awake and bp in 140s. He was given K Centr a for reversal and keppra for seizure prophylaxis. INR was 1.3 in ED. Repeat Hea d CT showed stable left subdural hematoma and increase in posterior falcine darshan lisbeth. Started on cardene gtt in ED to meet blood pressure goals. Admitted to [facility] for close monitoring. PAST MEDICAL HISTORY: No [...] Social Gatherings with Friends and Family: Attends Orthodox Services: Active Member of Clubs or Organizations: Attends Club or Organization Meetings: Marital Status: Intimate Partner Violence: Fear of Current or Ex-Partner: Emotionally Abused: Physically Abused: Sexually Abused: FAMILY HISTORY: No family history on file. ALLERGIES: Patient has no known allergies. PRIOR TO ADMISSION MEDICATIONS: Medications Prior to Admission Medication Sig Dispense Refill Last Dose acetaminophen (TYLENOL) 500 MG tablet Take 500 mg by mouth every 6 (six) owen rs as needed for pain. albuterol (ACCUNEB) 1.25 mg/3 mL (0.042 %) nebulizer solution Inhale 1 ampul e via nebulizer every 6 (six) hours as needed for wheezing. amiodarone (CORDARONE) 200 MG tablet Take 200 mg by mouth 2 (two) times a da y. latanoprost, PF, 0.005 % Drop Administer 1 drop to eye. metoprolol succinate (TOPROL-XL) 200 MG 24 hr tablet Take 200 mg by mouth da rupa. polyethylene glycol (GLYCOLAX) 17 gram packet Take 17 g by mouth as needed. warfarin (COUMADIN) 3 MG tablet Take 3 mg by mouth every evening. 24-HOUR HISTORY/EVENTS OF NOTE: NSGY no intervention at this time. Na goal 130-135. 3% Hypertonic Infusion 40mL/ hr. Continued to require cardene infusion. Overnight, straight cath x2 for urina ry retention with > 600ml UOP each occurrence. Small amount of hematuria noted. Hartmann placed. Lidocaine patch for back pain. Na 131, Hypertonic infusion decreased to 20ml/hr. ROS: 10 points reviewed and found positive except as noted in the HPI, or below: Cons t: Negative Eyes: Negative ENMT: Headache Pulm: Cough CV: Negative GI: Negative 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: Negative Neuro: Weakness Psych: Negative MS: Negative Skin: Negative Heme/Lymph: Negative Endocrine: Negative Immuno: Negative PHYSICAL EXAM: Vitals: BP 126/75 | Pulse 89 | Temp 36.9 C (98.5 F) (Axillary) | Resp 16 | Wt 11 7.9 kg (260 lb) | SpO2 98% Respiratory Support: O2 Device: Nasal cannula O2 Flow Rate (L/min): 4 L/min T-High: Temp (24hrs), Av.6 C (97.8 F), Min:36.3 C (97.4 F), Max:36.9 C (98 .5 F) Fluid Balance: I/O last 24 Hours: In: 547.8 [I.V.:547.8] Out: 2615 [Urine:1885; Other:730] General Appearance: Lying in bed, no acute distress Neurologic: AAOx3. Speech is fluent and appropriate. Responds to voice. No facial droop present. Decrease sensation RUE and RLE RUE Strength 2/5 RLE wiggles toes to command LUE Strength 5/5, no pronator drift LLE Strength 5/5, no drift HEENT: Eyes: Pupils 2 mm, equal, round and reactive to light. EOMs intact witho ut nystagmus. Sclera white, no edema. Visual castro intact. Head: normocephalic, atraumatic. Neck: Trachea midline. No JVD. C-collar in place. Throat/Mouth: oral mucosa pink, no lesions Lungs: CTAB, no accessory muscle use Heart: Iregular rate and rhythm, S1/S2, no murmur, no rub Abdomen: Soft, non-tender, bowel sounds active all four quadrants Genitourinary: Deferred Extremities: Extremities normal passive ROM, no edema Pulses/Perfusion: 2+ pulses radial and dorsalis pedis, warm and well perfused Skin: No rashes or lesions Surgical Site: None Exam copied from previous note and updated appropriately based on today's exam, Tyson Chaparro RN CAN FILLING AND CLOSING MACHINE TENDER LAB RESULTS: Most Recent Result from last 24 hours Lab Units 12/15/20 1022 WBC TH/uL 17.68* HEMOGLOBIN g/dL 13.1 HEMATOCRIT % 38* PLATELET COUNT TH/uL 113* Most Recent Result from last 24 hours Lab Units 12/16/20 0015 SODIUM MEQ/L 131* POTASSIUM MEQ/L 4.6 CHLORIDE MEQ/L 90* CARBON DIOXIDE MEQ/L 35* BLOOD UREA NITROGEN mg/dL 9 CREATININE mg/dL 0.6 GLUCOSE mg/dL 125* CALCIUM mg/dL 8.2* Most Recent Result from last 24 hours Lab Units 12/16/20 0015 12/15/20 1022 PROTEIN TOTAL SERUM g/dL -- 5.2* ALKALINE PHOSPHATASE IU/L -- 61 ALANINE AMINOTRANSFERASE IU/L -- 10 ASPARTATE AMINOTRANSFERASE IU/L -- 21 GLUCOSE mg/dL 125* 120* Most Recent Result from last 24 hours Lab Units 12/16/20 0015 MAGNESIUM mg/dL 1.6 Most Recent Result from last 24 hours Lab Units 12/16/20 0015 APTT sec 35* INR 1.2 ABG: No lab components to display Cultures: [...] a subtle nondisplaced sacrococcygeal fracture. READING SITE: [facility] CT Cervical Spine wo contrast Result Date: 12/16/2020 1. No acute fracture or dislocation. 2. Mild to moderate degenerative cervical spondylosis. ATTESTATION STATEMENT: The Staff Radiologist has personally reviewed the images and dictated, reviewed, or edited the final report. READING SITE: [facility] CT Chest w contrast Result Date: 12/15/2020 [...] long-term. 3. Cardiomegaly. Coronary atherosclerosis. READING SITE: [facility] CT Head wo contrast Result Date: 12/16/2020 Impression: 1. Enlarging left hemispheric subdural hematoma (most prominently the left posterior parafalcine aspect) with accompanying brain compression, sulcal effacement, and 6.4 mm of rightward midline shift. Recommend neurosurgical evaluation and likely evacuation of left hemisphere SDH. 2. Unchanged trace right frontal subdural hematoma. READING SITE: [facility]. ATTESTATION STATEMENT: The Staff Radiologist has personally reviewed the images and dictated, reviewed, or edited the final report. CT Head wo contrast Result Date: 12/15/2020 Impression: 1. Left holohemispheric and parafalcine hematomas are not significantly changed from 1007 hours same day with similar brain compression and left to right midline shift. No evidence for developing hydrocephalus. 2. Moderate generalized atrophy and chronic small vessel ischemic disease. 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 READING SITE: [facility]. ATTESTATION STATEMENT: The Staff Radiologist has personally reviewed the images and dictated, reviewed, or edited the final report. CT Lumbar Spine reconstructed Result Date: 12/16/2020 Subacute fracture of superior endplate of L1 with approximately 70% height loss. Presence of superior endplate fracture cleft suggests nonhealing. Subacute fracture of the superior endplate of L3 with no significant height loss. READING SITE: [facility]. ATTESTATION STATEMENT: The Staff Radiologist has personally reviewed the images and dictated, reviewed, or edited the final report. CT Thoracic Spine reconstructed Result Date: 12/16/2020 Impression: No acute osseous abnormality of the thoracic spine. Multilevel anterior osteophytes as a result of chronic degenerative changes. READING SITE: [facility]. ATTESTATION STATEMENT: The Staff Radiologist has personally reviewed the images and dictated, reviewed, or edited the final report. XR Chest single view frontal Result Date: 12/15/2020 Question small left pleural effusion. No pneumothorax. No focal consolidation. Consider further evaluation with PA and lateral chest radiograph. READING SITE: [facility] XR Pelvis one or two views Result Date: 12/15/2020 No evidence of fracture. READING SITE: [facility] XR Chest post line drain or airway placement Result Date: 12/15/2020 1. Left upper extremity PICC. 2. Increased bilateral heterogeneous opacities and indistinct vasculature concerning for atelectasis and edema. Superimposed infection or aspiration not excluded. 3. Small left pleural effusion versus thickening. READING SITE: [facility] MEDICATIONS: Lidocaine, 1 patch, Daily INFUSIONS: niCARdipine Stopped (12/15/202052) sodium chloride 40 mL/hr (12/16/20 0028) ICU BEST PRACTICE: CODE STATUS: PARTIAL CODE (DNI) LOS: 1 DELIRIUM PRESENT: No SEDATION VACATION: N/A SBT: N/A DIET: NPO, strict GI PROPHYLAXIS: Not indicated GLYCEMIC CONTROL: Yes VTE PREVENTION: SCDs Hold subq heparin and coumadin HARTMANN: No Hartmann LINES: PIV x1 DRAINS: None AIRWAY: Not Intubated ANTIBIOTIC REVIEW: N/A MAR/HOME MED REVIEW: Yes BOWEL REGIMEN: Yes BM LAST 48 HRS: N/A THERAPIES: PT and OT when appropriate MOBILITY: Spinal precautions PPE Statement: Kristen Quezada NP used Yellow precautions (Level 1 mask worn over level 3 mask, eye protection, and gloves). DIAGNOSIS: Neuro: Traumatic Subdural Hematoma Traumatic focal Brain Compression Compression fracture of body of L1 vertebra CV: A-Fib Hypertensive Urgency requiring cardene infusion- resolved Pulm: Chronic Respiratory Failure HEME: Long-term use of Anticoagulation Hx of DVT Renal: Hyponatremia Hypoalbuminemia ENDO: Type II Diabetes Mellitus ID: Leukocytosis MSK: Fall Right lower Extremity Paresis PLAN: Stop HTS Continue to trend Na and K q6 and monitor neuro status while Na trends back to n ormal SBP goal < 140 DC cardene Resume homes meds when taking PO- amiodarone 200mg BID, metoprolol 25mg BID Initiate bowel regimen Bedside swallow Discuss clearing c spine with trauma SBP goal < 140 Mobilize OOBTC Possible transfer later today During multidisciplinary rounds, I personally reviewed the patient events of the previous 24 hours, physical exam, laboratory findings, radiologic studies inclu ding images, fluid balance, neurologic status, cardiovascular status, pulmonary status, metabolic status including nutrition, and medications. Mariano Thomas is hospital day 1 for SDH. His f/u CT scans have been stable. Discussed case with Cheryl GARCIA. No plans for operative intervention at this time. No need for brace for L s pine fractures. Case discussed with trauma services- ok to perform swallow study and initiate diet. I will resume home amiodarone and metoprolol with SBP goal < 140. I will also initiate bowel regimen. Trauma will come to bedside later today to possibly clear cspine. We will stop HTS and monitor neuro status closely wh ile his Na returns to his normal chronic hyponatremia. If pt remains neurologica lly stable following DC of HTS we will transfer pt to floor. Unable to provide education, treatment goals and plan of care discussion due to patient condition and no family available at bedside. I, Tyson Chaparro RN CAN FILLING AND CLOSING MACHINE TENDER, have reviewed all of these findings and the overal l assessment and plans for the day are discussed and documented in the Medical R ecord Note. I was personally present and involved in all aspects of patient care . Level 3 Tyson Chaparro RN CAN FILLING AND CLOSING MACHINE TENDER * Sangeeta Foley PA-C - 12/15/2020 4:58 PM CDT Preliminary radiology read shows subacute L1 and L3 fractures. Will discuss if a ny bracing is recommended with Dr. Jorge when he is available. For the time b eimanuel, it is ok for the patients bed to be raised to 30 degrees. Repeat CTH shows stability of his areas of SDH. No surgical intervention is bony mmended at this time unless the patients exam deteriorates which would warrant a nother CTH. CT cervical spine appears neg for fracture, we are awaiting final read. SCD for DVT ppx Sangetea MONAHAN PA-C [facility] [address] [place] [address], [address] [place] [address] Available via Voalte. After 5 pm and on weekends please call the senior sales consultant provider or [phone] * Mallory Thapa PA - 12/15/2020 11:20 AM CDT Critical Care Progress Note PATIENT NAME: Mariano Thomas DATE of SERVICE: 12/15/2020 CPI: [id number] AGE: 80 y.o. : 1940 CHIEF COMPLAINT: Fall DATE OF PROCEDURES: None HOSPITAL COURSE: Mariano Thomas is a 80 year old male with past medical hx of a fib on care home a nticoagulant. Seen at OSH ED for [...] blood pressure in 90s. Upon arrival to [facility] ED, patient awake and bp in 140s. He was given K Centra for reversal and keppra for seizure prophylaxis. INR was 1.[address] Repeat Head CT showed stable left subdural hematoma and increase in posterior falcine darshan lisbeth. Started on cardene gtt in ED to meet blood pressure goals. Admitted to [facility] for close monitoring. PAST MEDICAL HISTORY: No [...] Social Gatherings with Friends and Family: Attends Orthodox Services: Active Member of Clubs or Organizations: [...] and Uses oxygen CV: Negative GI: Negative 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: Increase frequency of urination Neuro: Weakness Psych: [...] ut nystagmus. Sclera white, no edema. Visual castro intact. Head: normocephalic, atraumatic. Neck: Trachea midline. [...] a subtle nondisplaced sacrococcygeal fracture. READING SITE: [facility] CT Chest w contrast Result Date: 12/15/2020 [...] long-term. 3. Cardiomegaly. Coronary atherosclerosis. READING SITE: [email or web address] XR Chest single view frontal Result Date: 12/15/2020 Question small left pleural effusion. No pneumothorax. No focal consolidation. Consider further evaluation with PA and lateral chest radiograph. READING SITE: [email or web address] XR Pelvis one or two views Result Date: 12/15/2020 No evidence of fracture. READING SITE: [facility] MEDICATIONS: INFUSIONS: niCARdipine 5 mg/hr (12/15/20 1026) ICU BEST PRACTICE: CODE STATUS: DNR (Do Not Resuscitate) LOS: 0 DELIRIUM PRESENT: No SEDATION VACATION: N/A SBT: N/A DIET: NPO, strict GI PROPHYLAXIS: Not indicated GLYCEMIC CONTROL: Yes VTE PREVENTION: SCDs Hold subq heparin and coumadin HARTMANN: No Hartmann LINES: PIV x1 DRAINS: None AIRWAY: Not Intubated ANTIBIOTIC REVIEW: N/A MAR/HOME MED REVIEW: Yes BOWEL REGIMEN: Yes BM LAST 48 HRS: N/A THERAPIES: PT and OT when appropriate MOBILITY: Spinal precautions PPE Statement: ANNETTE Mo used Yellow precautions (Level 1 mask [...] consult SBP <140 Cardene Infusion Hourly Neurochecks [facility] Consult for PICC line placement Na [...] including nutrition, and medications with Dr. Ann. Mariano Thomas was adm itted to the NSICU [...] patient being unable to give accurate medi malena history. Discussed patient with trauma surgery, I [...] agreed upon with patient and son. I, ANNETTE Mo, have reviewed all of these findings and the overall assessment and plans for the day are discussed and documented in the Medical Rec ord Note. I was personally present and involved in all aspects of patient care. Level 3 ANNETTE Mo documented in this encounter Consult Notes * Yudi Randolph RN - 12/16/2020 5:41 PM CDT Associated Order(s): CONSULT - VASCULAR ACCESS TEAM Post PCXR- 2 cm below the ACJ with is within policy. Left at 2 cm external lengt h. In addition, right arm PICC was replaced because left PICC was malpositioned. Ready for use. * Mariela Crowe RN - 12/16/2020 5:06 PM CDT Based off difficulty of getting PICC tip central, elected to place PICC in right upper extremity. [facility] * Mariela Crowe RN - 12/16/2020 2:25 PM CDT Spoke with Nataliya KATHLEEN who is caring for the patient. The patient remains in ICU ho wever all continuous intravenous medications requiring central access have been discontinued. Will assess and attempt power flush to correct PICC tip placement. Johny [facility] * Yudi Randolph RN - 12/15/2020 1:47 PM CDT Associated Order(s): CONSULT - VASCULAR ACCESS TEAM Post PCXR- DSVC- line ready to use. Nurse to remove all PIV's. * Yudi Randolph RN - 12/15/2020 1:29 PM CDT Vascular Tire Spotter will discuss risks, benefits, and alteratives with SHIRIN mena, or family for PICC placement. Placed by Verna FRANZ. A-fib. Or dered STAT PCXR. * Sangeeta Foley PA-C - 12/15/2020 11:29 AM CDT Associated Order(s): IP CONSULT TO NEUROSURGERY Neurosurgery Consult Note Patient Name: Mraiano Thomas Admission Date: 12/15/2020 9:43 AM Consult Date: 12/15/2020 Chief Complaint: SDH History of Present Illness: Mr. Thomas is an 80 yo male transferred from an OSH with a SDH. Apparently his systolic BP dropped from the 190s to 90 during trans port which led to some AMS per EMS. The patient was unable to give me much of a medical history other than he has a-fib and takes coumadin. He reported to me th at he fell 2 weeks ago and again 1 week ago. He also admitted to ETOH use, but flory zelaya said he hadn't used any ETOH in two weeks. When I started to examine him his R leg would not move and he was unable to tell me how long that had been going on. CTH from OSH on his original presentation 12/03 after a fall showed no ICH. C TH from today, 12/15/20 showed a 13mm L SDH at its widest point with a 6mm shift, there were also anterior and posterior falcine SDH. Repeat Scan after arrival h ere shows stable L SDH and increased size in posterior falcine hematoma. He was given Vit K at the OSH. He was given Kcentra on arrival here for reversal. He wa s also given keppra for seizure ppx. Past Medical History: Per his hx in "Care Everywhere" He has PMH significant for DVT in 2016, AAA repair in 2012, DM 2, CAD, BPH, hyponatremia. Past Surgical History: AAA repair in 2012 Family History: No family history on file. Social History: Social History Socioeconomic History Marital status: Spouse [...] Social Gatherings with Friends and Family: Attends Orthodox Services: Active Member of Clubs or Organizations: Attends Club or Organization Meetings: Marital Status: Intimate Partner Violence: Fear of Current or Ex-Partner: Emotionally Abused: Physically Abused: Sexually Abused: ALLERGIES: Patient has no known allergies. Review of Systems: A couple of falls in the last couple weeks. RLE not working for unknown amount of time. Reports he was otherwise feeling ok. Vitals: 12/15/20 1145 12/15/20 1200 BP: 124/88 120/75 Pulse: 88 84 Resp: 17 15 Temp: SpO2: 93% 92% Weight: Lab Results Component Value Date WBC 17.68 (H) 12/15/2020 HGB 13.1 12/15/2020 HCT 38 (L) 12/15/2020 PLT 113 (L) 12/15/2020 Lab Results Component Value Date NA 126 (L) 12/15/2020 K 4.6 12/15/2020 CL 89 (L) 12/15/2020 CO2 34 (H) 12/15/2020 BUN 12 12/15/2020 CALCIUM 7.9 (L) 12/15/2020 Most Recent Result from last 24 hours Lab Units 12/15/20 1022 APTT sec 35* INR 1.3* Physical Exam: Gen: Alert and awake, pleasant in NAD Eyes: Pupils 2mm and reactive bilaterally, EOMI ENT: atraumatic, no otorrhea, no rhinorrhea Lungs: equal chest rise and fall. CV: extremities warm and well perfused. NSR on monitor Abd: Soft, non distended MS: . No gross deformity, C-collar in place Psych: No distress, calm Skin: brown leathery distal lower extremities. Neuro: Alert and oriented to himself and the hospital. Fades in an out of conversation will stop talking mid sentence. Speech fluent RUE strength 4+/5 LUE strength 5/5 RLE flaccid LLE strength 5/5 no drift Pt able to feel pain RLE as he will localize LLE to it with central pain stimuli upgoing babinski bilaterally IMPRESSION: Mr. Lopez is a pleasant 80 yo male with PMH of atrial fibrillation on coumadi n and after reviewing his records from [facility] it appears he also has DM2, CAD, hx of AAA repair, hx of DVT, BPH. A nephrology record indicates hx of hypo natremia. He was transferred here from an OSH due to an Acute L SDH and anterior falcine and posterior falx SDH secondary to a fall and likely exacerbated by co umadin. The outside hospital had vitamin K, but no other reversal agents for his coumadin. His initial INR was reported as 2.9. It is now 1.3 after having Kcent ra and Vit K. He is currently hyponatremic at 126. His repeat CTH on arrival thelma wed some expansion of the posterior falx SDH and some additional blood layering on top of the brain, but stable L SDH, anterior falx SDH and stable midline shif t. The spine films demonstrate an L1 compression fracture, the age of which is unce rtain, but no retropulsion, as such I don't think this correlates to the RLE par esis he has.RL His thoracic films show DISH, but no obvious fracture. I only see axial films of the C-spine which look ok. Would continue C-collar until sagital and coronal are uploaded and reviewed by radiology. PLAN: - Do another CTH at around 1630 due to expansion of SDH on arrival scan - hold coumadin - C-collar until final cervical spine reads - ok to correct Na, per hx through this may be chronic, would encourage slow cor rection only - SBP<140 - investigate cause for RLE paresis: vascular, vs neuro, vs musculoskeletal - monitor in neuro ICU - follow up on final reads - keppra for seizure ppx. - Discussed with Dr. Jorge Neurosurgical problem list: SDH L1 compression fracture Hospital Problem List: Active Problems: Fall Acute neck pain Acute pain due to trauma Traumatic subdural hematoma with loss of consciousness (HCC) penitentiary current use of anticoagulant Closed compression fracture of body of L1 vertebra (HCC) Hemorrhagic disorder due to extrinsic circulating anticoagulants (HCC) Paresis of right lower extremity (HCC) Sangeeta MONAHAN PA-C [facility] [address] [place] [address], [address] [place] [address] Available via Voalte. After 5 pm and on weekends please call the senior sales consultant provider or [phone] PPE Statement: Sangeeta Foley PA-C used Red precautions (N95 mask, with level 1 over, gloves). Associated attestation - Trina Jorge MD - 12/24/2020 5:38 PM CDT NEUROSURGERY STAFF ADDENDUM I have seen and examined the patient. I agree with the note as documented. Trina Jorge MD [employer] Crew[employer] of Epilepsy Surgery [address], [address] [place] [address] (phone) [phone] (fax) documented in this encounter Nursing Notes * Drea Davis RN - 12/22/2020 3:45 PM CDT Patient A&Ox3. No c/o pain, occasional back pain with movement. Patient noted to have decreased sensation in RLE with 1200 neuro assessment, rep orted numbness. trauma CAN FILLING AND CLOSING MACHINE TENDER notified. Patient's granddaughter visiting at bedside. Patient noted to have red rash on back. Patient denied itching or pain. Trauma n otified. 1500 VS, SBP >140, scheduled metoprolol given late per telephone order from Trauma CAN FILLING AND CLOSING MACHINE TENDER. Patient started on abx this shift, see MAR. * Codi Obando RN - 12/17/2020 6:25 PM CDT Mariano Thomas, transferred from N318 to unit NA02 at 1830. The patient and famil y were made aware of the transfer. VM left for son, Philip. The patient was transp orted via bed, accompanied by: RN. The Care Plan was reviewed-yes. A full repor t was given to Nicci Davis RN. All belongings transferred with patient. documented in this encounter ED Notes * Nikole Lund RN - 12/15/2020 11:04 AM CDT Pt transferred to NSICU on full monitoring specialist, accompanied by RNs x2. On 3L NC . Cardene gtt running. Departed w/ all belongings. Bedside report given to HEVER An. * Sandy Robert RN - 12/15/2020 10:13 AM CDT Bed: [facility] Expected date: Expected time: Means of arrival: Comments: transfer * Jaxon Silva MD - 12/15/2020 9:52 AM CDT 12/15/2020 [facility] History No chief complaint on file. [...] green so was repaged as a trau in green patient alert and orient x3, he [...] to trauma 4. Fall, 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 5. intermediate accountant current use of anticoagulant 6. Traumatic subdural hematoma with loss of consciousness, 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 (HC C) Patient ED Dispo None No results found for this or any previous visit (from the past 24 hour(s)). XR Pelvis one or two views Final Result No evidence of fracture. READING SITE: [facility] XR Chest single view frontal (Results Pending) CT Cervical Spine wo contrast (Results Pending) CT Head wo contrast (Results Pending) CT Chest w contrast (Results Pending) CT Abdomen Pelvis w contrast (Results Pending) CT Thoracic Spine reconstructed (Results Pending) CT Lumbar Spine reconstructed (Results Pending) Jaxon Silva MD 12/15/20 1004 documented in this encounter Miscellaneous Notes * Nursing Discharge - Drea Davis RN - 12/22/2020 3:47 PM CDT Nursing Discharge Note Patient's PICC left in place per orders. No telemetry to be removed. AVS and dis charge instructions reviewed with patient, who verbalized understanding. Scripts given to patient, belongings gathered, and room assessed to ensure no belonging s were left behind. Report called to Yin KATHLEEN at facility. Patient discharged to facility via transportation arranged by . Patient/family satisfied with progress made towards goals and ready for discharg e. * Therapy Note - Jewels Vazquez COTA - 12/22/2020 1:57 PM CDT 12/22/20 1011 OT Visit Info Patient/Family Reports OK to see per RN. Pt pleasant and agreeable to therapy. OT Received On 12/22/20 Total Treatment Time (min) Start Time 1011 Stop Time 1035 Total Treatment time (min) 24 min Timed Minutes 14 min act 10 min ADL Precautions Back Precautions Yes Back Precaution Comments L1, L3 fx Fall Risk Yes Isolation no Supplemental Oxygen RA ADL Eating Supervision/Setup;Minimal Assistance (in sitting pt able to open containers and eat crackers ) Eating Type of Assistance Verbal cues (steadying assist ) Grooming Minimal Assistance Grooming Type of Task Washing, Rinsing and/or Drying the face Grooming Type of Assistance Setup of grooming supplies;Steadying assistance to p erform all tasks Grooming comments increased time and effort to attend to task uses BUE Cognition Overall Cognitive Status Impaired Arousal/Alertness Delayed responses to stimuli Attention Span Attends with cues to redirect Orientation Level Oriented to person;Oriented to place;Oriented to time;Oriented to situation Following Commands Follows one step commands with increased time Safety Judgment Decreased awareness of need for safety Insight Decreased awareness of deficits Problem Solving Assistance required to generate solutions Perception Inattention/Neglect Cues to attend right visual field Motor Planning Requires increased time;Cues for sequencing Communication Communication Hearing impairment Vision Treatment Vision Activities/Exercises Small Field Scanning;Fixation Tasks Response to Vision Activities/Exercises Moderate Cues Additional Comments able to scan to R with increased time and effort with contin ual cues Bed Mobility Rolling HOB elevated;2 person assist;Max assist to left;Verbal cueing required Supine to Sit 2 person assist;Verbal cueing required;Max assist to left Sit to Supine 2 person assist;Max assist to right;Verbal cueing required Supine Scooting 2 person assist Balance Activity Sitting Surface EOB Sitting Activity static;wt shift;ADL Sitting Time 21-25 min Sitting Assistance min assist;mod assist;max assist;w/UE support Sitting Activity Comments pt retropulsive and with R lateral lean in sitting pt works on anterior/ posterior weight shift with CGA only pt requires Max A with 1 to 2 assist when pt not engaged in task specific to upright postural alignment Posture Sitting Posture kyphotic;forward head;flexed neck Activity Tolerance Activity Tolerance fair;- UE Therapeutic Exercises and Therapeutic Activity Neuromuscular Re-education Postural re-education Patient Education Patient Education postural alignment Response to education needs further review Discharge Recommendations Plan Continued OT AIRAM Noel/Naa Vo[employer]te [phone] CC for tech assist * Nutrition Note - Luann Guevara RD LD - 12/22/2020 1:39 PM CDT Frail Patient Nutrition Education [facility] Patient: Mariano Thomas Age: 80 y.o. : 1940 ATTENDING PHYSICIAN: Beto Muro MD Consult received to provide frail patient nutrition education. RD provided pt wi th handout "Eating Right for Older Adults" and discussed general healthful nutri tion. Encouraged food variety and meals TID. Pt verbalized understanding and had no questions at end of visit. Ensure enlive ordered TID per frail pt protocol. Electronically signed by Luann Guevara 12/22/2020 1:39 PM Nutrition Length of Stay [facility] Patient: Mariano Thomas Age: 80 y.o. : 1940 PRIMARY CARE PROVIDER: Brock Mas MD ATTENDING PHYSICIAN: Beto Muro MD Patient assessed for nutrition risk based on length of stay. Chart reviewed. Height: 182.9 cm (6') Admit Weight: 241 lb Weight: 108 kg (238 lb 3.2 oz) Weight Change: -3 lb BMI (Calculated): 32.7 Diet Order: Regular Food Intake: Pt consuming average 63% of meals per PO record. No acute nutrition diagnosis determined at this time. Continue with current nutr ition plan. Will continue to evaluate every 5-7 days per policy. Electronically signed by Luann Guevara 12/22/2020 1:40 PM * Care Progression Final DC Note - Keli Cronin, MOTOR TEACHER - 12/22/2020 1:23 PM CDT Final Discharge Note Final Discharge Disposition: 03-Snf Facility (SNF) - Medicare Certif ied Discharge goal and plan is mutually agreed upon by patient, family SW, CC and Ph ysician. Patient will discharge to: [facility] Transportation: [facility] ETA : [phone] (referred to Strike team) Discharge Time: Upon arrival of transportation / once IV abx 2p dose has been ad ministered. Special Instructions: Call Report #[phone]. Pt. And Family (daughter Melissa #[phone]) not ified of transportation plans. RN notified. DC Packet in chart. DC orders fa xed to SNF. Keli Cronin LCSW 12/22/2020 1:34 PM [id number] (Voalte) * End of Shift Note - Drea Davis RN - 12/21/2020 3:35 PM CDT End of Shift Summary and Plan of Care Patient A&Ox4. Incontinent of urine. RUE noted to be slightly weaker, Trauma CAN FILLING AND CLOSING MACHINE TENDER notified. Repeat CT done this shift, see results. SBP 80s, Trauma notified. Patient asymptomatic. SBP low 90s with 1600 VS, asympt omatic. 1200 neuro check, patient noted to have slight L droop. CAN FILLING AND CLOSING MACHINE TENDER notified. MOTORIZED S[place]NT consu lt placed. Up in chair with africa lift. Goals per Patient Condition Fall Prevention Plan Patient will remain free from injury related to falls. See the Daily cares/safety flowsheet for intervention documentation. Skin Integrity Plan Patient skin integrity maintained. See integumentary tunde wsheet for intervention documentation. Goals/Plan for Shift Patient/Family stated goal for shift: sit in chair Nursing goal for shift: patient safety, pain control, skin integrity Plan: Safety precautions in place, q4 neuro checks, frequent repositioning, gena tor labs and vitals Goals/Plan for Hospital Stay Patient/Family stated goal for hospital stay: Recovery is adequate for safe disc harge Nursing goal for hospital stay: Recovery is adequate for safe discharge Plan: Collaborate with interdisciplinary team * Therapy Note - Angelina Barreto ("V"), MS [facility]-MOTORIZED [place] - 12/21/2020 2:47 PM CDT 12/21/20 1447 Visit Type Visit Type Bedside Swallow MOTORIZED S[employer]IE[employer] Visit Info Initial MOTORIZED [employer] Visit On 12/21/20 Assessed for Rehab Yes Ordering Practitioner Beto Muro MD Referral Reason New facial droop (bedside swallow) Patient/Family Reports Patient alert and cooperative during bedside swallow MOTORIZED [employer] Received On 12/21/20 Swallow Subjective Subjective Patient in bed;Alert;Cooperative Patient Report Patient with no complaints Medical Staff Report Discussed results with RN Baseline Assessment History of Intubation No Behavior/Cognition Alert;Cooperative Dentition WFL Patient Positioning Upright in bed Baseline Vocal Quality Normal Objective Evaluation Labial ROM WFL Labial Symmetry WFL Lingual ROM WFL Lingual Symmetry WFL Facial ROM WFL Facial Symmetry WFL Vocal Quality WFL Vocal Intensity No impairment Consistencies Assessed Food Trials/Consistencies water and cracker Consistencies Assessed Yes Thin Presentation Cup;Straw;Self Fed Oral WFL Pharyngeal WFL Solid Presentation Self Fed Oral WFL Pharyngeal WFL Assessment Diagnosis WFL Risk for Aspiration No overt signs of aspiration noted Recommendations Recommendations Initiate PO diet Diet Solids Recommendations Regular consistency Diet Liquids Recommendations No liquid consistency restrictions Compensatory Swallowing Strategies Upright as possible for all oral intake;Small bites/sips Recommended Form of Medications Take pills one at a time;With liquid Considerations Discharge Plan - [place] After initial visit Plan Patient & family participated in development of Progression of Care Patient participated in development of treatment plan Treatment Interventions No further MOTORIZED [place] services indicated at this time Treatment Frequency Initial evaluation only Care Coordination Care Coordination x1 discussion with HEVER Barreto M.S. CCC-MOTORIZED [place] Speech-Language Pathologist [facility] phone: * Discharge Planning - Keli Cronin LCSW - 12/21/2020 1:02 PM CDT Discharge Planning Interventions General Discharge Note faxed clinical updates to SNF ([facility]). FRITZ LM on for pt's son Maynor re: placement update. Maynor LABOY on [facility] confirming that [facility] is prefer red placement. Pt has been accepted to admit to [facility] when medically stable. Pt will need [facility] transport at me. Placement contact info: [facility] #[phone] (main #) Keli Cronin LCSW 12/21/2020 1:07 PM [id number] (Voalte) * Nutrition Note - Teressa Collier RD - 12/21/2020 12:37 PM CDT Frail Patient Nutrition Education [facility] Patient: Mariano Thomas Age: 80 y.o. : 1940 ATTENDING PHYSICIAN: Beto Muro MD Attempted to education patient today, however he was with other staff. Will cont inue to attempt before he discharges. Electronically signed by Teressa Collier 12/21/2020 12:38 PM * Therapy Note - Kayla Styles, PT - 12/21/2020 11:21 AM CDT 12/21/20 1003 Visit Type Visit Type Treatment PT Visit Info Patient/Family Reports pt agreeable to participate w/ pt PT Received On 12/21/20 (co-treat w/ OT) Time Calculation Timed Minutes 15 min ther act, 10 min neuromuscu fac Precautions Fall Risk Yes PPE Used Yellow precautions (Level 1 mask worn over level 3 mask, eye protection , and gloves) Other O2 Pain Assessment Pain Score (pt c/o some mid back pain on R end of Fx) Vital Signs SpO2 95 % O2 Device Nasal cannula O2 Flow Rate (L/min) 3 L/min Pulse 100 (with activity) Resp 20 Cognition Orientation Level Oriented to person;Oriented to place Following Commands Follows one step commands with increased time Problem Solving Assistance required to generate solutions Communication Communication Hearing impairment Bed Mobility Rolling HOB elevated;2 person assist;Max assist to left;Verbal cueing required Supine to Sit 2 person assist;Verbal cueing required;Max assist to left Sit to Supine 2 person assist;Max assist to right;Verbal cueing required Transfers Assistive Device (L hand on rail, bed slightly elevated) Sit to Stand Transfers 2 person assist (pt unable to fully stand) Transfer Comments pt did bear wt on LLE, unable to fully straighten hips/knees/t runk w/ max assist, did not palpate musc contraction to assist mvt in RLE, some mm contract on L Balance Activity Sitting Surface EOB Sitting Activity static Sitting Time 11-15 min Sitting Assistance SBA;min assist (once assisted to position, leans bkwd when fatigued) Sitting Activity Comments facilitated postural alignment and balance, tends to l gina bkwd, verbal/tactile cues to straighten trunk, hold head up Posture Sitting Posture kyphotic;forward head;flexed neck Activity Tolerance Activity Tolerance fair;- (pt states he's very tired end of Rx) LE Ther Ex PROM 1 - 5 reps;Right;Supine AAROM 1 - 5 reps;Left;Supine Patient Education Patient Education sequencing for bed mobility, postural alignment Response to education needs further review *ASSESSMENT Learning Barriers Physical barriers Response to Treatment Fair Bed Mobility Goals Bed Mobility STG Goal Status Goal continues Bed Mobility STG Moderate assistance;Maximum assistance Transfer Goals Transfer STG Goal Status Other (see comment) (sit to stand w/ mod/max assist) Sitting Balance Goals Sitting Balance STG Goal Status New goal Sitting Balance STG 3;(-) Standing Balance Goals Standing Balance Goal Status LTG Goal continues Standing Balance LTG 1 Plan Progress (progressing slowly) PT Frequency 3-5x/wk PT Plan for next treatment progress bed mobility, sitting bal PT Nursing Communication pt needs [facility] lift for out of bed to chair Discharge Recommendations Plan Continued PT;Post Acute Care Facility * Therapy Note - Radha Henry, OT - 12/21/2020 10:53 AM CDT 12/21/20 1001 Visit Type Visit Type Treatment OT Visit Info Referral Reason OT/PT co-tx Medical Dx per Physician L SDH, fx L1, L3, 7,8 R rib fx due to fall Patient/Family Reports Pt rec'd in bed and willing participation in OT/ asked PT to join for a co-tx. RN approval. OT Received On 12/21/20 Total Treatment Time (min) Start Time 1006 Stop Time 1032 Total Treatment time (min) 26 min Timed Minutes 14 therap act. 12 therap ex. Precautions Back Precautions Yes Back Precaution Comments L1, L3 fx Fall Risk Yes Supplemental Oxygen NC PPE Used Yellow precautions (Level 1 mask worn over level 3 mask, eye protection , and gloves) Home Living Type of Home Assisted Living Pain Assessment Pain Location Back Vital Signs O2 Device Nasal cannula O2 Flow Rate (L/min) 3 L/min Cognition Overall Cognitive Status Impaired Perception Motor Planning Requires increased time;Cues for sequencing Communication Communication Hearing impairment Bed Mobility Rolling Max assist to left;2 person assist;Verbal cueing required;Bed rails;HOB elevated Supine to Sit Max assist to left;2 person assist;Verbal cueing required;Bed Rail Sit to Supine Max assist to right;2 person assist Supine Scooting Mod A;2 person assist;Verbal cueing required;Bed rail (use of L bent knee to push. 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 Pt's head mostl y downward and much difficulty correcting. Some assist to lift. tolerated fair. Patient Education Patient Education postural control Response to education needs further review Assessment Learning Barriers Cognition;Pain;Hearing Deficit Response to Treatment Fair *PLAN Pt/Family involved in Plan of Care yes OT Treatment Interventions Neuromuscular reeducation;Functional activity toleran ce;Functional transfer training Discharge Recommendations Plan Continued OT Radha Henry OTR/L Occupational Therapy Voalte * End of Shift Note - Alicia Callaway RN - 12/21/2020 5:14 AM CDT End of Shift Summary and Plan of Care Pt rested well in the night. Pt's BP was soft at the beginning of the shift so n ight time metoprolol and amiodarone were held. Pt had no complaints of pain. Pt was A/Ox 3 with continued hallucinations. Pt had no acute changes in neuro check . Pt was repositioned frequently. Fall precautions in place at this time. Goals per Patient Condition Fall Prevention Plan Patient will remain free from injury related to falls. See the Daily cares/safety flowsheet for intervention documentation. Skin Integrity Plan Patient skin integrity maintained. See integumentary tunde wsheet for intervention documentation. Goals/Plan for Shift Patient/Family stated goal for shift: "get out of here" Nursing goal for shift: patient safety, pain control, skin integrity Plan: Safety precautions in place, q4 neuro checks, frequent repositioning, gena tor labs and vitals Goals/Plan for Hospital Stay Patient/Family stated goal for hospital stay: Recovery is adequate for safe disc harge Nursing goal for hospital stay: Recovery is adequate for safe discharge Plan: Collaborate with interdisciplinary team * End of Shift Note - Melvina Pollack RN - 12/20/2020 5:52 PM CDT End of Shift Summary and Plan of Care Patient turned and repositioned several times throughout the day, Max AX2.. A& OX4, VSS. Has a productive cough. Incontinent with brief. CBC with diff and BMP drawn from line and sent to lab. Goals per Patient Condition Fall Prevention Plan Patient will remain free from injury related to falls. See the Daily cares/safety flowsheet for intervention documentation. Skin Integrity Plan Patient skin integrity maintained. See integumentary tunde wsheet for intervention documentation. Goals/Plan for Shift Patient/Family stated goal for shift: "get out of here" Nursing goal for shift: patient safety, pain control, skin integrity Plan: Safety precautions in place, q4 neuro checks, frequent repositioning, gena tor labs and vitals Goals/Plan for Hospital Stay Patient/Family stated goal for hospital stay: Recovery is adequate for safe disc harge Nursing goal for hospital stay: Recovery is adequate for safe discharge Plan: Collaborate with interdisciplinary team * Therapy Note - Danielle Cintron COTA - 12/20/2020 2:36 PM CDT 12/20/20 1436 OT Visit Info Attempted but was unable to see patient (date) 12/20/20 Reason patient was not seen Pt declined OT reason not seen - extended comment Attempted x2. In a.m. RN held d/t high BP. In afternoon, pt declined to participate in therapy this date despite encourage ment. RN notified and will continue to follow. AIRAM Berry/Naa * End of Shift Note - Miya Downey RN - 12/20/2020 6:42 AM CDT End of Shift Summary and Plan of Care Patient had a couple of small bowel movements overnight. Patient turned q2. Neur o checks unchanged overnight. Patient rested well and did not complain of halluc inations. VSS Goals per Patient Condition Fall Prevention Plan Patient will remain free from injury related to falls. See the Daily cares/safety flowsheet for intervention documentation. Skin Integrity Plan Patient skin integrity maintained. See integumentary tunde wsheet for intervention documentation. Goals/Plan for Shift Patient/Family stated goal for shift: "get out of here" Nursing goal for shift: patient safety, pain control, skin integrity Plan: Safety precautions in place, q4 neuro checks, frequent repositioning, gena tor labs and vitals Goals/Plan for Hospital Stay Patient/Family stated goal for hospital stay: Recovery is adequate for safe disc harge Nursing goal for hospital stay: Recovery is adequate for safe discharge Plan: Collaborate with interdisciplinary team * End of Shift Note - Drea Davis RN - 12/19/2020 4:48 PM CDT End of Shift Summary and Plan of Care Patient A&Ox3. Patient stated he has visual hallucinations. Primary team aware. C/o leg pain, Tylenol x1 for pain. Milk of magnesia given x1 for constipation, as well as scheduled AM medications. BM x1. Up in chair via lift. Tolerated sitting in chair for roughly 3 hours. Family at bedside and updated on POC. Bed bath x1. Skin noted to have redness around brief. Brief loosened and repositioned for pat ient comfort. Will continue to monitor. Patient repositioned and turned frequent ly. Goals per Patient Condition Fall Prevention Plan Patient will remain free from injury related to falls. See the Daily cares/safety flowsheet for intervention documentation. Skin Integrity Plan Patient skin integrity maintained. See integumentary tunde wsheet for intervention documentation. Goals/Plan for Shift Patient/Family stated goal for shift: "get out of here" Nursing goal for shift: patient safety, pain control, skin integrity Plan: Safety precautions in place, q4 neuro checks, frequent repositioning, gena tor labs and vitals Goals/Plan for Hospital Stay Patient/Family stated goal for hospital stay: Recovery is adequate for safe disc harge Nursing goal for hospital stay: Recovery is adequate for safe discharge Plan: Collaborate with interdisciplinary team * Therapy Note - Hellen Burks, OT - 12/19/2020 12:06 PM CDT 12/19/20 1040 Visit Type Visit Type Evaluation OT Visit Info Initial OT Visit On 12/19/20 Assessed for Rehab Yes Past medical history reviewed through chart review: Yes Referral Reason eval and tx Medical Dx per Physician L SDH, fx L1, L3, 7,8 R rib fx due to fall Patient/Family Reports pt resting in bed upon arrival willing to work with OT [facility] RN approval OT Received On 12/19/20 Precautions Back Precaution Comments L1, L3 fx Fall Risk Yes Isolation no Supplemental Oxygen NC Home Living Type of Home Assisted Living Home Layout One level Lives With Alone Home Assistive Device Rolling walker Prior Function Level of [place] Modified independent with ADLs;Modified independent with f unctional transfers;Modified independent with ambulation;Needs assistance with A DLs Receives Help From Facility Staff Comments pt reports he required assistance showering and donning socks but was a ble to complete all other ADLs ADL Lower Body Dressing Maximal Assistance Lower Body Dressing, Type of Clothing Left sock;Right sock Lower Body Dressing Type of Assistance Physical assistance ADL Comments pt currently requiring max assistnace for all dressing and toiletin g Cognition Overall Cognitive Status Impaired Arousal/Alertness Delayed responses to stimuli Orientation Level Oriented to person;Oriented to place;Oriented to time;Oriented to situation Following Commands Follows one step commands with increased time Perception Inattention/Neglect Cues to attend right visual field Vision - Complex Assessment Vision Intact No Ocular Range of Motion WFL Saccades Searching Pursuits Loses fixation Visual [place] Right impaired Attention Right impaired Vision comments pt with decreased ablility to track past midline in R visual fie ld. Demonstrated Ocular ROM is WFL RUE Assessment RUE Assessment X RUE Comments 3+/5 - 4-/5 grossly LUE Assessment LUE Assessment WFL Hand Function Gross Grasp Functional Gross Release Functional Coordination Right;Impaired Impaired Hand Coordination Serial Opposition Bed Mobility Rolling Max assist to right;Verbal cueing required Activity Tolerance Activity Tolerance fair;- Activity Tolerance Comments cues to remain awake throughout session Patient Education Patient Education OT POC Response to education needs further review Assessment Learning Barriers Cognition Response to Treatment Fair Problem List Decreased ADL participation;Decreased activity tolerance;Decreased A/PROM;Decreased fine motor coordination/dexterity;Decreased functional use of u pper extremities;Decreased functional mobility;Decreased safety;Decreased streng th Timeframe Timeframe STG 3 tx Timeframe LTG 6 tx GOALS Goals Toileting;Toilet Transfers;Strength;Vision Toileting Goals Toileting STG Goal Status New goal Toileting STG Moderate Assistance Toileting LTG Goal Status New goal Toileting LTG Minimal Assistance Toilet Transfer Goals Toilet Transfer STG Goal Status New goal Toilet Transfer STG Moderate Assistance Toilet Transfer LTG Goal Status New goal Toilet Transfer LTG Minimal Assistance Strength Goals Strength STG Goal Status New goal Strength STG Right;Increase 1/2 muscle grade;In prep for ADLs;In prep for functi onal tasks Strength LTG Goal Status New goal Strength LTG Right;Increase 1 muscle grade;In prep for ADLs;In prep for function al tasks Vision Goals Vision STG Goal Status New goal Vision STG Scanning to the Right;Attention to the Right;With ADLs;With functiona l activity;Moderate cues Vision LTG Goal Status New goal Vision LTG Scanning to the Right;Attention to the Right;With ADLs;With functiona l activity;Minimal cues *PLAN Patient/Caregiver Goal did not state at this time Pt/Family involved in Plan of Care (per pt - is in a care facility ) OT Treatment Interventions ADL retraining OT Frequency 3-5x/wk Discharge Recommendations Plan Continued OT;Post Acute Care Facility Josh Burks OTR/L * End of Shift Note - Alicia Callaway RN - 12/19/2020 5:33 AM CDT End of Shift Summary and Plan of Care Pt was awake during the night. Vitals remained with in parameters and pt had com plaint of leg pain. Tylenol was given x1 and pt reported improvement in pain. Pt was A/Ox 2-3 with continued hallucination. Pt had no change in neuro status. Fr equent turns were done and fall precautions. Pt had decrease urine output, bladd er scan was done x2 both times below 500. Goals per Patient Condition Fall Prevention Plan Patient will remain free from injury related to falls. See the Daily cares/safety flowsheet for intervention documentation. Skin Integrity Plan Patient skin integrity maintained. See integumentary tunde wsheet for intervention documentation. Goals/Plan for Shift Patient/Family stated goal for shift: Get sleep Nursing goal for shift: make pt comfortable Plan: Safety precautions in place, q4 neuro checks, frequent repositioning, gena tor labs and vitals Goals/Plan for Hospital Stay Patient/Family stated goal for hospital stay: Recovery is adequate for safe disc harge Nursing goal for hospital stay: Recovery is adequate for safe discharge Plan: Collaborate with interdisciplinary team * End of Shift Note - Teressa Singh RN - 12/18/2020 5:14 PM CDT End of Shift Summary and Plan of Care Pt able to answer A&O questions to self, place, reason he is here. Answered Sept for month. Pt states he has "been hallucinating again, and has been for 2 days". In beginning of shift Pt did not mention any hallucinations, nor did this RN hear of any during report. Granddaughter bedside, Pt recognized her. Pt up in chair via lift for an hour this afternoon. Poor appetite. Hartmann out at 1600. History of retention. Na/K+ q 6 lab Picc draws dc'd. Am labs. Will monitor. Goals per Patient Condition Fall Prevention Plan Patient will remain free from injury related to falls. See the Daily cares/safety flowsheet for intervention documentation. Skin Integrity Plan Patient skin integrity maintained. See integumentary tunde wsheet for intervention documentation. Goals/Plan for Shift Patient/Family stated goal for shift: get to chair Nursing goal for shift: get sling for lift Plan: Safety precautions in place, q4 neuro checks, frequent repositioning, gena tor labs and vitals Goals/Plan for Hospital Stay Patient/Family stated goal for hospital stay: Recovery is adequate for safe disc harge Nursing goal for hospital stay: Recovery is adequate for safe discharge Plan: Collaborate with interdisciplinary team * Discharge Planning - Keli Cronin LCSW - 12/18/2020 3:56 PM CDT Discharge Planning Interventions General Discharge Note FRITZ contacted pt's [facility]. FRITZ informed that pt's spouse i s currently at SNF - [facility]. Pt recently dc'd from [facility] in [place], [place]. Facility indicated that family would likely want pt to ret urn to [facility] should pt require SNF. FRITZ attempted to contact pt's daughter Melissa #[phone] and son Maynor #[phone]. FRITZ LM on both VMs. FRITZ contacted [facility] and spoke w/ liaison who confirmed that pt recently dc'd from facility and that pt's spouse is currently at this facility. FRITZ informed that pt would be accepted but would not be able to admit until Mon (12/21). Facility is unable to have meds delivered [place] FRITZ faxed SNF referral. FRITZ will continue to follow. [facility] #[phone] (main #) Keli Cronin LCSW 12/18/2020 4:00 PM [id number] (Voalte) * Therapy Note - Kayla Styles, PT - 12/18/2020 11:12 AM CDT 12/18/20 1031 Visit Type Visit Type Evaluation PT Visit Info Initial PT Visit On 12/18/20 Assessed for Rehab Yes Past medical history reviewed through chart review: Yes Referral Reason TBI, eval/treat Medical Dx per Physician L SDH, fx L1, L3, 7,8 R rib fx due to fall Comorbidities pertaining to therapy diagnosis see med rec Patient/Family Reports pt denied pain at rest, agreeable to participate w/ PT Time Calculation Timed Minutes eval, ther act 12 Precautions Fall Risk Yes PPE Used Yellow precautions (Level 1 mask worn over level 3 mask, eye protection , and gloves) Other O2 Home Living Type of Home Assisted Living Home Assistive Device Rolling walker Prior Function Level of [place] Modified independent with ambulation Pain Assessment Pain Score (pt denied pain to PT) Vital Signs SpO2 96 % O2 Device Nasal cannula O2 Flow Rate (L/min) 4 L/min Pulse (!) 115 (after bed mobiity/rolling) Resp 18 Cognition Arousal/Alertness Delayed responses to stimuli (keeps eyes closed, slow to answer at times) Attention Span Attends with cues to redirect (lethargic) Orientation Level Oriented to person;Oriented to place;Oriented to time;Oriented to situation Following Commands Follows one step commands with increased time Communication Communication (understandable) Bed Mobility Rolling Max assist to right;Verbal cueing required (assist w/ motor planning, upper body rotation) Supine to Sit Unable to assess (Comment) (deferred due to fatigue, need for significant assist) Transfers Transfer Comments pt to be transferred to chair w/ mech lift/africa Gait Contraindications to Ambulation (weakness, decr activity hamlet) Bed Level Activity Tolerance Activity Tolerance poor;(+) Sensation Light Touch (pt reports tingline in R side) RUE Assessment RUE Assessment (able to move all joints) LUE Assessment LUE Assessment (grossly 4/5) RLE Assessment RLE Assessment (grossly 3/5) LLE Assessment LLE Assessment (grossly 4/5) Patient Education Patient Education PT POC, progression of activity/exercise Response to education needs further review *ASSESSMENT Learning Barriers Physical barriers Response to Treatment Poor;Fair Problem List Activity limitations;Balance;Bed mobility;Body functions;Gait;Parti cipation restrictions;Safety;Strength;Transfers Barriers to Discharge Limited caregiver availability;Requires caregiver assist Clinical presentation Unstable Timeframe Timeframe STG 5 Timeframe LTG 10 GOALS Goals Bed Mobility;Transfers;Sitting balance;Standing balance;Gait distance Bed Mobility Goals Bed Mobility STG Goal Status New goal Bed Mobility STG Moderate assistance;Maximum assistance Transfer Goals Transfer STG Goal Status New goal Transfer STG Other (comment) (sit to stand w/ mod/max assist) Transfer LTG Goal Status New goal Transfers LTG Moderate assistance Transfer LTG - Assistive Device Least restrictive device Gait Distance/Assist Goals Gait Distance LTG Goal Status New goal Gait Distance LTG (ft) 15 ft Gait Assist LTG Moderate assistance Gait LTG - Assistive Device Least restrictive device Sitting Balance Goals Sitting Balance STG Goal Status New goal Sitting Balance STG 1;(+) Standing Balance Goals Standing Balance Goal Status LTG New goal Standing Balance LTG 1 *PLAN Pt/Family Goal to go home PT Frequency 3-5x/wk PT Plan for next treatment bed mobility w/ tech/MOLD PARTER assist PT Nursing Communication [facility] bed to chair Discharge Recommendations Plan Continued PT;Post Acute Care Facility Equipment Recommended (to be determined) * End of Shift Note - Fabienne Lassiter RN - 12/18/2020 5:30 AM CDT End of Shift Summary and Plan of Care Patient slept intermittently throughout the night.A&O x4. No acute neuro changes noted. BP slightly hypotensive. Patient repositioned frequently. Midnight NA 129. Patient denies pain. Fall precautions in place. Goals per Patient Condition Fall Prevention Plan Patient will remain free from injury related to falls. See the Daily cares/safety flowsheet for intervention documentation. Skin Integrity Plan Patient skin integrity maintained. See integumentary tunde wsheet for intervention documentation. Goals/Plan for Shift Patient/Family stated goal for shift: Rest through the night Nursing goal for shift: Safety precautions, monitor vitals and labs, skin integr ity Plan: Safety precautions in place, q4 neuro checks, frequent repositioning, gena tor labs and vitals Goals/Plan for Hospital Stay Patient/Family stated goal for hospital stay: Recovery is adequate for safe disc harge Nursing goal for hospital stay: Recovery is adequate for safe discharge Plan: Collaborate with interdisciplinary team * End of Shift Note - Drea Davis RN - 12/17/2020 6:41 PM CDT End of Shift Summary and Plan of Care Patient transferred to [facility] around 1830. Full report from Codi CAMERON RN. [facility] completed upon transfer. Goals per Patient Condition Fall Prevention Plan Patient will remain free from injury related to falls. See the Daily cares/safety flowsheet for intervention documentation. Skin Integrity Plan Patient skin integrity maintained. See integumentary tunde wsheet for intervention documentation. Goals/Plan for Shift Patient/Family stated goal for shift: Pt stated he wanted to feel btter Nursing goal for shift: maintain SBP<140, monitor pain level, promote skin integrity Plan: assess vital signs and frequent neuro checks, assess pain, turn every 2 ho urs Goals/Plan for Hospital Stay Patient/Family stated goal for hospital stay: Recovery is adequate for safe disc harge Nursing goal for hospital stay: Recovery is adequate for safe discharge Plan: Collaborate with interdisciplinary team * End of Shift Note - Codi Obando RN - 12/17/2020 5:45 PM CDT End of Shift Summary and Plan of Care No acute neuro changes. OOBTC, encouraged TCDB and IS. Transferred to the floor this evening. Goals per Patient Condition Fall Prevention Plan Patient will remain free from injury related to falls. See the Daily cares/safety flowsheet for intervention documentation. Skin Integrity Plan Patient skin integrity maintained. See integumentary tunde wsheet for intervention documentation. Goals/Plan for Shift Patient/Family stated goal for shift: Pt stated he wanted to feel btter Nursing goal for shift: maintain SBP<140, monitor pain level, promote skin integrity Plan: assess vital signs and frequent neuro checks, assess pain, turn every 2 ho urs Goals/Plan for Hospital Stay Patient/Family stated goal for hospital stay: Recovery is adequate for safe disc harge Nursing goal for hospital stay: Recovery is adequate for safe discharge Plan: Collaborate with interdisciplinary team * End of Shift Note - Saul Nam RN - 12/17/2020 6:38 AM CDT End of Shift Summary and Plan of Care Pt became expressively aphasic and could not speak temporarily. Stat head Ct unc hanged and pt returned to baseline neuro status. Neuro exam consistent the rest of the shift. Stat CXR done, also unchanged. Potassium replaced and PRN medicati ons given for SBP >140, see MAR. Goals per Patient Condition Fall Prevention Plan Patient will remain free from injury related to falls. See the Daily cares/safety flowsheet for intervention documentation. Skin Integrity Plan Patient skin integrity maintained. See integumentary tunde wsheet for intervention documentation. Goals/Plan for Shift Patient/Family stated goal for shift: Pt stated he wanted to feel btter Nursing goal for shift: maintain SBP<140, monitor pain level, promote skin integrity Plan: assess vital signs and frequent neuro checks, assess pain, turn every 2 ho urs Goals/Plan for Hospital Stay Nursing goal for hospital stay: Plan: * End of Shift Note - Nataliya Robertson RN - 12/16/2020 5:23 PM CDT End of Shift Summary and Plan of Care Treated headache pain, see MAR. Spinal precautions cleared. Nausea with movement , zofran and compazine given. X-ray today on ankle, shoulder and chest. NTS perf ormed. New PICC line placed. Neuro status improved on right side. Family updated at bedside. Goals of shift met, see below. Goals per Patient Condition Fall Prevention Plan Patient will remain free from injury related to falls. See the Daily cares/safety flowsheet for intervention documentation. Skin Integrity Plan Patient skin integrity maintained. See integumentary tunde wsheet for intervention documentation. Goals/Plan for Shift Patient/Family stated goal for shift: get better Nursing goal for shift: maintain SBP<140, monitor pain level, promote skin integrity Plan: assess vital signs and frequent neuro checks, assess pain, turn every 2 ho urs Goals/Plan for Hospital Stay Nursing goal for hospital stay: Plan: * Care Progression Initial Assessment - Josseline Earl LMSW - 12/16/2020 3:22 PM CDT Care Progression Initial Assessment Care Progression Plan: SNF vs return to Assisted Living facilty FRITZ met with pt and family member, Ne, at bedside to complete the assessment. Pt has been living at [facility] since mid-October. He i s somewhat independent with cares. He has a walker and is on 2L O2. The AL can p rovide transportation as needed. He has never had home health but prior to movin g to the assisted living, he went to [facility]. 12/16/20 1524 SBIRT Is this patient able to participate in Substance Abuse Screening? Yes Have you ever felt that you ought to CUT down on your drinking or drug use? 0 Have people ANNOYED you by criticizing your drinking or drug use? 0 Have you every felt bad or GUILTY about your drinking or drug use? 0 Have you ever had a drink or used drugs first thing in the morning (EYE DRAIN TILER) to steady your nerves or get rid of a hangover? 0 SBIRT TOTAL 0 Patient Information Information Obtained: Pt and daughter, Ne. Primary Caregiver : Self Support Systems: Children, Extended family Living Arrangements: Assisted Living, Other (Comment) [facility] [place] [facility]) Type of Residence: Assisted living facility Current Home Health Services: No Transportation Transportation at Discharge: Wheelchair van Transportation at Appointments: Family, Wheelchair van Functional Capacity & DME Assistive Devices: Walker, Oxygen Respiratory Items: Oxygen Current & Past Services Current Resources Available: N/A Past Facility Placements: [facility] Financial/Income Information Financial Hardship: N/A Verified that patients primary care physician is Brock Mas MD and receives eir medications from [facility] Mail Delivery - [facility] [address] [facility] [address] [facility] [address] Josseline Earl LMSW 12/16/2020 3:22 PM MANISHA: [id number] Voalte: NEURO ICU: [phone] CVICU: [phone] Desk: [phone] * Nutrition Note - Teressa Collier RD - 12/16/2020 10:26 AM CDT Frail Patient Nutrition Education [facility] Patient: Mariano Thomas Age: 80 y.o. : 1940 ATTENDING PHYSICIAN: Beto Muro MD Consult received to provide frail patient nutrition education. Pt recently admit guillermina, and is in the ICU. RD will follow-up for appropriate diet education prior t o discharge and monitor nutrition risk per policy. Electronically signed by Teressa Collier 12/16/2020 10:26 AM * End of Shift Note - Nataliya [...] review completed, pt recent ly admitted to [facility] and medical work up is ongoing. Physical Therapy will follow for skilled needs. Thank you for consultation. * Nutrition Note - Yas Torres RD - 12/15/2020 10:32 AM CDT Frail Patient Nutrition Education [facility] Patient: Mariano Thomas Age: 80 y.o. : 1940 ATTENDING PHYSICIAN: Jaxon Silva MD Consult received to provide frail patient nutrition education. Pt recently admit guillermina, medical w/u ongoing. RD will follow-up for appropriate diet education prior to discharge and monitor nutrition risk per policy. Electronically signed by Yas Torres 12/15/2020 10:33 AM documented in this encounter Plan of Treatment Care Team Description Date Type Specialty 01/07/2021 Video Visit Trauma Surgery Uyen Robbins PA [address] [place] [address] [phone] 01/18/2021 Imaging Radiology Appointment Andres Jiménez PA-C [address] [place] [address] [phone] 01/18/2021 Office Visit Neurosurgery Order Schedule Name Type Priority Associated Diag noses Once - Routine for 1 Occurrences startin g 12/16/2020 until 12/16/2020 Culture, Sputum with Gram Microbiology Routine Stain documented as of this encounter Procedures Comments [...] METABOLIC PANEL Routine 12/19/2020 6:25 AM CDT SODIUM Timed 12/18/2020 12:30 PM CDT POTASSIUM Timed 12/18/2020 12:30 PM CDT XR CHEST SINGLE VIEW Timed 12/18/2020 FRONTAL 10:11 AM CDT SODIUM Timed 12/18/2020 6:13 AM CDT POTASSIUM Timed 12/18/2020 6:13 AM CDT SODIUM Timed 12/18/2020 12:20 AM CDT POTASSIUM Timed 12/18/2020 12:20 AM CDT SODIUM Timed 12/17/2020 5:55 PM CDT POTASSIUM Timed 12/17/2020 5:55 PM CDT SODIUM Timed 12/17/2020 11:55 AM CDT POTASSIUM Timed 12/17/2020 11:55 AM CDT XR CHEST SINGLE VIEW Routine 12/17/2020 FRONTAL 7:02 AM CDT SODIUM Timed 12/17/2020 6:30 AM CDT POTASSIUM Timed 12/17/2020 6:30 AM CDT CBC AND DIFF (MANUAL DIFF Routine 12/16/2020 IF NECESSARY) 11:25 PM CDT BASIC METABOLIC PANEL Routine 12/16/2020 11:25 PM CDT XR CHEST SINGLE VIEW STAT 12/16/2020 FRONTAL 10:[address] HEAD WO CONTRAST STAT 12/16/2020 8:38 PM CDT SODIUM Timed 12/16/2020 6:02 PM CDT POTASSIUM Timed 12/16/2020 6:02 PM CDT XR CHEST POST LINE DRAIN STAT 12/16/2020 OR AIRWAY PLACEMENT 5:39 PM CDT XR CHEST SINGLE VIEW STAT 12/16/2020 FRONTAL 1:56 PM CDT SODIUM Timed 12/16/2020 12:45 PM CDT POTASSIUM Timed 12/16/2020 12:45 PM CDT XR SHOULDER MIN 2 VIEWS ROSE MARIE 12/16/2020 LEFT 12:24 PM CDT XR ANKLE MIN 3 VIEWS ROSE MARIE 12/16/2020 RIGHT 12:23 PM CDT SODIUM Routine 12/16/2020 6:05 AM CDT POTASSIUM Routine 12/16/2020 6:05 AM CDT CLOTTING SCREEN Routine 12/16/2020 12:15 AM CDT PHOSPHORUS Routine 12/16/2020 12:15 AM CDT MAGNESIUM Routine 12/16/2020 12:15 AM CDT COMPLETE BLOOD [...] STAT 12/15/2020 RECONSTRUCTED 10:[address] LUMBAR SPINE STAT 12/15/2020 RECONSTRUCTED 10:[address] CHEST W CONTRAST [...] CDT documented in this encounter Results * CBC and Diff (manual diff if necessary) (12/22/2020 12:15 AM CDT) Only the most recent of 5 results within the time period is included. WBC 16.30 (H) 4.00 - 11.00 TH/uL [facility] RBC 3.68 (L) 4.31 - 5.84 MIL/uL [facility] Hemoglobin 12.7 (L) 13.0 - 17.0 g/dL [facility] Hematocrit 37 (L) 40 - 50 % [facility] MCV 101 (H) 80.0 - 99.0 fL [facility] MCH 35 (H) 27.0 - 34.0 pg [facility] MCHC 34 32 - 36 % [facility] RDW 13.3 11.5 - 14.5 % [facility] Platelet Count 117 (L) 140 - 400 TH/uL [facility] MPV 12.9 (H) 9.4 - 12.3 fL [facility] Nucleated RBCs 0 0 - 0 /100 [facility] % Neutrophils 28 (L) 45 - 78 % [facility] %Lymphocytes 67 (H) 15 - 47 % [facility] % Monocytes 4 0 - 12 % [facility] %Eosinophils 0 0 - 7 % [facility] %Basophils 0 0 - 2 % [facility] % Imm Grans 1 0 - 1 % [facility] # Granulocytes 4.65 1.70 - 6.80 TH/uL [facility] # Lymphocytes 10.84 (H) 1.00 - 3.30 TH/uL [facility] # Monocytes 0.71 0.20 - 0.90 TH/uL [facility] # Eosinophils 0.06 0.00 - 0.40 TH/uL [facility] # Basophils 0.03 0.00 - 0.10 TH/uL [facility] RBC Morphology Normal Normal [facility] Specimen Blood Performing Organization Address City/State/ZIP Code P ruddy Number [address] [address] LABORATORIES [facility] [address] [place] [address] * Basic Metabolic Panel (12/22/2020 12:15 AM CDT) Only the most recent of 5 results within the time period is included. Sodium 128 (L) 133 - 147 MEQ/L [facility] Potassium 4.6 3.5 - 5.3 MEQ/L [facility] Chloride 89 (L) 96 - 112 MEQ/L [facility] Carbon Dioxide 33 (H) 20 - 32 MEQ/L [facility] Anion Gap 6 5 - 17 [facility] Calcium 8.4 8.4 - 10.5 mg/dL [facility] Glucose 106 (H) 70 - 100 mg/dL [facility] Blood Urea 20 7 - 26 mg/dL [facility] Creatinine 0.6 0.6 - 1.3 mg/dL [facility] eGFR Male AA >130 60 - 200 [facility] mL/min/1.73sq [facility] eGFR Male 129 60 - 200 [facility] Non-AA mL/min/1.73sq [facility] Specimen Blood Performing Organization Address City/[facility] Code P ruddy Number [address] [address] LABORATORIES [facility] [address] [place] [address] * CT Head wo contrast (12/21/2020 10:57 AM CDT) Only the most recent of 4 results within the time period is included. Specimen Impressions Performed At Impression: ALLAN Mildly increased mass effect and underl cecil brain compression with increased mass effect on the left later al ventricle. Mildly increased left right midline shift measuring 5 mm from 3 mm previously. READING SITE: [facility]. ATTESTATION STATEMENT: The Staff Radiol ogist has personally reviewed the images and dictated, reviewed, or edite d the final report. Narrative Performed At Patient: MARIANO THOMAS Sex#: M #: [id number] Chrissy# : [id number] Location: [place] [address] Accession# : [id number] Ordering Provider: ONELIA GRADY Procedure Requested: [id number] CT HEAD WO CONTRAST Exam Ordered: 12/21/2020 [...] In - 12/21/2020 10:34 PM CDT Patient: MARIANO THOMAS Sex#: Mercy #: 1940 Chrissy#: [id number] Location: [address] Ordering Provider: ONELIA GRADY Procedure Requested: [id number] CT HEAD WO CONTRAST Exam Ordered: 12/21/2020 [...] mm from 3 mm previously. READING SITE: [facility]. ATTESTATION STATEMENT: The Staff Radiologist has personally reviewed the images and dictated, reviewed, or edited the final report. Performing Organization Address City/State/ZIP Code P ruddy Number [place] * Lactate Venous WB - 0hr STAT (12/19/2020 12:35 PM CDT) Only the most recent of 2 results within the time period is included. Lactate Venous 0.6 0.0 - 2.0 mmol/L [facility] Specimen Blood Performing Organization Address City/[facility] Code P [facility] Number [address] [address] LABORATORIES [facility] [address] [place] [address] * Potassium (12/18/2020 12:30 PM CDT) Only the most recent of 10 results within the time period is included. Potassium 4.6 3.5 - 5.3 MEQ/L [facility] Specimen Blood Performing Organization Address City/[facility] P [facility] Number [address] [address] LABORATORIES [facility] [address] [place] [address] * Sodium (12/18/2020 12:30 PM CDT) Only the most recent of 10 results within the time period is included. Sodium 130 (L) 133 - 147 MEQ/L [facility] Specimen Blood Performing Organization Address City/[facility] Number [address] [address] LABORATORIES [facility] [address] [place] [address] * XR Chest single view frontal (12/18/2020 10:11 AM CDT) Only the most recent of 5 results within the time period is included. Specimen Impressions Performed At 1. Right upper extremity PICC. [facility] 2. Improved aeration of the left lung. Residual left basilar airspace disease. Interstitial edema. READING SITE: [facility] Binh Strickland Performed At Patient: MARIANO THOMAS Sex#: M #: [id number] Chrissy# : [id number] Location: [address] Accession# : [id number] Ordering Provider: ARIN BALL Procedure Requested: [id number] XR CHEST SINGLE VIEW FRONTAL Exam Ordered: [...] In - 12/18/2020 10:19 AM CDT Patient: MARIANO THOMAS Sex#: M #: 1940 Chrissy#: [id number] Location: [place] [address] Ordering Provider: ARIN BALL Procedure Requested: [id number] XR CHEST SINGLE VIEW FRONTAL Exam Ordered: [...] basilar airspace disease. Interstitial edema. READING SITE: [facility] Address City/State/ZIP Code P ruddy Number [place] * XR Chest post line drain or airway placement (12/16/2020 5:39 PM CDT) Only the most recent of 2 results within the time period is included. Specimen Impressions Performed At 1. Life-support devices as above. No pneumothorax. M [facility] 2. Asymmetric heterogeneous opacities, most prominent on left have improved. 3. Moderate left pleural effusion has i mproved. READING SITE: [facility] Narrative Performed At Patient: MARIANO THOMAS Sex#: M #: 1940 Hcrissy# : [id number] Location: [address] ICU N318- Access ion#: [id number] Ordering Provider: JOHN CARBAJAL Procedure Requested: [id number] XR CHEST POST LINE DRAIN OR AIRWAY [...] In - 12/16/2020 6:15 PM CDT Patient: MARIANO THOMAS Sex#: M #: 1940 Chrissy#: [id number] Location: [address] ICU N318- Ordering Provider: JOHN CARBAJAL Procedure Requested: [id number] XR CHEST POST LINE DRAIN OR AIRWAY [...] pleural effusion has im proved. READING SITE: [facility] Performing Organization Address City/State/ZIP Code P ruddy [...] Lim on 12/16/2020 1:44 PM READING SITE: [facility] Narrative Performed At Patient: MARIANO THOMAS Sex#: M #: 1940 Chrissy# : [id number] Location: [address] ICU N318-01 Access ion#: [id number] Ordering Provider: ARIN BALL Procedure Requested: [id number] XR SHOUL AVA MIN 2 VIEWS LEFT Exam Ordered: 12/16/2020 [...] In - 12/16/2020 1:49 PM CDT Patient: MARIANO THOMAS Sex#: M #: 1940 Chrissy#: [id number] Location: [address] ICU N318-01 Ordering Provider: ARIN BALL Procedure Requested: [id number] XR SHOULDER MIN 2 VIEWS LEFT Exam [...] Lim on 12/16/2020 1:44 PM READING SITE: [facility] Performing Organization Address City/State/ZIP Code P ruddy Number FAVIAN * XR Ankle min 3 views right (12/16/2020 12:23 PM CDT) Specimen Impressions Performed At No evidence of fracture. ALLAN READING SITE: [facility] Narrative Performed At Patient: MARIANO THOMAS Sex#: M #: 1940 Chrissy# : [id number] Location: [address] N318-01 Access ion#: [id number] Ordering Provider: ARIN BALL Procedure Requested: [id number] XR ANKLE MIN 3 VIEWS RIGHT Exam [...] In - 12/16/2020 1:39 PM CDT Patient: MARIANO THOMAS Sex#: Mercy #: 1940 Chrissy#: [id number] Location: [address] N318-01 Ordering Provider: ARIN BALL Procedure Requested: [id number] XR ANKLE MIN 3 VIEWS RIGHT Exam [...] No evidence of fracture. READING SITE: [facility] Performing Organization Address City/State/ZIP Code P ruddy Number [place] * Phosphorus (12/16/2020 12:15 AM CDT) Phosphorus 3.6 2.5 - 4.5 mg/dL [facility] Specimen Blood Performing Organization Address City/State/ZIP Code P ruddy Number [facility] [address] [place] [address] LABORATORIES [facility] [address] [place] [address] * Magnesium (12/16/2020 12:15 AM CDT) Only the most recent of 2 results within the time period is included. Magnesium 1.6 1.4 - 2.7 mg/dL [facility] Specimen Blood Performing Organization Address City/State/ZIP Code P ruddy Number [facility] [address] [place] [address] LABORATORIES [facility] [address] [place] [address] * Clotting Screen (12/16/2020 12:15 AM CDT) Only the most recent of 3 results within the time period is included. Protime 14.7 11.4 - 15.0 sec [facility] INR 1.2 0.8 - 1.2 [facility] APTT 35 (H) 22 - 34 sec [facility] Specimen Blood Performing Organization Address City/State/[facility] Code P ruddy Number [address] [address] LABORATORIES [facility] [address] [place] [address] * Complete Blood Count (12/16/2020 12:15 AM CDT) WBC 19.42 (H) 4.00 - 11.00 TH/uL [facility] RBC 4.18 (L) 4.31 - 5.84 MIL/uL [facility] Hemoglobin 14.4 13.0 - 17.0 g/dL [facility] Hematocrit 42 40 - 50 % [facility] MCV 100 (H) 80.0 - 99.0 fL [facility] MCH 34 27.0 - 34.0 pg [facility] MCHC 35 32 - 36 % [facility] RDW 12.8 11.5 - 14.5 % [facility] Platelet Count 124 (L) 140 - 400 TH/uL [facility] MPV 13.0 (H) 9.4 - 12.3 fL [facility] Nucleated RBCs 0 0 - 0 /100 [facility] Specimen Blood Performing Organization Address City/[facility]/ZIP Code P ruddy Number [address] [address] LABORATORIES [facility] [address] [place] [address] * Urinalysis Reflex (12/15/2020 2:00 PM CDT) Appearance, [facility] Glucose Urine 100 (A) Negative mg/dL [facility] Bilirubin Urine Negative Negative [facility] Ketones Urine Trace (A) Negative mg/dL [facility] Specific 1.022 1.001 - 1.030 [facility] Hemoglobin Trace (A) Negative [facility] PH Urine 8.0 5.0 - 8.0 [facility] Protein Urine Negative Negative mg/dL [facility] Lab Urobilinogen Negative Negative EU/dL [facility] Nitrite Urine Negative Negative [facility] Leukocyte Negative Negative [facility] Lab Specimen Clean Voided Urine Performing Organization Address City/[facility] P ruddy Number [address] [address] LABORATORIES [facility] [address] [place] [address] * Toxicology Screening Panel (12/15/2020 2:00 PM CDT) Tetrahydrocanna Not Detected Not Detected [facility] bin Urine [facility] Lab Phencyclidine Not Detected Not Detected [facility] Cocaine Urine Not Detected Not Detected [facility] Methamphetamine Not Detected Not Detected [facility] Lab Opiates Urine Not DetectedComment: This drug Not Detected [facility] provides presumptive Hospital Lab results for medical purposes only. False positive results may occur. Confirmatory results will follow for all positive drugs except tricyclic antidepressants. Amphetamines Not Detected Not Detected [facility] Urine Hospital Lab Benzodiazepines Not Detected Not Detected [facility] Urine [facility] Tricyclic Not Detected Not Detected [facility] Antidepressants Hospital Lab Methadone Urine Not Detected Not Detected [facility] Barbiturates Not Detected Not Detected [facility] Urine [facility] Lab Oxycodone Urine Not Detected Not Detected [facility] Comment: Hospital Lab Toxicology cutoff values: Assay Cutoff value Assay Cutoff value Amphetamines 500 ng/mL Methamphetamines 500 ng/mL Barbiturates 200 ng/mL Opiates 100 ng/mL Benzodiazepines 150 ng/mL Oxycodone 100 ng/mL Cocaine 150 ng/mL Phencyclidine 25 ng/mL Methadone 200 ng/mL THC 50 ng/mL Tricyclic Antidepressants 300 ng/mL Specimen Urine Performing Organization Address City/[facility]/ZIP Code P ruddy Number [address] [address] LABORATORIES [facility] [address] [place] [address] * GLUCOSE POC (12/15/2020 10:56 AM CDT) Glucose POC 127 (H) 70 - 100 mg/dL [facility] LABORATORIES Specimen Performing Organization Address City/[facility]/ZIP Code P ruddy Number [address] [address] LABORATORIES * P2Y12 Response Assay (12/15/2020 10:35 AM CDT) P2Y12 Platelet 211Comment: PRU values >230 PRU Sa [facility]'s Function have been associated with an Hospital Lab increased risk of ischemic events after PCI including , MO, and stent thrombosis. Specimen Blood Performing Organization Address City/[facility]/ZIP Code P ruddy Number [address] [address] LABORATORIES [facility] [address] [place] [address] * Venous Blood Gas (12/15/2020 10:35 AM CDT) PO2 Venous 31 (L) 37 - 43 mm Hg [facility] PCO2 Venous 72 (H) 40 - 45 mm Hg [facility] PH Venous 7.30 (L) 7.36 - 7.41 units [facility] Bicarbonate 35.4 (H) 22.0 - 29.0 MEQ/L [facility] Base Excess 6.4 (H) -3.0 - 3.0 MEQ/L [facility] Specimen Blood Performing Organization Address [facility]/ZIP Code P ruddy Number [facility] [address] [place] [address] LABORATORIES [facility] [address] [place] [address] * Electrocardiogram (ECG) (12/15/2020 10:26 AM CDT) QRSd 122 [facility] QT 432 [facility] QTC 523 [facility] ECGHR 88 [facility] Specimen Narrative Performed At [facility] ED Test Date: 2020-12-15 Pat Name: MARIANO THOMAS Department: ERL Room: [facility] Gender: Male Detacher: [id number] : 1940 Requested By: ARIN BALL Order Number: [id number] Reading MD: Measurements Intervals [place] Rate: 88 P: MA: QRS: 19 QRSD: 122 T: -28 QT: 432 QTc: 523 Interpretive Statements Atrial fibrillation Ventricular premature complex Nonspecific intraventricular conduction delay Nonspecific repol abnormality, lateral leads Procedure Note Interface, External Ris In - 12/15/2020 10:27 AM CDT [facility] ED Test Date: 2020-12-15 Pat Name: MARIANO THOMAS Department: ERL Room: [facility] Gender: Male Detacher: [id number] : 1940 Requested By: ARIN BALL Order Number: [id number] Reading MD: Measurements Intervals [place] Rate: 88 P: MA: QRS: 19 QRSD: 122 T: -28 QT: 432 QTc: 523 Interpretive Statements Atrial fibrillation Ventricular premature complex Nonspecific intraventricular conduction delay Nonspecific repol abnormality, lateral leads Performing Organization Address City/[facility] Code P ruddy Number [facility] * COVID PCR - Rapid (12/15/2020 10:24 AM CDT) Pathologist [facility] SARS-CoV-2 PCR NegativeComment: This RT-PCR Negative [facility] test has been authorized by Hospital Lab the FDA under an Emergency Use Authorization (EUA) for use by authorized laboratories. Specimen NASOPHARYNGEAL SWAB Performing Organization Address City/[facility]/ZIP Code P ruddy Number [address] [address] LABORATORIES [facility] [address] [place] [address] * Antibody Screen (12/15/2020 10:22 AM CDT) Pathologist [facility] Antibody Screen Negative Negative [facility] Specimen Blood Performing Organization Address City/[facility]/ZIP Code P ruddy Number [address] [address] LABORATORIES [facility] [address] [place] [address] * ABORH Type (12/15/2020 10:22 AM CDT) Pathologist [facility] ABORH Type O Positive [facility] Specimen Blood Performing Organization Address City/[facility]/ZIP Code P ruddy Number [address] [address] LABORATORIES [facility] [address] [place] [address] * Creatine Kinase (12/15/2020 10:22 AM CDT) [facility] Creatine Kinase 30 IU/L [facility] Comment: Hospital Lab White Female: 30 - 160 IU/L Black Female: 30 - 430 IU/L White Male: 40 - 425 IU/L Black Male: 50 - 850 IU/L Specimen Blood Performing Organization Address City/[facility]/ZIP Code P ruddy Number [address] [address] LABORATORIES [facility] [address] [place] [address] * Troponin (12/15/2020 10:22 AM CDT) Troponin <0.01 0.00 - 0.03 ng/mL [facility] Comment: Hospital Lab Troponin Value Interpretation 0.00 - 0.03 Healthy 0.04 - 0.12 Increased Cardiac Risk >0.12 Myocardial Infarction Troponin may not become elevated until 6 to 8 hours after onset of symptoms. Specimen Blood Performing Organization Address City/State/ZIP Code P ruddy Number [address] [address] LABORATORIES [facility] [address] [place] [address] * Lipase (12/15/2020 10:22 AM CDT) Pathologist [facility] Lipase <10 (L) 23 - 300 IU/L [facility] Specimen Blood Performing Organization Address City/State/ZIP Code P ruddy Number [address] [address] LABORATORIES [facility] [address] [place] [address] * Amylase (12/15/2020 10:22 AM CDT) Pathologist [facility] Amylase 45 30 - 130 IU/L [facility] Specimen Blood Performing Organization Address City/[facility]/ZIP Code P ruddy Number [address] [address] LABORATORIES [facility] [address] [place] [address] * Alcohol Serum (12/15/2020 10:22 AM CDT) Pathologist [facility] Alcohol Serum <10 0 - 9 mg/dL [facility] Specimen Blood Performing Organization Address City/State/ZIP Code P ruddy Number [address] [address] LABORATORIES [facility] [address] [place] [address] * Comprehensive Metabolic Panel (12/15/2020 10:22 AM CDT) Pathologist [facility] Sodium 126 (L) 133 - 147 MEQ/L [facility] Potassium 4.6 3.5 - 5.3 MEQ/L [facility] Chloride 89 (L) 96 - 112 MEQ/L [facility] Carbon Dioxide 34 (H) 20 - 32 MEQ/L [facility] Anion Gap 4 (L) 5 - 17 [facility] Calcium 7.9 (L) 8.4 - 10.5 mg/dL [facility] Glucose 120 (H) 70 - 100 mg/dL [facility] Protein Total 5.2 (L) 6.0 - 8.2 g/dL [facility] Serum [facility] Albumin 2.9 (L) 3.5 - 5.0 g/dL [facility] Alkaline 61 42 - 140 IU/L [facility] Alanine 10 0 - 49 IU/L [facility] e Aspartate 21Comment: Specimen is 15 - 46 IU/L [facility] Aminotransferas slightly hemolyzed which may Hospital Lab e elevate the AST result. Bilirubin Total 1.3 0.2 - 1.3 mg/dL [facility] Blood Urea 12 7 - 26 mg/dL [facility] Creatinine 0.7 0.6 - 1.3 mg/dL [facility] eGFR Male AA >130 60 - 200 [facility] mL/min/1.73sq m [facility] Lab eGFR Male 108 60 - 200 [facility] Non-AA mL/min/1.73sq [facility] Lab Specimen Blood Performing Organization Address City/State/ZIP Code P ruddy Number [address] [address] LABORATORIES [facility] [address] [place] [address] * CT Lumbar Spine reconstructed (12/15/2020 10:21 AM CDT) Specimen Impressions Performed At Subacute fracture of superior endplate of L1 with celso roximately 70% [facility] height loss. Presence of superior endpl ate fracture cleft suggests nonhealing. Subacute fracture of the miller perior endplate of L3 with no significant height loss. READING SITE: [facility]. ATTESTATION STATEMENT: The Staff Radiologist has personally re viewed the images and dictated, reviewed, or edited the final report. Narrative Performed At Patient: MARIANO THOMAS Sex#: M #: 1940 Chrissy# : [id number] Location: [facility] N3 ICU N318-01 Access ion#: [id number] Ordering Provider: ARIN BALL Procedure Requested: [id number] CT LUMBA R SPINE RECONSTRUCTED Exam Ordered: [...] In - 12/16/2020 12:04 AM CDT Patient: MARIANO THOMAS Sex#: M #: 1940 Chrissy#: [id number] Location: [address] N318-01 Ordering Provider: ARIN BALL Procedure Requested: [id number] CT LUMBAR SPINE RECONSTRUCTED Exam Ordered: 12/15/2020 [...] with no significant height loss. READING SITE: [facility]. ATTESTATION STATEMENT: The Staff Radiologist has personally reviewed the images and dictated, reviewed, or edited the final report. Performing Organization Address City/State/ZIP Code P ruddy Number [facility] * CT Thoracic Spine reconstructed (12/15/2020 10:21 AM CDT) Specimen Impressions Performed At Impression: [facility] No acute osseous abnormality of the tho racic spine. Multilevel anterior osteophytes as a re sult of chronic degenerative changes. READING SITE: [facility]. ATTESTATION STATEMENT: The Staff Radiologist has personally re viewed the images and dictated, reviewed, or edited the final report. Narrative Performed At Patient: MARIANO THOMAS Sex#: M #: 1940 Chrissy# : [id number] Location: [address] N318-01 Access ion#: [id number] Ordering Provider: ARIN BALL Procedure Requested: [id number] CT THORA CIC SPINE RECONSTRUCTED Exam Ordered: [...] In - 12/16/2020 12:04 AM CDT Patient: MARIANO THOMAS Sex#: M #: 1940 Chrissy#: [id number] Location: [address] ICU N318-01 Ordering Provider: ARIN BALL Procedure Requested: [id number] CT THORACIC SPINE RECONSTRUCTED Exam Ordered: 12/15/2020 [...] result of chronic degenerative changes. READING SITE: [facility]. ATTESTATION STATEMENT: The Staff Radiologist has personally reviewed the images and dictated, reviewed, or edited the final report. Performing Organization Address City/State/ZIP Code P ruddy Number [facility] * CT Abdomen Pelvis w contrast (12/15/2020 [...] subtle nondisplaced sacrococc ygeal fracture. READING SITE: [facility] Narrative Performed At Patient: MARIANO THOMAS Sex#: M #: 1940 Chrissy# : [id number] Location: [facility] ED LED08 Ordering Provider: ARIN BALL Procedure Requested: [id number] CT ABDOM EN PELVIS W CONTRAST Exam [...] In - 12/15/2020 11:15 AM CDT Patient: MARIANO THOMAS Sex#: M #: 1940 Chrissy#: [id number] Location: [facility] ED LED08 Ordering Provider: ARIN BALL Procedure Requested: [id number] CT ABDOMEN PELVIS W CONTRAST Exam Ordered: [...] a subtle nondisplaced sacrococcygeal fracture. READING SITE: [facility] Performing Organization Address City/State/ZIP Code P ruddy Karon LEMUS * CT Chest w contrast (12/15/2020 10:21 [...] 3. Cardiomegaly. Coronary atheroscleros is. READING SITE: [facility] Narrative Performed At Patient: MARIANO THOMAS Sex#: M #: 1940 Chrissy# : [id number] Location: [facility] LED Ordering Provider: ARIN BALL Procedure Requested: [id number] CT CHEST W CONTRAST Exam Ordered: 12/15/2020 09 54 Exam Date/Time: 12/15/2020 102 1 Begin exam date/time: 12/15/[address] CHEST W CONTRAST INDICATION: trauma Comparison: None. TECHNIQUE: Following the uneventful adm inistration of intravenous contrast 100 cc Omnipaque 350, axial CT sections were obtained through the lungs and upper abdomen. Coronal MO P images and coronal and sagittal multiplanar [...] In - 12/15/2020 11:07 AM CDT Patient: MARIANO THOMAS Sex#: M #: 1940 Chrissy#: [id number] Location: [facility] LED08 Ordering Provider: ARIN BALL Procedure Requested: [id number] CT CHEST W CONTRAST Exam Ordered: 12/15/2020 [...] 3. Cardiomegaly. Coronary atherosclerosi s. READING SITE: [facility] Organization Address City/State/ZIP Code P ruddy Number [facility] * CT Cervical Spine wo contrast (12/15/2020 10:21 AM CDT) Specimen Impressions Performed At 1. No acute fracture or dislocation. [facility] 2. Mild to moderate degenerative cervic al spondylosis. ATTESTATION STATEMENT: The Staff Radiol ogist has personally reviewed the images and dictated, reviewed, or edite d the final report. READING SITE: [facility] Narrative Performed At Patient: MARIANO THOMAS Sex#: M #: 1940 Chrissy# : [id number] Location: [address] ICU N318-01 Access ion#: [id number] Ordering Provider: ARIN BALL Procedure Requested: [id number] CT CERVI MALENA SPINE WO CONTRAST Exam [...] In - 12/16/2020 12:03 AM CDT Patient: MARIANO THOMAS Sex#: M #: 1940 Chrissy#: [id number] Location: [address] N318-01 Ordering Provider: ARIN BALL Procedure Requested: [id number] CT CERVICAL SPINE WO CONTRAST Exam Ordered: [...] or edited the final report. READING SITE: [facility] Organization Address City/State/ZIP Code P ruddy Number [id number] * XR Pelvis one or two views (12/15/2020 9:52 AM CDT) Specimen Impressions Performed At No evidence of fracture. [facility] READING SITE: [facility] Narrative Performed At Patient: MARIANO THOMAS Sex#: M #: 1940 Chrissy# : [id number] Location: [place] [address] Ordering Provider: ARIN BALL Procedure Requested: [id number] XR PELVI S ONE OR TWO VIEWS [...] In - 12/15/2020 10:01 AM CDT Patient: MARIANO THOMAS Sex#: M #: 1940 Chrissy#: [id number] Location: [facility] ED R1 Ordering Provider: ARIN BALL Procedure Requested: [id number] XR PELVIS ONE OR TWO VIEWS Exam Ordered: 12/15/2020 0946 Exam Date/Time: 12/15/202052 Begin exam date/time: 12/15/202048 XR PELVIS ONE OR TWO VIEWS DATE: 12/15/2020 9:53 AM INDICATION: TRAUMA COMPARISON: None TECHNIQUE: AP view FINDINGS: No evidence of fracture or dislocation. No SI joint or pubic symphysis diastases. Mild osteoarthritis of the hips. Left iliac stent. IMPRESSION No evidence of fracture. 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 Traumatic subdural hematoma with loss o f consciousness, 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 ([facility]) Longstanding persistent atrial fibrilla tion ([facility]) Closed compression fracture of body of L1 vertebra (HCC) Closed compression fracture of L3 lumba r vertebra, 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 ([facility]) Traumatic focal compression of brain (H CC) Compression of brain 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 ([facility]) History of DVT (deep vein thrombosis) Hypertensive urgency Hyponatremia Hyposmolality and/or hyponatremia Paresis of right lower extremity ([facility]) Type 2 diabetes mellitus with hyperglyc emia, with long-term current use of insulin ([facility]) Acute urinary retention Hypoalbuminemia Other disorders of plasma protein metab olism A-fib ([facility]) Atrial fibrillation Type II diabetes mellitus (HCC) Type II or unspecified type diabetes me llitus without mention of complication, not stated as uncontrolled Leukocytosis Leukocytosis, unspecified Chronic respiratory failure with hypoxi a ([facility]) History of COPD Acute delirium Delirium due to conditions classified e lsewhere Nausea Nausea alone Thrombocytopenia (HCC) Unspecified thrombocytopenia documented in this encounter Administered Medications Action Date Dose Rate Site Medication Order MAR Action acetaminophen (TYLENOL) suppository 325-650 mg 325-650 mg, Rectal, Every 6 hours PRN, mild pain (pain score 1-3), Starting on Mon12/15/20 at 1004, Administer if patient unable to tolerate oral medications. 12/22/2020 1:54 AM CDT 650 mg acetaminophen (TYLENOL) tablet 650 mg Given 650 mg, Oral, Every 6 hours PRN, fever, temperature > 98.6 F (37 C), Starting o n Mon12/15/20 at 1004, Do not exceed 4 GM/DAY of acetaminophen. If 65 or olde r do not exceed 3 GM/DAY. If chronic alcoholic do not exceed 2 GM/DAY. 650 mg Given 12/21/2020 8:14 PM CDT 650 mg Given 12/19/2020 9:39 AM CDT alteplase (CATHFLO ACTIVASE) injection 1 mg 1 mg, Intra-Catheter, As needed, declotting central catheter or sluggish/occluded CVC line, Starting on Mon12/15/20 at 1326, Use 1 mg/mL to declot catheter as needed, Declot catheter per Central Venous Access Device, Declotting procedure in Alonso REFRIGERATE 12/22/2020 9:13 AM CDT 200 mg amiodarone (CORDARONE) tablet 200 mg Given 200 mg, Oral, 2 times daily, First dose on Mon12/16/20 at 1100 200 mg Given 12/21/2020 8:15 PM CDT 200 mg Given 12/21/2020 9:28 AM CDT bisacodyL (DULCOLAX) suppository 10 mg 10 mg, Rectal, Daily PRN, constipation, if no BM in previous 24 hours, Starting on Mon12/15/20 at 1004 12/22/2020 1:50 PM CDT 2 g cefepime (MAXIPIME) injection 2 g Given 2 g, Intravenous, Every 12 hours scheduled, Indications: COPD (WITH PSEUDOMONAL RISK FACTORS), First dose o n Mon12/22/20 at 1345, For 7 days, If giving IV push, reconstitute each vial with 20 ml sterile water and give over 3-5 minutes If sterile water is unavailable, may use Bacteriostatic Water or Normal Saline for reconstitution 12/15/2020 4:54 PM CDT 12.5 mcg fentaNYL [...] on continuous IV or PO opiate therapy. 12/16/2020 8:30 AM CDT 25 mcg fentaNYL (SUBLIMAZE) injection 25-50 [...] or PO opiate therapy. 25 mcg Given 12/16/2020 4:58 AM CDT 50 mcg Given 12/16/2020 12:30 AM CDT 12/22/2020 1:50 PM CDT 5,000 Units Right Lo wer Abdomen heparin (porcine) 5,000 unit/mL Given injection 5,000 Units 5,000 Units, Subcutaneous, Every 8 hours, First dose on [place] 12/17/20 at 220 0 5,000 Units Left Lower Abdomen Given 12/22/2020 5:16 AM CDT 5,000 Units Right Lower Abdomen Given 12/21/2020 8:16 PM CDT 12/16/2020 7:52 PM CDT 20 mg hydrALAZINE (APRESOLINE) injection 10-20 Given mg 10-20 mg, Intravenous, Every 2 hours PRN, SBP > 140, Starting on Mon12/16/20 at 1626 12/15/2020 10:22 AM CDT 100 mL iohexoL (OMNIPAQUE) 350 mg iodine/mL Given injection 1-500 mL 1-500 mL, Intravenous, Once in imaging, contrast, Starting on Mon12/15/20 at 1022, For 1 dose 12/17/2020 8:04 AM CDT 10 mg labetaloL (NORMODYNE,TRANDATE) injection Given 10-20 mg 10-20 mg, Intravenous, Every 2 hours PRN, high blood pressure, SBP > 140, first line, hold for HR < 60, Starting on Mon12/16/20 at 1626 10 mg Given 12/17/2020 7:06 AM CDT 10 mg Given 12/17/2020 3:15 AM CDT 12/22/2020 9:13 AM CDT 750 mg levETIRAcetam (KEPPRA) tablet 750 mg Given 750 mg, Oral, 2 times daily, First dose on Mon12/17/20 at 1215 750 mg Given 12/21/2020 8:15 PM CDT 750 mg Given 12/21/2020 9:27 AM CDT 12/22/2020 9:10 AM CDT 1 patch Back Lidocaine (LIDODERM) 5 % 1 patch Patch 1 patch, Transdermal, Administer over 12 Applied Hours, Daily, First dose on Mon12/15/20 at 2000, Apply to low back 1 patch Back Patch Applied 12/21/2020 9:15 AM CDT 1 patch Back Patch Applied 12/19/2020 8:18 AM CDT 12/22/2020 10:24 AM CDT 600 mg linezolid (ZYVOX) tablet 600 mg Given 600 mg, Oral, 2 times daily, Indications: HAP/VAP, First dose on Mon12/22/20 at 0945, For 7 days, PROTECT FROM LIGHT 12/19/2020 12:45 PM CDT 30 mL magnesium hydroxide (MILK OF MAGNESIA) Given suspension 30 mL 30 mL, Oral, Daily PRN, constipation, Starting on Mon12/17/20 at 1356 magnesium sulfate IVPB 4 gram (premix) 4 [...] for 6 hours (if able to monitor). 12/16/2020 11:06 AM CDT 25 mg metoprolol tartrate (LOPRESSOR) tablet Given 25 mg 25 mg, Oral, 2 times daily, First dose (after last modification) on Mon 1 at 1100, Hold if HR < 60 or SBP < 110. 12/22/2020 3:16 PM CDT 25 mg metoprolol tartrate (LOPRESSOR) tablet Given 25 mg 25 mg, Oral, 2 times daily, First dose (after last modification) on Mon 1 at 0900, Hold if HR < 60 or SBP < 110. 12/21/2020 9:27 AM CDT 50 mg metoprolol tartrate (LOPRESSOR) tablet Given 50 mg 50 mg, Oral, 2 times daily, First dose (after last modification) on Mon 1 at 2100, Hold if HR < 60 or SBP < 110. 50 mg Given 12/20/2020 9:16 AM CDT 50 mg Given 12/19/2020 8:17 AM CDT 12/22/2020 2:05 PM CDT 500 mg metroNIDAZOLE (FLAGYL) tablet 500 mg Given 500 mg, Oral, 3 times daily, Indications: ASPIRATION PNEUMONIA, Firs t dose (after last modification) on Mon12/22/20 at 1600, For 21 doses, Avoid Alcohol in Food and Drinks 12/15/2020 7:25 PM CDT 5 mg/hr 12 mL/hr niCARdipine (CARDENE) 25 mg in sodium Rate/Dose chloride 0.9 % (NS) 60 mL infusion Change 5-15 mg/hr (12-36 mL/hr), Intravenous, at 12-36 mL/hr, Continuous, Starting on Mon12/15/20 at 1003, Begin infusion at 5 mg/hr and titrate by 2.5 mg/hr every 5-15 minutes to maintain SBP < 140. Infusion not to exceed 15 mg/hr. STORE AT ROOM TEMPERATURE 5 mg/hr 12 mL/hr New Bag 12/15/2020 5:01 PM CDT 5 mg/hr 12 mL/hr Rate/Dose Verify 12/15/2020 3:16 PM CDT 12/18/2020 4:04 PM CDT 2.5 mg OLANZapine (ZYPREXA) tablet 2.5 mg Given 2.5 mg, Oral, Once, On Mon12/18/20 at 1545, For 1 dose 12/16/2020 8:39 PM CDT 4 mg ondansetron (ZOFRAN) injection 4 mg Given 4 mg, Intravenous, Every 6 hours PRN, nausea, vomiting, Starting on Mon12/15/20 at 1006 4 mg Given 12/16/2020 11:51 AM CDT 4 mg Given 12/16/2020 12:27 AM CDT 12/16/2020 2:35 PM CDT 4 mg ondansetron (ZOFRAN-ODT) disintegrating Given tablet 4 mg 4 mg, Oral, Once, On Mon12/16/20 at 1415, For 1 dose, Do not remove from blister until needed. Peel backing off the blister, do not push tablet through . For ORAL administration, using dry hands place tablet on tongue and allow to dissolve. Swallow with saliva. Fo r NG/OG administration, dissolve tablet i n small amount of water immediately upon removal from package and administer immediately via syringe through feeding tube. 12/22/2020 9:10 AM CDT 17 g polyethylene glycol (GLYCOLAX) packet 17 Given g 17 g, Oral, Daily, First dose on Mon12/17/20 at 1415 17 g Given 12/21/2020 9:27 AM CDT 17 g Given 12/19/2020 8:16 AM CDT potassium bicarb-citric acid (EFFER-K) effervescent tablet 20 [...] to monitor). DO NOT CRUSH OR CHEW. 12/17/2020 1:21 AM CDT 20 mEq potassium chloride (KLOR-CON) CR tablet Given 20 mEq 20 mEq, Oral, Once, On [place] 12/17/20 at 0100, For 1 dose, DO NOT CRUSH OR CHEW. 12/17/2020 1:14 PM CDT 20 mEq potassium chloride (KLOR-CON) CR tablet Given 20 mEq 20 mEq, Oral, Once, Indications: hypokalemia prevention, On [place] 12/17/20 at 1300, For 1 dose, DO NOT CRUSH OR CHEW. potassium chloride [...] of 20 mEq/hr through a central line. predniSONE (DELTASONE) tablet 10 mg 10 mg, Oral, Daily, First dose on Mon12/31/20 at 0900, For 1 day, Give with food to reduce GI upset predniSONE (DELTASONE) tablet 20 mg 20 mg, Oral, Daily, First dose on Mon12/29/20 at 0900, For 2 days, Give with food to reduce GI upset predniSONE (DELTASONE) tablet 30 mg 30 mg, Oral, Daily, First dose on Mon12/26/20 at 0900, For 3 days, Give with food to reduce GI upset 12/22/2020 10:20 AM CDT 40 mg predniSONE (DELTASONE) tablet 40 mg Given 40 mg, Oral, Daily, First dose on Mon12/22/20 at 0945, For 4 days, Give with food to reduce GI upset 12/17/2020 9:59 AM CDT 5 mg prochlorperazine (COMPAZINE) injection 5 Given mg 5 mg, Intravenous, Every 6 hours PRN, nausea, vomiting, Starting on Mon12/15/20 at 1008 5 mg Given 12/16/2020 6:17 PM CDT 5 mg Given 12/15/2020 8:40 PM CDT 12/15/2020 9:55 AM CDT 2,616 Units prothrombin [...] the nearest full vial., Indication: Intracranial hemorrhage 12/17/2020 8:44 AM CDT 1 tablet senna-docusate (PERICOLACE) 8.6-50 mg 1 Given tablet 1 tablet, Oral, 2 times daily, First dose on Mon12/16/20 at 1100 1 tablet Given 12/16/2020 8:41 PM CDT 12/22/2020 9:13 AM CDT 2 tablets senna-docusate (PERICOLACE) 8.6-50 mg 2 Given tablet 2 tablet, Oral, 2 times daily, First dose (after last modification) on Mon12/17/20 at 2100 2 tablets Given 12/21/2020 8:15 PM CDT 2 tablets Given 12/21/2020 9:27 AM CDT 12/20/2020 9:41 PM CDT 3 mL sodium chloride 10 % nebulizer solution Given 3 mL 3 mL, Nebulization, Every 6 hours, Firs t dose on Mon12/16/20 at 1415 3 mL Given 12/20/2020 8:26 AM CDT 3 mL Given 12/19/2020 1:52 PM CDT 12/16/2020 1:52 AM CDT 20 mL/hr 20 mL/hr sodium chloride 3% (HYPERTONIC) infusion Rate/Dose 20 mL/hr, Intravenous, at 20 mL/hr, Change Continuous, Starting on Mon12/15/20 at 1200, Double check the IV pump settings before administering. Serious injury or may occur if rate or duration of administration of concentrated sodium chloride is excessive. Central line is recommended for administration. 40 mL/hr 40 mL/hr New Bag 12/16/2020 12:28 AM CDT 40 mL/hr 40 mL/hr New Bag 12/15/2020 12:06 PM CDT 12/22/2020 9:13 AM CDT 0.4 mg tamsulosin (FLOMAX) 24 hr capsule 0.4 mg Given 0.4 mg, Oral, Daily, First dose on Mon12/16/20 at 1500, Swallow capsule whole 0.4 mg Given 12/21/2020 9:28 AM CDT 0.4 mg Given 12/20/2020 9:16 AM CDT white petrolatum-mineral oiL (GENTEAL PM) 94-3 % ophthalmic ointment 1 application 1 application, Both Eyes, Every 4 hours PRN, dry eyes, Starting on Mon12/15/20 at 1004, Apply until awake and alert. documented in this encounter Active and Recently Administered Medications Times are shown in CDT. 12/21/2020 12/22/2020 Medication Order 12/20/2020 0928 (Given - Provider: Alli Quezada)2014 (Given - Provider: Alicia Callaway RN) 0913 (Given - Provider: Alli Quezada) amiodarone (CORDARONE) tablet 200 mg 0916 (Given - 200 mg, Oral, 2 times daily, First dose Provider: Letha Rossi on Mon12/16/20 at 1100 Ranjeet, HEVER)2100 (Hold this dose - Provider: Alicia Callaway RN - Reason: Order parameters not met - Comment: Pt hypotensive) 1350 (Given - Provider: Alli Quezada) cefepime (MAXIPIME) injection 2 g 2 g, Intravenous, Every 12 hours scheduled, Indications: COPD (WITH PSEUDOMONAL RISK FACTORS), First dose o n Mon12/22/20 at 1345, For 7 days, If giving IV push, reconstitute each vial with 20 ml sterile water and give over 3-5 minutes If sterile water is unavailable, may use Bacteriostatic Water or Normal Saline for reconstitution 0609 (Given - Provider: Alicia Callaway RN)1311 (Given - Provider: Drea Davis RN)2015 (Given - Provider: Alicia Callaway RN) 0516 (Given - Provider: Alicia Callaway RN)1350 (Given - Provider: Drea Davis RN) heparin (porcine) 5,000 unit/mL 0617 (Given - injection 5,000 Units Provider: Miya 5,000 Units, Subcutaneous, Every 8 HEVER Downey)1722 hours, First dose on Mon12/17/20 at 2200 (Given - Pr ovider: Melvina Pollack RN)210 (Given - Provider: Alicia Callaway RN) 09 (Given - Provider: Alli Quezada)2014 (Given - Provider: Alicia Callaway RN) 0913 (Given - Provider: Alli Quezada) levETIRAcetam (KEPPRA) tablet 750 mg 0916 (Given - 750 mg, Oral, 2 times daily, First dose Provider: Letha Rossi on Mon12/17/20 at 1215 HEVER Pollack)210 (Given - Provider: Alicia Callaway RN) 0915 (Patch Applied - Provider: Drea Davis RN)2114 (Patch Removed - Provider: Alicia Callaway RN) 0910 (Patch Applied - Provider: Drea Davis RN)2109 (Due: Patch Removed - Provider: Drea Davis RN) Lidocaine (LIDODERM) 5 % 1 patch 899 (Due - 1 patch, Transdermal, Administer over 12 Provider: Flory Martinez, Daily, First dose on Mon12/15/20 HEVER Callaway) at 2000, Apply to low back 1024 (Given - Provider: Alli Quezada) linezolid (ZYVOX) tablet 600 mg 600 mg, Oral, 2 times daily, Indications: HAP/VAP, First dose on Mon12/22/20 at 0945, For 7 days, PROTECT FROM LIGHT 0900 (Hold this dose - Provider: Drea Davis RN - Reason: Order parameters not met - Comment: BSP <110)1516 (Given - Provider: Drea Davis RN - Comment: telephone order 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 0927 (Given - Provider: Alli Quezada)2100 (Not Given - Provider: Alicia Callaway RN - Reason: Order parameters not met) metoprolol tartrate (LOPRESSOR) tablet 0916 (Given - 50 mg (CANCELED) Provider: Melvina F 50 mg, Oral, 2 times daily, First dose HEVER Pollack )2100 (after last modification) on Mon12/16/20 (Not Given - at 2100, Hold if HR < 60 or SBP < 110. Provider: Osmar Callaway RN - Reason: Order parameters not met) 1405 (Given - Provider: Alli Quezada - Comment: dose time changed so patient gets first dose before discharge) metroNIDAZOLE (FLAGYL) tablet 500 mg 500 mg, Oral, 3 times daily, Indications: ASPIRATION PNEUMONIA, Firs t dose (after last modification) on Mon12/22/20 at 1600, For 21 doses, Avoid Alcohol in Food and Drinks 0927 (Given - Provider: Alli Quezada) 0910 (Given - Provider: Drea E Ryan, R N) polyethylene glycol (GLYCOLAX) packet 17 09 (Due - g Provider: Alicia 17 g, Oral, Daily, First dose on [place] HEVER Callaway) 12/17/20 at 1415 predniSONE (DELTASONE) tablet 10 mg(Linked Group 1) 10 mg, Oral, Daily, First dose on Mon12/31/20 at 0900, For 1 day, Give with food to reduce GI upset predniSONE (DELTASONE) tablet 20 mg(Linked Group 1) 20 mg, Oral, Daily, First dose on Mon12/29/20 at 0900, For 2 days, Give with food to reduce GI upset predniSONE (DELTASONE) tablet 30 mg(Linked Group 1) 30 mg, Oral, Daily, First dose on Mon12/26/20 at 0900, For 3 days, Give with food to reduce GI upset 1020 (Given - Provider: Alli Quezada) predniSONE (DELTASONE) tablet 40 mg(Linked Group 1) 40 mg, Oral, Daily, First dose on Mon12/22/20 at 0945, For 4 days, Give with food to reduce GI upset 0927 (Given - Provider: Alli Quezada)2014 (Given - Provider: Alicia Callaway, HEVER) 0913 (Given - Provider: Alli Quezada) senna-docusate (PERICOLACE) 8.6-50 mg 2 09 (Due - tablet Provider: Alicia 2 tablet, Oral, 2 times daily, First HEVER Callaway)210 6 dose (after last modification) on Mon (Given - Provi ava: 12/17/20 at 2100 Alicia Callaway RN) 0200 (Due - Provider: Alicia Callaway RN )0800 (Hold this dose - Provider: Maynor Vasquez BATTALION FIRE CHIEF - Reason: Patient/family refused)1400 (Hold this dose - Provider: Maynor Vasquez BATTALION FIRE CHIEF - Reason: Patient/family refused)1999 (Not Given - Provider: Yang Merritt RRT - Reason: Patient/family refused) 0200 (Hold this dose - Provider: Yang Merritt BATTALION FIRE CHIEF - Reason: Other)0800 (Not Given - Provider: Gaston Fowler BATTALION FIRE CHIEF - Reason: Other)1400 (Due - Provider: Alicia CallawayHEVER) sodium chloride 10 % nebulizer solution 0200 (Not Gi marium - 3 mL Provider: Mitchell Uribe 3 mL, Nebulization, Every 6 hours, First Savage, BATTALION FIRE CHIEF - Reason: dose on Mon12/16/20 at 1415 Other)0826 (Given - Provider: Mary Donahue, BOTTOM MAN)1400 (Not Given - Provider: Mary Donahue, BOTTOM MAN - Reason: Other)2141 (Given - Provider: Jia Neville, BATTALION FIRE CHIEF) 0928 (Given - Provider: Alli Quezada) 0913 (Given - Provider: Alli Quezada) tamsulosin (FLOMAX) 24 hr capsule 0.4 mg 0916 (Given - 0.4 mg, Oral, Daily, First dose on Mon Provider: Nancy Rossi 12/16/20 at 1500, Swallow capsule whole HEVER Pollack ) 12/21/2020 12/22/2020 Medication Order 12/20/20202013 (See Alternative - Provider: Alicia Callaway RN) 015 (See Alternative - Provider: Alicia Callaway RN) acetaminophen (TYLENOL) suppository 325-650 mg(Linked Group 2) 325-650 mg, Rectal, Every 6 hours PRN, mild pain (pain score 1-3), Starting on Mon12/15/20 at 1004, Administer if patient unable to tolerate oral medications. 2013 (Given - Provider: Alicia Callaway RN) 015 (Given - Provider: Alicia Callaway RN) acetaminophen (TYLENOL) tablet 650 mg(Linked Group 2) 650 mg, Oral, Every 6 hours PRN, fever, temperature > 98.6 F (37 C), Starting o n Mon12/15/20 at 1004, Do not exceed 4 GM/DAY of acetaminophen. If 65 or olde r do not exceed 3 GM/DAY. If chronic alcoholic do not exceed 2 GM/DAY. albuterol (ACCUNEB) 1.25 mg/3 mL (0.042 %) nebulizer solution 1.25 mg 1.25 mg (1 ampule), Nebulization, Every 6 hours PRN, wheezing, Starting on Mon12/22/20 at 0837 alteplase (CATHFLO ACTIVASE) injection 1 mg 1 [...] 24 hours, Starting on Mon12/15/20 at 1004 fentaNYL (SUBLIMAZE) injection 25-50 mc g 25-50 mcg, Intravenous, Every 2 hours PRN, moderate pain (pain score 4-6), severe pain (pain score 7-10), Starting on Mon12/15/20 at 1930, Administer over 2 minutes; max dose for IVP is 2 mcg/kg . Note: Limit does not apply to patients who may be tolerant to opioid therapy o r on continuous IV or PO opiate therapy. hydrALAZINE (APRESOLINE) injection 10-2 0 mg 10-20 mg, Intravenous, Every 2 hours PRN, SBP > 140, Starting on Mon12/16/20 at 1626 labetaloL (NORMODYNE,TRANDATE) injectio n 10-20 mg 10-20 mg, Intravenous, Every 2 hours PRN, high blood pressure, SBP > 140, first line, hold for HR < 60, Starting on Mon12/16/20 at 1626 magnesium hydroxide (MILK OF MAGNESIA) suspension 30 mL 30 mL, Oral, Daily PRN, constipation, Starting on [place] 12/17/20 at 1356 magnesium sulfate IVPB 4 gram (premix) 4 [...] for 6 hours (if able to monitor). ondansetron (ZOFRAN) injection 4 mg 4 mg, Intravenous, Every 6 hours PRN, nausea, vomiting, Starting on Mon12/15/20 at 1006 potassium bicarb-citric acid (EFFER-K) effervescent tablet 20 mEq(Linked Group 3) 20 mEq, Oral, As needed, aggressive electrolyte [...] chloride (KLOR-CON) CR tablet 20 mEq(Linked Group 3) 20 mEq, Oral, As needed, aggressive electrolyte [...] 20 mEq in 100 mL IVPB(Linked Group 3) 20 mEq, Intravenous, Administer over 2 Hours, [...] of 20 mEq/hr through a central line. prochlorperazine (COMPAZINE) injection 5 mg 5 mg, Intravenous, Every 6 hours PRN, nausea, vomiting, Starting on Mon12/15/20 at 1008 white petrolatum-mineral oiL (GENTEAL PM) 94-3 % ophthalmic ointment 1 application 1 application, Both Eyes, Every 4 hours PRN, dry eyes, Starting on Mon12/15/20 at 1004, Apply until awake and alert. Order Group 1: predniSONE (DELTASONE) tablet 40 mgJump to med 40 mg, Oral, Daily, First dose on Mon at 0945, For 4 days
Give with food to reduce GI upset
Followed by predniSONE (DELTASONE) tablet 30 mgJump to med 30 mg, Oral, Daily, First dose on Mon at 0900, For 3 days
Give with food to reduce GI upset
Followed by predniSONE (DELTASONE) tablet 20 mgJump to med 20 mg, Oral, Daily, First dose on Mon at 0900, For 2 days
Give with food to reduce GI upset
Followed by predniSONE (DELTASONE) tablet 10 mgJump to med 10 mg, Oral, Daily, First dose on Mon at 0900, For 1 day
Give with food to reduce GI upset
Group 2: acetaminophen (TYLENOL) tablet 650 mgJu mp to [...] patient unable to tolerate oral medications.
Group 3: potassium chloride (KLOR-CON) CR tablet 20 mEqJump [...] COVID-19 PUI 12/15/2020 documented as of this encounter
--- OUTSIDE RECORDS SUMMARY | 2020-12-25 12:38 | XMS REPORT | Encounter Summary ---
Author Author [facility] Organization [facility] Address Unknown Phone Unavailable Care Team Providers Care Snubber Name Role Phone PCP Unavailable Encounter Details Care Team Description Date Type Department Julian, Default Authenticator [address] [place] [address] 12[facility]15/2020 [facility] [address] [place] [address] Social History Date Tobacco Use Types Packs/Day Years Used Never Assessed Sex Assigned at Date Recorded Not on file documented as of this encounter Plan of Treatment Care Team Description Date Type Specialty 01/07/2021 Video Visit Trauma Surgery Uyen Robbins PA [address] [place], [place] [id number] 01/18/2021 Imaging Radiology Appointment Andres Jiménez PA-C [address] [place] [address] [phone] 01/18/2021 Office Visit Neurosurgery Date/Time Name Type [...]
[2020-12-25] MEDS ORDERED: RT-ALBUTEROL/IPRATROPIUM 3 ML (DUONEB) VIAL INH ONE (13:30)
[2020-12-25 13:54] LABS: CLARITY,URINE CLEAR; COLOR,URINE YELLOW; GLUCOSE, URINE (UA) NEGATIVE (NEGATIVE); KETONES,URINE TRACE (NEGATIVE); LEUKOCYTE ESTERASE ,URINE TRACE (NEGATIVE); NITRITE,URINE NEGATIVE (NEGATIVE); PROTEIN,URINE TRACE (NEGATIVE)
[2020-12-25 14:08] LABS: BACTERIA,URINE TRACE /HPF; BILIRUBIN,URINE 1+ (NEGATIVE); CALCIUM OXALATE CRYSTALS,UR RARE /LPF; HYALINE CASTS, URINE 0-2 /LPF; SQUAMOUS EPITHELIAL CELL,UR 0-2 /HPF
[2020-12-25] MEDS ORDERED: PIPERACILLIN SODIUM/TAZOBACTAM 4.5 GM in NS (IVPB) 100 ML IV ONE (14:45)
[2020-12-25 16:14] VITALS: BP 139/91
[2020-12-25] MEDS ORDERED: EPINEPHrine 1 MG INJECTION 4 MG in NS (IVPB) 248 ML IV SCH (17:00)
[2020-12-25] MEDS ORDERED: CATHETER FLUSH 10 ML SYR IV PRN (17:00)
[2020-12-25] MEDS ORDERED: NOREPINEPHRINE 8 MG/250 ML 250 ML IV SCH (17:00)
[2020-12-25] MEDS ORDERED: VASOPRESSIN INJECTION 20 UNIT in NS (IVPB) 100 ML IV SCH (17:00)
[2020-12-25] MEDS ORDERED: VANCOMYCIN 1,750 MG/NS 500 ML IVPB IV NR ×2 (17:30)
[2020-12-25] MEDS: LACTATED RINGERS 1,000 ML IV SCH (17:50)
[2020-12-25] MEDS: methylPREDNISolone 125 MG (Solu-MEDROL) VIAL IV SCH (17:50)
--- OUTSIDE RECORDS SUMMARY | 2020-12-25 19:09 | XMS REPORT | Encounter Summary ---
Author Author [facility] Organization [facility] Address Unknown Phone Unavailable Care Team Providers Care Picc Nurse Name Role Phone Brock Mas MD PCP Encounter Details Care Team Description Date Type Department oZey Randhawa, RUBBER WORKER [address] [facility] [address] [place] [address] [phone] 12/23/2020 Documentation [facility] [address] [place] [address] Social History Date Tobacco Use Types Packs/Day Years Used Never Assessed Sex Assigned at Date Recorded Not on file documented as of this encounter Plan of Treatment Care Team Description Date Type Specialty 01/07/2021 Video Visit Trauma [facility] Robbins [facility] [address] [facility] [address] [place] [address] [phone] 01/18/2021 Imaging Radiology Appointment Andres Jiménez PA-C [address] [facility] [address] [place] [address] [phone] 01/18/2021 Office Visit Neurosurgery documented as of this encounter Visit Diagnoses Not on filedocumented in this encounter
--- OUTSIDE RECORDS SUMMARY | 2020-12-25 19:09 | XMS REPORT | Encounter Summary ---
Author Author [facility] Organization [facility] Address Unknown Phone Unavailable Care Team Providers Care Tube Bender Hand Name Role Phone Brock Mas MD PCP Reason for Visit * Reason Comments Transfer Of Care from [place], [facility] with SDH * Auth/Cert Referred By Contact Referred To Contact Status Reason Specialty Diagnoses / Procedures Diagnoses SDH (subdural hematoma) (HCC) Acute pain due to trauma Acute neck pain intermediate designer current use of anticoagulant Fall, 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 Traumatic subdural hematoma with loss of consciousness, 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 (HCC) Subdural Hematoma SDH (subdural hematoma) (HCC) Encounter Details Care Team Description Date Type Department Jaxon Silva MD [address] Dept of Emergency Services [place], [place] [id number] Beto Muro MD [address] [place], [place] [id number] SDH (subdural hematoma) (HCC) (Primary D x); Acute neck pain; Acute pain due to trauma; Fall, 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; intermediate designer current use of anticoagulant; Traumatic subdural hematoma [...] insulin (HCC); Acute urinary retention; [facility] [address] 12/22/2020 [place] [address] Social History Date Tobacco Use Types Packs/Day [...] CT scan 01/18/21 check in at 10:15 [facility] III, First Floor [address] [place] [address] Neurosurgery Clinic 01/18/21 at 11:00 am with Andres Jiménez PA-C [phone] [place] [address] I; [address] [place] [address] Use incentive spirometry 10 times an hour [...] - 12/21/2020 7:11 AM CDT Trauma and Towboat Captain Nurse Practitioner Progress Note PATIENT NAME: Mariano Thomas DATE of SERVICE: 12/21/2020 CPI: [id number] AGE: 80 y.o. : 1940 Admission Chief Complaint: Transfer Of Care (from [place], fall with SDH) HPI/CC: Mariano Thomas is a 80 y.o. male w/ PMH most significant for a fib on , DM Type II, CAD, DVT, BPH, hyponatremia, AAA repair in 2012, and urinary incontinencewho presented as a greentrauma activation (downgraded from red o n arrival)s/[facility] 12/15.His fall was five days ago vs [...] status; this resolved prior to arrival to [facility] without intervention. 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) A-fib (HCC) Hypertensive urgency History of DVT (deep vein thrombosis) Hyponatremia Hypoalbuminemia Type II diabetes mellitus (HCC) Leukocytosis Closed compression fracture of L3 lumbar vertebra, 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 ([facility]) Active Hospital Problems Acute delirium Acute urinary retention Nausea Thrombocytopenia (HCC) History of COPD Chronic respiratory failure with hypoxia (HCC) Fall Acute neck pain Acute pain due to trauma Traumatic subdural hematoma (HCC), unknown if LOC shelter current use of anticoagulant Closed compression fracture of body of L1 vertebra (HCC) Hemorrhagic disorder due to extrinsic circulating anticoagulants (HCC) 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 [...] agreed u rome with patient/family. I, Onelia [facility], have reviewed all of these findings and the overa ll assessment and plans for the day are discussed and documented in the Medical Record Note. I was personally present and involved in all aspects of patient car e. Onelia [facility] 25 minutes was time spent personally by me on the following activities: developm ent of treatment plan with patient and/or surrogate, discussions with healthcare management consultant s, discussion with primary provider, evaluation of patient's response to treatme nt, examination of patient, obtaining history from patient or surrogate, orderin g and performing treatments and interventions, ordering and review of laboratory studies, ordering and review of radiographic studies, re-evaluation of patient' s condition and review of records. Onelia Grady, MSN, RN, [facility]-, CNRN, CCRN Trauma and Critical Care Specialists Nurse Practitioner [address] [place] [address] Office: [phone] Pager: [phone] Available on Voalte * Onelia Grady NP - 12/20/2020 7:06 AM CDT Trauma and Towboat Captain Nurse Practitioner Progress Note PATIENT NAME: Mariano Thomas DATE of SERVICE: 12/20/2020 CPI: [id number] AGE: 80 y.o. : 1940 Admission Chief Complaint: Transfer Of Care (from [place], fall with SDH) HPI/CC: Mariano Thomas is [...] status; this resolved prior to arrival to [facility] without intervention. Initial labs significant forNa+ 126, [...] sore throat and trouble swallowing . Chronic KALTAG Respiratory: Negative for shortness of breath. Cardiovascular: [...] basilar airspace disease. Interstitial edema. 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) A-fib (HCC) Hypertensive urgency History of DVT (deep vein thrombosis) Hyponatremia Hypoalbuminemia Type II diabetes mellitus (HCC) Leukocytosis Closed compression fracture of L3 lumbar vertebra, 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 ([facility]) Active Hospital Problems Acute delirium Acute urinary retention Nausea Thrombocytopenia (HCC) History of COPD Chronic respiratory failure with hypoxia (HCC) Fall Acute neck pain Acute pain due to trauma Traumatic subdural hematoma (HCC), unknown if LOC shelter current use of anticoagulant Closed compression fracture of body of L1 vertebra (HCC) Hemorrhagic disorder due to extrinsic circulating anticoagulants (HCC) 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 [...] plan with patient and/or surrogate, discussions with healthcare management consultant s, discussion with primary provider, evaluation [...] Nurse Practitioner [address] [place] [address] Office: [phone] Pager: [phone] * Onelia Grady NP - 12/19/2020 7:10 AM CDT Trauma and Towboat Captain Nurse Practitioner Progress Note PATIENT NAME: Mariano Thomas DATE of SERVICE: 12/19/2020 CPI: [id number] AGE: 80 y.o. : 1940 Admission Chief Complaint: Transfer Of Care (from [place], fall with SDH) HPI/CC: Mariano Thomas is [...] status; this resolved prior to arrival to [facility] without intervention. Initial labs significant forNa+ 126, [...] states he would like to go to [facility] soon as that is where his [...] basilar airspace disease. Interstitial edema. 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) A-fib ([facility]) Hypertensive urgency History of DVT (deep vein thrombosis) Hyponatremia Hypoalbuminemia Type II diabetes mellitus (HCC) Leukocytosis Closed compression fracture of L3 lumbar vertebra, 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 ([facility]) Active Hospital Problems Acute delirium Acute urinary retention Nausea Thrombocytopenia (HCC) History of COPD Chronic respiratory failure with hypoxia (HCC) Fall Acute neck pain Acute pain due to trauma Traumatic subdural hematoma (HCC), unknown if LOC shelter current use of anticoagulant Closed compression fracture of body of L1 vertebra ([facility]) Hemorrhagic disorder due to extrinsic circulating anticoagulants ([facility]) Paresis of right lower extremity ([facility]) Traumatic focal compression of brain ([facility]) A-fib ([facility]) Hypertensive urgency History of DVT (deep vein thrombosis) Hyponatremia Hypoalbuminemia Type II diabetes mellitus ([facility]) Leukocytosis Closed compression fracture of L3 lumbar vertebra, 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 ([facility]) ASSESSMENT Mariano Thomas is a 80 y.o. [...] all aspects of patient care. Onelia Grady INSIDE STEWARD/STEWARDESS 25 minutes was time spent personally by me on the following activities: developm ent of treatment plan with patient and/or surrogate, discussions with healthcare management consultant s, discussion with primary provider, evaluation [...] and Critical Care Specialists Nurse Practitioner [address] [place] [address] Office: [phone] Pager: [phone] Available on Voalte * Arin Ball NP - 12/18/2020 7:[address] [facility] Trauma and Critical Care Specialists [...] status; this resolved prior to arrival to [facility] without intervention. Initial labs significant for Na+ [...] Social Gatherings with Friends and Family: Attends Tenriism Services: Active Member of Clubs or Organizations: [...] SOB CV: Negative GI: Nausea, decreased appetite /BIOLOGICAL ENGINEER: Negative Neuro: Weakness, particularly in RLE; tingling [...] a subtle nondisplaced sacrococcygeal fracture. READING SITE: [facility] CT Cervical Spine wo contrast Result Date: 12/16/2020 1. No acute fracture or dislocation. 2. Mild to moderate degenerative cervical spondylosis. ATTESTATION STATEMENT: The Staff Radiologist has personally reviewed the images and dictated, reviewed, or edited the final report. READING SITE: [facility] CT Chest w contrast Result Date: 12/15/2020 [...] long-term. 3. Cardiomegaly. Coronary atherosclerosis. READING SITE: [facility] CT Head wo contrast Result Date: 12/17/2020 Impression: 1. Left holohemispheric subdural hematoma is not significantly changed with similar brain compression and left to right midline shift. Left parafalcine subdural hematoma is slightly decreased or redistributed. No evidence for developing hydrocephalus. 2. Moderate generalized atrophy and chronic small vessel ischemic disease. 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 READING SITE: [facility] ATTESTATION STATEMENT: The Staff Radiologist has personally [...] trace right frontal subdural hematoma. READING SITE: [facility]. 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 READING SITE: [facility]. ATTESTATION STATEMENT: The Staff Radiologist has personally reviewed the images and dictated, reviewed, or edited the final report. CT Lumbar Spine reconstructed Result Date: 12/16/2020 Subacute fracture of superior endplate of L1 with approximately 70% height loss. Presence of superior endplate fracture cleft suggests nonhealing. Subacute fracture of the superior endplate of L3 with no significant height loss. READING SITE: [facility]. ATTESTATION STATEMENT: The Staff Radiologist has personally reviewed the images and dictated, reviewed, or edited the final report. CT Thoracic Spine reconstructed Result Date: 12/16/2020 Impression: No acute osseous abnormality of the thoracic spine. Multilevel anterior osteophytes as a result of chronic degenerative changes. READING SITE: [facility]. ATTESTATION STATEMENT: The Staff Radiologist has personally reviewed the images and dictated, reviewed, or edited the final report. XR Ankle min 3 views right Result Date: 12/16/2020 No evidence of fracture. READING SITE: [email or web address] XR Chest single view frontal Result Date: 12/17/2020 Worsening now complete atelectasis of the left lung. Stable mild lower heterogeneous opacities throughout the right lung. READING SITE: [facility] XR Chest single view frontal Result Date: 12/16/2020 1. Asymmetric heterogeneous opacities, most prominent on the left have slightly improved and likely represent interstitial pulmonary edema and scattered areas of subsegmental atelectasis. 2. Moderate left pleural effusion is unchanged. 3. Life-support devices as above. READING SITE: [employer] XR Chest single view frontal Result Date: [...] the findings in this report. READING SITE: [employer] XR Chest single view frontal Result Date: 12/15/2020 Question small left pleural effusion. No pneumothorax. No focal consolidation. Consider further evaluation with PA and lateral chest radiograph. READING SITE: [facility] XR Pelvis one or two views Result Date: 12/15/2020 No evidence of fracture. READING SITE: [facility] XR Shoulder min 2 views left [...] Lim on 12/16/2020 1:44 PM READING SITE: [facility] XR Chest post line drain or airway placement Result Date: 12/16/2020 1. Life-support devices as above. No pneumothorax. 2. Asymmetric heterogeneous opacities, most prominent on left have improved. 3. Moderate left pleural effusion has improved. READING SITE: [employer] XR Chest post line drain or airway placement Result Date: 12/15/2020 1. Left upper extremity PICC. 2. Increased bilateral heterogeneous opacities and indistinct vasculature concerning for atelectasis and edema. Superimposed infection or aspiration not excluded. 3. Small left pleural effusion versus thickening. READING SITE: [employer] Medications: Scheduled: amiodarone, 200 mg, BID heparin [...] of COPD Chronic respiratory failure with hypoxia ([facility]) Fall Acute neck pain Acute pain due to trauma Traumatic subdural hematoma (HCC), unknown if LOC intermediate designer current use of anticoagulant Closed compression fracture of body of L1 vertebra (HCC) Hemorrhagic disorder due to extrinsic circulating anticoagulants ([facility]) Paresis of right lower extremity (HCC) Traumatic focal compression of brain ([facility]) A-fib (HCC) Hypertensive urgency History of DVT (deep vein thrombosis) Hyponatremia Hypoalbuminemia Type II diabetes mellitus (HCC) Leukocytosis Closed compression fracture of L3 lumbar vertebra, 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 ([facility]) ASSESSMENT/PLAN: Neurologic: Acute pain due to trauma: [...] - Flomax started 12/16 - Will discontinue hatrmann and start bladder scanning algorithm - Continue [...] nonspecific periventricular hypoattenuation, most commonly seen with phlebotomy services representative riley small vessel ischemic disease. - Calcified [...] plans. Philip states patient's is [facility] and that patient has [...] including procedures 35. Arin Ball, MSN, RN, INSIDE STEWARD/STEWARDESS, AGACNP-[facility] Trauma and Critical Care Services Nurse Practitioner Available on Eved Pager * Arin Ball NP - 12/17/2020 8:[address] [facility] Trauma and Critical Care Specialists [...] status; this resolved prior to arrival to [facility] without intervention. Initial labs significant for Na+ [...] Social Gatherings with Friends and Family: Attends Tenriism Services: Active Member of Clubs or Organizations: [...] in abdomen. Denies nausea at this time. /BIOLOGICAL ENGINEER: Negative Neuro: Weakness Psych: Negative MS: Myalgias and Recent falls Skin: Negative Heme/Lymph: Negative Endocrine: Negative Immuno: Negative OBJECTIVE: Vital Signs: BP (!) 154/76 Comment: labetalol | Pulse 93 | Temp 36.7 C (98.1 F) (Axillar y) | Resp 17 | Ht 1.829 m (6') | Wt 109.5 kg (241 lb 6.5 oz) | SpO2 98% | B SD 32.74 kg/m Tmax: Temp (24hrs), Av.6 C [...] a subtle nondisplaced sacrococcygeal fracture. READING SITE: [facility] Cervical Spine wo contrast Result Date: 12/16/2020 1. No acute fracture or dislocation. 2. Mild to moderate degenerative cervical spondylosis. ATTESTATION STATEMENT: The Staff Radiologist has personally reviewed the images and dictated, reviewed, or edited the final report. READING SITE: [facility] CT Chest w contrast Result Date: 12/15/2020 [...] long-term. 3. Cardiomegaly. Coronary atherosclerosis. READING SITE: [facility] CT Head wo contrast Result [...] trace right frontal subdural hematoma. READING SITE: [facility]. 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 READING SITE: [facility]. ATTESTATION STATEMENT: The Staff Radiologist has personally reviewed the images and dictated, reviewed, or edited the final report. CT Lumbar Spine reconstructed Result Date: 12/16/2020 Subacute fracture of superior endplate of L1 with approximately 70% height loss. Presence of superior endplate fracture cleft suggests nonhealing. Subacute fracture of the superior endplate of L3 with no significant height loss. READING SITE: [facility]. ATTESTATION STATEMENT: The Staff Radiologist has personally reviewed the images and dictated, reviewed, or edited the final report. CT Thoracic Spine reconstructed Result Date: 12/16/2020 Impression: No acute osseous abnormality of the thoracic spine. Multilevel anterior osteophytes as a result of chronic degenerative changes. READING SITE: [facility]. ATTESTATION STATEMENT: The Staff Radiologist has personally reviewed the images and dictated, reviewed, or edited the final report. XR Ankle min 3 views right Result Date: 12/16/2020 No evidence of fracture. READING SITE: [facility] XR Chest single view frontal Result Date: 12/16/2020 1. Asymmetric heterogeneous opacities, most prominent on the left have slightly improved and likely represent interstitial pulmonary edema and scattered areas of subsegmental atelectasis. 2. Moderate left pleural effusion is unchanged. 3. Life-support devices as above. READING SITE: [facility] [employer] XR Chest single view frontal Result Date: [...] the findings in this report. READING SITE: [employer] XR Chest single view frontal Result Date: 12/15/2020 Question small left pleural effusion. No pneumothorax. No focal consolidation. Consider further evaluation with PA and lateral chest radiograph. READING SITE: [employer] XR Pelvis one or two views Result Date: 12/15/2020 No evidence of fracture. READING SITE: [facility] XR Shoulder min 2 views left [...] Lim on 12/16/2020 1:44 PM READING SITE: [facility] XR Chest post line drain or airway placement Result Date: 12/16/2020 1. Life-support devices as above. No pneumothorax. 2. Asymmetric heterogeneous opacities, most prominent on left have improved. 3. Moderate left pleural effusion has improved. READING SITE: [facility] XR Chest post line drain or airway placement Result Date: 12/15/2020 1. Left upper extremity PICC. 2. Increased bilateral heterogeneous opacities and indistinct vasculature concerning for atelectasis and edema. Superimposed infection or aspiration not excluded. 3. Small left pleural effusion versus thickening. READING SITE: [facility] Medications: Scheduled: amiodarone, 200 mg, BID Lidocaine, [...] Traumatic subdural hematoma (HCC), unknown if LOC shelter current use of anticoagulant Closed compression fracture of body of L1 vertebra (HCC) Hemorrhagic disorder due to extrinsic circulating anticoagulants (HCC) 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) A-fib (HCC) Hypertensive urgency History of DVT (deep vein thrombosis) Hyponatremia Hypoalbuminemia Type II diabetes mellitus (HCC) Leukocytosis Closed compression fracture of L3 lumbar vertebra, 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 ([facility]) ASSESSMENT/PLAN: Neurologic: Acute pain due to trauma: [...] nonspecific periventricular hypoattenuation, most commonly seen with phlebotomy services representative riley small vessel ischemic disease. - Calcified [...] including procedures 25. Arin Ball, MSN, RN, INSIDE STEWARD/STEWARDESS, AGACNP-[facility] Trauma and Critical Care Services Nurse Practitioner Available on Eved Pager * Mallory Thapa PA - 12/17/2020 6:00 AM CDT Critical Care Progress Note PATIENT NAME: Mariano Thomas DATE of SERVICE: 12/17/2020 CPI: [id number] AGE: 80 y.o. : 1940 CHIEF COMPLAINT: Left subdural hematoma DATE OF PROCEDURES: None HOSPITAL COURSE: Mariano Thomas is a 80 year old male with past medical hx of a fib on retirement a nticoagulant. Seen at OSH ED for [...] blood pressure in 90s. Upon arrival to [facility] ED, patient awake and bp in 140s. [...] Social Gatherings with Friends and Family: Attends Tenriism Services: Active Member of Clubs or Organizations: [...] and Uses oxygen CV: Negative GI: Negative /BIOLOGICAL ENGINEER: Urinary Retention Neuro: Weakness Psych: Negative MS: [...] a subtle nondisplaced sacrococcygeal fracture. READING SITE: [facility] CT Cervical Spine wo contrast Result Date: 12/16/2020 1. No acute fracture or dislocation. 2. Mild to moderate degenerative cervical spondylosis. ATTESTATION STATEMENT: The Staff Radiologist has personally reviewed the images and dictated, reviewed, or edited the final report. READING SITE: [facility] CT Chest w contrast Result Date: 12/15/2020 [...] long-term. 3. Cardiomegaly. Coronary atherosclerosis. READING SITE: [facility] CT Head wo contrast Result [...] trace right frontal subdural hematoma. READING SITE: [facility]. 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 READING SITE: [facility]. ATTESTATION STATEMENT: The Staff Radiologist has personally reviewed the images and dictated, reviewed, or edited the final report. CT Lumbar Spine reconstructed Result Date: 12/16/2020 Subacute fracture of superior endplate of L1 with approximately 70% height loss. Presence of superior endplate fracture cleft suggests nonhealing. Subacute fracture of the superior endplate of L3 with no significant height loss. READING SITE: [facility]. ATTESTATION STATEMENT: The Staff Radiologist has personally reviewed the images and dictated, reviewed, or edited the final report. CT Thoracic Spine reconstructed Result Date: 12/16/2020 Impression: No acute osseous abnormality of the thoracic spine. Multilevel anterior osteophytes as a result of chronic degenerative changes. READING SITE: [facility]. ATTESTATION STATEMENT: The Staff Radiologist has personally reviewed the images and dictated, reviewed, or edited the final report. XR Ankle min 3 views right Result Date: 12/16/2020 No evidence of fracture. READING SITE: [email or web address] XR Chest single view frontal Result Date: 12/16/2020 1. Asymmetric heterogeneous opacities, most prominent on the left have slightly improved and likely represent interstitial pulmonary edema and scattered areas of subsegmental atelectasis. 2. Moderate left pleural effusion is unchanged. 3. Life-support devices as above. READING SITE: [employer] XR Chest single view frontal Result Date: [...] the findings in this report. READING SITE: [employer] XR Chest single view frontal Result Date: 12/15/2020 Question small left pleural effusion. No pneumothorax. No focal consolidation. Consider further evaluation with PA and lateral chest radiograph. READING SITE: [employer] XR Pelvis one or two views Result Date: 12/15/2020 No evidence of fracture. READING SITE: [email or web address] XR Shoulder min 2 views left Result [...] Lim on 12/16/2020 1:44 PM READING SITE: [facility] XR Chest post line drain or airway placement Result Date: 12/16/2020 1. Life-support devices as above. No pneumothorax. 2. Asymmetric heterogeneous opacities, most prominent on left have improved. 3. Moderate left pleural effusion has improved. READING SITE: [facility] XR Chest post line drain or airway placement Result Date: 12/15/2020 1. Left upper extremity PICC. 2. Increased bilateral heterogeneous opacities and indistinct vasculature concerning for atelectasis and edema. Superimposed infection or aspiration not excluded. 3. Small left pleural effusion versus thickening. READING SITE: [facility] MEDICATIONS: amiodarone, 200 mg, BID Lidocaine, 1 [...] at bedside. She shared that he is [employer] a nd they are connected to a [facility] in [place], [place]. She is feeling better about the outlook of her dad's condition now and is aware that should that change, e can contact a compo caster for more support in the future. Spiritual [...] Codi Josepht, 12/16/2020 3:31 PM Voalte Number: Disc Pad Knockout Worker: * Arin Ball NP - 12/16/2020 11:44 [...] AM without complication. Arin Ball, MSN, RN, INSIDE STEWARD/STEWARDESS, AGACNP-[facility] Trauma and Critical Care Services Available on Eved Pager * Arin Ball NP - 12/16/2020 9:[address] [facility] Trauma and Critical Care Specialists [...] status; this resolved prior to arrival to [facility] without intervention. Initial labs significant for Na+ [...] Social Gatherings with Friends and Family: Attends Tenriism Services: Active Member of Clubs or Organizations: [...] Negative Pulm: Negative CV: Negative GI: Nausea /BIOLOGICAL ENGINEER: Negative Neuro: Weakness Psych: Negative MS: Myalgias [...] a subtle nondisplaced sacrococcygeal fracture. READING SITE: [facility] CT Cervical Spine wo contrast Result Date: 12/16/2020 1. No acute fracture or dislocation. 2. Mild to moderate degenerative cervical spondylosis. ATTESTATION STATEMENT: The Staff Radiologist has personally reviewed the images and dictated, reviewed, or edited the final report. READING SITE: [facility] CT Chest w contrast Result Date: 12/15/2020 [...] long-term. 3. Cardiomegaly. Coronary atherosclerosis. READING SITE: [facility] CT Head wo contrast Result [...] trace right frontal subdural hematoma. READING SITE: [facility]. 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 READING SITE: [facility]. ATTESTATION STATEMENT: The Staff Radiologist has personally reviewed the images and dictated, reviewed, or edited the final report. CT Lumbar Spine reconstructed Result Date: 12/16/2020 Subacute fracture of superior endplate of L1 with approximately 70% height loss. Presence of superior endplate fracture cleft suggests nonhealing. Subacute fracture of the superior endplate of L3 with no significant height loss. READING SITE: [facility]. ATTESTATION STATEMENT: The Staff Radiologist has personally reviewed the images and dictated, reviewed, or edited the final report. CT Thoracic Spine reconstructed Result Date: 12/16/2020 Impression: No acute osseous abnormality of the thoracic spine. Multilevel anterior osteophytes as a result of chronic degenerative changes. READING SITE: [facility]. ATTESTATION STATEMENT: The Staff Radiologist has personally reviewed the images and dictated, reviewed, or edited the final report. XR Ankle min 3 views right Result Date: 12/16/2020 No evidence of fracture. READING SITE: [facility] XR Chest single view frontal Result Date: [...] the findings in this report. READING SITE: [facility] XR Chest single view frontal Result Date: 12/15/2020 Question small left pleural effusion. No pneumothorax. No focal consolidation. Consider further evaluation with PA and lateral chest radiograph. READING SITE: [facility] XR Pelvis one or two views Result Date: 12/15/2020 No evidence of fracture. READING SITE: [facility] XR Shoulder min 2 views left [...] Lim on 12/16/2020 1:44 PM READING SITE: [facility] [facility] XR Chest post line drain or airway placement Result Date: 12/16/2020 1. Life-support devices as above. No pneumothorax. 2. Asymmetric heterogeneous opacities, most prominent on left have improved. 3. Moderate left pleural effusion has improved. READING SITE: [employer] XR Chest post line drain or airway placement Result Date: 12/15/2020 1. Left upper extremity PICC. 2. Increased bilateral heterogeneous opacities and indistinct vasculature concerning for atelectasis and edema. Superimposed infection or aspiration not excluded. 3. Small left pleural effusion versus thickening. READING SITE: [employer] Medications: Scheduled: amiodarone, 200 mg, BID Lidocaine, [...] subdural hematoma (HCC), unknown if LOC intermediate designer current use of anticoagulant Closed compression fracture of body of L1 vertebra (HCC) Hemorrhagic disorder due to extrinsic circulating anticoagulants (HCC) 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) A-fib (HCC) Hypertensive urgency History of DVT (deep vein thrombosis) Hyponatremia Hypoalbuminemia Type II diabetes mellitus (HCC) Leukocytosis Closed compression fracture of L3 lumbar vertebra, 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 ([facility]) ASSESSMENT/PLAN: Neurologic: Acute pain due to trauma: [...] nonspecific periventricular hypoattenuation, most commonly seen with phlebotomy services representative riley small vessel ischemic disease. - Calcified [...] including procedures 35. Arin Ball, MSN, RN, INSIDE STEWARD/STEWARDESS, AGACNP-[facility] Trauma and Critical Care Services Nurse Practitioner Available on Eved Pager * Tyson Chaparro RN INSIDE STEWARD/STEWARDESS - 12/16/2020 6:50 AM CDT Critical Care Progress Note PATIENT NAME: Mariano Thomas DATE of SERVICE: 12/16/2020 CPI: [id number] AGE: 80 y.o. : 1940 CHIEF COMPLAINT: SDH DATE OF PROCEDURES: None HOSPITAL COURSE: Mariano Thomas is a 80 year old male with past medical hx of a fib on retirement a nticoagulant. Seen at OSH ED for [...] blood pressure in 90s. Upon arrival to [facility] ED, patient awake and bp in 140s. He was given K Centr a for reversal and keppra for seizure prophylaxis. INR was 1.3 in ED. Repeat Hea d CT showed stable left subdural hematoma and increase in posterior falcine darshan lisbeth. Started on cardene gtt in ED to meet blood pressure goals. Admitted to [facility] for close monitoring. PAST MEDICAL HISTORY: [...] Social Gatherings with Friends and Family: Attends Tenriism Services: Active Member of Clubs or Organizations: [...] Headache Pulm: Cough CV: Negative GI: Negative /BIOLOGICAL ENGINEER: Negative Neuro: Weakness Psych: Negative MS: Negative [...] based on today's exam, Tyson Chaparro RN INSIDE STEWARD/STEWARDESS LAB RESULTS: Most Recent Result from last [...] a subtle nondisplaced sacrococcygeal fracture. READING SITE: [facility] CT Cervical Spine wo contrast Result Date: 12/16/2020 1. No acute fracture or dislocation. 2. Mild to moderate degenerative cervical spondylosis. ATTESTATION STATEMENT: The Staff Radiologist has personally reviewed the images and dictated, reviewed, or edited the final report. READING SITE: [facility] CT Chest w contrast Result Date: 12/15/2020 [...] long-term. 3. Cardiomegaly. Coronary atherosclerosis. READING SITE: [facility] CT Head wo contrast Result Date: 12/16/2020 Impression: 1. Enlarging left hemispheric subdural hematoma (most prominently the left posterior parafalcine aspect) with accompanying brain compression, sulcal effacement, and 6.4 mm of rightward midline shift. Recommend neurosurgical evaluation and likely evacuation of left hemisphere SDH. 2. Unchanged trace right frontal subdural hematoma. READING SITE: [facility]. 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 READING SITE: [facility]. ATTESTATION STATEMENT: The Staff Radiologist has personally reviewed the images and dictated, reviewed, or edited the final report. CT Lumbar Spine reconstructed Result Date: 12/16/2020 Subacute fracture of superior endplate of L1 with approximately 70% height loss. Presence of superior endplate fracture cleft suggests nonhealing. Subacute fracture of the superior endplate of L3 with no significant height loss. READING SITE: [facility]. ATTESTATION STATEMENT: The Staff Radiologist has personally reviewed the images and dictated, reviewed, or edited the final report. CT Thoracic Spine reconstructed Result Date: 12/16/2020 Impression: No acute osseous abnormality of the thoracic spine. Multilevel anterior osteophytes as a result of chronic degenerative changes. READING SITE: [facility]. ATTESTATION STATEMENT: The Staff Radiologist has personally reviewed the images and dictated, reviewed, or edited the final report. XR Chest single view frontal Result Date: 12/15/2020 Question small left pleural effusion. No pneumothorax. No focal consolidation. Consider further evaluation with PA and lateral chest radiograph. READING SITE: [facility] XR Pelvis one or two views Result Date: 12/15/2020 No evidence of fracture. READING SITE: [facility] XR Chest post line drain or airway placement Result Date: 12/15/2020 1. Left upper extremity PICC. 2. Increased bilateral heterogeneous opacities and indistinct vasculature concerning for atelectasis and edema. Superimposed infection or aspiration not excluded. 3. Small left pleural effusion versus thickening. READING SITE: [facility] MEDICATIONS: Lidocaine, 1 patch, Daily INFUSIONS: niCARdipine [...] available at bedside. I, Tyson Chaparro RN INSIDE STEWARD/STEWARDESS, have reviewed all of these findings and the overal l assessment and plans for the day are discussed and documented in the Medical R ecord Note. I was personally present and involved in all aspects of patient care . Level 3 Tyson Chaparro RN INSIDE STEWARD/STEWARDESS * Sangeeta Foley PA-C - 12/15/2020 4:58 [...] SCD for DVT ppx Sangeeta MONAHAN PA-C [facility] Neurological and Spine Surgery [address] [place] [address], [address] [place] [address] Available via Voalte. After 5 pm and on weekends please call the transfer controller provider or [phone] * Mallory Thapa PA - 12/15/2020 11:20 AM CDT Critical Care Progress Note PATIENT NAME: Mariano Thomas DATE of SERVICE: 12/15/2020 CPI: [id number] AGE: 80 y.o. : 1940 CHIEF COMPLAINT: Fall DATE OF PROCEDURES: None HOSPITAL COURSE: Mariano Thomas is a 80 year old male with past medical hx of a fib on retirement a nticoagulant. Seen at OSH ED for [...] blood pressure in 90s. Upon arrival to [facility] ED, patient awake and bp in 140s. He was given K Centra for reversal and keppra for seizure prophylaxis. INR was 1.3 in ED[address] Repeat Head CT showed stable left subdural hematoma and increase in posterior falcine darshan lisbeth. Started on cardene gtt in ED to meet blood pressure goals. Admitted to [facility] for close monitoring. PAST MEDICAL HISTORY: [...] Social Gatherings with Friends and Family: Attends Tenriism Services: Active Member of Clubs or Organizations: [...] and Uses oxygen CV: Negative GI: Negative /BIOLOGICAL ENGINEER: Increase frequency of urination Neuro: Weakness Psych: [...] a subtle nondisplaced sacrococcygeal fracture. READING SITE: [employer] CT Chest w contrast Result Date: 12/15/2020 [...] long-term. 3. Cardiomegaly. Coronary atherosclerosis. READING SITE: [facility] XR Chest single view frontal Result Date: 12/15/2020 Question small left pleural effusion. No pneumothorax. No focal consolidation. Consider further evaluation with PA and lateral chest radiograph. READING SITE: [facility] XR Pelvis one or two views Result Date: 12/15/2020 No evidence of fracture. READING SITE: [facility] MEDICATIONS: INFUSIONS: niCARdipine 5 mg/hr (12/15/20 [...] place PICC in right upper extremity. [facility] * Mariela Crowe RN - 12/16/2020 2:25 PM CDT Spoke with Nataliya KATHLEEN who is caring for the patient. The patient remains in ICU ho wever all continuous intravenous medications requiring central access have been discontinued. Will assess and attempt power flush to correct PICC tip placement. Johny [facility] * Yudi Randolph RN - 12/15/2020 1:47 PM CDT Associated Order(s): CONSULT - VASCULAR ACCESS TEAM Post PCXR- DSVC- line ready to use. Nurse to remove all PIV's. * Yudi Randolph RN - 12/15/2020 1:29 PM CDT Vascular Ham Pumper will discuss risks, benefits, and alteratives with SHIRIN mena, or family for PICC placement. Placed by Verna FRANZ. A-fib. Or dered STAT PCXR. * Sangeeta Foley PA-C - 12/15/2020 11:29 AM CDT Associated Order(s): IP CONSULT TO NEUROSURGERY Neurosurgery Consult Note Patient Name: Mariano Thomas Admission Date: 12/15/2020 9:43 AM Consult [...] Social Gatherings with Friends and Family: Attends Tenriism Services: Active Member of Clubs or Organizations: [...] n and after reviewing his records from [facility] it appears he also has DM2, [...] subdural hematoma with loss of consciousness (HCC) shelter current use of anticoagulant Closed compression fracture of body of L1 vertebra (HCC) Hemorrhagic disorder due to extrinsic circulating anticoagulants (HCC) Paresis of right lower extremity (HCC) Sangeeta MONAHAN PA-C [facility] Neurological and Spine Surgery [address] [place] [address], [address] [place] [address] Available via Voalte. After 5 pm and on weekends please call the transfer controller provider or [phone] PPE Statement: Sangeeta Foley PA-C used Red precautions (N95 mask, with level 1 over, gloves). Associated attestation - Trina Jorge MD - 12/24/2020 5:38 PM CDT NEUROSURGERY STAFF ADDENDUM I have seen and examined the patient. I agree with the note as documented. Trina Jorge MD Dryer Operator of Epilepsy Surgery [address], [address] [place] [address] (phone) [phone] (fax) documented in this encounter Nursing Notes * Drea Davis RN - 12/22/2020 3:45 PM CDT Patient A&Ox3. No c/o pain, occasional back pain with movement. Patient noted to have decreased sensation in RLE with 1200 neuro assessment, rep orted numbness. trauma INSIDE STEWARD/STEWARDESS notified. Patient's granddaughter visiting at bedside. Patient noted to have red rash on back. Patient denied itching or pain. Trauma n otified. 1500 VS, SBP >140, scheduled metoprolol given late per telephone order from Trauma INSIDE STEWARD/STEWARDESS. Patient started on abx this shift, see [...] CDT Pt transferred to NSICU on full cardiac nurse, accompanied by RNs x2. On 3L NC . Cardene gtt running. Departed w/ all belongings. Bedside report given to HEVER An. * Sandy Robert RN - 12/15/2020 10:13 AM CDT Bed: [facility] Expected date: Expected time: Means of arrival: Comments: transfer * Jaxon Silva MD - 12/15/2020 9:52 AM CDT 12/15/2020 [facility] History No chief complaint on file. Patient [...] green so was repaged as a trau mt green patient alert and orient x3, he [...] trauma 4. Fall, 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 5. intermediate designer current use of anticoagulant 6. Traumatic subdural hematoma with loss of consciousness, 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 ([facility]) Patient ED Dispo None No results found for this or any previous visit (from the past 24 hour(s)). XR Pelvis one or two views Final Result No evidence of fracture. READING SITE: [facility] XR Chest single view frontal (Results [...] Recommendations Plan Continued OT AIRAM Noel/Naa Voalte [phone] CC for tech assist * Nutrition Note - Luann Guevara RD LD - 12/22/2020 1:39 PM CDT Frail Patient Nutrition Education [facility] Patient: Mariano Thomas Age: 80 y.o. : [...] 12/22/2020 1:39 PM Nutrition Length of Stay [facility] Patient: Mariano Thomas Age: 80 y.o. : [...] Progression Final DC Note - Keli Cronin, MODULAR HOME CREW MEMBER - 12/22/2020 1:23 PM CDT Final Discharge Note Final Discharge Disposition: 03-Residential Facility (SNF) - Medicare Certif ied Discharge goal and plan is mutually agreed upon by patient, family SW, CC and Ph ysician. [facility] will [facility] to: [facility] Transportation: [facility] ETA : [phone] (referred to Strike team) Discharge Time: Upon arrival of transportation / once IV abx 2p dose has been ad ministered. Special Instructions: Call Report #[phone]. Pt. And Family (daughter Melissa #[phone]) not ified of transportation plans. RN notified. DC Packet in chart. DC orders fa xed to SNF. Keli Cronin LCSW 12/22/2020 1:34 PM [id number] (Voalte) * End of Shift Note - Drea Davis RN - 12/21/2020 3:35 PM CDT End of Shift Summary and Plan of Care Patient A&Ox4. Incontinent of urine. RUE noted to be slightly weaker, Trauma INSIDE STEWARD/STEWARDESS notified. Repeat CT done this shift, see results. SBP 80s, Trauma notified. Patient asymptomatic. SBP low 90s with 1600 VS, asympt omatic. 1200 neuro check, patient noted to have slight L droop. INSIDE STEWARD/STEWARDESS notified. RISK OFFICER consu lt placed. Up in chair with [...] Therapy Note - Angelina Barreto ("V"), MS [facility]-RISK OFFICER - 12/21/2020 2:47 PM CDT 12/21/20 1447 Visit Type Visit Type Bedside Swallow RISK OFFICER Visit Info Initial RISK OFFICER Visit On 12/21/20 Assessed for Rehab Yes Ordering Practitioner Beto Muro MD Referral Reason New facial droop (bedside swallow) Patient/Family Reports Patient alert and cooperative during bedside swallow RISK OFFICER Received On 12/21/20 Swallow Subjective Subjective Patient [...] a time;With liquid Considerations Discharge Plan - SD After initial visit Plan Patient & family participated in development of Progression of Care Patient participated in development of treatment plan Treatment Interventions No further RISK OFFICER services indicated at this time Treatment Frequency Initial evaluation only Care Coordination Care Coordination x1 discussion with HEVER Barreto M.S. CCC-RISK OFFICER Speech-Language Pathologist [facility] phone: * Discharge Planning - Keli Cronin LCSW - 12/21/2020 1:02 PM CDT Discharge Planning Interventions General Discharge Note faxed clinical updates to SNF [facility] FRITZ LM on for pt's son Maynor re: placement update. Maynor LABOY on [facility] confirming that [facility] prefer red placement. Pt has been accepted [facility] when medically stable. Pt will need [facility] transport at or. Placement contact info: [facility] #[phone] (main #) Keli Cronin LCSW 12/21/2020 1:07 PM [id number] (Voalte) * Nutrition Note - Teressa Collier RD - 12/21/2020 12:37 PM CDT Frail Patient Nutrition Education [facility] Patient: Mariano Thomas Age: 80 y.o. : [...] sitting bal PT Nursing Communication pt needs [facility] lift for out of bed to chair [...] Transfers Transfer Comments see PT note for sit-->dye machine operator this session Activity Tolerance Activity Tolerance fair;- [...] upon arrival willing to work with OT [facility] RN approval OT Received On 12/19/20 Precautions Back Precaution Comments L1, L3 fx Fall Risk Yes Isolation no Supplemental Oxygen NC Home Living Type of Home Assisted Living Home Layout One level Lives With Alone Home Assistive Device Rolling walker Prior Function Level of [place] Modified independent with ADLs;Modified independent with f [...] Interventions General Discharge Note FRITZ contacted pt's JAIL Pres. [facility]. FRITZ informed that pt's spouse i s currently at SNF - [facility]. [facility] [place], [place]. Facility indicated that family would likely want pt to ret urn to [facility] should pt require SNF. FRITZ attempted to contact pt's daughter Melissa #[phone] and son Maynor #[phone]. FRITZ LM on both VMs. FRITZ contacted [facility] and spoke w/ liaison who confirmed [...] SNF referral. FRITZ will continue to follow. [facility] #[phone] (main #) Keli Cronin LCSW 12/18/2020 4:00 PM [id number] (Voalte) * Therapy Note - Kayla Styles, [...] Device Rolling walker Prior Function Level of [place] Modified independent with ambulation Pain Assessment Pain [...] Plan for next treatment bed mobility w/ tech/VACUUM REPAIRER assist PT Nursing Communication [facility] to chair [...] and Plan of Care Patient transferred to [facility] around 1830. Full report from Codi CAMERON RN. [facility] completed upon transfer. Goals per Patient Condition [...] the assessment. Pt has been living at [facility] since mid-October. He i s somewhat independent with cares. He has a walker and is on 2L O2. The [place] can p rovide transportation as needed. He has never had home health but prior to movin g to the assisted living, he went to [facility]. 12/16/20 1524 SBIRT Is [...] drugs first thing in the morning (EYE FIRE PROTECTION FABRICATOR) to steady your nerves or get rid of a hangover? 0 SBIRT TOTAL 0 Patient Information Information Obtained: Pt and daughter, Ne. Primary Caregiver : Self Support Systems: Children, Extended family Living Arrangements: Assisted Living, Other (Comment) ([facility]) Type of Residence: Assisted living facility Current Home Health Services: No Transportation Transportation at Discharge: Wheelchair van Transportation at Appointments: Family, Wheelchair van Functional Capacity & DME Assistive Devices: Walker, Oxygen Respiratory Items: Oxygen Current & Past Services Current Resources Available: N/A Past Facility Placements: [facility] Financial/Income Information Financial Hardship: N/A Verified that patients primary care physician is Brock Mas MD and receives eir medications from [facility] Mail Delivery - [facility] [address] [facility] [address] [facility] [address] Josseline Earl LMSW 12/16/2020 3:22 PM MANISHA: [id number] Voalte: NEURO ICU: [phone] CVICU: [phone] Desk: [phone] * Nutrition Note - Teressa Collier RD - 12/16/2020 10:26 AM CDT Frail Patient Nutrition Education [facility] Patient: Mariano Thomas Age: 80 y.o. : [...] review completed, pt recent ly [facility] [facility] and medical work up is ongoing. Physical Therapy will follow for skilled needs. Thank you for consultation. * Nutrition Note - Yas Torres RD - 12/15/2020 10:32 AM CDT Frail Patient Nutrition Education [facility] Patient: Mariano Thomas Age: 80 y.o. : [...] Robbins PA [address] [place] [address] [phone] 01/18/2021 Imaging Radiology Appointment Andres Jiménez PA-C [address] [place] [address] [phone] 01/18/2021 Office Visit Neurosurgery Order Schedule Name [...] WBC 16.30 (H) 4.00 - 11.00 TH/uL [facility] RBC 3.68 (L) 4.31 - 5.84 MIL/uL [facility] Hemoglobin 12.7 (L) 13.0 - 17.0 g/dL [facility] Hematocrit 37 (L) 40 - 50 % [facility] MCV 101 (H) 80.0 - 99.0 fL [facility] MCH 35 (H) 27.0 - 34.0 pg [facility] MCHC 34 32 - 36 % [facility] RDW 13.3 11.5 - 14.5 % [facility] Platelet Count 117 (L) 140 - 400 TH/uL [facility] MPV 12.9 (H) 9.4 - 12.3 fL [facility] Nucleated RBCs 0 0 - 0 /100 [facility] % Neutrophils 28 (L) 45 - 78 % [facility] %Lymphocytes 67 (H) 15 - 47 % [facility] % Monocytes 4 0 - 12 % [facility] %Eosinophils 0 0 - 7 % [facility] %Basophils 0 0 - 2 % [facility] % Imm Grans 1 0 - 1 % [facility] # Granulocytes 4.65 1.70 - 6.80 TH/uL [facility] # Lymphocytes 10.84 (H) 1.00 - 3.30 TH/uL [facility] # Monocytes 0.71 0.20 - 0.90 TH/uL [facility] # Eosinophils 0.06 0.00 - 0.40 TH/uL [facility] # Basophils 0.03 0.00 - 0.10 TH/uL [facility] RBC Morphology Normal Normal [facility] Specimen Blood Performing Organization Address City/State/ZIP Code P ruddy Number [address] [address] LABORATORIES [facility] [address] [place] [address] * Basic Metabolic Panel (12/22/2020 12:15 AM CDT) Only the most recent of 5 results within the time period is included. Sodium 128 (L) 133 - 147 MEQ/L [facility] Potassium 4.6 3.5 - 5.3 MEQ/L [facility] Chloride 89 (L) 96 - 112 MEQ/L [facility] Carbon Dioxide 33 (H) 20 - 32 MEQ/L [facility] Anion Gap 6 5 - 17 [facility] Calcium 8.4 8.4 - 10.5 mg/dL [facility] Glucose 106 (H) 70 - 100 mg/dL [facility] Blood Urea 20 7 - 26 mg/dL [facility] Creatinine 0.6 0.6 - 1.3 mg/dL [facility] eGFR Male AA >130 60 - 200 [facility] mL/min/1.73sq [facility] Lab eGFR Male 129 60 - 200 [facility] Non-AA mL/min/1.73sq [facility] Specimen Blood Performing Organization Address City/[facility] Code P ruddy Number [address] [address] LABORATORIES [facility] [address] [place] [address] * CT Head wo contrast (12/21/2020 10:57 AM CDT) Only the most recent of 4 results within the time period is included. Specimen Impressions Performed At Impression: ALLAN Mildly increased mass effect and underl cecil brain compression with increased mass effect on the left later al ventricle. Mildly increased left right midline shift measuring 5 mm from 3 mm previously. READING SITE: [facility]. ATTESTATION STATEMENT: The Staff Radiol ogist has personally reviewed the images and dictated, reviewed, or edite d the final report. Narrative Performed At Patient: MARIANO THOMAS Sex#: M #: 1940 Chrissy# : [id number] Location: [place] [address] Accession# : [id number] Ordering Provider: ONELIA GRADY Procedure Requested: [id number] CT HEAD WO CONTRAST Exam Ordered: 12/21/2020 [...] MARIANO THOMAS Sex#: [facility] #: 1940 Chrissy#: [id number] Location: [address] Ordering Provider: ONELIA GRADY Procedure Requested: [id number] CT HEAD WO CONTRAST Exam Ordered: 12/21/2020 [...] mm from 3 mm previously. READING SITE: [facility]. ATTESTATION STATEMENT: The Staff Radiologist has personally reviewed the images and dictated, reviewed, or edited the final report. Performing Organization Address City/State/ZIP Code P ruddy Number [place] * Lactate Venous WB - 0hr STAT (12/19/2020 12:35 PM CDT) Only the most recent of 2 results within the time period is included. Lactate Venous 0.6 0.0 - 2.0 mmol/L [facility] Specimen Blood Performing Organization Address City/[facility] Code P [facility] Number [address] [address] LABORATORIES [facility] [address] [place] [address] * Potassium (12/18/2020 12:30 PM CDT) Only the most recent of 10 results within the time period is included. Potassium 4.6 3.5 - 5.3 MEQ/L [facility] Specimen Blood Performing Organization Address City/[facility] P [facility] Number [address] [address] LABORATORIES [facility] [address] [place] [address] * Sodium (12/18/2020 12:30 PM CDT) Only the most recent of 10 results within the time period is included. Sodium 130 (L) 133 - 147 MEQ/L [facility] Specimen Blood Performing Organization Address City/[facility] P [facility] Number [address] [address] LABORATORIES [facility] [address] [place] [address] * XR Chest single view frontal (12/18/2020 10:11 AM CDT) Only the most recent of 5 results within the time period is included. Specimen Impressions Performed At 1. Right upper extremity PICC. [facility] 2. Improved aeration of the left lung. Residual left basilar airspace disease. Interstitial edema. READING SITE: [facility] Strickland Performed At Patient: MARIANO THOMAS Sex#: M #: 1940 Chrissy# : [id number] Location: [address] Accession# : [id number] Ordering Provider: ARIN BALL Procedure Requested: [id number] XR CHEST SINGLE VIEW FRONTAL Exam Ordered: [...] MARIANO THOMAS Sex#: M #: 1940 Chrissy#: [id number] Location: [place] [address] Ordering Provider: ARIN BALL Procedure Requested: [id number] XR CHEST SINGLE VIEW FRONTAL Exam Ordered: [...] basilar airspace disease. Interstitial edema. READING SITE: [facility] Address City/State/ZIP Code P ruddy Number [place] [...] pleural effusion has i mproved. READING SITE: [facility] Narrative Performed At Patient: MARIANO THOMAS Sex#: M #: 1940 Chrissy# : [id number] Location: [address] ICU N318- Access ion#: [id number] Ordering Provider: JOHN CARBAJAL Procedure Requested: [id number] XR CHEST POST LINE DRAIN OR AIRWAY [...] MARIANO THOMAS Sex#: M #: 1940 Chrissy#: [id number] Location: [address] ICU N318- Ordering Provider: JOHN CARBAJAL Procedure Requested: [id number] XR CHEST POST LINE DRAIN OR AIRWAY [...] pleural effusion has im proved. READING SITE: [facility] Performing Organization Address City/State/ZIP Code P ruddy [...] Lim on 12/16/2020 1:44 PM READING SITE: [facility] Narrative Performed At Patient: MARIANO THOMAS Sex#: M #: 1940 Chrissy# : [id number] Location: [address] ICU N318-01 Access ion#: [id number] Ordering Provider: ARIN BALL Procedure Requested: [id number] XR SHOUL AVA MIN 2 VIEWS LEFT [...] MARIANO THOMAS Sex#: M #: 1940 Chrissy#: [id number] Location: [address] ICU N318-01 Ordering Provider: ARIN BALL Procedure Requested: [id number] XR SHOULDER MIN 2 VIEWS LEFT Exam [...] Lim on 12/16/2020 1:44 PM READING SITE: [facility] Performing Organization Address City/State/ZIP Code P ruddy Number FAVIAN * XR Ankle min 3 views right (12/16/2020 12:23 PM CDT) Specimen Impressions Performed At No evidence of fracture. ALLAN READING SITE: [facility] Narrative Performed At Patient: MARIANO THOMAS Sex#: M #: 1940 Chrissy# : [id number] Location: [address]-01 Access ion#: [id number] Ordering Provider: ARIN BALL Procedure Requested: [id number] XR ANKLE MIN 3 VIEWS RIGHT Exam [...] MARIANO THOMAS Sex#: [facility] #: 1940 Chrissy#: [id number] Location: [address] N318-01 Ordering Provider: ARIN BALL Procedure Requested: [id number] XR ANKLE MIN 3 VIEWS RIGHT Exam [...] No evidence of fracture. READING SITE: [facility] Performing Organization Address City/State/ZIP Code P ruddy Number [place] * Phosphorus (12/16/2020 12:15 AM CDT) Phosphorus 3.6 2.5 - 4.5 mg/dL [facility] Specimen Blood Performing Organization Address City/State/ZIP Code P ruddy Number [facility] [address] [place] [address] LABORATORIES [facility] [address] [place] [address] * Magnesium (12/16/2020 12:15 AM CDT) Only the most recent of 2 results within the time period is included. Magnesium 1.6 1.4 - 2.7 mg/dL [facility] Specimen Blood Performing Organization Address City/State/ZIP Code P ruddy Number [facility] [address] [place] [address] LABORATORIES [facility] [address] [place] [address] * Clotting Screen (12/16/2020 12:15 AM CDT) Only the most recent of 3 results within the time period is included. Protime 14.7 11.4 - 15.0 sec [facility] INR 1.2 0.8 - 1.2 [facility] APTT 35 (H) 22 - 34 sec [facility] Specimen Blood Performing Organization Address City/State/[facility] Code P ruddy Number [address] [address] LABORATORIES [facility] [address] [place] [address] * Complete Blood Count (12/16/2020 12:15 AM CDT) WBC 19.42 (H) 4.00 - 11.00 TH/uL [facility] RBC 4.18 (L) 4.31 - 5.84 MIL/uL [facility] Hemoglobin 14.4 13.0 - 17.0 g/dL [facility] Hematocrit 42 40 - 50 % [facility] MCV 100 (H) 80.0 - 99.0 fL [facility] MCH 34 27.0 - 34.0 pg [facility] MCHC 35 32 - 36 % [facility] RDW 12.8 11.5 - 14.5 % [facility] Platelet Count 124 (L) 140 - 400 TH/uL [facility] MPV 13.0 (H) 9.4 - 12.3 fL [facility] Nucleated RBCs 0 0 - 0 /100 [facility] Specimen Blood Performing Organization Address City/[facility]/ZIP Code P ruddy Number [address] [address] LABORATORIES [facility] [address] [place] [address] * Urinalysis Reflex (12/15/2020 2:00 PM CDT) Appearance, Yellow [facility] Glucose Urine 100 (A) Negative mg/dL [facility] Bilirubin Urine Negative Negative [facility] Ketones Urine Trace (A) Negative mg/dL [facility] Specific 1.022 1.001 - 1.030 [facility] Hemoglobin Trace (A) Negative [facility] PH Urine 8.0 5.0 - 8.0 [facility] Protein Urine Negative Negative mg/dL [facility] Urobilinogen Negative Negative EU/dL [facility] Nitrite Urine Negative Negative [facility] Leukocyte Negative Negative [facility] Lab Specimen Clean Voided Urine Performing Organization Address City/[facility] P ruddy Number [address] [address] LABORATORIES [facility] [address] [place] [address] * Toxicology Screening Panel (12/15/2020 2:00 PM CDT) Tetrahydrocanna Not Detected Not Detected [facility] bin Urine [facility] Lab Phencyclidine Not Detected Not Detected [facility] Cocaine Urine Not Detected Not Detected [facility] Methamphetamine Not Detected Not Detected [facility] Opiates Urine Not DetectedComment: This drug Not Detected [facility] provides presumptive Hospital Lab results for medical purposes only. False positive results may occur. Confirmatory results will follow for all positive drugs except tricyclic antidepressants. Amphetamines Not Detected Not Detected [facility] Urine Hospital Lab Benzodiazepines Not Detected Not Detected [facility] Urine [facility] Tricyclic Not Detected Not Detected [facility] Antidepressants Hospital Lab Methadone Urine Not Detected Not Detected [facility] Barbiturates Not Detected Not Detected [facility] Urine [facility] Oxycodone Urine Not Detected Not Detected [facility] Comment: Hospital Lab Toxicology cutoff values: Assay Cutoff value Assay Cutoff value Amphetamines 500 ng/mL Methamphetamines 500 ng/mL Barbiturates 200 ng/mL Opiates 100 ng/mL Benzodiazepines 150 ng/mL Oxycodone 100 ng/mL Cocaine 150 ng/mL Phencyclidine 25 ng/mL Methadone 200 ng/mL THC 50 ng/mL Tricyclic Antidepressants 300 ng/mL Specimen Urine Performing Organization Address City/[facility]/ZIP Code P ruddy Number [address] [address] LABORATORIES [facility] [address] [place] [address] * GLUCOSE POC (12/15/2020 10:56 AM CDT) Glucose POC 127 (H) 70 - 100 mg/dL [facility] LABORATORIES Specimen Performing Organization Address City/[facility]/ZIP Code P ruddy Number [address] [address] LABORATORIES * P2Y12 Response Assay (12/15/2020 10:35 AM CDT) P2Y12 Platelet 211Comment: PRU values >230 PRU Sa [facility]'s Function have been associated with an Hospital Lab increased risk of ischemic events after PCI including , SD, and stent thrombosis. Specimen Blood Performing Organization Address City/[facility]/ZIP Code P ruddy Number [address] [address] LABORATORIES [facility] [address] [place] [address] * Venous Blood Gas (12/15/2020 10:35 AM CDT) PO2 Venous 31 (L) 37 - 43 mm Hg [facility] PCO2 Venous 72 (H) 40 - 45 mm Hg [facility] PH Venous 7.30 (L) 7.36 - 7.41 units [facility] Bicarbonate 35.4 (H) 22.0 - 29.0 MEQ/L [facility] Base Excess 6.4 (H) -3.0 - 3.0 MEQ/L [facility] Specimen Blood Performing Organization Address [facility]/ZIP Code P ruddy Number [facility] [address] [place] [address] LABORATORIES [facility] [address] [place] [address] * Electrocardiogram (ECG) (12/15/2020 10:26 AM CDT) QRSd 122 [facility]ER QT 432 [facility]ER QTC 523 [facility]ER ECGHR 88 [facility]ASTER Specimen Narrative Performed At [facility] ED Test Date: 2020-12-15 Pat Name: MARIANO THOMAS Department: ERL Room: [facility] Gender: Male Brick Off Bearer: [id number] : 1940 Requested By: ARIN BALL Order Number: [id number] [place] MD: Measurements Intervals [place] Rate: 88 P: ND: QRS: 19 QRSD: 122 T: -28 QT: 432 QTc: 523 Interpretive Statements Atrial fibrillation Ventricular premature complex Nonspecific intraventricular conduction delay Nonspecific repol abnormality, lateral leads Procedure Note Interface, External Ris In - 12/15/2020 10:27 AM CDT [facility] ED Test Date: 2020-12-15 Pat Name: MARIANO THOMAS Department: ERL Room: [facility] Gender: Male Brick Off Bearer: [id number] : 1940 Requested By: ARIN BALL Order Number: [id number] [place] MD: Measurements Intervals [place] Rate: 88 P: ND: QRS: 19 QRSD: 122 T: -28 QT: 432 QTc: 523 Interpretive Statements Atrial fibrillation Ventricular premature complex Nonspecific intraventricular conduction delay Nonspecific repol abnormality, lateral leads Performing Organization Address City/[facility] Code P ruddy Number TRAC[facility]ASTER * COVID PCR - Rapid (12/15/2020 10:24 AM CDT) Pathologist [facility] SARS-CoV-2 PCR NegativeComment: This RT-PCR Negative S [facility] test has been authorized by Hospital Lab the FDA under an Emergency Use Authorization (EUA) for use by authorized laboratories. Specimen NASOPHARYNGEAL SWAB Performing Organization Address City/[facility]/ZIP Code P ruddy Number [address] [address] LABORATORIES [facility] [address] [place] [address] * Antibody Screen (12/15/2020 10:22 AM CDT) Pathologist [facility] Antibody Screen Negative Negative [facility] Specimen Blood Performing Organization Address City/[facility]/ZIP Code P ruddy Number [address] [address] LABORATORIES [facility] [address] [place] [address] * ABORH Type (12/15/2020 10:22 AM CDT) Pathologist [facility] ABORH Type O Positive [facility] Specimen Blood Performing Organization Address City/[facility]/ZIP Code P ruddy Number [address] [address] LABORATORIES [facility] [address] [place] [address] * Creatine Kinase (12/15/2020 10:22 AM CDT) [facility] Creatine Kinase 30 IU/L [facility] Comment: Hospital Lab White Female: 30 - 160 IU/L Black Female: 30 - 430 IU/L White Male: 40 - 425 IU/L Black Male: 50 - 850 IU/L Specimen Blood Performing Organization Address City/[facility]/ZIP Code P ruddy Number [address] [address] LABORATORIES [facility] [address] [place] [address] * Troponin (12/15/2020 10:22 AM CDT) Troponin <0.01 0.00 - 0.03 ng/mL [facility] Comment: Hospital Lab Troponin Value Interpretation 0.00 - 0.03 Healthy 0.04 - 0.12 Increased Cardiac Risk >0.12 Myocardial Infarction Troponin may not become elevated until 6 to 8 hours after onset of symptoms. Specimen Blood Performing Organization Address City/State/ZIP Code P ruddy Number [address] [address] LABORATORIES [facility] [address] [place] [address] * Lipase (12/15/2020 10:22 AM CDT) Pathologist [facility] Lipase <10 (L) 23 - 300 IU/L [facility] Specimen Blood Performing Organization Address City/State/ZIP Code P ruddy Number [address] [address] LABORATORIES [facility] [address] [place] [address] * Amylase (12/15/2020 10:22 AM CDT) Pathologist [facility] Amylase 45 30 - 130 IU/L [facility] Specimen Blood Performing Organization Address City/[facility]/ZIP Code P ruddy Number [address] [address] LABORATORIES [facility] [address] [place] [address] * Alcohol Serum (12/15/2020 10:22 AM CDT) Pathologist [facility] Alcohol Serum <10 0 - 9 mg/dL [facility] Specimen Blood Performing Organization Address City/State/ZIP Code P ruddy Number [address] [address] LABORATORIES [facility] [address] [place] [address] * Comprehensive Metabolic Panel (12/15/2020 10:22 AM CDT) Pathologist [facility] Sodium 126 (L) 133 - 147 MEQ/L [facility] Potassium 4.6 3.5 - 5.3 MEQ/L [facility] Chloride 89 (L) 96 - 112 MEQ/L [facility] Carbon Dioxide 34 (H) 20 - 32 MEQ/L [facility] Anion Gap 4 (L) 5 - 17 [facility] Calcium 7.9 (L) 8.4 - 10.5 mg/dL [facility] Glucose 120 (H) 70 - 100 mg/dL [facility] Protein Total 5.2 (L) 6.0 - 8.2 g/dL [facility] Serum [facility] Lab Albumin 2.9 (L) 3.5 - 5.0 g/dL [facility] Alkaline 61 42 - 140 IU/L [facility] Lab Alanine 10 0 - 49 IU/L [facility] e Aspartate 21Comment: Specimen is 15 - 46 IU/L [facility] Aminotransferas slightly hemolyzed which may Hospital Lab e elevate the AST result. Bilirubin Total 1.3 0.2 - 1.3 mg/dL [facility] Blood Urea 12 7 - 26 mg/dL [facility] Creatinine 0.7 0.6 - 1.3 mg/dL [facility] eGFR Male AA >130 60 - 200 [facility] mL/min/1.73sq m [facility] Lab eGFR Male 108 60 - 200 [facility] Non-AA mL/min/1.73sq [facility] Specimen Blood Performing Organization Address City/State/ZIP Code P ruddy Number [address] [address] LABORATORIES [facility] [address] [place] [address] * CT Lumbar Spine reconstructed (12/15/2020 10:21 AM CDT) Specimen Impressions Performed At Subacute fracture of superior endplate of L1 with celso roximately 70% [facility] height loss. Presence of superior endpl ate fracture cleft suggests nonhealing. Subacute fracture of the miller perior endplate of L3 with no significant height loss. READING SITE: [facility]. ATTESTATION STATEMENT: The Staff Radiologist has personally re viewed the images and dictated, reviewed, or edited the final report. Narrative Performed At Patient: MARIANO THOMAS Sex#: M #: 1940 Chrissy# : [id number] Location: [facility] N3 ICU N318-01 Access ion#: [id number] Ordering Provider: ARIN BALL Procedure Requested: [id number] CT LUMBA R SPINE RECONSTRUCTED Exam Ordered: [...] MARIANO THOMAS Sex#: M #: 1940 Chrissy#: [id number] Location: [address] N318-01 Ordering Provider: ARIN BALL Procedure Requested: [id number] CT LUMBAR SPINE RECONSTRUCTED Exam Ordered: 12/15/2020 [...] with no significant height loss. READING SITE: [facility]. ATTESTATION STATEMENT: The Staff Radiologist has personally [...] sult of chronic degenerative changes. READING SITE: [facility]. ATTESTATION STATEMENT: The Staff Radiologist has personally re viewed the images and dictated, reviewed, or edited the final report. Narrative Performed At Patient: MARIANO THOMAS Sex#: M #: 1940 Chrissy# : [id number] Location: [address] N318-01 Access ion#: [id number] Ordering Provider: ARIN BALL Procedure Requested: [id number] CT THORA CIC SPINE RECONSTRUCTED Exam Ordered: [...] MARIANO THOMAS Sex#: M #: 1940 Chrissy#: [id number] Location: [address] ICU N318-01 Ordering Provider: ARIN BALL Procedure Requested: [id number] CT THORACIC SPINE RECONSTRUCTED Exam Ordered: 12/15/2020 [...] result of chronic degenerative changes. READING SITE: [facility]. ATTESTATION STATEMENT: The Staff Radiologist has personally [...] subtle nondisplaced sacrococc ygeal fracture. READING SITE: [facility] Narrative Performed At Patient: MARIANO THOMAS Sex#: M #: 1940 Chrissy# : [id number] Location: [facility] ED LED08 Ordering Provider: ARIN BALL Procedure Requested: [id number] CT ABDOM EN PELVIS W CONTRAST Exam [...] MARIANO THOMAS Sex#: M #: 1940 Chrissy#: [id number] Location: [facility] ED LED08 Ordering Provider: ARIN BALL Procedure Requested: [id number] CT ABDOMEN PELVIS W CONTRAST Exam Ordered: [...] a subtle nondisplaced sacrococcygeal fracture. READING SITE: [facility] Performing Organization Address City/State/ZIP Code P ruddy [...] 3. Cardiomegaly. Coronary atheroscleros is. READING SITE: [facility] Narrative Performed At Patient: MARIANO THOMAS Sex#: M #: 1940 Chrissy# : [id number] Location: [facility] LED Ordering Provider: ARIN BALL Procedure Requested: [id number] CT CHEST W CONTRAST Exam Ordered: 12/15/2020 09 54 Exam Date/Time: 12/15/2020 102 1 Begin exam date/time: 12/15/[address] CHEST W CONTRAST INDICATION: trauma Comparison: None. TECHNIQUE: Following the uneventful adm inistration of intravenous contrast 100 cc Omnipaque 350, axial CT sections were obtained through the lungs and upper abdomen. Coronal SD P images and coronal and sagittal multiplanar [...] MARIANO THOMAS Sex#: M #: [id number] Chrissy#: [id number] Location: [facility] LED08 Ordering Provider: ARIN BALL Procedure Requested: [id number] CT CHEST W CONTRAST Exam Ordered: 12/15/2020 [...] 3. Cardiomegaly. Coronary atherosclerosi s. READING SITE: [facility] Organization Address City/State/ZIP Code P ruddy Number ALLAN * CT Cervical Spine wo contrast (12/15/2020 10:21 AM CDT) Specimen Impressions Performed At 1. No acute fracture or dislocation. [place] 2. Mild to moderate degenerative cervic al spondylosis. ATTESTATION STATEMENT: The Staff Radiol ogist has personally reviewed the images and dictated, reviewed, or edite d the final report. READING SITE: [facility] Narrative Performed At Patient: MARIANO THOMAS Sex#: M #: [id number] Chrissy# : [id number] Location: [address] ICU N318-01 Access ion#: [id number] Ordering Provider: ARIN BALL Procedure Requested: [id number] CT CERVI MALENA SPINE WO CONTRAST Exam [...] MARIANO THOMAS Sex#: M #: 1940 Chrissy#: [id number] Location: [address] N318-01 Ordering Provider: ARIN BALL Procedure Requested: [id number] CT CERVICAL SPINE WO CONTRAST Exam Ordered: [...] or edited the final report. READING SITE: [facility] Organization Address City/State/ZIP Code P ruddy Number [id number] * XR Pelvis one or two views (12/15/2020 9:52 AM CDT) Specimen Impressions Performed At No evidence of fracture. [place] READING SITE: [facility] Narrative Performed At Patient: MARIANO THOMAS Sex#: M #: [id number] Chrissy# : [id number] Location: [place] [address] Ordering Provider: ARIN BALL Procedure Requested: [id number] XR PELVI S ONE OR TWO VIEWS [...] MARIANO THOMAS Sex#: M #: 1940 Chrissy#: [id number] Location: [facility] ED R1 Ordering Provider: ARIN BALL Procedure Requested: [id number] XR PELVIS ONE OR TWO VIEWS Exam Ordered: 12/15/2020 0946 Exam Date/Time: 12/15/202052 Begin exam date/time: 12/15/202048 XR PELVIS ONE OR TWO VIEWS DATE: 12/15/2020 9:53 AM INDICATION: TRAUMA COMPARISON: None TECHNIQUE: AP view FINDINGS: No evidence of fracture or dislocation. No SI joint or pubic symphysis diastases. Mild osteoarthritis of the hips. Left iliac stent. IMPRESSION No evidence of fracture. READING SITE: [facility] Imaging Performing Organization Address City/State/ZIP Code P ruddy Number MCKESSON documented in this encounter Visit Diagnoses Diagnosis SDH (subdural hematoma) ([facility]) - Primary Subdural hemorrhage Acute neck pain Acute pain due to trauma Fall, 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 intermediate designer current use of anticoagulant Traumatic subdural hematoma with loss o f consciousness, 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 ([facility]) Longstanding persistent atrial fibrilla tion ([facility]) Closed compression fracture of body of L1 vertebra (HCC) Closed compression fracture of L3 lumba r vertebra, 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 ([facility]) Traumatic focal compression of brain (H CC) Compression of brain 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 ([facility]) History of DVT (deep vein thrombosis) Hypertensive urgency Hyponatremia Hyposmolality and/or hyponatremia Paresis of right lower extremity ([facility]) Type 2 diabetes mellitus with hyperglyc emia, with long-term current use of insulin ([facility]) Acute urinary retention Hypoalbuminemia Other disorders of plasma protein metab olism A-fib ([facility]) Atrial fibrillation Type II diabetes mellitus (HCC) Type II or unspecified type diabetes me llitus without mention of complication, not stated as uncontrolled Leukocytosis Leukocytosis, unspecified Chronic respiratory failure with hypoxi a ([facility]) History of COPD Acute delirium Delirium due [...] Davis RN - Comment: telephone order trauma INSIDE STEWARD/STEWARDESS for SBP >140) metoprolol tartrate (LOPRESSOR) tablet [...] (Hold this dose - Provider: Maynor Vasquez MANUFACTURER'S SERVICE REPRESENTATIVE - Reason: Patient/family refused)1400 (Hold this dose - Provider: Maynor Vasquez MANUFACTURER'S SERVICE REPRESENTATIVE - Reason: Patient/family refused)1999 (Not Given - Provider: Yang Merritt RRT - Reason: Patient/family refused) 0200 (Hold this dose - Provider: Yang Merritt MANUFACTURER'S SERVICE REPRESENTATIVE - Reason: Other)0800 (Not Given - Provider: Gaston Fowler MANUFACTURER'S SERVICE REPRESENTATIVE - Reason: Other)1400 (Due - Provider: Alicia CallawayHEVER) sodium chloride 10 % nebulizer solution 0200 (Not Gi marium - 3 mL Provider: Mitchell Uribe 3 mL, Nebulization, Every 6 hours, First Savage, MANUFACTURER'S SERVICE REPRESENTATIVE - Reason: dose on Mon12/16/20 at 1415 Other)0826 (Given - Provider: Mary Donahue, ICU SPECIALIST)1400 (Not Given - Provider: Mary Donahue, ICU SPECIALIST - Reason: Other)2141 (Given - Provider: Jia Neville, MANUFACTURER'S SERVICE REPRESENTATIVE) 0928 (Given - Provider: Alli Quezada) 0913 [...]
[2020-12-25 19:37] VITALS: BP 159/117
[2020-12-25 20:13] VITALS: BP 126/88
[2020-12-25] MEDS ORDERED: RT-ALBUTEROL/IPRATROPIUM 3 ML (DUONEB) VIAL INH PRN (20:30)
[2020-12-25] MEDS: RT-ALBUTEROL/IPRATROPIUM 3 ML (DUONEB) VIAL INH SCH (22:39)
[2020-12-25] MEDS: PIPERACILLIN/TAZO 4.5 GM/NS 100 ML IV SCH ×2 (23:09)
[2020-12-26] VITALS (14 sets, daily range): BP systolic 106–159; BP diastolic 82–119
[2020-12-26] MEDS: RT-ALBUTEROL/IPRATROPIUM 3 ML (DUONEB) VIAL INH SCH ×5 (02:32→18:39)
[2020-12-26] MEDS: methylPREDNISolone 125 MG (Solu-MEDROL) VIAL IV SCH ×4 (04:31→23:35)
[2020-12-26] MEDS: VANCOMYCIN 1 GM/NS 250 ML IVPB IV SCH ×4 (04:40→17:46)
[2020-12-26] MEDS: LACTATED RINGERS 1,000 ML IV SCH ×2 (06:03→20:40)
[2020-12-26] MEDS: PIPERACILLIN/TAZO 4.5 GM/NS 100 ML IV SCH ×6 (06:03→23:34)
[2020-12-26 06:42] LABS: BASOPHILS % (AUTO) 0 % (0-10); EOSINOPHILS % (AUTO) 0 % (0-10); HEMATOCRIT 46 % (40-54); HEMOGLOBIN 15.3 g/dL (13.3-17.7); LYMPHOCYTES # (AUTO) 14.9 10^3/uL (1.0-4.0); LYMPHOCYTES % (AUTO) 68 % (12-44); MEAN CORPUSCULAR HEMOGLOBIN 35 pg (25-34); MEAN CORPUSCULAR HGB CONC 34 g/dL (32-36); MEAN CORPUSCULAR VOLUME 105 fL (80-99); MEAN PLATELET VOLUME 12.6 fL (9.0-12.2); MONOCYTES # (AUTO) 0.3 10^3/uL (0.0-1.0); MONOCYTES % (AUTO) 1 % (0-12); NEUTROPHILS # (AUTO) 6.7 10^3/uL (1.8-7.8); NEUTROPHILS % (AUTO) 30 % (42-75); PLATELET COUNT 148 10^3/uL (130-400)
[2020-12-26 06:55] LABS: POTASSIUM 4.2 MMOL/L (3.6-5.0)
[2020-12-26 06:56] LABS: CALCIUM 9.1 MG/DL (8.5-10.1)
[2020-12-26 07:01] LABS: CREATININE SERUM 0.81 MG/DL (0.60-1.30)
[2020-12-26 08:57] LABS: BAND NEUTROPHILS 1 %; LYMPHOCYTES % (MANUAL) 72 %; MONOCYTES % (MANUAL) 2 %
[2020-12-26 08:58] LABS: ATYPICAL LYMPHOCYTES 2 %; BASOPHILS % (MANUAL) 0 %; EOSINOPHILS % (MANUAL) 0 %; SMUDGE CELLS SLIGHT
--- NOTE | 2020-12-26 11:04 | Diagnostic Imaging Report ---
PROCEDURE: CT head without contrast. TECHNIQUE: Multiple contiguous axial images were obtained through the brain without the use of intravenous contrast. Auto Exposure Controls were utilized during the CT exam to meet ALARA standards for radiation dose reduction. INDICATION: Lethargy and recent subdural hematoma. Correlation is made with prior head CT from 12/15/2020. There has been evolution of the previously noted subdural hematoma along the left cerebral convexity. The extra-axial collection is now significantly less dense however the thickness is greater measuring approximately 2 cm in thickness compared with 1.3 cm. There is continued significant mass effect with midline shift left to right. The degree of mass effect has increased with significant effacement of the left lateral ventricle. The hhjb-er-wwsdl midline shift is now 11 mm compared with approximately 6 mm on prior. Some residual acute blood along the posterior falx is noted. IMPRESSION: Mixed density left cerebral convexity subdural hematoma. Overall thickness of the low-density subdural collection along the left cervical convexity has increased since exam 11 days earlier. In addition, there has been an increase in the degree of mass effect and akhx-hl-gritr midline shift when compared with prior exam. No new area of hemorrhage is detected. Dictated by: Dictated on workstation # [id number]
--- NOTE | 2020-12-26 11:11 | Diagnostic Imaging Report ---
PROCEDURE: CT chest without contrast. TECHNIQUE: Multiple contiguous axial images were obtained through the chest without the use of intravenous contrast. Auto Exposure Controls were utilized during the CT exam to meet ALARA standards for radiation dose reduction. INDICATION: Pneumonia and lethargy. No prior studies are available for comparison. The heart is significantly enlarged. Pulmonary arterial system appears to be dilated, perhaps owing to pulmonary arterial hypertension. No pericardial fluid is seen. There appears to be trace left pleural fluid. No axillary lymphadenopathy is detected. No definite mediastinal or hilar lymphadenopathy is detected. There is some infiltrate or atelectasis in the posterior left lower lobe. Otherwise lungs appear to be clear. Upper abdomen demonstrates the proximal portion of the large abdominal aortic aneurysm with aneurysm sac measuring 9.67 m AP by 10.5 cm transverse. There does appear to be a stent graft present. IMPRESSION: Cardiomegaly and trace left pleural effusion. There is some left basilar infiltrate or atelectasis. No other significant abnormality is seen. Dictated by: Dictated on workstation # [id number]
--- NOTE | 2020-12-26 12:03 | History & Physical-Hospitalist ---
ROCK PAGE 12/26/20 1203: History of Present Illness HPI/Chief Complaint Abner Healy is a 80y/o male who presented to the ER yesterday from [email or web address] w/ respiratory difficulty. PMH of Afib, COPD, and subdural hematoma from 12/15/20 in which he was transferred to [facility]. He was diagnosed w/ sepsis and LLL pneumonia and was started on vancomyocin and Zosyn. When I visited w/ pt this morning he was lethargic and communicated very little when I tried to ask him why he was here and what problems he was having. Did not give any history. He was able to follow basic commands. Source: patient Date Seen 12/26/20 Time Seen by a Provider: 08:40 Attending Physician Fatimah Mcleod MD PCP Brock Mas MD Referring Physician Date of Admission Dec 25, 2020 at 14:29 Home Medications & Allergies Home Medications Reviewed patient Home Medication Reconciliation performed by pharmacy medication reconciliations clinical dental technician and/or nursing. Patients Allergies have been reviewed. Allergies Allergies Coded Allergies No Known Drug Allergies (Unverified10/29/18) Past Foskrzm-Apjvmr-Yvvjna Hx Patient Social History Tobacco Use?: No Smoking Status: Never a Smoker Use of E-Cig and/or Vaping dev: No Substance use?: No Alcohol Use?: No Pt feels they are or have been: Yes Immunizations Up To Date Tetanus Booster (TDap): Unknown Current Status Advance Directives: Yes Advance Directive Location: Copy placed in chart Communicates: Verbally Primary Language: Ugandan Preferred Spoken Language: Ugandan Is interpretation needed?: No Sensory deficits: Hearing impairment Implanted or Applied Medical D: None Past Medical History Atrial Fibrillation, Hypertension Review of Systems ROS-Unable to Obtain: pt not responding to questioning Physical Exam Physical Exam Vital Signs Vital Signs - First Documented 12/25/20 12/25/20 11:00 20:13 Temp 37.0 Pulse 93 Resp 32 B/P (MAP) 126/88 (101) Pulse Ox 98 O2 Delivery Nasal Cannula O2 Flow Rate 3.00 FiO2 28 Capillary Refill : Less Than 3 Seconds Height, Weight, BMI Height: '" Weight: lbs. oz. kg; 31.30 BMI Method: General Appearance: Mild Distress, Other (lethargic) Respiratory: Decreased Breath Sounds (left lower lung field), Other (cough and tachypnea ) Cardiovascular: No Murmur, Tachycardia Gastrointestinal: Non Tender, Soft Extremity: Other (Rt hand swollen.) Neurologic/Psychiatric: No Alert Skin: Normal Color, Warm/Dry Results Results/Procedures Labs Laboratory Tests 12/25/20 11:00 12/26/20 06:32 Patient resulted labs reviewed. Assessment/Plan Assessment and Plan Subdural hematoma Head CT done due to history and lethargy Discussed w/ [facility]. Appears to be worsening. They are unable to take him due to no bed availability Currently seeking location for transfer Leukocytosis Lymphocytosis Abnormal WBC w/ elevated lymphocytes and smudge cells present Consulted Heme/onc LDH done-elevated DIC/coag profile done- D-dimer>20 Immunoglobulin panel ordered Chest CT done AAA Found on chest CT. Discussed w/ son he said that this was a previously known issue Pneumonia w/ sepsis Continue vancomyocin and Zosyn COPD Continue Duoneb and Solu-Medrol DVT prophylaxis mechanical prophylaxis via SCDs, pharmacologic prophylaxis contraindicated due to subdural hematoma FATIMAH MCLEOD MD 12/26/20 1942: History of Present Illness Source: patient, family Exam Limitations: clinical condition Time Seen by a Provider: 09:40 Past Tgwthud-Ssydsu-Ppzhhi Hx Family Medical History No Pertinent Family Hx Review of Systems Constitutional: see HPI Physical Exam Physical Exam General Appearance: Obese, Other (lethargic) HEENT: PERRL/EOMI, Pharynx Normal Neck: Normal Inspection, Supple Respiratory: Decreased Breath Sounds (left lower lung field), Other (cough and tachypnea ) Cardiovascular: No Murmur, Irregularly Irregular, Tachycardia Gastrointestinal: Normal Bowel Sounds, Soft; No Distended Extremity: Normal Inspection, No Pedal Edema, Other (right hand swelling, blood pressure cuff on right wrist) Neurologic/Psychiatric: No Alert; Motor Weakness (right sided), Other (lethargic) Skin: Normal Color, Warm/Dry Lymphatic: No Adenopathy Results Results/Procedures Imaging: Reviewed Imaging Films, Reviewed Imaging Report Assessment/Plan Admission Diagnosis Sepsis due to pneumonia Admission Status: Inpatient Order (span 2 midnights) Reason for Inpatient Admission: IV antibiotics Assessment and Plan Admitted with sepsis due to pneumonia. Lethargic upon my exam. Performed CT Head due to recent subdural hematoma, showed worsening. Discussed case with [facility], recommended transfer for intervention, but they are unable to accept due to no available ICU beds. Attempting transfer through [facility]. Also incidentally noted large AAA on CT. Also labs concerning for possible underlying CLL with lymphocytosis and smudge cells. Discussed case with Dr. Mckeon, hematology/oncology, who will consult. Continuing antibiotics for pneumonia. Discussed plan with sonMaynor. Critical Care Critically Ill Patient Diagnosis/Problems Diagnosis/Problems (1) Subdural hematoma, acute Status: Acute (2) Sepsis Status: Acute (3) LLL pneumonia Status: Acute (4) Lymphocytosis Status: Acute (5) AAA (abdominal aortic aneurysm) Status: Acute Qualifiers: Presence of rupture: without rupture Qualified Codes: I71.4 - Abdominal aortic aneurysm, without rupture Supervisory-Addendum Brief Verification & Attestation Participated in pt care: history, MDM, physical Personally performed: exam, history, MDM, supervision of care Care discussed with: Medical Student Procedures: n/a Results interpretation: Verified all documentation A medical student performed and documented this service in my presence. I reviewed and verified all information documented by the medical student and made modifications to such information, when appropriate. I personally performed the physical exam and medical decision making. ROCK PAGE Dec 26, 2020 12:03 FATIMAH MCLEOD MD Dec 26, 2020 19:42
[2020-12-26 12:30] LABS: FIBRIN DEGRADATION PRODUCTS >= 20.00 UG/ML (0.00-0.49); FIBRINOGEN 340 MG/DL (221-496); INR 1.2 (0.8-1.4); PARTIAL THROMBOPLASTIN TIME 25 SEC (24-35)
--- NOTE | 2020-12-26 13:15 | Tele-ICU Consult ---
History of Present Illness History of Present Illness Date Seen by Provider: Dec 26, 2020 Time Seen by Provider: 12:45 Date of Admission This virtual visit was conducted using real time audio/video. Thank you for asking us to see this patient for respiratory insufficiency and distress due to LLL pna w small effusion, AECOPD and SDH dx 12/15/20 and now 50% larger . HPC: Recent events: Seen in ER w resp distress PMH: COPD on home O2, afib. htn. SH: smoking history Y. [facility] resident. FH: Non-contributory ROS: limited by patient's clinical condition : lethargic PE: Lethargic but undistressed. VSS HR 80-120 irreg afib BP 130/103 RR 16 O2 sat 96 % on 2 LPM. HEENT: No obvious masses, adenopathy or JVD. Chest: clear to auscultation. CV: Irreg. S1 S2 No murmur or added sounds. Abd: Non-tender. Bowel sounds Y. : Unremarkable. Hartmann N. PERMANENT WAVER/psychiatric: Lethargic. No obvious focal findings. Extremities: 1+ edema. Capillary refill < 3 seconds. Skin: unremarkable. Results: Elevated WCC 22, BUN 24. Decreased Na 133. A/P: Respiratory insufficiency/distress: cpm Available chart/ vitals / labs /images reviewed. CXR very hyperinflated. CTC: LLL infilt ansd small effusion, no PEs, large AAA. Video assessment done using teleICU camera, rest of exam as per RN. Respiratory: Continue present management with Cornelio Mccurdy NC. Monitor for increasing oxygenation needs and/or need for NIV/intubation.. Critical Care: critically ill patient. Cont Zosyn, Vanco. Possible transfer for SDH management if bed becomes available. Afib per imaging account manager. Discussed with HEVER Mei. Asked RN to reach out to eICU if any questions or concerns later. Time spent with patient/coordination of care with other health professionals (mins): 27 Allergies and Home Medications Allergies Coded Allergies: No Known Drug Allergies (Unverified , 10/29/18) Past Medical/Social/Family Hx Patient Social History Tobacco Use?: No Smoking Status: Never a Smoker Use of E-Cig and/or Vaping dev: No Substance use?: No Alcohol Use?: No Pt stated abuse/neglect: Yes Immunizations Up To Date Influenza Vaccine Up-to-Date: Yes; Up-to-Date Tetanus Booster (TDap): Unknown Current Status Advance Directives: Yes Advance Directive Location: Copy placed in chart Communicates: Verbally Primary Language: Bermudian Preferred Spoken Language: Bermudian Is interpretation needed?: No Sensory deficits: Hearing impairment Implanted or Applied Medical D: None Review of Systems Constitutional: no symptoms reported Sepsis Event Evaluation Height, Weight, BMI Height: '" Weight: lbs. oz. kg; 31.30 BMI Method: Exam Exam Patient acknowledged, consented, and participated in this virtual visit which was conducted using real time audio/video Vital Signs Date Time Temp Pulse Resp B/P (MAP) Pulse Ox O2 Delivery O2 Flow Rate FiO2 12/26/20 12:34 Nasal Cannula 0.00 12/26/20 12:00 36.4 116 20 151/111 (124) 96 Room Air 12/26/20 11:02 95 Room Air 0.00 12/26/20 08:37 37.6 113 20 145/82 (103) 90 Room Air 12/26/20 08:01 0.00 12/26/20 08:00 Nasal Cannula 2.00 12/26/20 06:54 95 Room Air 0.00 12/26/20 04:45 36.8 12/26/20 04:00 110 18 148/96 (113) 96 Room Air 12/26/20 02:32 96 Room Air 21 12/26/20 01:00 111 12/26/20 00:05 36.5 12/26/20 00:00 107 30 142/111 (121) 97 Room Air 12/25/20 22:40 100 Nasal Cannula 2.00 12/25/20 20:13 37.0 93 98 28 12/25/20 20:00 Nasal Cannula 2.00 12/25/20 19:37 36.4 105 27 159/117 (131) 100 Room Air 12/25/20 19:00 100 12/25/20 16:25 100 Nasal Cannula 2.00 12/25/20 16:14 36.9 115 17 139/91 (107) 100 Nasal Cannula 2.00 12/25/20 15:48 79 20 129/75 100 Nasal Cannula 2.00 12/25/20 13:49 97 Nasal Cannula 2.00 I & O 12/26/20 07:00 Intake Total 837.5 ml Balance 837.5 ml Height & Weight Height: '" Weight: lbs. oz. kg; 31.30 BMI Method: General Appearance: Mild Distress, Other (lethargic) Neck: Full Range of Motion, Normal Inspection Respiratory: Decreased Breath Sounds (left lower lung field), Other (cough and tachypnea ) Cardiovascular: No Murmur, Tachycardia Capillary Refill: Less Than 3 Seconds Peripheral Pulses: 1+ Left Dors-Pedis (L), 1+ Radial Pulses (R) Extremity: Other (Rt hand swollen.) Neurologic/Psychiatric: No Alert Skin: Normal Color, Warm/Dry Results Lab Laboratory Tests 12/25/20 11:00 12/26/20 06:32 Assessment/Plan Assessment/Plan See free text Critical Care: Critically Ill Patient Time spent on discussion(mins): 0 RENAE MALIK MD Dec 26, 2020 13:14
--- NOTE | 2020-12-26 16:28 | Consultation-Cardiology ---
HPI-Cardiology Cardiology Consultation: Date of Consultation 12/26/20 Time Seen by a Provider: 15:40 Date of Admission Attending Physician Theodora Bryan MD Admitting Physician Brock Mas MD Consulting Physician MEDINA SEVERINO MD, MA, FACP, FACC, [facility], CCDS Physician requesting consult: Dr Bryan HPI: Chief Complaint: Reason for consultation: A Fib with intemittently rapid heart rate HPI 80 yo man admitted to Dr Bryan's service for increasing shortness of breath, confusion, and gen malaise. Apparently, has chronic A Fib and has chronically been on warfarin, but he or his family do not know how long. He had presented to the [facility] ER on 12/15/20 with headache and hypertension and was found to have subdural hematoma, was transferred to [facility] where he was treated conservatively and d/c'd. Came back to the ER at this hosp on 12/25/20 and was hospitalized. He gives short responses to some questions and does not respond to others. He has not been reporting cp or syncope or shortness of breath or p alpitations. Dr Bryan has noted the ventricular response from A Fib to be elevated and we were asked to see him in consult. He has been off anticoag since 08/15/20. Family reports a vague h/o of an "aneurysm" diagnosed around 2010 and for which they (fam or patient) don't know if it was treated. Review of Systems-Cardiology Review of Systems Constitutional: other (Pt is slow to respond and only selectively responsive to questions. To the extent a review of systems could be obtained is described under HPI) MVZ-Ljvxou-Dywajx Hx Patient Social History Smoking Status: Never a Smoker Have you traveled recently?: No Alcohol Use?: No Pt feels they are or have been: Yes Past Medical History PMH As described under Assessment. Family Medical History Family Medical History: No fam h/o premature CAD Allergies and Home Medications Allergies Coded Allergies: No Known Drug Allergies (Unverified , 10/29/18) Patient Home Medication List Home Medication List Reviewed: Yes Physical Exam-Cardiology Physical Exam Vital Signs/I&O 12/26/20 12/26/20 12/26/20 12/26/20 04:45 06:54 08:00 08:01 Temp 36.8 Pulse Ox 95 O2 Delivery Room Air Nasal Cannula O2 Flow Rate 0.00 2.00 0.00 12/26/20 12/26/20 12/26/20 12/26/20 08:37 11:02 12:00 12:34 Temp 37.6 36.4 Pulse 113 116 Resp 20 20 B/P (MAP) 145/82 (103) 151/111 (124) Pulse Ox 90 95 96 O2 Delivery Room Air Room Air Room Air Nasal Cannula O2 Flow Rate 0.00 0.00 12/26/20 12/26/20 12/26/20 12/26/20 13:18 14:00 14:50 15:00 Pulse 117 108 130 Resp 15 23 B/P (MAP) 159/119 (132) 143/109 (120) Pulse Ox 94 96 100 O2 Delivery Room Air Room Air Room Air O2 Flow Rate 0.00 12/26/20 12/26/20 12/26/20 15:56 16:00 16:15 Temp 36.5 Pulse 114 Resp 27 B/P (MAP) 129/91 (104) Pulse Ox 94 O2 Delivery Room Air Room Air O2 Flow Rate 0.00 12/26/20 00:00 Intake Total 667.5 ml Balance 667.5 ml Capillary Refill : Less Than 3 Seconds Constitutional: well-developed, well-nourished, other (intermittently confused) HEENT: PERRL, EOMI; No xanthelasmas are seen Neck: supple, carotid pulses are 2 + bilaterally Respiratory: No accessory muscle use; other (fair air entry; somewhat prolonged exp; diminished bs at bases) Gastrointestinal: No tender; soft; No guarding, No rebound; audible bowel sounds Extremities: No clubbing, No cyanosis, No significant edema Neurologic/Psychiatric: other (intermittently confused, seems to move all his limbs equally) Skin: No rash on exposed areas, No ulcerations on exposed areas Data Review Labs Laboratory Tests 12/25/20 18:08: Lactic Acid Level 0.71 12/26/20 06:32: White Blood Count 22.0H, Red Blood Count 4.36, Hemoglobin 15.3, Hematocrit 46, Mean Corpuscular Volume 105H, Mean Corpuscular Hemoglobin 35H, Mean Corpuscular Hemoglobin Concent 34, Red Cell Distribution Width 13.3, Platelet Count 148, Mean Platelet Volume 12.6H, Immature Granulocyte % (Auto) 0, Neutrophils (%) (Auto) 30L, Lymphocytes (%) (Auto) 68H, Monocytes (%) (Auto) 1, Eosinophils (%) (Auto) 0, Basophils (%) (Auto) 0, Neutrophils # (Auto) 6.7, Lymphocytes # (Auto) 14.9H, Monocytes # (Auto) 0.3, Eosinophils # (Auto) 0.0, Basophils # (Auto) 0.0, Immature Granulocyte # (Auto) 0.1, Sodium Level 133L, Potassium Level 4.2, Chloride Level 98, Carbon Dioxide Level 24, Anion Gap 11, Blood Urea Nitrogen 24H, Creatinine 0.81, Estimat Glomerular Filtration Rate 91, BUN/Creatinine Ratio 30, Glucose Level 132H, Calcium Level 9.1, Lactate Dehydrogenase 621H, Procalcitonin 0.04 12/26/20 06:33: Neutrophils % (Manual) 23, Lymphocytes % (Manual) 72, Monocytes % (Manual) 2, Eosinophils % (Manual) 0, Basophils % (Manual) 0, Band Neutrophils 1, Atypical Lymphocytes 2, Smudge Cells SLIGHT, Macrocytosis SLIGHT 12/26/20 11:51: Prothrombin Time 16.0H, INR Comment 1.2, Activated Partial Thromboplast Time 25, Fibrinogen 340, D-Dimer >= 20.00H Microbiology 12/25/20 Blood Culture - Preliminary, Resulted No growth 12/25/20 Urine Culture - Final, Complete NO GROWTH Laboratory Tests 12/25/20 11:00 12/26/20 06:32 A/P-Cardiology Assessment/Admission Diagnosis Subdural hematoma, which is reported to be expanding on CT head of 12/25/20 Chronic A Fib with intermittently rapid ventricular response - not suitable for anticoagulation due to subdural hematoma H/o hypertension Large AAA sac seen on CT chest/abd of 12/25/20, but the presence of a stent graft is also reported Discussion and Recomendations * Complex management due to multiple comorbidities * I spoke with Dr Bryan and have recommended transfer to a tertiary care facility for treatment of subdural hematoma * Beta-lin for vent rate control and bp control * prn hydralazine if bp elevated despite beta-lin * I discussed his CV issues with his family MEDINA SEVERINO MD FACP FAC CCDS Dec 26, 2020 16:28
[2020-12-26] MEDS: dilTIAZem DRIP PRE-MIX 125 ML IV SCH (16:34)
[2020-12-26] MEDS ORDERED: hydrALAZINE (APESOLINE) 20 MG/ML VIAL IV PRN (16:45)
[2020-12-26] MEDS: meTOprolol 5 MG/5 ML (LOPRESSOR) VIAL IV SCH ×2 (20:39→23:38)
--- NOTE | 2020-12-26 20:46 | CONSULTATION REPORT ---
DATE OF SERVICE: 12/26/2020 The patient is admitted to ICU bed 11. PHYSICIAN REQUESTING CONSULTATION: Theodora Bryan. PRIMARY PHYSICIAN: Brock Mas MD IMPRESSION: 1. An 80-year-old male admitted to the hospital with lethargy and mental status changes. 2. Left acute/subacute subdural hematoma, worsening since last evaluation on 12/15/2020. 3. Leukocytosis and lymphocytosis. This most likely is related to a lymphoproliferative disorder. 4. Incidental finding of large abdominal aortic aneurysm measuring 10.5 cm transverse. 5. Left lower lobe infiltrate, rule out pneumonia. 6. Chronic atrial fibrillation and previously on anticoagulation with warfarin. RECOMMENDATIONS: 1. Continue management of probable pneumonia as you are doing with broad spectrum antibiotic therapy. 2. Because of the subdural hematoma that is worsening, avoid all antiplatelet and anticoagulants. Agree with transfer to a center with neurosurgery for evacuation of the subdural hematoma. 3. As far as the leukocytosis and lymphocytosis is concerned, I would recommend a peripheral blood flow cytometry as the first step. I would also recommend obtaining serum protein electrophoresis as well as quantitative immunoglobulins to rule out monoclonal gammopathy or hypogammaglobulinemia, which could occur with lymphoproliferative disorders. 4. Once the patient is stable, he will need evaluation for the large abdominal aortic aneurysm from vascular surgery. 5. I will continue to follow the patient while he is admitted to [facility] pending transfer for higher level of care. 6. I have discussed his condition with his son and family and answered their questions. BRIEF HISTORY: The patient is an 80-year-old male, who was brought to [facility] [place] [facility] from [facility] with mental status changes. He was admitted to the hospital because of left lower lobe infiltrate, leukocytosis and hypotension. Previously, he had history of left subdural hematoma diagnosed on 12/15/2020 after a fall. He was initially evaluated on 12/03/2020 at [place] [facility] with CT scan of the head showing no evidence of hematoma. The patient has chronic atrial fibrillation and was on anticoagulation with warfarin for a long time. This has been discontinued and reversed at the time of diagnosis of subdural hematoma. He was evaluated at [facility] in [place] and felt that the hematoma was stable and did not need surgery. He was discharged back to [facility] where his condition worsened until he was brought to [facility] Emergency Room and admitted. Hematology consult was requested because of the leukocytosis with differential count showing lymphocytosis. The patient is unable to give any detailed history and most of the history was obtained from previous records as well as from his family. FAMILY HISTORY: Unremarkable and noncontributory. He is a and was living at [facility]. His son lives near [place] and was present during the interview and examination. Previous history of tobacco use and a history of COPD. PHYSICAL EXAMINATION: GENERAL: Showed an elderly male, moderately obese, lethargic and does not answer any questions. VITAL SIGNS: Temperature was 36.4, pulse rate of 130, respirations 23, blood pressure 143/109 with oxygen saturation of 100%. 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 Extraocular muscles intact. Oral mucosa moist. NECK: Supple, with no JVD. No cervical, supraclavicular or axillary lymphadenopathy palpable. CHEST: Symmetrical. LUNGS: Fairly clear to auscultation without wheezes or rales. CARDIOVASCULAR: Irregular and tachycardic. No murmurs heard. ABDOMEN: Soft, nontender with no definite hepatosplenomegaly or other masses palpable. EXTREMITIES: Showed no edema or petechiae. Few small ecchymoses noted. NEUROLOGIC: Could not be completed because of his lethargy and failure to follow instructions. He is moving all extremities. LABORATORY DATA: CBC done today showed WBC 22.0, hemoglobin 15.3, platelet count 148,000 with neutrophil count 6.7, lymphocyte count 14.9 and monocyte count 0.3. Previous CBC done on 12/15/2020 showed white count of 16.3, hemoglobin 14.6 and platelet count of 134,000 with neutrophil count 4.4, lymphocyte count 11.0 and monocyte count 0.8. CMP done on 12/25/2020 showed sodium level of 133 with rest of the electrolytes relatively normal. BUN was 24 and creatinine 0.88 with GFR 83 mL per minute. Total bilirubin was minimally elevated at 1.2 and albumin level of 3.0 with rest of the liver function studies within normal limits. Protime was 16.0 with INR of 1.2 today. Fibrinogen was 340 with D-dimer more than 20. Protime on 12/15/2020 was 23.6 with INR of 2.1 and on 12/12/2020was 33.6 with INR of 3.3. CT scan of the head done today showed mixed density left cerebral convexity subdural hematoma, which has increased since previous exam 11 days earlier and measures 2 cm in thickness compared to 1.3 cm previously. The left to right midline shift is 11 mm now compared with 6 mm previously. No new area of hemorrhage is detected. CT scan of the chest and upper abdomen done today showed cardiomegaly with trace left pleural effusion with a left basilar infiltrate or atelectasis. Upper abdomen demonstrates proximal portion of a large abdominal aortic aneurysm measuring 9.63 cm AP x 10.5 cm transverse with a stent graft present. Thank you for allowing me to participate in this patient's care. Job ID: [id number] DocumentID: [id number] Dictated Date: 12/26/2020 15:57:21 Electrical Engineering Director Date: 12/26/2020 20:05:31 Dictated By: EDWAR WESTBROOK MD
[2020-12-27] VITALS (13 sets, daily range): BP systolic 105–152; BP diastolic 80–117
[2020-12-27] MEDS: meTOprolol 5 MG/5 ML (LOPRESSOR) VIAL IV SCH ×2 (02:56→07:49)
[2020-12-27] MEDS: VANCOMYCIN 1 GM/NS 250 ML IVPB IV SCH ×2 (05:29)
[2020-12-27] MEDS: PIPERACILLIN/TAZO 4.5 GM/NS 100 ML IV SCH ×2 (05:29)
[2020-12-27 05:54] LABS: EOSINOPHILS % (AUTO) 0 % (0-10); HEMOGLOBIN 14.4 g/dL (13.3-17.7); PLATELET COUNT 110 10^3/uL (130-400)
[2020-12-27 05:56] LABS: BASOPHILS % (AUTO) 0 % (0-10); HEMATOCRIT 43 % (40-54); LYMPHOCYTES # (AUTO) 17.7 10^3/uL (1.0-4.0); LYMPHOCYTES % (AUTO) 60 % (12-44); MEAN CORPUSCULAR HEMOGLOBIN 34 pg (25-34); MEAN CORPUSCULAR HGB CONC 33 g/dL (32-36); MEAN CORPUSCULAR VOLUME 103 fL (80-99); MEAN PLATELET VOLUME 13.5 fL (9.0-12.2); MONOCYTES # (AUTO) 0.6 10^3/uL (0.0-1.0); MONOCYTES % (AUTO) 2 % (0-12); NEUTROPHILS # (AUTO) 10.9 10^3/uL (1.8-7.8); NEUTROPHILS % (AUTO) 37 % (42-75); WHITE BLOOD COUNT 29.3 10^3/uL (4.3-11.0)
[2020-12-27 06:05] LABS: POTASSIUM 3.9 MMOL/L (3.6-5.0)
[2020-12-27 06:06] LABS: CALCIUM 8.7 MG/DL (8.5-10.1)
[2020-12-27 06:10] LABS: CREATININE SERUM 0.78 MG/DL (0.60-1.30)
[2020-12-27] MEDS: RT-ALBUTEROL/IPRATROPIUM 3 ML (DUONEB) VIAL INH SCH ×2 (06:49→10:11)
[2020-12-27] MEDS: methylPREDNISolone 125 MG (Solu-MEDROL) VIAL IV SCH (07:53)
[2020-12-27] MEDS: dilTIAZem DRIP PRE-MIX 125 ML IV SCH (07:55)
[2020-12-27] MEDS: LACTATED RINGERS 1,000 ML IV SCH (09:32)
--- NOTE | 2020-12-27 17:53 | Discharge Summary ---
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 He was started on IV antibiotics. The morning after his admission he was lethargic. He had a recent subdural hematoma. A repeat CT showed worsening of the subdural hematoma. His course was complicated by lymphocytosis with smudge cells. There was concern for lymphoproliferative disorder and Dr. Mckeon, hematology/oncology, was consulted and assisted with his care. A workup was begun and pending at the time of discharge. He underwent a CT Chest which revealed a large AAA. He also had issues with AFib with RVR and was started on IV Cardizem. He was transferred to [facility] where he was recently admitted for his subdural hematoma for neurosurgery evaluation and likely evacuation of the hematoma. Labs and Pending Lab Test: Laboratory Tests 12/27/20 05:42: White Blood Count 29.3H, Red Blood Count 4.21L, Hemoglobin 14.4, Hematocrit 43, Mean Corpuscular Volume 103H, Mean Corpuscular Hemoglobin 34, Mean Corpuscular Hemoglobin Concent 33, Red Cell Distribution Width 13.6, Platelet Count 110L, Mean Platelet Volume 13.5H, Immature Granulocyte % (Auto) 1, Neutrophils (%) (Auto) 37L, Lymphocytes (%) (Auto) 60H, Monocytes (%) (Auto) 2, Eosinophils (%) (Auto) 0, Basophils (%) (Auto) 0, Neutrophils # (Auto) 10.9H, Lymphocytes # (Auto) 17.7H, Monocytes # (Auto) 0.6, Eosinophils # (Auto) 0.0, Basophils # (Auto) 0.0, Immature Granulocyte # (Auto) 0.2H, Percent Immature Platelet Fraction 19.1H, Sodium Level 134L, Potassium Level 3.9, Chloride Level 100, Carbon Dioxide Level 26, Anion Gap 8, Blood Urea Nitrogen 23H, Creatinine 0.78, Estimat Glomerular Filtration Rate 95, BUN/Creatinine Ratio 29, Glucose Level 140H, Calcium Level 8.7, Total Protein (PEP) [Pending], Protein Electrophoresis Pathologist [Pending] Microbiology 12/25/20 Blood Culture - Preliminary, Resulted No growth 12/25/20 Urine Culture - Final, Complete NO GROWTH Assessment/Pt Instructions Patient transferred to [facility] for neurosurgery evaluation Discharge Planning: >30 minutes discharge planning Discharge Physical Examination Vital Signs Vital Signs Date Time Temp Pulse Resp B/P (MAP) Pulse Ox O2 Delivery O2 Flow Rate FiO2 12/27/20 12:00 96 16 107/88 (94) 97 Room Air 12/27/20 11:54 36.3 12/27/20 10:11 0.00 12/26/20 02:32 21 General Appearance: No Apparent Distress, Obese Respiratory: Lungs Clear, Normal Breath Sounds, No Respiratory Distress Cardiovascular: Regular Rate, Rhythm, No Edema, No Murmur Gastrointestinal: Normal Bowel Sounds, Non Tender, Soft Extremity: Normal Inspection, Non Tender, No Pedal Edema Skin: Normal Color, Warm/Dry Neurologic/Psychiatric: Alert, Disoriented, Motor Weakness (right sided) Allergies: Coded Allergies: No Known Drug Allergies (Unverified , 10/29/18) Copy Copies To 1: JEANINE INTERIANO MD Discharge Summary Date of Admission Dec 25, 2020 at 14:29 Date of Discharge Discharge Date: Dec 27, 2020 Discharge Time: 12:15 Admission Diagnosis Sepsis due to pneumonia Consults/Procedures Consulations TeleICU, Hematology/Oncology, Cardiology Comfort Measures/ Time spent on discussion (min): 0 Discharge Diagnosis Subdural hematoma Lymphocytosis 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
[2020-12-28 09:47] LABS: NEUTROPHILS % (MANUAL) 23 %
== END 2020-12-27 14:45 | disposition short-term general hospital (02) | DRG 871 ==
LOC: EDUNIT# 11:06 → ER 11:07 → CSD 14:29 → ICU 12-26 12:22
PROVIDERS: ADMIT Internal Medicine; ATTEND Internal Medicine
DX: A41.9 Sepsis, unspecified organism (principal); J18.9 Pneumonia, unspecified organism; I48.20 Chronic atrial fibrillation, unspecified; S06.5X9D Traumatic subdural hemorrhage with loss of consciousness of unspecified duration, subsequent encounter; D47.9 Neoplasm of uncertain behavior of lymphoid, hematopoietic and related tissue, unspecified; J44.9 Chronic obstructive pulmonary disease, unspecified; I71.4 Abdominal aortic aneurysm, without rupture; Z66 Do not resuscitate; Z20.822 Contact with and (suspected) exposure to COVID-19; I10 Essential (primary) hypertension; W19.XXXD Unspecified fall, subsequent encounter
CPT/HCPCS: 36415; 36600; 70450; 71045; 71250; 80048; 80053; 81000; 82784; 82805; 83605; 83615; 83880; 84145; 84155; 84165; 85007; 85025; 85027; 85379; 85384; 85610; 85730; 87040; 87088; 87636; 94640; 94760; 96374